=== PATIENT | female | born 1960 | race Caucasian/White ===

== ENCOUNTER 2016-09-15 12:32 | Emergency (ER) | payer MEDICARE, OTHER, MEDICAID ==
[2016-09-15] MEDS ORDERED: TETANUS/DIPHTHERIA/PERTUSSIS 0.5 ML SYRINGE IM ONE ×2 (14:27→14:33)
== END 2016-09-15 14:42 | disposition home or self-care (01) ==
DX: S61.032A Puncture wound without foreign body of left thumb without damage to nail, initial encounter (principal); W27.2XXA Contact with scissors, initial encounter; Z23 Encounter for immunization; I10 Essential (primary) hypertension; E11.9 Type 2 diabetes mellitus without complications; Z79.84 Long term (current) use of oral hypoglycemic drugs

== ENCOUNTER 2016-10-17 | Outpatient (CLI) | payer MEDICARE, OTHER, MEDICAID | END 2016-10-17 17:19 | disposition critical access hospital (66) | CPT/HCPCS: A0425; A0429 ==

== ENCOUNTER 2016-10-17 17:35 | Emergency (ER) | payer MEDICARE, OTHER, MEDICAID | END 2016-10-17 19:28 | disposition home or self-care (01) | DX: S90.01XA Contusion of right ankle, initial encounter (principal); W51.XXXA Accidental striking against or bumped into by another person, initial encounter; Y92.410 Unspecified street and highway as the place of occurrence of the external cause; I10 Essential (primary) hypertension; E11.9 Type 2 diabetes mellitus without complications; Z79.84 Long term (current) use of oral hypoglycemic drugs ==

== ENCOUNTER 2016-10-28 15:55 | Outpatient (CLI) | payer MEDICARE, OTHER, MEDICAID | END 2016-10-28 15:56 | disposition home or self-care (01) | DX: E11.9 Type 2 diabetes mellitus without complications (principal); I10 Essential (primary) hypertension; D50.8 Other iron deficiency anemias ==

== ENCOUNTER 2016-11-01 | Outpatient (CLI) | payer MEDICARE, OTHER, MEDICAID | END 2016-11-01 12:59 | disposition critical access hospital (66) | DX: R00.0 Tachycardia, unspecified (principal) | CPT/HCPCS: A0425; A0427 ==

== ENCOUNTER 2016-11-01 13:20 | Emergency (ER) | payer MEDICARE, OTHER, MEDICAID | END 2016-11-01 15:47 | disposition home or self-care (01) | DX: R00.2 Palpitations (principal); I45.10 Unspecified right bundle-branch block; R94.31 Abnormal electrocardiogram [ECG] [EKG]; I10 Essential (primary) hypertension; E11.9 Type 2 diabetes mellitus without complications; Z79.84 Long term (current) use of oral hypoglycemic drugs ==

== ENCOUNTER 2016-11-14 13:04 | Emergency (ER) | payer MEDICARE, OTHER, MEDICAID | END 2016-11-14 15:54 | disposition home or self-care (01) | DX: S93.601A Unspecified sprain of right foot, initial encounter (principal); W01.0XXA Fall on same level from slipping, tripping and stumbling without subsequent striking against object, initial encounter; I10 Essential (primary) hypertension; E11.9 Type 2 diabetes mellitus without complications; Z79.84 Long term (current) use of oral hypoglycemic drugs ==

== ENCOUNTER 2016-11-15 14:40 | Outpatient (CLI) | payer MEDICARE, OTHER, MEDICAID | END 2016-11-15 14:41 | disposition EMS.NT | DX: M79.671 Pain in right foot (principal) ==

== ENCOUNTER 2016-11-25 11:08 | Outpatient (CLI) | payer MEDICARE, OTHER, MEDICAID | END 2016-11-25 11:09 | disposition home or self-care (01) | DX: I42.9 Cardiomyopathy, unspecified (principal); I49.3 Ventricular premature depolarization ==

== ENCOUNTER 2016-11-27 10:05 | Outpatient (CLI) | payer MEDICARE, OTHER, MEDICAID | END 2016-11-27 10:06 | disposition critical access hospital (66) | DX: R52 Pain, unspecified (principal) | CPT/HCPCS: A0425; A0429 ==

== ENCOUNTER 2016-11-27 10:26 | Emergency (ER) | payer MEDICARE, OTHER, MEDICAID | END 2016-11-27 12:34 | disposition home or self-care (01) | DX: K42.9 Umbilical hernia without obstruction or gangrene (principal); I10 Essential (primary) hypertension; E11.9 Type 2 diabetes mellitus without complications; Z79.84 Long term (current) use of oral hypoglycemic drugs; Z88.0 Allergy status to penicillin; Z88.2 Allergy status to sulfonamides ==

== ENCOUNTER 2016-11-29 14:08 | Outpatient (CLI) | payer MEDICARE, OTHER, MEDICAID | END 2016-11-29 14:09 | disposition critical access hospital (66) | DX: R10.30 Lower abdominal pain, unspecified (principal) | CPT/HCPCS: A0425; A0429 ==

== ENCOUNTER 2016-11-29 14:27 | Emergency (ER) | payer MEDICARE, OTHER, MEDICAID | END 2016-11-29 15:59 | disposition home or self-care (01) | DX: K42.9 Umbilical hernia without obstruction or gangrene (principal); I10 Essential (primary) hypertension; E11.9 Type 2 diabetes mellitus without complications; Z79.84 Long term (current) use of oral hypoglycemic drugs ==

== ENCOUNTER 2016-12-06 14:08 | Outpatient (CLI) | payer MEDICARE, OTHER, MEDICAID | END 2016-12-06 14:09 | disposition EMS.NT | DX: S61.211A Laceration without foreign body of left index finger without damage to nail, initial encounter (principal) ==

== ENCOUNTER 2016-12-16 09:06 | Day surgery (SDC) | payer MEDICARE, OTHER, MEDICAID ==
[~2016-12-16 09:06] MED LIST: ceFAZolin 3 GM in SODIUM CHLORIDE 0.9% 100ML 100 ML IV SCH
[2016-12-16] MEDS ORDERED: LACTATED RINGERS 1,000 ML IV ONE (09:52)
[2016-12-16] MEDS ORDERED: BUPIVACAINE 0.5% PF 30 ML VIAL INFIL ONE (10:15)
[2016-12-16] MEDS ORDERED: PROPOFOL 200 MG/20 ML VIAL IVP ONE (11:00)
[2016-12-16] MEDS ORDERED: MIDAZOLAM 2 MG/2 ML VIAL IVP ONE (11:00)
[2016-12-16] MEDS ORDERED: DEXAMETHASONE 4 MG/ML VIAL IVP ONE (11:00)
[2016-12-16] MEDS ORDERED: SUCCINYLCHOLINE 200 MG/10 ML VIAL IVP ONE (11:00)
[2016-12-16] MEDS ORDERED: fentaNYL 100 MCG/2 ML VIAL IVP ONE (11:00)
[2016-12-16] MEDS ORDERED: LIDOCAINE-MPF 2% 5 ML VIAL IM ONE (11:00)
[2016-12-16] MEDS ORDERED: PHENYLEPHRINE 50 MG/5 ML VIAL IV ONE (11:00)
[2016-12-16] MEDS ORDERED: KETOROLAC 30 MG/ML VIAL IVP ONE (11:00)
[2016-12-16] MEDS ORDERED: ROCURONIUM 50 MG/5 ML VIAL IVP ONE (11:00)
== END 2016-12-16 09:07 | disposition home or self-care (01) ==
PROC: 0WUF0JZ Supplement Abdominal Wall with Synthetic Substitute, Open Approach (ICD-10-PCS; principal; 2016-12-16 10:00)
DX: K42.9 Umbilical hernia without obstruction or gangrene (principal); E66.01 Morbid (severe) obesity due to excess calories; I10 Essential (primary) hypertension; I49.9 Cardiac arrhythmia, unspecified; E11.9 Type 2 diabetes mellitus without complications; Z68.41 Body mass index [BMI] 40.0-44.9, adult
CPT/HCPCS: 49587; C1781; J7120

== ENCOUNTER 2016-12-27 17:31 | Outpatient (CLI) | payer MEDICARE, OTHER, MEDICAID | END 2016-12-27 17:32 | disposition critical access hospital (66) | DX: R58 Hemorrhage, not elsewhere classified (principal) | CPT/HCPCS: A0425; A0429 ==

== ENCOUNTER 2016-12-27 17:50 | Emergency (ER) | payer MEDICARE, OTHER, MEDICAID | END 2016-12-27 18:43 | disposition home or self-care (01) | DX: L76.34 Postprocedural seroma of skin and subcutaneous tissue following other procedure (principal); L76.22 Postprocedural hemorrhage of skin and subcutaneous tissue following other procedure; Y83.8 Other surgical procedures as the cause of abnormal reaction of the patient, or of later complication, without mention of misadventure at the time of the procedure; R03.0 Elevated blood-pressure reading, without diagnosis of hypertension; E11.9 Type 2 diabetes mellitus without complications; Z79.84 Long term (current) use of oral hypoglycemic drugs ==

== ENCOUNTER 2017-01-01 13:42 | Outpatient (CLI) | payer MEDICARE, OTHER, MEDICAID | END 2017-01-01 13:43 | disposition EMS.NT | DX: Z03.89 Encounter for observation for other suspected diseases and conditions ruled out (principal) ==

== ENCOUNTER 2017-02-03 10:58 | Outpatient (CLI) | payer MEDICARE, OTHER, MEDICAID ==
[2017-02-03 13:03] LABS: CALCIUM 9.3 mg/dL (8.5-10.3); CREATININE 1.3 mg/dL (0.4-1.0); POTASSIUM 4.7 mmol/L (3.5-5.0)
[2017-02-03 13:33] LABS: HEMOGLOBIN A1C 0.65 g/dL
== END 2017-02-03 10:59 | disposition home or self-care (01) ==
LOC: LAB.N 10:58
PROVIDERS: ATTEND Family Medicine
DX: E11.9 Type 2 diabetes mellitus without complications (principal)
CPT/HCPCS: 36415; 80048; 83036

== ENCOUNTER 2017-03-23 11:28 | Emergency (ER) | payer MEDICARE, OTHER, MEDICAID ==
--- NOTE | 2017-03-23 12:26 | ED Physician Documentation ---
PD HPI SKIN - Stated complaint Stated Complaint: RT FT/ANKLE RASH - Chief complaint Chief Complaint: Ext Problem - History obtained from History obtained from: Patient - History of Present Illness Timing - onset: How many weeks ago (few) Timing - duration: Weeks Timing - details: Gradual onset, Still present, Waxing and waning Location: Other (patches of rash on feet after wearing shoes. Tried some antibiotic cream per direction of PMD without improvement. The areas are itchy.) Quality / character: Itchy, Discolored (red). 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 : None HEENT: Chronic vision loss Psych: Other Musculoskeletal: None Derm: None - Past Surgical History Past Surgical History: Yes /PHYSICIAN SUPPORT COORDINATOR: Dilation and currettage, Other HEENT: Myringotomy (tubes) - Present Medications Home Medications: Ambulatory Orders Medication Instructions Recorded Confirmed Cholecalciferol (Vitamin D3) 2,000 unit PO DAILY 01/01/13 12/12/16 [Vitamin D] Ferrous Gluconate [Iron] 324 mg PO DAILY 01/01/13 12/12/16 Lisinopril 20 mg PO DAILY 01/01/13 12/12/16 Metformin HCl 850 mg PO BID 01/01/13 12/12/16 Multivitamin [Multivitamins] 1 each PO DAILY 01/01/13 12/12/16 Sodium Fluoride [Prevident 5000] 1 ml PO DAILY 03/04/14 12/12/16 Lansoprazole [Prevacid] 30 mg PO DAILY 02/18/15 12/12/16 Sucralfate [Carafate] 1 gm PO ACHS #30 udc 02/24/15 12/12/16 Magnesium Chloride [Mag Delay] 64 mg PO DAILY 12/12/16 12/12/16 Clotrimazole/Betamethasone Dip 1 applic TP BID #15 cream..g. 03/23/17 [Clotrimazole-Betamethasone Crm] - Allergies Allergies/Adverse Reactions: Allergies Allergy/AdvReac Type Severity Reaction Status Date / Time Penicillins Allergy Unknown Rash Verified 11/27/16 10:35 sulfamethoxazole Allergy Unknown Rash Verified 11/27/16 10:35 [From ] trimethoprim [From ] Allergy Unknown Rash Verified 11/27/16 10:35 amoxicillin [Amoxicillin] Allergy hives/itchi Verified 11/27/16 10:35 ng - Social History Does the pt smoke?: No Smoking Status: Never smoker Does the pt drink ETOH?: No Does the pt have substance abuse?: No - Immunizations Immunizations are current?: Yes - POLST Patient has POLST: No PD ED PE NORMAL - Vitals Vital signs reviewed: Yes - General General: Alert and oriented X 3, No acute distress, Well developed/nourished - Derm Derm: Warm and dry, Other (both feet with small patches of finely bumpy red demarcated rash spots on dorsum and near heels. Not between toes. No skin breakdown. ) Results - Vitals Vitals: Vital Signs - 24 hr 03/23/17 03/23/17 11:31 13:06 Temperature 36.6 C Heart Rate 78 71 Respiratory 18 18 Rate Blood Pressure 134/76 H 136/62 H O2 Saturation 98 98 Oxygen O2 Source Room air PD MEDICAL DECISION MAKING - ED course Complexity details: considered differential (consider yeast/ tinea patches and will try antifungal. ), d/w patient Departure - Departure Disposition: 01 Home, Self Care Clinical Impression: Skin rash Fungal infection of foot Qualifiers: Laterality: bilateral Qualified Code(s): B35.3 - Tinea pedis Condition: Stable Record reviewed to determine appropriate education?: Yes Follow-Up: Melvin Soto MD [Primary Care Provider] - Prescriptions: Clotrimazole/Betamethasone Dip [Clotrimazole-Betamethasone Crm] 1 applic TP BID #15 cream..g. Comments: Continue the mupirocin ointment twice daily. Add the betamethasone/ Clotrimazole cream as well. Recheck if not better over the next week. Discharge Date/Time: 03/23/17 13:06
[2017-03-23 13:07] VITALS: BP 136/62
== END 2017-03-23 13:06 | disposition home or self-care (01) ==
LOC: ED 11:28
DX: R21 Rash and other nonspecific skin eruption (principal); B35.3 Tinea pedis; E11.9 Type 2 diabetes mellitus without complications; Z79.84 Long term (current) use of oral hypoglycemic drugs
CPT/HCPCS: 99283

== ENCOUNTER 2017-03-29 15:34 | Outpatient (CLI) | payer MEDICARE, OTHER, MEDICAID | END 2017-03-29 15:35 | disposition critical access hospital (66) | LOC: EMS 15:34 | PROVIDERS: ATTEND Surgery | DX: M25.572 Pain in left ankle and joints of left foot (principal); W01.0XXA Fall on same level from slipping, tripping and stumbling without subsequent striking against object, initial encounter; Y92.039 Unspecified place in apartment as the place of occurrence of the external cause | CPT/HCPCS: A0425; A0429 ==

== ENCOUNTER 2017-03-29 15:54 | Emergency (ER) | payer MEDICARE, OTHER, MEDICAID ==
--- NOTE | 2017-03-29 15:59 | ED Physician Documentation ---
PD HPI LOWER EXT INJURY - Stated complaint Stated Complaint: ANKLE PX - History obtained from History obtained from: Patient, EMS - History of Present Illness PD HPI LOW EXT INJURY LOCATION: Other (56-year-old woman with developmental delay who has very frequent ankle injuries, she fell in her house and injured her left ankle. By report she had back pain but she denies this to me. She is able to walk and bear weight. No other injuries. She declines pain medication. 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 : None HEENT: Chronic vision loss Psych: Other Musculoskeletal: None Derm: None - Past Surgical History Past Surgical History: Yes /COMMERCIAL GLAZIER: Dilation and currettage, Other HEENT: Myringotomy (tubes) - Present Medications Home Medications: Ambulatory Orders Medication Instructions Recorded Confirmed Cholecalciferol (Vitamin D3) 2,000 unit PO DAILY 01/01/13 12/12/16 [Vitamin D] Ferrous Gluconate [Iron] 324 mg PO DAILY 01/01/13 12/12/16 Lisinopril 20 mg PO DAILY 01/01/13 12/12/16 Metformin HCl 850 mg PO BID 01/01/13 12/12/16 Multivitamin [Multivitamins] 1 each PO DAILY 01/01/13 12/12/16 Sodium Fluoride [Prevident 5000] 1 ml PO DAILY 03/04/14 12/12/16 Lansoprazole [Prevacid] 30 mg PO DAILY 02/18/15 12/12/16 Sucralfate [Carafate] 1 gm PO ACHS #30 udc 02/24/15 12/12/16 Magnesium Chloride [Mag Delay] 64 mg PO DAILY 12/12/16 12/12/16 Clotrimazole/Betamethasone Dip 1 applic TP BID #15 cream..g. 03/23/17 [Clotrimazole-Betamethasone Crm] - Allergies Allergies/Adverse Reactions: Allergies Allergy/AdvReac Type Severity Reaction Status Date / Time Penicillins Allergy Unknown Rash Verified 11/27/16 10:35 sulfamethoxazole Allergy Unknown Rash Verified 11/27/16 10:35 [From Septra] trimethoprim [From Septra] Allergy Unknown Rash Verified 11/27/16 10:35 amoxicillin [Amoxicillin] Allergy hives/itchi Verified 11/27/16 10:35 ng - Social History Does the pt smoke?: No Smoking Status: Never smoker Does the pt drink ETOH?: No Does the pt have substance abuse?: No - Immunizations Immunizations are current?: Yes - POLST Patient has POLST: No PD ED PE NORMAL - Vitals Vital signs reviewed: Yes - General General: Alert and oriented X 3, No acute distress - Neck Neck: Supple, no meningeal sign, No bony TTP - Back Back: No spinal TTP - Extremities Extremities: Other (Tender to the lateral malleolus of the left ankle without obvious deformity or swelling, no foot or proximal fibular tenderness.) - Neuro Neuro: Alert and oriented X 3, Normal speech Results - Vitals Vitals: Vital Signs - 24 hr 03/29/17 15:59 Temperature 36.9 C Heart Rate 124 H Respiratory 18 Rate Blood Pressure 134/69 H O2 Saturation 98 Oxygen O2 Source Room air - Rads (name of study) L ankle 3vb Radiology: EMP read contemporaneously (stable chronic changes, no frx) Departure - Departure Disposition: 01 Home, Self Care Clinical Impression: Ankle sprain Qualifiers: Encounter type: initial encounter Involved ligament of ankle: unspecified ligament Laterality: left Qualified Code(s): S93.402A - Sprain of unspecified ligament of left ankle, initial encounter Condition: Good Instructions: ED Sprain Ankle W X Ray Comments: Tylenol as needed for pain. Return if worse. Follow-up with your doctor in 1 week if not better. Your blood pressure was elevated today on check into the emergency department. This does not mean that you have hypertension, it is a common phenomenon to come to the emergency department and have elevated blood pressure. I recommend that she see her primary care physician within the week to have it rechecked when you are feeling better.
[2017-03-29 16:01] VITALS: BP 134/69
--- NOTE | 2017-03-29 16:35 | XRAY Preliminary Report ---
Exam: XR Ankle 3 View LT IMPRESSION: 1. No acute bony abnormality. 2. 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 [facility] SITE ID: [id number]
--- NOTE | 2017-03-29 16:38 | XRAY Report ---
EXAM: LEFT ANKLE RADIOGRAPHY EXAM DATE: 03/29/2017 04:13 PM. CLINICAL HISTORY: Fall Ankle injury. Pain. COMPARISON: 11/05/2015. TECHNIQUE: 3 views. FINDINGS: Bones: No acute traumatic or destructive bone abnormality. Stable lateral talar dome deformity concer lopez for osteochondritis dissecans. Stable calcaneal enthesophytes. Joints: Normal. No effusion. No subluxations. The ankle mortise is normally aligned. Soft Tissues: Normal. No soft tissue swelling. IMPRESSION: 1. No acute bony abnormality. 2. 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 [facility] Referring Provider Line: [phone] SITE ID: [id number]
== END 2017-03-29 18:53 | disposition home or self-care (01) ==
LOC: EDUNIT# → ED 15:54
DX: S93.402A Sprain of unspecified ligament of left ankle, initial encounter (principal); E11.8 Type 2 diabetes mellitus with unspecified complications; Z79.84 Long term (current) use of oral hypoglycemic drugs; W19.XXXA Unspecified fall, initial encounter; Y92.009 Unspecified place in unspecified non-institutional (private) residence as the place of occurrence of the external cause
CPT/HCPCS: 99283

== ENCOUNTER 2017-04-24 11:05 | Emergency (ER) | payer MEDICARE, OTHER, MEDICAID ==
[2017-04-24 11:25] VITALS: BP 107/64
--- NOTE | 2017-04-24 12:22 | ED Physician Documentation ---
PD HPI LOWER EXT INJURY - Stated complaint Stated Complaint: LT KNEE PX - Chief complaint Chief Complaint: Ext Problem - History obtained from History obtained from: Patient - History of Present Illness PD HPI LOW EXT INJURY LOCATION: Left, Knee Type of injury: Fall Where injury occurred: Home Timing - onset: Today Associated symptoms: No: Swelling - Additional information Additional information: The patient is a 56-year-old female who is well-known to us in the emergency department because of frequent emergency department visits, often with minor complaints. Today she complains of left knee pain caused by falling on the sidewalk when she stumbled this morning. She has been ambulatory since the incident occurred. She denies any other injuries. 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 : None HEENT: Chronic vision loss Psych: Other Musculoskeletal: None Derm: None - Past Surgical History Past Surgical History: Yes /LOADER OPERATOR SUPERVISOR: Dilation and currettage, Other HEENT: Myringotomy (tubes) - Present Medications Home Medications: Ambulatory Orders Medication Instructions Recorded Confirmed Cholecalciferol (Vitamin D3) 2,000 unit PO DAILY 01/01/13 04/24/17 [Vitamin D] Ferrous Gluconate [Iron] 324 mg PO DAILY 01/01/13 04/24/17 Lisinopril 20 mg PO DAILY 01/01/13 04/24/17 Metformin HCl 850 mg PO BID 01/01/13 04/24/17 Multivitamin [Multivitamins] 1 each PO DAILY 01/01/13 04/24/17 Sodium Fluoride [Prevident 5000] 1 ml PO DAILY 03/04/14 04/24/17 Lansoprazole [Prevacid] 30 mg PO DAILY 02/18/15 04/24/17 Sucralfate [Carafate] 1 gm PO ACHS #30 udc 02/24/15 04/24/17 Magnesium Chloride [Mag Delay] 64 mg PO DAILY 12/12/16 04/24/17 Clotrimazole/Betamethasone Dip 1 applic TP BID #15 cream..g. 03/23/17 04/24/17 [Clotrimazole-Betamethasone Crm] - Allergies Allergies/Adverse Reactions: Allergies Allergy/AdvReac Type Severity Reaction Status Date / Time Penicillins Allergy Unknown Rash Verified 04/24/17 11:27 sulfamethoxazole Allergy Unknown Rash Verified 04/24/17 11:27 [From ] trimethoprim [From ] Allergy Unknown Rash Verified 04/24/17 11:27 amoxicillin [Amoxicillin] Allergy hives/itchi Verified 04/24/17 11:27 ng - Social History Does the pt smoke?: No Smoking Status: Never smoker Does the pt drink ETOH?: No Does the pt have substance abuse?: No - Immunizations Immunizations are current?: Yes - POLST Patient has POLST: No PD ED PE NORMAL - Vitals Vital signs reviewed: Yes (normal) - General General: Alert and oriented X 3, Well developed/nourished - HEENT HEENT: Atraumatic - Neck Neck: No bony TTP - Cardiac Cardiac: RRR - Respiratory Respiratory: No respiratory distress - Back Back: No CVA TTP - Derm Derm: No rash - Extremities Extremities: No edema, No calf tenderness / cord, Other (There is minimal tenderness to palpation at the infrapatellar region of the left knee. There is no swelling, abrasion, ecchymosis, or erythema. There is no tenderness to palpation along the joint lines, and no ligamentous instability detected. She has full flexion and extension of the knee. Distal neurovascular is intact.) - Neuro Neuro: Alert and oriented X 3, No motor deficit, No sensory deficit Results - Vitals Vitals: Oxygen O2 Source Room air PD MEDICAL DECISION MAKING - ED course Complexity details: reviewed old records, considered differential, d/w patient ED course: The patient's presentation is significant for mild contusion to the left knee secondary to falling. Based on her physical examination, I doubt that imaging studies would be of clinical benefit. I discussed this with her and she expressed agreement. I discussed with her the expected course of injury, symptomatic treatment, as well as potentially worrisome signs or symptoms that should prompt reevaluation. Departure - Departure Disposition: 01 Home, Self Care Clinical Impression: Contusion of left knee Qualifiers: Encounter type: initial encounter Qualified Code(s): S80.02XA - Contusion of left knee, initial encounter Condition: Stable Instructions: ED Contusion Lower Ext Follow-Up: Melvin Soto MD [Primary Care Provider] - Comments: Apply ice pack to your left knee intermittently for the next 3 days. You can use ibuprofen if needed for discomfort. Follow-up with your primary physician if not improving within 1-2 weeks. Return to the emergency department if you develop increasing pain or swelling of your knee, or otherwise worsening symptoms. Discharge Date/Time: 04/24/17 12:32
== END 2017-04-24 12:32 | disposition home or self-care (01) ==
LOC: ED 11:05
DX: S80.02XA Contusion of left knee, initial encounter (principal); W01.0XXA Fall on same level from slipping, tripping and stumbling without subsequent striking against object, initial encounter; Y93.01 Activity, walking, marching and hiking; Y92.480 Sidewalk as the place of occurrence of the external cause; E11.9 Type 2 diabetes mellitus without complications; Z79.84 Long term (current) use of oral hypoglycemic drugs
CPT/HCPCS: 99282; 99283

== ENCOUNTER 2017-04-28 13:00 | Emergency (ER) | payer MEDICARE, OTHER, MEDICAID ==
[2017-04-28 13:08] VITALS: BP 114/64
--- NOTE | 2017-04-28 13:59 | ED Physician Documentation ---
PD HPI UPPER EXT INJURY - Stated complaint Stated Complaint: L WRIST INJ - Chief complaint Chief Complaint: Ext Problem - History obtained from History obtained from: Patient - History of Present Illness Location: Other (56-year-old woman had a fall on outstretched left wrist earlier today and has anterior wrist pain, no other injuries.) Review of Systems Constitutional: reports: Reviewed and negative Cardiac: reports: Reviewed and negative Respiratory: reports: Reviewed and negative PD PAST MEDICAL HISTORY - Past Medical History Cardiovascular: Other Respiratory: None Endocrine/Autoimmune: Type 2 diabetes GI: Chronic diarrhea 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 : None HEENT: Chronic vision loss Psych: Other Musculoskeletal: None Derm: None - Past Surgical History Past Surgical History: Yes /DESIGNER AND PATTERNMAKER: Dilation and currettage, Other HEENT: Myringotomy (tubes) - Present Medications Home Medications: Ambulatory Orders Medication Instructions Recorded Confirmed Cholecalciferol (Vitamin D3) 2,000 unit PO DAILY 01/01/13 04/28/17 [Vitamin D] Ferrous Gluconate [Iron] 324 mg PO DAILY 01/01/13 04/28/17 Lisinopril 20 mg PO DAILY 01/01/13 04/28/17 Metformin HCl 850 mg PO BID 01/01/13 04/28/17 Multivitamin [Multivitamins] 1 each PO DAILY 01/01/13 04/28/17 Sodium Fluoride [Prevident 5000] 1 ml PO DAILY 03/04/14 04/28/17 Lansoprazole [Prevacid] 30 mg PO DAILY 02/18/15 04/28/17 Sucralfate [Carafate] 1 gm PO ACHS #30 udc 02/24/15 04/28/17 Magnesium Chloride [Mag Delay] 64 mg PO DAILY 12/12/16 04/28/17 Clotrimazole/Betamethasone Dip 1 applic TP BID #15 cream..g. 03/23/17 04/28/17 [Clotrimazole-Betamethasone Crm] - Allergies Allergies/Adverse Reactions: Allergies Allergy/AdvReac Type Severity Reaction Status Date / Time Penicillins Allergy Unknown Rash Verified 04/24/17 11:27 sulfamethoxazole Allergy Unknown Rash Verified 04/24/17 11:27 [From Mayra] trimethoprim [From ] Allergy Unknown Rash Verified 04/24/17 11:27 amoxicillin [Amoxicillin] Allergy hives/itchi Verified 04/24/17 11:27 ng - Social History Does the pt smoke?: No Smoking Status: Never smoker Does the pt drink ETOH?: No Does the pt have substance abuse?: No - Immunizations Immunizations are current?: Yes - POLST Patient has POLST: No PD ED PE NORMAL - Vitals Vital signs reviewed: Yes - General General: No acute distress, Well developed/nourished - Neck Neck: No bony TTP - Extremities Extremities: Other (Left wrist is mildly tender anteriorly with no limited range of motion and normal neurovascular status in the hand.) Results - Vitals Vitals: Vital Signs - 24 hr 04/28/17 13:05 Temperature 36.6 C Heart Rate 79 Respiratory 17 Rate Blood Pressure 114/64 O2 Saturation 99 Oxygen O2 Source Room air - Rads (name of study) L wrist Radiology: EMP read contemporaneously (MARS, no frx) Departure - Departure Disposition: 01 Home, Self Care Clinical Impression: Left wrist sprain Qualifiers: Encounter type: initial encounter Qualified Code(s): S63.502A - Unspecified sprain of left wrist, initial encounter Condition: Good Record reviewed to determine appropriate education?: Yes Instructions: ED Sprain Wrist, ED Splint Care Poli Comments: Follow-up with your physician in 1 week if persistently painful. Discharge Date/Time: 04/28/17 14:03
--- NOTE | 2017-04-28 14:04 | XRAY Preliminary Report ---
Exam: XR Wrist 4 View LT IMPRESSION: No acute disease. [facility] SITE ID: [id number]
--- NOTE | 2017-04-28 14:07 | XRAY Report ---
EXAM: LEFT WRIST RADIOGRAPHY EXAM DATE: 04/28/2017 01:54 PM. CLINICAL HISTORY: Trauma, pain. COMPARISON: 02/17/2014. TECHNIQUE: 4 views. FINDINGS: Bones: No definite fracture or other bone lesion. Joints: Minimal degenerative changes in the first CMC and navicular multangular joints with small sub chondral cyst in the greater multangular bone. Joint spaces generally well preserved. Soft Tissues: Unremarkable. IMPRESSION: No acute disease. [facility] Referring Provider Line: [phone] SITE ID: [id number]
== END 2017-04-28 14:03 | disposition home or self-care (01) ==
LOC: ED 13:00
DX: S63.502A Unspecified sprain of left wrist, initial encounter (principal); W19.XXXA Unspecified fall, initial encounter; E11.8 Type 2 diabetes mellitus with unspecified complications; Z79.84 Long term (current) use of oral hypoglycemic drugs
CPT/HCPCS: 99282; 99283

== ENCOUNTER 2017-05-02 11:17 | Outpatient (CLI) | payer MEDICARE, OTHER, MEDICAID | END 2017-05-02 11:18 | disposition critical access hospital (66) | LOC: EMS 11:17 | PROVIDERS: ATTEND Surgery | DX: R10.2 Pelvic and perineal pain (principal) | CPT/HCPCS: A0425; A0429 ==

== ENCOUNTER 2017-05-02 11:36 | Emergency (ER) | payer MEDICARE, OTHER, MEDICAID ==
[2017-05-02 12:02] VITALS: BP 116/70
[2017-05-02] MEDS ORDERED: CLINDAMYCIN 150 MG CAPSULE PO STA (13:07)
--- NOTE | 2017-05-02 13:10 | ED Physician Documentation ---
PD HPI FEMALE - Stated complaint Stated Complaint: FEM - Chief complaint Chief Complaint: General - History obtained from History obtained from: Patient - History of Present Illness Timing - onset: How many days ago (several) Timing - duration: Days (several) Timing - details: Gradual onset Pain level max: 4 Pain level max: 4 Associated symptoms: Other (states vaginal pain, unable to describe) Contributing factors: No: Similar symptoms before: Has not had sx before Recently seen: Not recently seen - Additional information Additional information: states tried to call her PCP and sent here for eval. 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 ANALYST: Dilation and currettage, Other HEENT: Myringotomy (tubes) - Present Medications Home Medications: Ambulatory Orders Medication Instructions Recorded Confirmed Cholecalciferol (Vitamin D3) 2,000 unit PO DAILY 01/01/13 04/28/17 [Vitamin D] Ferrous Gluconate [Iron] 324 mg PO DAILY 01/01/13 04/28/17 Lisinopril 20 mg PO DAILY 01/01/13 04/28/17 Metformin HCl 850 mg PO BID 01/01/13 04/28/17 Multivitamin [Multivitamins] 1 each PO DAILY 01/01/13 04/28/17 Sodium Fluoride [Prevident 5000] 1 ml PO DAILY 03/04/14 04/28/17 Lansoprazole [Prevacid] 30 mg PO DAILY 02/18/15 04/28/17 Sucralfate [Carafate] 1 gm PO ACHS #30 udc 02/24/15 04/28/17 Magnesium Chloride [Mag Delay] 64 mg PO DAILY 12/12/16 04/28/17 Clotrimazole/Betamethasone Dip 1 applic TP BID #15 cream..g. 03/23/17 04/28/17 [Clotrimazole-Betamethasone Crm] Clindamycin HCl 300 mg PO Q6H #40 capsule 05/02/17 - Allergies Allergies/Adverse Reactions: Allergies Allergy/AdvReac Type Severity Reaction Status Date / Time Penicillins Allergy Unknown Rash Verified 04/24/17 11:27 sulfamethoxazole Allergy Unknown Rash Verified 04/24/17 11:27 [From ] trimethoprim [From ] Allergy Unknown Rash Verified 04/24/17 11:27 amoxicillin [Amoxicillin] Allergy hives/itchi Verified 04/24/17 11:27 ng - Social History Does the pt smoke?: No Smoking Status: Never smoker Does the pt drink ETOH?: No Does the pt have substance abuse?: No - Immunizations Immunizations are current?: Yes - POLST Patient has POLST: No PD ED PE NORMAL - Vitals Vital signs reviewed: Yes - General General: Alert and oriented X 3, No acute distress - Abdomen Abdomen: Soft, Non tender, Non distended - Female Female : Other (R labial abscess, draining spontaneously.) - Derm Derm: Warm and dry - Neuro Neuro: Alert and oriented X 3 - Psych Psych: Normal mood, Normal affect Results - Vitals Vitals: Vital Signs - 24 hr 05/02/17 12:00 Temperature 37.1 C Heart Rate 91 Respiratory 16 Rate Blood Pressure 116/70 O2 Saturation 98 Oxygen O2 Source Room air - Labs Labs: Microbiology 05/02/17 13:05 Wound Culture - Preliminary Abscess PD MEDICAL DECISION MAKING - ED course Complexity details: considered differential, d/w patient ED course: Patient is a 56-year-old female who presents to the emergency department with a right-sided labial abscess that is spontaneously draining. Remainder of the purulent discharge was removed. Wound culture obtained. Will place on antibiotics. Will follow up with her doctor for further evaluation and care. Patient counseled regarding signs and symptoms for which I believe and urgent re -evaluation would be necessary. Patient with good understanding of and agreement to plan and is comfortable going home at this time This document was made in part using voice recognition software. While efforts are made to proofread this document, sound alike and grammatical errors may occur. Departure - Departure Disposition: 01 Home, Self Care Clinical Impression: Labial abscess Condition: Good Instructions: ED Bartholins Cyst IandD Follow-Up: your,doctor in 3 days for wound check [Other] Prescriptions: Clindamycin HCl 300 mg PO Q6H #40 capsule Comments: Take all antibiotics until gone. Return if you worsen. Sit in a warm bath for 15-20 minutes at a time 2-3 times daily to help the wound drain. Discharge Date/Time: 05/02/17 14:00
== END 2017-05-02 14:00 | disposition home or self-care (01) ==
LOC: EDUNIT# → ED 11:36
DX: N76.4 Abscess of vulva (principal); E11.9 Type 2 diabetes mellitus without complications; Z79.84 Long term (current) use of oral hypoglycemic drugs
CPT/HCPCS: 87070; 87205; 99283

== ENCOUNTER 2017-05-15 08:48 | Outpatient (CLI) | payer MEDICARE, OTHER, MEDICAID ==
--- NOTE | 2017-05-19 12:28 | Mammography Report ---
DIGITAL SCREENING MAMMOGRAPHY: 05/15/2017 COMPARISON: 09/11/2015, 09/12/2014, 08/16/2013, 05/25/2012, 12/02/2010, 10/08/2009, 09/05/2008, and 07/15/2007. TECHNIQUE: Bilateral digital CC and MLO projections are performed. FINDINGS: There is extensive fatty replacement of the breast tissue. There is no dominant mass, arc hitectural distortion, skin thickening, suspicious microcalcifications, or significant interval gonzalez e. IMPRESSION: NEGATIVE. BIRADS CATEGORY 1. SUGGEST ROUTINE FOLLOWUP IN 12 MONTHS UNLESS THERE IS A C LINICAL CHANGE. STANDARD QUALIFYING STATEMENTS 1. This examination was reviewed with the aid of Computer-Aided Detection (CAD). 2. A negative or benign imaging report should not delay biopsy if clinically suspicious findings are present. Consider surgical consultation if warranted. More than 5% of cancers are not identified by i maging. 3. Dense breasts may obscure an underlying neoplasm. JOB #: [id number] EXT JOB #:[id number]
== END 2017-05-15 08:49 | disposition home or self-care (01) ==
LOC: DI.N 08:48
PROVIDERS: ATTEND Obstetrics & Gynecology
DX: Z12.31 Encounter for screening mammogram for malignant neoplasm of breast (principal)
CPT/HCPCS: 77067

== ENCOUNTER 2017-05-21 16:03 | Emergency (ER) | payer MEDICARE, OTHER, MEDICAID ==
--- NOTE | 2017-05-21 17:00 | XRAY Preliminary Report ---
Exam: XR Wrist 4 View LT IMPRESSION: Normal wrist radiography. [facility] SITE ID: [id number]
--- NOTE | 2017-05-21 17:03 | XRAY Report ---
EXAM: RIGHT WRIST RADIOGRAPHY EXAM DATE: 05/21/2017 04:34 PM. CLINICAL HISTORY: Trauma, pain. COMPARISON: 02/17/2014. TECHNIQUE: 4 views. FINDINGS: Bones: Normal. No fractures or bone lesions. Joints: Normal. No subluxations. Soft Tissues: Unremarkable. IMPRESSION: Normal wrist radiography. [facility] Referring Provider Line: [phone] SITE ID: [id number]
--- NOTE | 2017-05-21 17:27 | ED Physician Documentation ---
PD HPI UPPER EXT INJURY - Stated complaint Stated Complaint: LT HAND PX - Chief complaint Chief Complaint: Ext Problem - History obtained from History obtained from: Patient - History of Present Illness Location: Left, Wrist Type of injury: Fall Where injury occurred: Home Timing - onset: Today - Additonal information Additional information: The patient is a 56-year-old female who is well known to us in the emergency department because of her frequent visits with minor injuries or complaints. Today she complains of injury to her left wrist that occurred when she fell on her porch step earlier today. She is right hand dominant. She denies any other injuries. Review of Systems Constitutional: denies: Fever Respiratory: denies: Dyspnea GI: denies: Nausea, Vomiting Musculoskeletal: reports: Extremity pain (Left wrist.). 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 : None HEENT: Chronic vision loss Psych: Other Musculoskeletal: None Derm: None - Past Surgical History Past Surgical History: Yes /P D DRIVER: Dilation and currettage, Other HEENT: Myringotomy (tubes) - Present Medications Home Medications: Ambulatory Orders Medication Instructions Recorded Confirmed Cholecalciferol (Vitamin D3) 2,000 unit PO DAILY 01/01/13 05/21/17 [Vitamin D] Ferrous Gluconate [Iron] 324 mg PO DAILY 01/01/13 05/21/17 Lisinopril 20 mg PO DAILY 01/01/13 05/21/17 Metformin HCl 850 mg PO BID 01/01/13 05/21/17 Multivitamin [Multivitamins] 1 each PO DAILY 01/01/13 05/21/17 Sodium Fluoride [Prevident 5000] 1 ml PO DAILY 03/04/14 05/21/17 Lansoprazole [Prevacid] 30 mg PO DAILY 02/18/15 05/21/17 Sucralfate [Carafate] 1 gm PO ACHS #30 udc 02/24/15 05/21/17 Magnesium Chloride [Mag Delay] 64 mg PO DAILY 12/12/16 05/21/17 Clotrimazole/Betamethasone Dip 1 applic TP BID #15 cream..g. 03/23/17 05/21/17 [Clotrimazole-Betamethasone Crm] Clindamycin HCl 300 mg PO Q6H #40 capsule 05/02/17 05/21/17 - Allergies Allergies/Adverse Reactions: Allergies Allergy/AdvReac Type Severity Reaction Status Date / Time Penicillins Allergy Unknown Rash Verified 05/21/17 16:14 sulfamethoxazole Allergy Unknown Rash Verified 05/21/17 16:14 [From ] trimethoprim [From ] Allergy Unknown Rash Verified 05/21/17 16:14 amoxicillin [Amoxicillin] Allergy hives/itchi Verified 05/21/17 16:14 ng - Social History Does the pt smoke?: No Smoking Status: Never smoker Does the pt drink ETOH?: No Does the pt have substance abuse?: No - Immunizations Immunizations are current?: Yes - POLST Patient has POLST: No PD ED PE NORMAL - Vitals Vital signs reviewed: Yes (Normal) - General General: Alert and oriented X 3, Well developed/nourished - HEENT HEENT: Atraumatic - Neck Neck: No bony TTP - Respiratory Respiratory: No respiratory distress - Derm Derm: No rash - Extremities Extremities: No deformity, Other (There is a superficial abrasion on the volar aspect of the left wrist, with associated mild tenderness to palpation. She has full flexion and extension of the wrist, as well as supination and pronation of the forearm. Distal neurovascular is intact.) - Neuro Neuro: Alert and oriented X 3, No motor deficit, Normal speech Results - Vitals Vitals: Oxygen O2 Source Room air - Rads (name of study) left wrist xrays Radiology: Prelim report reviewed, EMP read contemporaneously, See rad report ( Normal wrist radiography.) PD MEDICAL DECISION MAKING - ED course Complexity details: reviewed results, considered differential, d/w patient ED course: The patient's presentation is significant for contusion to the left wrist with a superficial abrasion. There is no evidence of fracture or dislocation on x- ray examination. I discussed the results of the imaging study with her. She was insistent that should apply a splint because of her injury. I advised her that splint application is not clinically indicated. Departure - Departure Disposition: 01 Home, Self Care Clinical Impression: Contusion of left wrist Qualifiers: Encounter type: initial encounter Qualified Code(s): S60.212A - Contusion of left wrist, initial encounter Condition: Stable Instructions: ED Contusion Upper Ext Follow-Up: Melvin Soto MD [Credentialed Staff Provider] - Comments: You can use Tylenol or ibuprofen if needed for discomfort. Let pain be your guide to activity level. Follow up with your primary physician if you develop increasing pain, any sign of infection, or otherwise worsening symptoms. Discharge Date/Time: 05/21/17 17:47
[2017-05-21 17:48] VITALS: BP 127/80
== END 2017-05-21 17:47 | disposition home or self-care (01) ==
LOC: ED 16:03
DX: S60.212A Contusion of left wrist, initial encounter (principal); S60.812A Abrasion of left wrist, initial encounter; W18.39XA Other fall on same level, initial encounter; E11.9 Type 2 diabetes mellitus without complications; Z79.84 Long term (current) use of oral hypoglycemic drugs
CPT/HCPCS: 99282; 99283

== ENCOUNTER 2017-05-26 10:52 | Outpatient (CLI) | payer MEDICARE, OTHER, MEDICAID ==
[2017-05-26 13:09] LABS: CALCIUM 9.1 mg/dL (8.5-10.3); CREATININE 1.4 mg/dL (0.4-1.0); POTASSIUM 4.3 mmol/L (3.5-5.0)
[2017-05-26 13:14] LABS: HEMOGLOBIN A1C 0.6 g/dL
== END 2017-05-26 10:53 | disposition home or self-care (01) ==
LOC: LAB.N 10:52
PROVIDERS: ATTEND Family Medicine
DX: E11.9 Type 2 diabetes mellitus without complications (principal); I10 Essential (primary) hypertension
CPT/HCPCS: 36415; 80048; 83036

== ENCOUNTER 2017-05-29 13:36 | Outpatient (CLI) | payer MEDICARE, OTHER, MEDICAID | END 2017-05-29 13:37 | disposition critical access hospital (66) | LOC: EMS 13:36 | PROVIDERS: ATTEND Surgery | DX: M25.571 Pain in right ankle and joints of right foot (principal) | CPT/HCPCS: A0425; A0429 ==

== ENCOUNTER 2017-05-29 13:54 | Emergency (ER) | payer MEDICARE, OTHER, MEDICAID ==
[2017-05-29 14:02] VITALS: BP 149/80
[2017-05-29] MEDS ORDERED: BACITRACIN OINT TOP STA (15:13)
[2017-05-29] MEDS ORDERED: CETIRIZINE 10 MG TABLET PO STA (15:13)
--- NOTE | 2017-05-29 15:14 | ED Physician Documentation ---
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 HEENT: Chronic vision loss Psych: Other Musculoskeletal: None Derm: None - Past Surgical History Past Surgical History: Yes /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: Dilation and currettage, Other HEENT: Myringotomy (tubes) - Present Medications Home Medications: Ambulatory Orders Medication Instructions Recorded Confirmed Cholecalciferol (Vitamin D3) 2,000 unit PO DAILY 01/01/13 05/21/17 [Vitamin D] Ferrous Gluconate [Iron] 324 mg PO DAILY 01/01/13 05/21/17 Lisinopril 20 mg PO DAILY 01/01/13 05/21/17 Metformin HCl 850 mg PO BID 01/01/13 05/21/17 Multivitamin [Multivitamins] 1 each PO DAILY 01/01/13 05/21/17 Sodium Fluoride [Prevident 5000] 1 ml PO DAILY 03/04/14 05/21/17 Lansoprazole [Prevacid] 30 mg PO DAILY 02/18/15 05/21/17 Sucralfate [Carafate] 1 gm PO ACHS #30 udc 02/24/15 05/21/17 Magnesium Chloride [Mag Delay] 64 mg PO DAILY 12/12/16 05/21/17 Clotrimazole/Betamethasone Dip 1 applic TP BID #15 cream..g. 03/23/17 05/21/17 [Clotrimazole-Betamethasone Crm] Clindamycin HCl 300 mg PO Q6H #40 capsule 05/02/17 05/21/17 - Allergies Allergies/Adverse Reactions: Allergies Allergy/AdvReac Type Severity Reaction Status Date / Time Penicillins Allergy Unknown Rash Verified 05/21/17 16:14 sulfamethoxazole Allergy Unknown Rash Verified 05/21/17 16:14 [From ] trimethoprim [From ] Allergy Unknown Rash Verified 05/21/17 16:14 amoxicillin [Amoxicillin] Allergy hives/itchi Verified 05/21/17 16:14 ng - Social History Does the pt smoke?: No Smoking Status: Never smoker Does the pt drink ETOH?: No Does the pt have substance abuse?: No - Immunizations Immunizations are current?: Yes - POLST Patient has POLST: No PD ED PE NORMAL - Vitals Vital signs reviewed: Yes - Cardiac Cardiac: RRR - Respiratory Respiratory: No respiratory distress, Clear bilaterally - Extremities Extremities: Other (2 inch diameter slightly warm red patch s abscess necrosis, vesicle streaking crepitus etc, MSV intact) Results - Vitals Vitals: Vital Signs - 24 hr 05/29/17 14:00 Temperature 36.3 C L Heart Rate 74 Respiratory 17 Rate Blood Pressure 149/80 H O2 Saturation 98 Oxygen O2 Source Nasal cannula Departure - Departure Disposition: 01 Home, Self Care Clinical Impression: Insect bite Qualifiers: Encounter type: initial encounter Qualified Code(s): W57.XXXA - Bitten or stung by nonvenomous insect and other nonvenomous arthropods, initial encounter Condition: Good Instructions: ED Bite Sting Insect Local Allergic React Comments: Take the allergy medication zyrtec 10 mg once a day for 3 days or until better Wash the spot and apply antibiotic ointment twice a day Follow up with your PMD if not better - and to get your blood pressure rechecked because it was high today. Return if worse
[2017-05-29] MEDS ORDERED: CETIRIZINE 10 MG TABLET ONE (15:22)
[2017-05-29] MEDS ORDERED: BACITRACIN OINT TOP ONE (15:22)
== END 2017-05-29 15:26 | disposition home or self-care (01) ==
LOC: EDUNIT# → ED 13:54
DX: S80.861A Insect bite (nonvenomous), right lower leg, initial encounter (principal); W57.XXXA Bitten or stung by nonvenomous insect and other nonvenomous arthropods, initial encounter; E11.9 Type 2 diabetes mellitus without complications; R03.0 Elevated blood-pressure reading, without diagnosis of hypertension
CPT/HCPCS: 99282; 99283; A9270

== ENCOUNTER 2017-05-30 17:44 | Outpatient (CLI) | payer MEDICARE, OTHER, MEDICAID | END 2017-05-30 17:45 | disposition critical access hospital (66) | LOC: EMS 17:44 | PROVIDERS: ATTEND Surgery | DX: M25.572 Pain in left ankle and joints of left foot (principal) | CPT/HCPCS: A0425; A0429 ==

== ENCOUNTER 2017-05-30 18:04 | Emergency (ER) | payer MEDICARE, OTHER, MEDICAID ==
[2017-05-30 18:08] VITALS: BP 124/75
--- NOTE | 2017-05-30 18:17 | ED Physician Documentation ---
PD HPI LOWER EXT INJURY - Stated complaint Stated Complaint: L ANKLE PX - Chief complaint Chief Complaint: Ext Problem - History obtained from History obtained from: Patient, EMS - History of Present Illness PD HPI LOW EXT INJURY LOCATION: Left, Foot (This is a 56-year-old woman with developmental delay who has frequent musculoskeletal complaints, especially the ankles. Today she had a trip without fall and injured her left ankle, she points at the posterior calcaneus/insertion of the Achilles as the point of the pain. 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 SINGLE NEEDLE: Dilation and currettage, Other HEENT: Myringotomy (tubes) - Present Medications Home Medications: Ambulatory Orders Medication Instructions Recorded Confirmed Cholecalciferol (Vitamin D3) 2,000 unit PO DAILY 01/01/13 05/21/17 [Vitamin D] Ferrous Gluconate [Iron] 324 mg PO DAILY 01/01/13 05/21/17 Lisinopril 20 mg PO DAILY 01/01/13 05/21/17 Metformin HCl 850 mg PO BID 01/01/13 05/21/17 Multivitamin [Multivitamins] 1 each PO DAILY 01/01/13 05/21/17 Sodium Fluoride [Prevident 5000] 1 ml PO DAILY 03/04/14 05/21/17 Lansoprazole [Prevacid] 30 mg PO DAILY 02/18/15 05/21/17 Sucralfate [Carafate] 1 gm PO ACHS #30 udc 02/24/15 05/21/17 Magnesium Chloride [Mag Delay] 64 mg PO DAILY 12/12/16 05/21/17 Clotrimazole/Betamethasone Dip 1 applic TP BID #15 cream..g. 03/23/17 05/21/17 [Clotrimazole-Betamethasone Crm] Clindamycin HCl 300 mg PO Q6H #40 capsule 05/02/17 05/21/17 - Allergies Allergies/Adverse Reactions: Allergies Allergy/AdvReac Type Severity Reaction Status Date / Time Penicillins Allergy Unknown Rash Verified 05/21/17 16:14 sulfamethoxazole Allergy Unknown Rash Verified 05/21/17 16:14 [From ] trimethoprim [From ] Allergy Unknown Rash Verified 05/21/17 16:14 amoxicillin [Amoxicillin] Allergy hives/itchi Verified 05/21/17 16:14 ng - Social History Does the pt smoke?: No Smoking Status: Never smoker Does the pt drink ETOH?: No Does the pt have substance abuse?: No - Immunizations Immunizations are current?: Yes - POLST Patient has POLST: No PD ED PE NORMAL - Vitals Vital signs reviewed: Yes - General General: Alert and oriented X 3, No acute distress - Extremities Extremities: Other (Mild tenderness of the insertion of the Achilles on the calcaneus, however Achilles function and Warner's test are normal. No malleolar tenderness or or other foot tenderness.) - Neuro Neuro: Alert and oriented X 3, Normal speech Results - Vitals Vitals: Vital Signs - 24 hr 05/30/17 18:07 Temperature 36.5 C Heart Rate 74 Respiratory 18 Rate Blood Pressure 124/75 O2 Saturation 98 Oxygen O2 Source Room air - Rads (name of study) Left calcaneus Radiology: EMP read contemporaneously (Small plantar and posterior calcaneal spurs without acute findings.) Departure - Departure Disposition: 01 Home, Self Care Clinical Impression: Strain of left Achilles tendon Qualifiers: Encounter type: initial encounter Qualified Code(s): S86.012A - Strain of left Achilles tendon, initial encounter Condition: Good Record reviewed to determine appropriate education?: Yes Instructions: ED Sprain Ankle Comments: Follow-up with your doctor in 1 week if not better Discharge Date/Time: 05/30/17 18:55
--- NOTE | 2017-05-30 19:05 | XRAY Preliminary Report ---
Exam: XR Calcaneus LT IMPRESSION: Small plantar and posterior calcaneal spurs. No evidence of acute fracture. [facility] SITE ID: [id number]
--- NOTE | 2017-05-30 19:08 | XRAY Report ---
EXAM: LEFT CALCANEUS RADIOGRAPHY EXAM DATE: 05/30/2017 06:48 PM. CLINICAL HISTORY: Foot inj. COMPARISON: Left foot films 08/01/15. TECHNIQUE: 2 views. FINDINGS: Bones: Small plantar and posterior calcaneal spurs are present. There is no evidence of fracture. Joints: Normal. No subluxations. Soft Tissues: Normal. No soft tissue swelling. IMPRESSION: Small plantar and posterior calcaneal spurs. No evidence of acute fracture. [facility] Referring Provider Line: [phone] SITE ID: [id number]
== END 2017-05-30 18:55 | disposition home or self-care (01) ==
LOC: EDUNIT# → ED 18:04
DX: S86.012A Strain of left Achilles tendon, initial encounter (principal); W18.40XA Slipping, tripping and stumbling without falling, unspecified, initial encounter; E11.9 Type 2 diabetes mellitus without complications; Z79.84 Long term (current) use of oral hypoglycemic drugs
CPT/HCPCS: 99283

== ENCOUNTER 2017-06-02 19:41 | Outpatient (CLI) | payer MEDICARE, OTHER, MEDICAID | END 2017-06-02 19:42 | disposition critical access hospital (66) | LOC: EMS 19:41 | PROVIDERS: ATTEND Surgery | DX: M25.572 Pain in left ankle and joints of left foot (principal); W19.XXXA Unspecified fall, initial encounter | CPT/HCPCS: A0425; A0429 ==

== ENCOUNTER 2017-06-02 20:00 | Emergency (ER) | payer MEDICARE, OTHER, MEDICAID ==
[2017-06-02 20:19] VITALS: BP 119/68
--- NOTE | 2017-06-02 21:31 | ED Physician Documentation ---
PD HPI LOWER EXT INJURY - Stated complaint Stated Complaint: GLF - Chief complaint Chief Complaint: Ext Problem - History obtained from History obtained from: Patient - History of Present Illness PD HPI LOW EXT INJURY LOCATION: Left, Ankle Type of injury: Twist (she says inversion of left ankle with pain today. Seen often in ED for extremity injuries. Has some cognitive delay and gets concerned about fractures, with fixation on needing xrays for consolation.) Where injury occurred: Street Timing - onset: Today Improved by: Rest Worsened by: Moving, Palpating Associated symptoms: No: Weakness, Numbness, Swelling Recently seen: Emergency Dept Review of Systems Skin: denies: Abrasion (s), Laceration (s) Musculoskeletal: reports: Joint pain. 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 : None HEENT: Chronic vision loss Psych: Other Musculoskeletal: None Derm: None - Past Surgical History Past Surgical History: Yes /OFFICE SUPPORT SPECIALIST: Dilation and currettage, Other HEENT: Myringotomy (tubes) - Present Medications Home Medications: Ambulatory Orders Medication Instructions Recorded Confirmed Cholecalciferol (Vitamin D3) 2,000 unit PO DAILY 01/01/13 05/21/17 [Vitamin D] Ferrous Gluconate [Iron] 324 mg PO DAILY 01/01/13 05/21/17 Lisinopril 20 mg PO DAILY 01/01/13 05/21/17 Metformin HCl 850 mg PO BID 01/01/13 05/21/17 Multivitamin [Multivitamins] 1 each PO DAILY 01/01/13 05/21/17 Sodium Fluoride [Prevident 5000] 1 ml PO DAILY 03/04/14 05/21/17 Lansoprazole [Prevacid] 30 mg PO DAILY 02/18/15 05/21/17 Sucralfate [Carafate] 1 gm PO ACHS #30 udc 02/24/15 05/21/17 Magnesium Chloride [Mag Delay] 64 mg PO DAILY 12/12/16 05/21/17 Clotrimazole/Betamethasone Dip 1 applic TP BID #15 cream..g. 03/23/17 05/21/17 [Clotrimazole-Betamethasone Crm] Clindamycin HCl 300 mg PO Q6H #40 capsule 05/02/17 05/21/17 - Allergies Allergies/Adverse Reactions: Allergies Allergy/AdvReac Type Severity Reaction Status Date / Time Penicillins Allergy Unknown Rash Verified 06/02/17 20:09 sulfamethoxazole Allergy Unknown Rash Verified 06/02/17 20:09 [From ] trimethoprim [From Septra] Allergy Unknown Rash Verified 06/02/17 20:09 amoxicillin [Amoxicillin] Allergy hives/itchi Verified 06/02/17 20:09 ng - Social History Does the pt smoke?: No Smoking Status: Never smoker Does the pt drink ETOH?: No Does the pt have substance abuse?: No - Immunizations Immunizations are current?: Yes - POLST Patient has POLST: No PD ED PE NORMAL - Vitals Vital signs reviewed: Yes - General General: Alert and oriented X 3, No acute distress, Well developed/nourished - Derm Derm: Normal color, Warm and dry - Extremities Extremities: Other (left ankle with tenderness lateral malleolus without effusion nor laxity. Pain with inversion stress. foot not tender. ) Results - Vitals Vitals: Oxygen O2 Source Room air - Rads (name of study) left ankle Radiology: Prelim report reviewed, EMP read contemporaneously (no fractures; chronic changes noted talar dome.) PD MEDICAL DECISION MAKING - ED course Complexity details: reviewed results, considered differential, d/w patient Departure - Departure Disposition: 01 Home, Self Care Clinical Impression: Sprain of left ankle Qualifiers: Encounter type: initial encounter Involved ligament of ankle: other ligament Qualified Code(s): S93.492A - Sprain of other ligament of left ankle, initial encounter Condition: Stable Record reviewed to determine appropriate education?: Yes Instructions: ED Sprain Ankle W X Ray Comments: There is not anything broken on x-ray. Pain. Use the ankle brace when up and around for the next several days to week until better. Tylenol or ibuprofen if needed for pains. Recheck if not better in a week Discharge Date/Time: 06/02/17 22:19
[2017-06-02] MEDS ORDERED: ACETAMINOPHEN 325 MG TABLET PO ONE (21:50)
[2017-06-02] MEDS: ACETAMINOPHEN 325 MG TABLET PO STA (21:59)
--- NOTE | 2017-06-02 22:08 | XRAY Preliminary Report ---
Exam: XR Ankle 3 View LT IMPRESSION: 1. No left ankle fracture or malalignment seen. 2. Chronic lateral talar dome osteochondral defect. [facility] SITE ID: [id number]
--- NOTE | 2017-06-02 22:10 | XRAY Report ---
EXAM: LEFT ANKLE RADIOGRAPHY EXAM DATE: 06/02/2017 09:59 PM. CLINICAL HISTORY: Inversion ankle injury. COMPARISON: 03/29/2017, 05/30/2017. TECHNIQUE: 3 views. 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 Old lateral talar dome osteocho ndral defect. No acute fractures or bone lesions. Joints: Normal. No effusion. No subluxations. The ankle mortise is normally aligned. Soft Tissues: Lateral soft tissue swelling. IMPRESSION: 1. No left ankle fracture or malalignment seen. 2. Chronic lateral talar dome osteochondral defect. [facility] Referring Provider Line: [phone] SITE ID: [id number]
== END 2017-06-02 22:19 | disposition home or self-care (01) ==
LOC: EDUNIT# → EDBD → ED 20:00
DX: S93.492A Sprain of other ligament of left ankle, initial encounter (principal); X50.9XXA Other and unspecified overexertion or strenuous movements or postures, initial encounter; W19.XXXA Unspecified fall, initial encounter; E11.9 Type 2 diabetes mellitus without complications
CPT/HCPCS: 99283

== ENCOUNTER 2017-06-09 14:38 | Emergency (ER) | payer MEDICARE, OTHER, MEDICAID ==
[2017-06-09 14:50] VITALS: BP 132/83
--- NOTE | 2017-06-09 16:08 | ED Physician Documentation ---
PD HPI UPPER EXT INJURY - Stated complaint Stated Complaint: RT HAND PX - Chief complaint Chief Complaint: Ext Problem - History obtained from History obtained from: Patient - History of Present Illness Location: Right, Finger (thumb) Type of injury: Blunt / blow Where injury occurred: Home Timing - onset: Today Timing - duration: Hours Timing - details: Abrupt onset, Still present Improved by: Rest, Immobilization Worsened by: Moving, Palpating Associated symptoms: No: Weakness, Numbness, Tingling, Swelling Contributing factors: No: Anticoagulated Similar symptoms before: Has not had sx before Recently seen: Not recently seen - Additonal information Additional information: 56-year-old female with developmental delay has dropped a guitar on her right hand. She has pain over the metacarpal phalangeal joint of the right thumb and has pain moving the thumb. Review of Systems Constitutional: denies: Fever Respiratory: denies: Cough GI: denies: Vomiting : denies: Dysuria Musculoskeletal: reports: Extremity pain, Joint pain. 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, Other HEENT: Myringotomy (tubes) - Present Medications Home Medications: Ambulatory Orders Medication Instructions Recorded Confirmed Cholecalciferol (Vitamin D3) 2,000 unit PO DAILY 01/01/13 06/09/17 [Vitamin D] Ferrous Gluconate [Iron] 324 mg PO DAILY 01/01/13 06/09/17 Lisinopril 20 mg PO DAILY 01/01/13 06/09/17 Metformin HCl 850 mg PO BID 01/01/13 06/09/17 Multivitamin [Multivitamins] 1 each PO DAILY 01/01/13 06/09/17 Sodium Fluoride [Prevident 5000] 1 ml PO DAILY 03/04/14 06/09/17 Lansoprazole [Prevacid] 30 mg PO DAILY 02/18/15 06/09/17 Sucralfate [Carafate] 1 gm PO ACHS #30 udc 02/24/15 06/09/17 Magnesium Chloride [Mag Delay] 64 mg PO DAILY 12/12/16 06/09/17 Clotrimazole/Betamethasone Dip 1 applic TP BID #15 cream..g. 03/23/17 06/09/17 [Clotrimazole-Betamethasone Crm] Clindamycin HCl 300 mg PO Q6H #40 capsule 05/02/17 06/09/17 - Allergies Allergies/Adverse Reactions: Allergies Allergy/AdvReac Type Severity Reaction Status Date / Time Penicillins Allergy Unknown Rash Verified 06/09/17 14:46 sulfamethoxazole Allergy Unknown Rash Verified 06/09/17 14:46 [From ] trimethoprim [From ] Allergy Unknown Rash Verified 06/09/17 14:46 amoxicillin [Amoxicillin] Allergy hives/itchi Verified 06/09/17 14:46 ng - Social History Does the pt smoke?: No Smoking Status: Never smoker Does the pt drink ETOH?: No Does the pt have substance abuse?: No - Immunizations Immunizations are current?: Yes - POLST Patient has POLST: No PD ED PE NORMAL - Vitals Vital signs reviewed: Yes (hympertension mild) - General General: No acute distress, Well developed/nourished - HEENT HEENT: Atraumatic, PERRL - Respiratory Respiratory: No respiratory distress - Derm Derm: Normal color, Warm and dry, No rash - Extremities Extremities: No deformity, No edema, Other (There is pain to palpation of the left MCP joint of the left thumb. There is no pain to the DIP joint and the distal n/v is intact. ) - Neuro Neuro: No motor deficit, No sensory deficit - Psych Psych: Normal mood, Normal affect Results - Vitals Vitals: Vital Signs - 24 hr 06/09/17 14:44 Temperature 36.6 C Heart Rate 74 Respiratory 18 Rate Blood Pressure 132/83 H O2 Saturation 99 Oxygen O2 Source Room air - Rads (name of study) Right fingers Radiology: Prelim report reviewed (Impression: No acute findings.), EMP read indepedently, See rad report Procedures - Splint (location) rigth thumb Splint applied by: Tech Type of splint: Fiberglass, Thumb spica Other: Patient tolerated well, No complications, Neurovascular intact, Good alignment PD MEDICAL DECISION MAKING - ED course Complexity details: reviewed results, re-evaluated patient, considered differential, d/w patient ED course: 56-year-old female with a right thumb contusion does not evidence of fracture. She is placed into a thumb spica splint. Departure - Departure Disposition: 01 Home, Self Care Clinical Impression: Thumb contusion Qualifiers: Encounter type: initial encounter Damage to nail status: without damage Laterality: right Qualified Code(s): S60.011A - Contusion of right thumb without damage to nail, initial encounter Condition: Stable Instructions: ED Contusion Finger, ED Sprain Hand Follow-Up: Melvin Soto MD [Primary Care Provider] - Discharge Date/Time: 06/09/17 16:21
--- NOTE | 2017-06-09 16:18 | XRAY Preliminary Report ---
Exam: XR FINGER(S) RT IMPRESSION: No acute findings. [facility] SITE ID: [id number]
--- NOTE | 2017-06-09 16:21 | XRAY Report ---
EXAM: RIGHT FIRST DIGIT RADIOGRAPHY EXAM DATE: 06/09/2017 03:47 PM. CLINICAL HISTORY: Thumb contusion. COMPARISON: 06/08/2015 right thumb. TECHNIQUE: 3 views. FINDINGS: Bones: No evidence for acute fracture. Joints: Normal. No subluxations. Soft Tissues: Normal. No soft tissue swelling. IMPRESSION: No acute findings. [facility] Referring Provider Line: [phone] SITE ID: [id number]
== END 2017-06-09 16:21 | disposition home or self-care (01) ==
LOC: ED 14:38
DX: S60.011A Contusion of right thumb without damage to nail, initial encounter (principal); W22.8XXA Striking against or struck by other objects, initial encounter; Y92.009 Unspecified place in unspecified non-institutional (private) residence as the place of occurrence of the external cause; E11.9 Type 2 diabetes mellitus without complications; Z79.84 Long term (current) use of oral hypoglycemic drugs
CPT/HCPCS: 29125; 73140; 99283

== ENCOUNTER 2017-06-14 20:48 | Outpatient (CLI) | payer MEDICARE, OTHER, MEDICAID | END 2017-06-14 20:49 | disposition critical access hospital (66) | LOC: EMS 20:48 | PROVIDERS: ATTEND Surgery | DX: R09.89 Other specified symptoms and signs involving the circulatory and respiratory systems (principal) | CPT/HCPCS: A0425; A0429 ==

== ENCOUNTER 2017-06-14 21:05 | Emergency (ER) | payer MEDICARE, OTHER, MEDICAID ==
--- NOTE | 2017-06-14 21:32 | ED Physician Documentation ---
History of Present Illness - Stated complaint Stated Complaint: CHEST PAIN - Chief complaint Chief Complaint: Cardiac - History obtained from History obtained from: Patient, EMS - Additonal information Additional information: The patient is a 56-year-old female who arrives via ambulance complaining of " my heart going fast." Her symptoms have been ongoing for most of the day. To me she denies chest pain, shortness of breath, nausea or vomiting. She had indicated to the medics as well as to the triage nurse that she had substernal chest discomfort. She is well known to us in the emergency department because of frequent visits for minor musculoskeletal complaints. She rarely complains of chest pain or heart racing, although she presented with paired PVCs in October 2016. Review of Systems Constitutional: denies: Fever Nose: denies: Congestion Throat: denies: Sore throat Cardiac: reports: Palpitations. 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 - Past Surgical History Past Surgical History: Yes /GLASS TOUGHENING OPERATOR: Dilation and currettage, Other HEENT: Myringotomy (tubes) - Present Medications Home Medications: Ambulatory Orders Medication Instructions Recorded Confirmed Cholecalciferol (Vitamin D3) 2,000 unit PO DAILY 01/01/13 06/09/17 [Vitamin D] Ferrous Gluconate [Iron] 324 mg PO DAILY 01/01/13 06/09/17 Lisinopril 20 mg PO DAILY 01/01/13 06/09/17 Metformin HCl 850 mg PO BID 01/01/13 06/09/17 Multivitamin [Multivitamins] 1 each PO DAILY 01/01/13 06/09/17 Sodium Fluoride [Prevident 5000] 1 ml PO DAILY 03/04/14 06/09/17 Lansoprazole [Prevacid] 30 mg PO DAILY 02/18/15 06/09/17 Sucralfate [Carafate] 1 gm PO ACHS #30 [facility] [place] 02/24/15 06/09/17 Magnesium Chloride [Mag Delay] 64 mg PO DAILY 12/12/16 06/09/17 Clotrimazole/Betamethasone Dip 1 applic TP BID #15 cream..g. 03/23/17 06/09/17 [Clotrimazole-Betamethasone Crm] Clindamycin HCl 300 mg PO Q6H #40 capsule 05/02/17 06/09/17 - Allergies Allergies/Adverse Reactions: Allergies Allergy/AdvReac Type Severity Reaction Status Date / Time Penicillins Allergy Unknown Rash Verified 06/14/17 21:13 sulfamethoxazole Allergy Unknown Rash Verified 06/14/17 21:13 [From ] trimethoprim [From ] Allergy Unknown Rash Verified 06/14/17 21:13 amoxicillin [Amoxicillin] Allergy hives/itchi Verified 06/14/17 21:13 ng - Social History Does the pt smoke?: No Smoking Status: Never smoker Does the pt drink ETOH?: No Does the pt have substance abuse?: No - Immunizations Immunizations are current?: Yes - POLST Patient has POLST: No PD ED PE NORMAL - Vitals Vital signs reviewed: Yes (Mild hypertension.) - General General: Alert and oriented X 3, Well developed/nourished - HEENT HEENT: Atraumatic, EOMI, Moist mucous membranes, Pharynx benign - Neck Neck: No adenopathy, No JVD - Cardiac Cardiac: RRR, No murmur - Respiratory Respiratory: No respiratory distress, Clear bilaterally - Abdomen Abdomen: Soft, Non tender, Other (Rotund abdomen.) - Back Back: No CVA TTP - Derm Derm: No rash - Extremities Extremities: No edema, No calf tenderness / cord - Neuro Neuro: Alert and oriented X 3, No motor deficit, No sensory deficit Results - Vitals Vitals: Oxygen O2 Source Room air - EKG (time done) 21:14 Rate: Rate (enter#) (68) Rhythm: NSR [place]: Normal Intervals: Normal MI Ischemia: Q waves (in V2, consistent with old anterior SC.) Other comments: Other comments (When compared to prior EKG of 11/01/2016, paired PVC's are no longer present. ) Computer interpretation: Agree with computer - Labs Labs: Laboratory Tests 06/14/17 06/14/17 06/14/17 21:35 21:35 21:35 WBC 8.9 RBC 4.37 Hgb 11.9 L Hct 36.5 L MCV 83.6 MCH 27.3 MCHC 32.6 RDW 14.3 Plt Count 208 MPV 7.7 L Neut # 4.6 Lymph # 3.1 [place] # 0.5 Eos # 0.5 Baso # 0.1 Absolute Nucleated RBC 0.00 Nucleated RBC % 0.0 Sodium 136 Potassium 4.5 Chloride 101 Carbon Dioxide 27 Anion Gap 8.0 BUN 25 H Creatinine 1.3 H Estimated GFR (MDRD) 42 L Glucose 114 H Calcium 9.1 Total Bilirubin 0.5 AST 17 ALT 17 Alkaline Phosphatase 72 Troponin I < 0.04 Total Protein 6.9 Albumin 3.7 Globulin 3.2 Albumin/Globulin Ratio 1.2 Lipase 62 H PD MEDICAL DECISION MAKING - ED course Complexity details: reviewed old records, reviewed results, re-evaluated patient , considered differential, d/w patient ED course: The patient's presentation is most consistent with gastroesophageal reflux. Cardiac ischemia was considered, but is less likely. Electrocardiogram reveals no ischemic abnormalities, and her troponin is normal. Her exam is most consistent with GE reflux, and she had complete resolution of her symptoms with GI cocktail. I discussed with her the diagnosis, symptomatic treatment and outpatient follow-up, as well as potentially worrisome signs or symptoms that should prompt reevaluation in the emergency department. Departure - Departure Disposition: 01 Home, Self Care Clinical Impression: Gastroesophageal reflux disease Qualifiers: Esophagitis presence: esophagitis presence not specified Qualified Code(s): K21.9 - Gastro-esophageal reflux disease without esophagitis Condition: Stable Instructions: ED GERD Follow-Up: Melvin Soto MD [Credentialed Staff Provider] - Comments: If you develop recurrent symptoms, tried drinking liquid antacid, such as Maalox or Mylanta. Follow up with your primary physician within 2 weeks. Call to schedule an appointment. Return to the emergency department if you develop increasing chest pain, shortness of breath, or otherwise worsening symptoms. Discharge Date/Time: 06/14/17 22:10
[2017-06-14] MEDS ORDERED: MAG HYDROX/AL HYDROX/SIMETH 30 ML UDC PO STA (21:35)
[2017-06-14] MEDS ORDERED: LIDOCAINE VISCOUS 2% 15 ML UDC MM STA (21:35)
[2017-06-14] MEDS ORDERED: PHENobarb/HYOSCY/ATROPINE/SCOP 5 ML SYRINGE PO STA (21:35)
[2017-06-14 21:40] LABS: BASOPHILS # (AUTO) 0.1 10^3/uL (0.0-0.1); EOSINOPHILS # (AUTO) 0.5 10^3/uL (0.0-0.7); EOSINOPHILS % (AUTO) 6.1 %; HCT - HEMATOCRIT 36.5 % (37.0-47.0); HGB - HEMOGLOBIN 11.9 g/dL (12.0-16.0); LYMPHOCYTES # (AUTO) 3.1 10^3/uL (1.5-3.5); MEAN CORPUSCULAR HEMOGLOBIN 27.3 pg (27.0-31.0); MEAN CORPUSCULAR HGB CONC 32.6 g/dL (32.0-36.0); MEAN CORPUSCULAR VOLUME 83.6 fL (81.0-99.0); MEAN PLATELET VOLUME 7.7 fL (7.9-10.8); MONOCYTES # (AUTO) 0.5 10^3/uL (0.0-1.0); MONOCYTES % (AUTO) 6.2 %; NEUTROPHILS # (AUTO) 4.6 10^3/uL (1.5-6.6); NEUTROPHILS % (AUTO) 51.7 %; RED BLOOD COUNT 4.37 10^6/uL (4.20-5.40); RED CELL DISTRIBUTION WIDTH 14.3 % (12.0-15.0); UNCORRECTED WHITE BLOOD COUNT 8.9 x10^3/uL; WHITE BLOOD COUNT 8.9 x10^3/uL (4.8-10.8)
[2017-06-14 21:44] VITALS: BP 134/66
[2017-06-14] MEDS ORDERED: PHENobarb/HYOSCY/ATROPINE/SCOP 5 ML SYRINGE PO ONE (21:44)
[2017-06-14] MEDS ORDERED: MAG HYDROX/AL HYDROX/SIMETH 30 ML UDC ONE (21:45)
[2017-06-14] MEDS ORDERED: LIDOCAINE VISCOUS 2% 15 ML UDC MM ONE (21:45)
[2017-06-14 21:52] LABS: ALBUMIN/GLOBULIN RATIO 1.2 (1.0-2.2); BILIRUBIN,TOTAL 0.5 mg/dL (0.2-1.0); CALCIUM 9.1 mg/dL (8.5-10.3); CREATININE 1.3 mg/dL (0.4-1.0); POTASSIUM 4.5 mmol/L (3.5-5.0); TOTAL PROTEIN 6.9 g/dL (6.7-8.2)
== END 2017-06-14 22:10 | disposition home or self-care (01) ==
LOC: EDUNIT# → ED 21:05
DX: K21.9 Gastro-esophageal reflux disease without esophagitis (principal); R94.31 Abnormal electrocardiogram [ECG] [EKG]; E11.9 Type 2 diabetes mellitus without complications; Z79.84 Long term (current) use of oral hypoglycemic drugs
CPT/HCPCS: 36415; 80053; 83690; 84484; 85025; 93005; 99283; A9270

== ENCOUNTER 2017-06-23 19:43 | Emergency (ER) | payer MEDICARE, OTHER, MEDICAID ==
[2017-06-23] MEDS ORDERED: ACETAMINOPHEN 500 MG TABLET PO STA (20:40)
[2017-06-23] MEDS ORDERED: ACETAMINOPHEN 500 MG TABLET PO ONE (20:53)
--- NOTE | 2017-06-23 20:53 | ED Physician Documentation ---
PD HPI ABD PAIN - Stated complaint Stated Complaint: LUQ PAIN - History obtained from History obtained from: Patient - History of Present Illness Timing - onset: Chronic Timing - details: Gradual onset, Still present Quality: Aching Location: LUQ Associated symptoms: No: Fever, Nausea, Vomiting, Hematemesis, Diarrhea, Constipation Similar symptoms before: Work up / diagnostics, Treatment Recently seen: Emergency Dept - Additional information Additional information: Patient is a 56 year old female with a history of muliple ED visits for abdominal pain who is presenting to the emergency department for abdominal pain. patient states that it is similar to the pain she has had in the past. It is only in the left upper quadrant and she has not taken anything for it. Patient denies nausea, vomiting, fevers, chills, constipation or diarrhea. Review of Systems Constitutional: denies: Fever, Chills Eyes: denies: Decreased vision, Photophobia Ears: denies: Ear pain, Drainage/discharge Nose: denies: Rhinorrhea / runny nose, Congestion Throat: reports: Reviewed and negative Cardiac: denies: Chest pain / pressure, Palpitations Respiratory: denies: Dyspnea, Cough, Wheezing GI: reports: Abdominal Pain. 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 : None HEENT: Chronic vision loss Psych: Other Musculoskeletal: None Derm: None - Past Surgical History Past Surgical History: Yes /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: Dilation and currettage, Other HEENT: Myringotomy (tubes) - Present Medications Home Medications: Ambulatory Orders Medication Instructions Recorded Confirmed Cholecalciferol (Vitamin D3) 2,000 unit PO DAILY 01/01/13 06/09/17 [Vitamin D] Ferrous Gluconate [Iron] 324 mg PO DAILY 01/01/13 06/09/17 Lisinopril 20 mg PO DAILY 01/01/13 06/09/17 Metformin HCl 850 mg PO BID 01/01/13 06/09/17 Multivitamin [Multivitamins] 1 each PO DAILY 01/01/13 06/09/17 Sodium Fluoride [Prevident 5000] 1 ml PO DAILY 03/04/14 06/09/17 Lansoprazole [Prevacid] 30 mg PO DAILY 02/18/15 06/09/17 Sucralfate [Carafate] 1 gm PO ACHS #30 [facility] 02/24/15 06/09/17 Magnesium Chloride [Mag Delay] 64 mg PO DAILY 12/12/16 06/09/17 Clotrimazole/Betamethasone Dip 1 applic TP BID #15 cream..g. 03/23/17 06/09/17 [Clotrimazole-Betamethasone Crm] Clindamycin HCl 300 mg PO Q6H #40 capsule 05/02/17 06/09/17 - Allergies Allergies/Adverse Reactions: Allergies Allergy/AdvReac Type Severity Reaction Status Date / Time Penicillins Allergy Unknown Rash Verified 06/14/17 21:13 sulfamethoxazole Allergy Unknown Rash Verified 06/14/17 21:13 [From ] trimethoprim [From ] Allergy Unknown Rash Verified 06/14/17 21:13 amoxicillin [Amoxicillin] Allergy hives/itchi Verified 06/14/17 21:13 ng - Social History Does the pt smoke?: No Smoking Status: Never smoker Does the pt drink ETOH?: No Does the pt have substance abuse?: No - Immunizations Immunizations are current?: Yes - POLST Patient has POLST: No PD ED PE NORMAL - Vitals Vital signs reviewed: Yes - General General: Alert and oriented X 3, No acute distress, Well developed/nourished - HEENT HEENT: Atraumatic, PERRL - Neck Neck: Supple, no meningeal sign - Cardiac Cardiac: RRR, No murmur - Respiratory Respiratory: No respiratory distress, Clear bilaterally - Derm Derm: Normal color, Warm and dry, No rash - Extremities Extremities: No deformity, Normal ROM s pain, No edema - Neuro Neuro: Alert and oriented X 3, No motor deficit, No sensory deficit, Normal speech - Psych Psych: Normal mood, Normal affect PD ED PE EXPANDED - Abdomen Abdomen: Tender to palpation, LUQ. No: Rebound, Guarding Results - Vitals Vitals: Oxygen O2 Source Room air PD MEDICAL DECISION MAKING - ED course Complexity details: reviewed old records, reviewed results, re-evaluated patient , considered differential, d/w patient ED course: Patient was seen and examined at bedside. patient was well appearing and in no acute distress. patient was treated with tylenol. Upon re-evaluation patient stated she was feeling much better and wanted to go home. patient was discharged in stable condition. Departure - Departure Disposition: 01 , Self Care Clinical Impression: Abdominal pain Condition: Good Instructions: ED Abdominal Pain Unkn Cause Follow-Up: Melvin Soto MD [Primary Care Provider] - As Needed Comments: It is good that your abdominal pain is better. It is difficult to say what exactly caused your pain. You should try motrin or tylenol as needed for pain. Make sure you drink plenty of water and get plenty of rest. You should follow up with your doctor if your symptoms persist. You may return to the emergency department at any time for new, worsening or uncontrollable symptoms.
[2017-06-23 21:10] VITALS: BP 132/64
== END 2017-06-23 21:15 | disposition home or self-care (01) ==
LOC: EDUNIT# → ED 19:43
DX: R10.12 Left upper quadrant pain (principal); E10.9 Type 1 diabetes mellitus without complications; Z79.84 Long term (current) use of oral hypoglycemic drugs
CPT/HCPCS: 99283; A9270

== ENCOUNTER 2017-06-28 11:33 | Emergency (ER) | payer MEDICARE, OTHER, MEDICAID ==
[2017-06-28] MEDS ORDERED: ACETAMINOPHEN 325 MG TABLET PO STA (11:40)
[2017-06-28 11:42] VITALS: BP 168/86
--- NOTE | 2017-06-28 11:43 | ED Physician Documentation ---
History of Present Illness - Stated complaint Stated Complaint: GLF - Additonal information Additional information: hx from pt 56 female BARBARA [facility] and fell and hit her forehead on cement no LOC has a frontal [place] no neck pain no numbness or wekaness no CP AP SOA [place] no ext injury no blood thinners Review of Systems Ears: denies: Drainage/discharge Nose: denies: Epistaxis Cardiac: denies: Chest pain / pressure Respiratory: denies: Dyspnea GI: denies: Abdominal Pain, Nausea, Vomiting Musculoskeletal: denies: Neck pain, Back pain Neurologic: reports: Headache, Head injury. 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 and currettage, Other HEENT: Myringotomy (tubes) - Present Medications Home Medications: Ambulatory Orders Medication Instructions Recorded Confirmed Cholecalciferol (Vitamin D3) 2,000 unit PO DAILY 01/01/13 06/28/17 [Vitamin D] Ferrous Gluconate [Iron] 324 mg PO DAILY 01/01/13 06/28/17 Lisinopril 20 mg PO DAILY 01/01/13 06/28/17 Metformin HCl 850 mg PO BID 01/01/13 06/28/17 Multivitamin [Multivitamins] 1 each PO DAILY 01/01/13 06/28/17 Sodium Fluoride [Prevident 5000] 1 ml PO DAILY 03/04/14 06/28/17 Lansoprazole [Prevacid] 30 mg PO DAILY 02/18/15 06/28/17 Sucralfate [Carafate] 1 gm PO ACHS #30 [facility] 02/24/15 06/28/17 Magnesium Chloride [Mag Delay] 64 mg PO DAILY 12/12/16 06/28/17 Clotrimazole/Betamethasone Dip 1 applic TP BID #15 cream..g. 03/23/17 06/28/17 [Clotrimazole-Betamethasone Crm] Clindamycin HCl 300 mg PO Q6H #40 capsule 05/02/17 06/28/17 - Allergies Allergies/Adverse Reactions: Allergies Allergy/AdvReac Type Severity Reaction Status Date / Time Penicillins Allergy Unknown Rash Verified 06/14/17 21:13 sulfamethoxazole Allergy Unknown Rash Verified 06/14/17 21:13 [From ] trimethoprim [From ] Allergy Unknown Rash Verified 06/14/17 21:13 amoxicillin [Amoxicillin] Allergy hives/itchi Verified 06/14/17 21:13 ng - Social History Does the pt smoke?: No Smoking Status: Never smoker Does the pt drink ETOH?: No Does the pt have substance abuse?: No - Immunizations Immunizations are current?: Yes - POLST Patient has POLST: No PD ED PE NORMAL - Vitals Vital signs reviewed: Yes - General General: Alert and oriented X 3 - HEENT HEENT: PERRL, Other (TTP mid frehead but no visible swelling or bruising and no step off or crepitus, orbits NT PERRL, EOMI) - Neck Neck: No bony TTP - Cardiac Cardiac: RRR - Respiratory Respiratory: No respiratory distress, Clear bilaterally - Abdomen Abdomen: Non tender - Extremities Extremities: No tenderness to palpate, Other (nl gait) - Neuro Neuro: Alert and oriented X 3, 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, No motor deficit, No sensory deficit, Normal speech Results - Vitals Vitals: Vital Signs - 24 hr 06/28/17 11:40 Temperature 36.8 C Heart Rate 64 Respiratory 18 Rate Blood Pressure 168/86 H O2 Saturation 100 Oxygen O2 Source Room air - Labs Labs: Laboratory Tests 06/28/17 11:45 Urine Color YELLOW Urine Clarity CLEAR Urine pH 5.5 Ur Specific [place] 1.025 Urine Protein TRACE Urine Glucose (UA) NEGATIVE Urine Ketones NEGATIVE Urine Occult Blood MODERATE H Urine Nitrite NEGATIVE Urine Bilirubin NEGATIVE Urine Urobilinogen 0.2 (NORMAL) Ur Leukocyte Esterase SMALL H Urine RBC 11-25 H Urine WBC 11-25 H Urine WBC Clumps PRESENT Ur Squamous Epith Cells MOD Squamous H Urine Bacteria Few Ur Microscopic Review INDICATED Urine Culture Comments NOT INDICATED PD MEDICAL DECISION MAKING - ED course ED course: GCS 15 pt feels fine no LOC nl neuro exam do not see any need for imaging UA not a clean catch Departure - Departure Disposition: 01 Home, Self Care Clinical Impression: Head injury Qualifiers: Encounter type: initial encounter Qualified Code(s): S09.90XA - Unspecified injury of head, initial encounter Condition: Good Instructions: ED Head Injury Closed Sleep Mon Follow-Up: Melvin Soto MD [Primary Care Provider] - Comments: Read over the head injury precautions Stay with a responsible adult who can monitor you for 24 hr Return if worse And please get your blood pressure rechecked - it was high today
[2017-06-28] MEDS ORDERED: ACETAMINOPHEN 325 MG TABLET PO ONE (11:56)
[2017-06-28 11:59] LABS: BILIRUBIN,URINE NEGATIVE (NEGATIVE); PH,URINE 5.5 PH (5.0-7.5)
[2017-06-28 12:00] LABS: UA w/ MICROSCOPIC CHARGE YES
[2017-06-28 12:06] LABS: UR CULTURE IF IND NOT INDICATED
== END 2017-06-28 12:22 | disposition home or self-care (01) ==
LOC: EDUNIT# → ED 11:33
DX: S09.90XA Unspecified injury of head, initial encounter (principal); W01.0XXA Fall on same level from slipping, tripping and stumbling without subsequent striking against object, initial encounter; Y92.22 Religious institution as the place of occurrence of the external cause; E11.9 Type 2 diabetes mellitus without complications; Z79.84 Long term (current) use of oral hypoglycemic drugs
CPT/HCPCS: 81001; 81003; 87086; 99283

== ENCOUNTER 2017-06-28 18:50 | Emergency (ER) | payer MEDICARE, OTHER, MEDICAID ==
--- NOTE | 2017-06-28 18:58 | ED Physician Documentation ---
PD HPI BACK PAIN - Stated complaint Stated Complaint: BACK PAIN - History obtained from History obtained from: Patient, EMS - History of Present Illness Timing - onset: Other (She fell earlier today, forward ground-level fall. She was seen earlier for head injury, the head no longer bothers her but she is having low back pain after the fall. 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: Dilation and currettage, Other HEENT: Myringotomy (tubes) - Present Medications Home Medications: Ambulatory Orders Medication Instructions Recorded Confirmed Cholecalciferol (Vitamin D3) 2,000 unit PO DAILY 01/01/13 06/28/17 [Vitamin D] Ferrous Gluconate [Iron] 324 mg PO DAILY 01/01/13 06/28/17 Lisinopril 20 mg PO DAILY 01/01/13 06/28/17 Metformin HCl 850 mg PO BID 01/01/13 06/28/17 Multivitamin [Multivitamins] 1 each PO DAILY 01/01/13 06/28/17 Sodium Fluoride [Prevident 5000] 1 ml PO DAILY 03/04/14 06/28/17 Lansoprazole [Prevacid] 30 mg PO DAILY 02/18/15 06/28/17 Sucralfate [Carafate] 1 gm PO ACHS #30 [facility] 02/24/15 06/28/17 Magnesium Chloride [Mag Delay] 64 mg PO DAILY 12/12/16 06/28/17 Clotrimazole/Betamethasone Dip 1 applic TP BID #15 cream..g. 03/23/17 06/28/17 [Clotrimazole-Betamethasone Crm] Clindamycin HCl 300 mg PO Q6H #40 capsule 05/02/17 06/28/17 - Allergies Allergies/Adverse Reactions: Allergies Allergy/AdvReac Type Severity Reaction Status Date / Time Penicillins Allergy Unknown Rash Verified 06/14/17 21:13 sulfamethoxazole Allergy Unknown Rash Verified 06/14/17 21:13 [From Septra] trimethoprim [From Septra] Allergy Unknown Rash Verified 06/14/17 21:13 amoxicillin [Amoxicillin] Allergy hives/itchi Verified 06/14/17 21:13 ng - Social History Does the pt smoke?: No Smoking Status: Never smoker Does the pt drink ETOH?: No Does the pt have substance abuse?: No - Immunizations Immunizations are current?: Yes - POLST Patient has POLST: No PD ED PE NORMAL - Vitals Vital signs reviewed: Yes - General General: Alert and oriented X 3, No acute distress - Back Back: Other (Mild tenderness to palpation of the lumbar spine) - Extremities Extremities: Other (The patient has equal and normal Achilles and patellar reflexes bilaterally. Normal sensation in all areas of the legs. Patient denies saddle anesthesia. Normal strength in flexion-extension at the ankles, knees, and flexion of the hips.) - Neuro Neuro: Alert and oriented X 3, Normal speech Results - Vitals Vitals: Vital Signs - 24 hr 06/28/17 18:57 Temperature 36.6 C Heart Rate 71 Respiratory 16 Rate Blood Pressure 143/51 H O2 Saturation 99 Oxygen O2 Source Room air - Rads (name of study) LS XR Radiology: EMP read contemporaneously (Degenerative disease, no acute fracture) PD MEDICAL DECISION MAKING - ED course Complexity details: reviewed old records (Frequent emergency department visits, almost all for musculoskeletal complaints, this is her 20th visit so far this calendar year.) Departure - Departure Disposition: 01 Home, Self Care Clinical Impression: Back pain Qualifiers: Back pain location: low back pain Chronicity: acute Back pain laterality: midline Sciatica presence: without sciatica Qualified Code(s): M54.5 - Low back pain Fall from slip, trip, or stumble Qualifiers: Encounter type: initial encounter Qualified Code(s): W01.0XXA - Fall on same level from slipping, tripping and stumbling without subsequent striking against object, initial encounter Condition: Good Record reviewed to determine appropriate education?: Yes Instructions: ED Low Back Pain Injury Comments: You can apply heat as needed and take Tylenol as needed. There is no need to keep her up tonight to watch her, as it is been long enough since the head injury.
[2017-06-28 19:00] VITALS: BP 143/51
--- NOTE | 2017-06-28 19:34 | XRAY Preliminary Report ---
Exam: XR LUMBAR SPINE 2 VIEW IMPRESSION: 1. 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 No acute fracture or subluxation . [facility] SITE ID: [id number]
--- NOTE | 2017-06-28 19:37 | XRAY Report ---
EXAM: LUMBOSACRAL SPINE RADIOGRAPHY EXAM DATE: 06/28/2017 07:26 PM. CLINICAL HISTORY: Back inj. ground-level fall. COMPARISONS: 07/15/2014. TECHNIQUE: 3 views. FINDINGS: Alignment: Normal. No spondylolisthesis or scoliosis. Bones: Five [id number] lumbar vertebral bodies are present. No subluxation or scoliosis. Disks: Disk height is maintained. There are large anterior disk osteophyte spurs at L3-L4 and L4-L5. There are bridging osteophytes anteriorly from T12-L3. Facets: Satisfactory alignment. Sacroiliac Joints: Unremarkable. Soft Tissues: No dilated bowel loops. IMPRESSION: 1. 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 No acute fracture or subluxation . [facility] Referring Provider Line: [phone] SITE ID: [id number]
== END 2017-06-28 20:01 | disposition home or self-care (01) ==
LOC: EDUNIT# → ED 18:50
DX: M54.5 Low back pain (principal); S09.90XA Unspecified injury of head, initial encounter; W01.0XXA Fall on same level from slipping, tripping and stumbling without subsequent striking against object, initial encounter; Y92.22 Religious institution as the place of occurrence of the external cause; E11.9 Type 2 diabetes mellitus without complications; Z79.4 Long term (current) use of insulin
CPT/HCPCS: 72100; 81001; 99282; 99283; A9270; 81003; 87086

== ENCOUNTER 2017-07-24 12:50 | Outpatient (CLI) | payer MEDICARE, OTHER, MEDICAID | END 2017-07-24 12:51 | disposition critical access hospital (66) | LOC: EMS 12:50 | PROVIDERS: ATTEND Surgery | DX: M25.511 Pain in right shoulder (principal); W19.XXXA Unspecified fall, initial encounter | CPT/HCPCS: A0425; A0429 ==

== ENCOUNTER 2017-07-24 13:49 | Emergency (ER) | payer MEDICARE, OTHER, MEDICAID ==
--- NOTE | 2017-07-24 14:01 | ED Physician Documentation ---
History of Present Illness - Stated complaint Stated Complaint: SHOULDER PN/FALL - Additonal information Additional information: hx from pt fell today does not know why she fell but denies recent illness CP palpitations and syncope ho [place] [employer] numbness weakness BIBA from [facility] Review of Systems Constitutional: denies: Fever, Chills Cardiac: denies: Chest pain / pressure GI: denies: Abdominal Pain, Nausea, Vomiting : denies: Dysuria Skin: denies: Laceration (s) Musculoskeletal: reports: Joint pain. 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 : None HEENT: Chronic vision loss Psych: Other Musculoskeletal: None Derm: None - Past Surgical History Past Surgical History: Yes /ADMISSIONS SPECIALIST: Dilation and currettage, Other HEENT: Myringotomy (tubes) - Present Medications Home Medications: Ambulatory Orders Medication Instructions Recorded Confirmed Cholecalciferol (Vitamin D3) 2,000 unit PO DAILY 01/01/13 06/28/17 [Vitamin D] Ferrous Gluconate [Iron] 324 mg PO DAILY 01/01/13 06/28/17 Lisinopril 20 mg PO DAILY 01/01/13 06/28/17 Metformin HCl 850 mg PO BID 01/01/13 06/28/17 Multivitamin [Multivitamins] 1 each PO DAILY 01/01/13 06/28/17 Sodium Fluoride [Prevident 5000] 1 ml PO DAILY 03/04/14 06/28/17 Lansoprazole [Prevacid] 30 mg PO DAILY 02/18/15 06/28/17 Sucralfate [Carafate] 1 gm PO ACHS #30 udc 02/24/15 06/28/17 Magnesium Chloride [Mag Delay] 64 mg PO DAILY 12/12/16 06/28/17 Clotrimazole/Betamethasone Dip 1 applic TP BID #15 cream..g. 03/23/17 06/28/17 [Clotrimazole-Betamethasone Crm] Clindamycin HCl [Clindamycin 300MG 300 mg PO Q6H #40 capsule 05/02/17 06/28/17 CAP] - Allergies Allergies/Adverse Reactions: Allergies Allergy/AdvReac Type Severity Reaction Status Date / Time Penicillins Allergy Unknown Rash Verified 06/14/17 21:13 sulfamethoxazole Allergy Unknown Rash Verified 06/14/17 21:13 [From ] trimethoprim [From ] Allergy Unknown Rash Verified 06/14/17 21:13 amoxicillin [Amoxicillin] Allergy hives/itchi Verified 06/14/17 21:13 ng - Social History Does the pt smoke?: No Smoking Status: Never smoker Does the pt drink ETOH?: No Does the pt have substance abuse?: No - Immunizations Immunizations are current?: Yes - POLST Patient has POLST: No PD ED PE NORMAL - Vitals Vital signs reviewed: Yes - HEENT HEENT: Atraumatic - Neck Neck: No bony TTP - Cardiac Cardiac: RRR - Respiratory Respiratory: No respiratory distress, Clear bilaterally - Abdomen Abdomen: Soft, Non tender - Extremities Extremities: Other (TTP R clavicle s deformity, rest of shoulder NT full rom s pain - took off her coat used arm to push herself up to sitting and to use grab bar - MSV intact) - Neuro Neuro: No motor deficit, No sensory deficit Results - Vitals Vitals: Vital Signs - 24 hr 07/24/17 14:17 Temperature 36.9 C Heart Rate 89 Respiratory 30 H Rate Blood Pressure 129/69 O2 Saturation 97 Oxygen O2 Source Room air - Rads (name of study) clavicle Radiology: See rad report (neg) Departure - Departure Disposition: 01 Home, Self Care Clinical Impression: ACL sprain Qualifiers: Encounter type: initial encounter Laterality: right Qualified Code(s): S83.511A - Sprain of anterior cruciate ligament of right knee, initial encounter Condition: Good Instructions: ED Sprain AC Joint Comments: The xray does not show any fracture. Recommend ice and tylenol
[2017-07-24 14:19] VITALS: BP 129/69
--- NOTE | 2017-07-24 14:34 | XRAY Preliminary Report ---
Exam: XR CLAVICLE RT IMPRESSION: 1. Moderate chronic spurring of the acromioclavicular joint. No acute fracture. [facility] SITE ID: [id number]
--- NOTE | 2017-07-24 14:36 | XRAY Report ---
EXAM: RIGHT CLAVICLE RADIOGRAPHY EXAM DATE: 07/24/2017 02:19 PM. CLINICAL HISTORY: Pain after a fall. COMPARISON: Shoulder 03/04/2014. TECHNIQUE: 2 views. FINDINGS: Bones: There is chronic spurring and sclerosis of the acromioclavicular joint. No cortical step-off. Joints: No dislocation. Soft Tissues: There is spurring and ossification around the acromioclavicular joint. There are small bilateral cervical ribs. IMPRESSION: 1. Moderate chronic spurring of the acromioclavicular joint. No acute fracture. [facility] Referring Provider Line: [phone] SITE ID: [id number]
== END 2017-07-24 15:30 | disposition home or self-care (01) ==
LOC: ED 13:49
DX: S83.511A Sprain of anterior cruciate ligament of right knee, initial encounter (principal); W18.30XA Fall on same level, unspecified, initial encounter; E11.8 Type 2 diabetes mellitus with unspecified complications; Z79.84 Long term (current) use of oral hypoglycemic drugs
CPT/HCPCS: 99283

== ENCOUNTER 2017-07-31 18:47 | Outpatient (CLI) | payer MEDICARE, OTHER | END 2017-07-31 18:48 | disposition critical access hospital (66) | LOC: EMS 18:47 | PROVIDERS: ATTEND Surgery | DX: M25.522 Pain in left elbow (principal); W19.XXXA Unspecified fall, initial encounter | CPT/HCPCS: A0425; A0429 ==

== ENCOUNTER 2017-07-31 19:05 | Emergency (ER) | payer MEDICARE, OTHER ==
[2017-07-31 19:16] VITALS: BP 120/50
[2017-07-31] MEDS ORDERED: ACETAMINOPHEN 325 MG TABLET PO STA (19:26)
--- NOTE | 2017-07-31 19:27 | ED Physician Documentation ---
PD HPI UPPER EXT INJURY - Stated complaint Stated Complaint: FALL/L ELBOW INJURY - Chief complaint Chief Complaint: Ext Problem - History obtained from History obtained from: Patient - History of Present Illness Location: Left, Elbow Type of injury: Fall (she says she fell and struck elbow. 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 : None HEENT: Chronic vision loss Psych: Other Musculoskeletal: None Derm: None - Past Surgical History Past Surgical History: Yes /STEREOTYPE CASTER: Dilation and currettage, Other HEENT: Myringotomy (tubes) - Present Medications Home Medications: Ambulatory Orders Medication Instructions Recorded Confirmed Cholecalciferol (Vitamin D3) 2,000 unit PO DAILY 01/01/13 08/04/17 [Vitamin D] Ferrous Gluconate [Iron] 324 mg PO DAILY 01/01/13 08/04/17 Lisinopril 20 mg PO DAILY 01/01/13 08/04/17 Metformin HCl 850 mg PO BID 01/01/13 08/04/17 Multivitamin [Multivitamins] 1 each PO DAILY 01/01/13 08/04/17 Sodium Fluoride [Prevident 5000] 1 ml PO DAILY 03/04/14 08/04/17 Lansoprazole [Prevacid] 30 mg PO DAILY 02/18/15 08/04/17 Sucralfate [Carafate] 1 gm PO ACHS #30 udc 02/24/15 08/04/17 Magnesium Chloride [Mag Delay] 64 mg PO DAILY 12/12/16 08/04/17 Clotrimazole/Betamethasone Dip 1 applic TP BID #15 cream..g. 03/23/17 08/04/17 [Clotrimazole-Betamethasone Crm] Clindamycin HCl [Clindamycin 300MG 300 mg PO Q6H #40 capsule 05/02/17 08/04/17 CAP] - Allergies Allergies/Adverse Reactions: Allergies Allergy/AdvReac Type Severity Reaction Status Date / Time Penicillins Allergy Unknown Rash Verified 08/04/17 21:42 sulfamethoxazole Allergy Unknown Rash Verified 08/04/17 21:42 [From ] trimethoprim [From ] Allergy Unknown Rash Verified 08/04/17 21:42 amoxicillin [Amoxicillin] Allergy hives/itchi Verified 08/04/17 21:42 ng - Social History Does the pt smoke?: No Smoking Status: Never smoker Does the pt drink ETOH?: No Does the pt have substance abuse?: No - Immunizations Immunizations are current?: Yes - POLST Patient has POLST: No PD ED PE NORMAL - Vitals Vital signs reviewed: Yes - General General: Alert and oriented X 3, No acute distress, Well developed/nourished - HEENT HEENT: Atraumatic - Neck Neck: Supple, no meningeal sign, No bony TTP - Derm Derm: Normal color, Warm and dry - Extremities Extremities: Other (left elbow with some tenderness but no deformity nor effusion. ) - Neuro Neuro: Alert and oriented X 3, No motor deficit, No sensory deficit Results - Vitals Vitals: Oxygen O2 Source Room air - Rads (name of study) elbow Radiology: Prelim report reviewed, EMP read contemporaneously (no acute fracture ) PD MEDICAL DECISION MAKING - ED course Complexity details: reviewed results (no acute fractures), considered differential, d/w patient Departure - Departure Disposition: 01 Home, Self Care Clinical Impression: Elbow contusion Qualifiers: Encounter type: initial encounter Laterality: left Qualified Code(s): S50.02XA - Contusion of left elbow, initial encounter Accidental fall Qualifiers: Encounter type: initial encounter Qualified Code(s): W19.XXXA - Unspecified fall, initial encounter Condition: Stable Record reviewed to determine appropriate education?: Yes Instructions: ED Contusion Elbow Follow-Up: Melvin Soto MD [Primary Care Provider] - Comments: Jonh wrap as needed for comfort and swelling. Tylenol or ibuprofen if needed for pains. The x-ray did not show any fractures. Presume will be sore for a few days and get better. Discharge Date/Time: 07/31/17 20:58
[2017-07-31] MEDS ORDERED: ACETAMINOPHEN 325 MG TABLET PO ONE (19:36)
--- NOTE | 2017-07-31 20:08 | XRAY Preliminary Report ---
Exam: XR ELBOW 3 VIEW LT IMPRESSION: Mild degenerative changes, calcific lateral epicondylitis. No acute disease. [facility] SITE ID: [id number]
--- NOTE | 2017-07-31 20:10 | XRAY Report ---
EXAM: LEFT ELBOW RADIOGRAPHY EXAM DATE: 07/31/2017 07:59 PM. CLINICAL HISTORY: Fall, pain. COMPARISON: 03/14/2016. TECHNIQUE: 3 views. FINDINGS: Bones: Normal. No fractures or bone lesions. Joints: Mild joint space narrowing with marginal lipping. Fat-pads not distended. Soft Tissues: Soft tissue calcification adjacent to lateral epicondyle. IMPRESSION: Mild degenerative changes, calcific lateral epicondylitis. No acute disease. [facility] Referring Provider Line: [phone] SITE ID: [id number]
== END 2017-07-31 20:58 | disposition home or self-care (01) ==
LOC: EDUNIT# → ED 19:05
DX: S50.02XA Contusion of left elbow, initial encounter (principal); W18.30XA Fall on same level, unspecified, initial encounter; W22.09XA Striking against other stationary object, initial encounter; E11.9 Type 2 diabetes mellitus without complications; Z79.84 Long term (current) use of oral hypoglycemic drugs
CPT/HCPCS: 73080; 99283; A9270

== ENCOUNTER 2017-08-04 20:58 | Outpatient (CLI) | payer MEDICARE, OTHER | END 2017-08-04 20:59 | disposition critical access hospital (66) | LOC: EMS 20:58 | PROVIDERS: ATTEND Surgery | DX: M79.642 Pain in left hand (principal); Y09 Assault by unspecified means | CPT/HCPCS: A0425; A0429 ==

== ENCOUNTER 2017-08-04 21:15 | Emergency (ER) | payer MEDICARE, OTHER ==
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
[2017-08-04 21:42] VITALS: BP 152/55
== END 2017-08-04 21:44 | disposition home or self-care (01) ==
LOC: EDUNIT# → ED 21:15
DX: M79.602 Pain in left arm (principal); E11.9 Type 2 diabetes mellitus without complications; Z79.84 Long term (current) use of oral hypoglycemic drugs
CPT/HCPCS: 99282; 99283

== ENCOUNTER 2017-08-14 16:47 | Outpatient (CLI) | payer MEDICARE, OTHER | END 2017-08-14 16:48 | disposition EMS.NT | LOC: EMS 16:47 | PROVIDERS: ATTEND Surgery | DX: M25.531 Pain in right wrist (principal) ==

== ENCOUNTER 2017-08-20 11:57 | Emergency (ER) | payer MEDICARE, OTHER ==
[2017-08-20 13:20] VITALS: BP 118/74
--- NOTE | 2017-08-20 13:29 | XRAY Preliminary Report ---
Exam: XR WRIST 4 VIEW RT IMPRESSION: No acute bony abnormality. [facility] SITE ID: [id number]
--- NOTE | 2017-08-20 13:35 | XRAY Report ---
EXAM: RIGHT WRIST RADIOGRAPHY EXAM DATE: 08/20/2017 01:04 PM. CLINICAL HISTORY: Wrist pain after fall. COMPARISON: 12/02/2006. Right thumb 06/09/2017. TECHNIQUE: 4 views. FINDINGS: Bones: Normal. No fractures or bone lesions. Joints: Normal. No subluxations. Soft Tissues: Moderate diffuse edema. IMPRESSION: No acute bony abnormality. [facility] Referring Provider Line: [phone] SITE ID: [id number]
[2017-08-20 13:37] LABS: CALCIUM 9.2 mg/dL (8.5-10.3); CREATININE 1.4 mg/dL (0.4-1.0); MAGNESIUM 1.9 mg/dL (1.7-2.8); POTASSIUM 5.3 mmol/L (3.5-5.0)
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
[2017-08-20] MEDS: SODIUM POLYSTYRENE SULFONATE 15 GM/60 ML BOTTLE PO STA ×2 (14:24→14:27)
== END 2017-08-20 14:30 | disposition home or self-care (01) ==
LOC: ED 11:57
DX: S63.501A Unspecified sprain of right wrist, initial encounter (principal); W01.0XXA Fall on same level from slipping, tripping and stumbling without subsequent striking against object, initial encounter; E87.5 Hyperkalemia; R00.8 Other abnormalities of heart beat; E11.9 Type 2 diabetes mellitus without complications; Z79.84 Long term (current) use of oral hypoglycemic drugs
CPT/HCPCS: 36415; 73110; 80048; 83735; 84484; 93005; 99283; A9270

== ENCOUNTER 2017-08-31 15:30 | Outpatient (CLI) | payer MEDICARE, OTHER | END 2017-08-31 15:31 | disposition critical access hospital (66) | LOC: EMS 15:30 | PROVIDERS: ATTEND Surgery | DX: M25.539 Pain in unspecified wrist (principal) | CPT/HCPCS: A0425; A0429 ==

== ENCOUNTER 2017-08-31 15:49 | Emergency (ER) | payer MEDICARE, OTHER ==
[2017-08-31 15:57] VITALS: BP 147/63
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
--- NOTE | 2017-08-31 17:12 | XRAY Report ---
EXAM: RIGHT WRIST RADIOGRAPHY EXAM DATE: 08/31/2017 04:21 PM. CLINICAL HISTORY: Wrist injury. COMPARISON: None. TECHNIQUE: 4 views. FINDINGS: Bones: Normal. No fractures or bone lesions. Joints: Normal. No subluxations. Soft Tissues: Normal. No soft tissue swelling. IMPRESSION: Normal wrist radiography. [facility] Referring Provider Line: [phone] SITE ID: [id number]
== END 2017-08-31 17:38 | disposition home or self-care (01) ==
LOC: EDUNIT# → SUPCPDRO 15:49 → ED 15:49
DX: S63.501A Unspecified sprain of right wrist, initial encounter (principal); W18.30XA Fall on same level, unspecified, initial encounter; Y92.009 Unspecified place in unspecified non-institutional (private) residence as the place of occurrence of the external cause; E11.9 Type 2 diabetes mellitus without complications; Z79.84 Long term (current) use of oral hypoglycemic drugs
CPT/HCPCS: 99282; 99283

== ENCOUNTER 2017-09-17 19:59 | Outpatient (CLI) | payer MEDICARE, OTHER, MEDICAID | END 2017-09-17 20:00 | disposition EMS.NT | LOC: EMS 19:59 | PROVIDERS: ATTEND Surgery | DX: M25.569 Pain in unspecified knee (principal) ==

== ENCOUNTER 2017-10-10 18:09 | Outpatient (CLI) | payer MEDICARE, OTHER, MEDICAID | END 2017-10-10 18:10 | disposition critical access hospital (66) | LOC: EMS 18:09 | PROVIDERS: ATTEND Surgery | DX: R51 Headache (principal); R42 Dizziness and giddiness | CPT/HCPCS: A0425; A0429 ==

== ENCOUNTER 2017-10-10 18:26 | Emergency (ER) | payer MEDICARE, OTHER ==
[2017-10-10] MEDS ORDERED: ACETAMINOPHEN 325 MG TABLET PO STA (18:36)
--- NOTE | 2017-10-10 18:37 | ED Physician Documentation ---
History of Present Illness - Stated complaint Stated Complaint: HEADACHE - History obtained from History obtained from: Patient, EMS - History of Present Illness Timing: How many days ago (2) Pain level max: 6 Pain level now: 5 Improved by: nothing Worsened by: nothing - Additonal information Additional information: Patient is a 56-year-old female who tripped and fell 2 days ago. Initially had no headache, developed a small headache approximately 2 hours ago. Called 911. Has not taken anything for the headache. Has had no vomiting. Had no loss of consciousness when she fell. Has social workers to come and visit her daily at home. Review of Systems Ten Systems: 10 systems reviewed and negative Constitutional: denies: Fever, Chills Ears: denies: Ear pain Nose: denies: Rhinorrhea / runny nose, Congestion Throat: denies: Sore throat Cardiac: denies: Chest pain / pressure Respiratory: denies: Cough GI: denies: Abdominal Pain, Nausea, Vomiting, Diarrhea Skin: denies: Rash Musculoskeletal: denies: Neck pain, Back pain Neurologic: denies: Focal weakness, Numbness, Syncope, Seizure, Confused, Altered mental status, LOC PD PAST MEDICAL HISTORY - Past Medical History Cardiovascular: Other Respiratory: None Neuro: None Endocrine/Autoimmune: Type 2 diabetes GI: Chronic diarrhea 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 : None HEENT: Chronic vision loss Psych: Other Musculoskeletal: None Derm: None - Past Surgical History Past Surgical History: Yes /CRIMINAL LEGAL ASSISTANT: Dilation and currettage, Other HEENT: Myringotomy (tubes) - Present Medications Home Medications: Ambulatory Orders Medication Instructions Recorded Confirmed Cholecalciferol (Vitamin D3) 2,000 unit PO DAILY 01/01/13 08/20/17 [Vitamin D] Ferrous Gluconate [Iron] 324 mg PO DAILY 01/01/13 08/20/17 Lisinopril 20 mg PO DAILY 01/01/13 08/20/17 Metformin HCl 850 mg PO BID 01/01/13 08/20/17 Multivitamin [Multivitamins] 1 each PO DAILY 01/01/13 08/20/17 Sodium Fluoride [Prevident 5000] 1 ml PO DAILY 03/04/14 08/20/17 Lansoprazole [Prevacid] 30 mg PO DAILY 02/18/15 08/20/17 Sucralfate [Carafate] 1 gm PO [facility] [place]30 [facility] [place]15 08/20/17 Magnesium Chloride [Mag Delay] 64 mg PO DAILY 12/12/16 08/20/17 - Allergies Allergies/Adverse Reactions: Allergies Allergy/AdvReac Type Severity Reaction Status Date / Time Penicillins Allergy Unknown Rash Verified 10/10/17 18:36 sulfamethoxazole Allergy Unknown Rash Verified 10/10/17 18:36 [From ] trimethoprim [From ] Allergy Unknown Rash Verified 10/10/17 18:36 amoxicillin [Amoxicillin] Allergy hives/itchi Verified 10/10/17 18:36 ng - Social History Does the pt smoke?: No Smoking Status: Never smoker Does the pt drink ETOH?: No Does the pt have substance abuse?: No - Immunizations Immunizations are current?: Yes - POLST Patient has POLST: No PD ED PE NORMAL - Vitals Vital signs reviewed: Yes - General General: Alert and oriented X 3, No acute distress, Well developed/nourished - HEENT HEENT: Atraumatic, PERRL, EOMI, Ears normal, Moist mucous membranes, Pharynx benign, Other (No scalp hematomas or palpable skull fractures) - Neck Neck: Supple, no meningeal sign, No bony TTP, Other (Full range of motion without pain) - Cardiac Cardiac: RRR, Strong equal pulses - Respiratory Respiratory: No respiratory distress, Clear bilaterally - Abdomen Abdomen: Soft, Non tender, Non distended - Back Back: No spinal TTP - Derm Derm: Warm and dry - Extremities Extremities: No deformity - Neuro Neuro: Alert and oriented X 3, clay 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 No acute neurological deficits here. GCS 15. Feels better after Tylenol. Normal gait. No evidence of intracranial hemorrhage or skull fracture. No indication for acute head CT. Not on blood thinners. Head injury instructions given at bedside Patient counseled regarding signs and symptoms for which I believe and urgent re-evaluation would be necessary. Patient with good understanding of and agreement to plan and is comfortable going home at this time This document was made in part using voice recognition software. While efforts are made to proofread this document, sound alike and grammatical errors may occur. Departure - Departure Disposition: Home, Self Care Clinical Impression: Headache Qualifiers: Headache type: unspecified Headache chronicity pattern: acute headache Intractability: not intractable Qualified Code(s): R51 - Headache Head injury Qualifiers: Encounter type: initial encounter Qualified Code(s): S09.90XA - Unspecified injury of head, initial encounter Condition: Good Instructions: ED Head Injury Closed Follow-Up: your,doctor in 1 week [Other] Comments: You can use tylenol as needed for pain at home. Return if you worsen. Discharge Date/Time: 10/10/17 18:49
[2017-10-10 18:51] VITALS: BP 144/77
== END 2017-10-10 18:49 | disposition home or self-care (01) ==
LOC: EDUNIT# → ED 18:26
DX: S09.90XA Unspecified injury of head, initial encounter (principal); W01.0XXA Fall on same level from slipping, tripping and stumbling without subsequent striking against object, initial encounter; E11.9 Type 2 diabetes mellitus without complications; Z79.84 Long term (current) use of oral hypoglycemic drugs
CPT/HCPCS: 99283; A9270

== ENCOUNTER 2017-10-11 17:35 | Outpatient (CLI) | payer MEDICARE, OTHER, MEDICAID | END 2017-10-11 17:36 | disposition critical access hospital (66) | LOC: EMS 17:35 | PROVIDERS: ATTEND Surgery | DX: R07.81 Pleurodynia (principal) | CPT/HCPCS: A0425; A0429 ==

== ENCOUNTER 2017-10-11 17:54 | Emergency (ER) | payer MEDICARE, OTHER, MEDICAID ==
[2017-10-11 18:06] VITALS: BP 135/67
--- NOTE | 2017-10-11 18:30 | ED Physician Documentation ---
PD HPI CHEST PAIN - Stated complaint Stated Complaint: L SIDE PX - Chief complaint Chief Complaint: General - History obtained from History obtained from: Patient, EMS - History of Present Illness Timing - onset: How many days ago (she says she fell couple of days ago and has had some pains intermittently since. Yesterday had some mild head pain and seen in ED. Today she noted some left chest pain and called EMS. It has cleared by time of arrival (had taken some Tylenol [employer]). She says she is feeling okay at time of my initialy exam.) Timing - onset during: Light activity Timing - duration: Hours (1) Timing - details: Abrupt onset, Now resolved Quality: Aching, Sharp, Pain Location: Left chest Radiation: No: Jaw, Neck, Back Improved by: Rest, Other medication (tylenol seemed to get it away) Worsened by: Movement, Palpation. No: Inspiration Associated symptoms: No: Shortness of air, Diaphoresis, Nausea, Feeling faint / dizzy, General Weakness Similar symptoms before: Has not had sx before Recently seen: Emergency Dept (seen often for musculoskeletal complaints.) Review of Systems Constitutional: denies: Fever Nose: denies: Rhinorrhea / runny nose, Congestion Throat: denies: Sore throat Cardiac: denies: Palpitations Respiratory: denies: Dyspnea, Cough GI: denies: Abdominal Pain, Nausea, Vomiting PD PAST MEDICAL HISTORY - Past Medical History Past Medical History: Yes Cardiovascular: Other Respiratory: None Neuro: None Endocrine/Autoimmune: Type 2 diabetes GI: Chronic diarrhea 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 : None HEENT: Chronic vision loss Psych: Other Musculoskeletal: None Derm: None - Past Surgical History Past Surgical History: Yes /BEHAVIORAL HEALTH TECH: Dilation and currettage, Other HEENT: Myringotomy (tubes) - Present Medications Home Medications: Ambulatory Orders Medication Instructions Recorded Confirmed Cholecalciferol (Vitamin D3) 2,000 unit PO DAILY 01/01/13 08/20/17 [Vitamin D] Ferrous Gluconate [Iron] 324 mg PO DAILY 01/01/13 08/20/17 Lisinopril 20 mg PO DAILY 01/01/13 08/20/17 Metformin HCl 850 mg PO BID 01/01/13 08/20/17 Multivitamin [Multivitamins] 1 each PO DAILY 01/01/13 08/20/17 Sodium Fluoride [Prevident 5000] 1 ml PO DAILY 03/04/14 08/20/17 Lansoprazole [Prevacid] 30 mg PO DAILY 02/18/15 08/20/17 Sucralfate [Carafate] 1 gm PO [facility] #30 [facility] 02/24/15 08/20/17 Magnesium Chloride [Mag Delay] 64 mg PO DAILY 12/12/16 08/20/17 - Allergies Allergies/Adverse Reactions: Allergies Allergy/AdvReac Type Severity Reaction Status Date / Time Penicillins Allergy Unknown Rash Verified 10/10/17 18:36 sulfamethoxazole Allergy Unknown Rash Verified 10/10/17 18:36 [From ] trimethoprim [From ] Allergy Unknown Rash Verified 10/10/17 18:36 amoxicillin [Amoxicillin] Allergy hives/itchi Verified 10/10/17 18:36 ng - Social History Does the pt smoke?: No Smoking Status: Never smoker Does the pt drink ETOH?: No Does the pt have substance abuse?: No - Immunizations Immunizations are current?: Yes - POLST Patient has POLST: No PD ED PE NORMAL - Vitals Vital signs reviewed: Yes - General General: Alert and oriented X 3, No acute distress, Well developed/nourished - HEENT HEENT: Atraumatic - Neck Neck: Supple, no meningeal sign, No adenopathy - Cardiac Cardiac: RRR, No murmur - Respiratory Respiratory: No respiratory distress, Clear bilaterally, Other (no chestwall tenderness nor defromity.) - Abdomen Abdomen: Soft, Non tender Results - Vitals Vitals: Oxygen O2 Source Room air PD MEDICAL DECISION MAKING - ED course Complexity details: considered differential (she says pain is improved by time of ED arrival and declines any meds. Does not want xray or such. Feels able to be discharged. ), d/w patient Departure - Departure Disposition: 01 Home, Self Care Clinical Impression: Chest wall pain Condition: Stable Record reviewed to determine appropriate education?: Yes Instructions: ED Strain Chest Wall Follow-Up: Melvin Soto MD [Primary Care Provider] - Comments: I am glad your pain is gone now. It seems like the Tylenol you took earlier helped. You can take repeated Tylenol if needed for recurrent pains and see if that helps before coming to the ER. Drink lots of fluids. Continue usual medications. Discharge Date/Time: 10/11/17 18:54
== END 2017-10-11 18:54 | disposition home or self-care (01) ==
LOC: EDUNIT# → ED 17:54
DX: R07.89 Other chest pain (principal); E11.9 Type 2 diabetes mellitus without complications; Z79.84 Long term (current) use of oral hypoglycemic drugs
CPT/HCPCS: 99283

== ENCOUNTER 2017-10-18 17:10 | Outpatient (CLI) | payer MEDICARE, OTHER, MEDICAID | END 2017-10-18 17:11 | disposition EMS.NT | LOC: EMS 17:10 | PROVIDERS: ATTEND Surgery | DX: S61.012A Laceration without foreign body of left thumb without damage to nail, initial encounter (principal); X58.XXXA Exposure to other specified factors, initial encounter ==

== ENCOUNTER 2017-10-19 11:02 | Emergency (ER) | payer MEDICARE, OTHER, MEDICAID ==
[2017-10-19 11:19] VITALS: BP 125/52
--- NOTE | 2017-10-19 12:25 | ED Physician Documentation ---
History of Present Illness - Stated complaint Stated Complaint: THUMB PX - Chief complaint Chief Complaint: Laceration - Additonal information Additional information: hx from pt 57 female small abrasion to tip of L thumb since yesterday ? 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 : None HEENT: Chronic vision loss Psych: Other Musculoskeletal: None Derm: None - Past Surgical History Past Surgical History: Yes /HOME APPLIANCE TECHNICIAN: Dilation and currettage, Other HEENT: Myringotomy (tubes) - Present Medications Home Medications: Ambulatory Orders Medication Instructions Recorded Confirmed Cholecalciferol (Vitamin D3) 2,000 unit PO DAILY 01/01/13 08/20/17 [Vitamin D] Ferrous Gluconate [Iron] 324 mg PO DAILY 01/01/13 08/20/17 Lisinopril 20 mg PO DAILY 01/01/13 08/20/17 Metformin HCl 850 mg PO BID 01/01/13 08/20/17 Multivitamin [Multivitamins] 1 each PO DAILY 01/01/13 08/20/17 Sodium Fluoride [Prevident 5000] 1 ml PO DAILY 03/04/14 08/20/17 Lansoprazole [Prevacid] 30 mg PO DAILY 02/18/15 08/20/17 Sucralfate [Carafate] 1 gm PO [facility] #30 [facility] 02/24/15 08/20/17 Magnesium Chloride [Mag Delay] 64 mg PO DAILY 12/12/16 08/20/17 - Allergies Allergies/Adverse Reactions: Allergies Allergy/AdvReac Type Severity Reaction Status Date / Time Penicillins Allergy Unknown Rash Verified 10/19/17 11:18 sulfamethoxazole Allergy Unknown Rash Verified 10/19/17 11:18 [From ] trimethoprim [From ] Allergy Unknown Rash Verified 10/19/17 11:18 amoxicillin [Amoxicillin] Allergy hives/itchi Verified 10/19/17 11:18 ng - Social History Does the pt smoke?: No Smoking Status: Never smoker Does the pt drink ETOH?: No Does the pt have substance abuse?: No - Immunizations Immunizations are current?: Yes - POLST Patient has POLST: No PD ED PE NORMAL - Vitals Vital signs reviewed: Yes - Derm Derm: Other (small 3 mm or so sup abrasion tip L thumb s infection, MSV intact) Results - Vitals Vitals: Vital Signs - 24 hr 10/19/17 11:16 Temperature 36 C L Heart Rate 71 Respiratory 16 Rate Blood Pressure 125/52 L O2 Saturation 95 Oxygen O2 Source Room air Departure - Departure Disposition: Home, Self Care Clinical Impression: Abrasion Condition: Good Instructions: ED Abrasion Comments: Leave the ER dressing on for two days After that may remove the dressing and then you need to wash the wound an d apply antibiotic ointment every day until the wound has healed
== END 2017-10-19 12:35 | disposition home or self-care (01) ==
LOC: ED 11:02
DX: S60.312A Abrasion of left thumb, initial encounter (principal); X58.XXXA Exposure to other specified factors, initial encounter; E11.9 Type 2 diabetes mellitus without complications; Z79.84 Long term (current) use of oral hypoglycemic drugs
CPT/HCPCS: 99281; 99283

== ENCOUNTER 2017-10-23 16:55 | Outpatient (CLI) | payer MEDICARE, OTHER, MEDICAID | END 2017-10-23 16:56 | disposition critical access hospital (66) | LOC: EMS 16:55 | PROVIDERS: ATTEND Surgery | DX: M54.5 Low back pain (principal); W01.0XXA Fall on same level from slipping, tripping and stumbling without subsequent striking against object, initial encounter; Y92.039 Unspecified place in apartment as the place of occurrence of the external cause | CPT/HCPCS: A0425; A0429 ==

== ENCOUNTER 2017-10-23 17:15 | Emergency (ER) | payer MEDICARE, OTHER, MEDICAID ==
[2017-10-23 17:21] VITALS: BP 130/42
--- NOTE | 2017-10-23 17:32 | ED Physician Documentation ---
PD HPI BACK PAIN - Stated complaint Stated Complaint: BACK PAIN - Chief complaint Chief Complaint: Ext Problem - History obtained from History obtained from: Patient - Additional information Additional information: The patient is a 57-year-old developmentally delayed female who is well known to us in the emergency department, who presents complaining of pain in her lower back after she fell into a recliner chair earlier today. She has been ambulatory since the incident occurred. She denies fever, dysuria or urinary incontinence, or numbness or weakness in her lower extremities. She denies any other injuries. Review of Systems Constitutional: denies: Fever Respiratory: denies: Dyspnea GI: denies: Abdominal Pain : denies: Dysuria, Incontinent Skin: denies: Rash Musculoskeletal: reports: Back pain. 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 HEENT: Chronic vision loss Psych: Other Musculoskeletal: None Derm: None - Past Surgical History Past Surgical History: Yes /VEHICLE UPHOLSTERER: Dilation and currettage, Other HEENT: Myringotomy (tubes) - Present Medications Home Medications: Ambulatory Orders Medication Instructions Recorded Confirmed Cholecalciferol (Vitamin D3) 2,000 unit PO DAILY 01/01/13 08/20/17 [Vitamin D] Ferrous Gluconate [Iron] 324 mg PO DAILY 01/01/13 08/20/17 Lisinopril 20 mg PO DAILY 01/01/13 08/20/17 Metformin HCl 850 mg PO BID 01/01/13 08/20/17 Multivitamin [Multivitamins] 1 each PO DAILY 01/01/13 08/20/17 Sodium Fluoride [Prevident 5000] 1 ml PO DAILY 03/04/14 08/20/17 Lansoprazole [Prevacid] 30 mg PO DAILY 02/18/15 08/20/17 Sucralfate [Carafate] 1 gm PO [facility] [place]30 [facility] [place] 08/20/17 Magnesium Chloride [Mag Delay] 64 mg PO DAILY 12/12/16 08/20/17 - Allergies Allergies/Adverse Reactions: Allergies Allergy/AdvReac Type Severity Reaction Status Date / Time Penicillins Allergy Unknown Rash Verified 10/19/17 11:18 sulfamethoxazole Allergy Unknown Rash Verified 10/19/17 11:18 [From Mayra] trimethoprim [From Mayra] Allergy Unknown Rash Verified 10/19/17 11:18 amoxicillin [Amoxicillin] Allergy hives/itchi Verified 10/19/17 11:18 ng - Social History Does the pt smoke?: No Smoking Status: Never smoker Does the pt drink ETOH?: No Does the pt have substance abuse?: No - Immunizations Immunizations are current?: Yes - POLST Patient has POLST: No PD ED PE NORMAL - Vitals Vital signs reviewed: Yes (normal) - General General: Alert and oriented X 3, Well developed/nourished - HEENT HEENT: Atraumatic - Neck Neck: No bony TTP - Cardiac Cardiac: RRR - Respiratory Respiratory: No respiratory distress - Abdomen Abdomen: Soft, Non tender - Back Back: No spinal TTP, Other (Mild tenderness to palpation in the paralumbar musculature bilaterally. No tenderness to palpation along the spinous processes.) - Derm Derm: No rash - Extremities Extremities: No tenderness to palpate, Other (Straight leg raise test is negative bilaterally.) - Neuro Neuro: Alert and oriented X 3, No motor deficit, Normal speech Results - Vitals Vitals: Oxygen O2 Source Room air PD MEDICAL DECISION MAKING - ED course Complexity details: considered differential, d/w patient ED course: The patient's presentation is emblematic of her many previous emergency Department visits, in which she seeks reassurance that there is no significant injury. Her physical examination is benign, and I reassured her that x-rays are not clinically indicated. I discussed with her outpatient follow-up with her primary physician. Departure - Departure Disposition: 01 Home, Self Care Clinical Impression: Back pain Qualifiers: Back pain location: low back pain Chronicity: unspecified Back pain laterality : bilateral Sciatica presence: without sciatica Qualified Code(s): M54.5 - Low back pain Condition: Stable Instructions: ED Low Back Pain Injury Follow-Up: Melvin Soto MD [Credentialed Staff Provider] - Comments: Apply ice pack to your lower back intermittently for the next 3 days. You can use Tylenol if needed for discomfort. Follow up with your primary physician within 2 weeks. Call to schedule appointment. Return to the emergency department if you develop increasing pain, numbness or weakness, or otherwise worsening symptoms. Discharge Date/Time: 10/23/17 18:16
== END 2017-10-23 18:16 | disposition home or self-care (01) ==
LOC: EDUNIT# → EDBD → ED 17:15
DX: M54.5 Low back pain (principal); Z91.81 History of falling; E11.9 Type 2 diabetes mellitus without complications; Z79.84 Long term (current) use of oral hypoglycemic drugs
CPT/HCPCS: 99282; 99283

== ENCOUNTER 2017-10-24 17:34 | Outpatient (CLI) | payer MEDICARE, OTHER, MEDICAID | END 2017-10-24 23:59 | disposition EMS.NT | LOC: EMS 17:34 | PROVIDERS: ATTEND Surgery | DX: Z03.89 Encounter for observation for other suspected diseases and conditions ruled out (principal) ==

== ENCOUNTER 2017-10-24 18:00 | Outpatient (CLI) | payer MEDICARE, OTHER, MEDICAID | END 2017-10-24 23:59 | disposition EMS.NT | LOC: EMS 18:00 | PROVIDERS: ATTEND Surgery | DX: M25.572 Pain in left ankle and joints of left foot (principal) ==

== ENCOUNTER 2017-10-25 17:19 | Outpatient (CLI) | payer MEDICARE, OTHER, MEDICAID | END 2017-10-25 17:20 | disposition critical access hospital (66) | LOC: EMS 17:19 | PROVIDERS: ATTEND Surgery | DX: M25.572 Pain in left ankle and joints of left foot (principal) | CPT/HCPCS: A0425; A0429 ==

== ENCOUNTER 2017-10-25 17:37 | Emergency (ER) | payer MEDICARE, OTHER, MEDICAID ==
--- NOTE | 2017-10-25 17:39 | ED Physician Documentation ---
PD HPI LOWER EXT INJURY - Stated complaint Stated Complaint: ANKLE PX - History obtained from History obtained from: Patient, EMS - History of Present Illness PD HPI LOW EXT INJURY LOCATION: Other (Ankle sprain yesterday, can walk and bear weight, no other injuries. Declines pain medication. She has frequent episodes of similar injuries requiring emergency department evaluation with ambulance transport.) Review of Systems Constitutional: denies: Fever, Chills GI: denies: Abdominal Pain, Nausea, Vomiting : reports: Reviewed and negative PD PAST MEDICAL HISTORY - Past Medical History Cardiovascular: Other Respiratory: None Neuro: None Endocrine/Autoimmune: Type 2 diabetes GI: Chronic diarrhea MSWS: None : None HEENT: Chronic vision loss Psych: Other Musculoskeletal: None Derm: None - Past Surgical History Past Surgical History: Yes /MSWS: Dilation and currettage, Other HEENT: Myringotomy (tubes) - Present Medications Home Medications: Ambulatory Orders Medication Instructions Recorded Confirmed Cholecalciferol (Vitamin D3) 2,000 unit PO DAILY 01/01/13 08/20/17 [Vitamin D] Ferrous Gluconate [Iron] 324 mg PO DAILY 01/01/13 08/20/17 Lisinopril 20 mg PO DAILY 01/01/13 08/20/17 Metformin HCl 850 mg PO BID 01/01/13 08/20/17 Multivitamin [Multivitamins] 1 each PO DAILY 01/01/13 08/20/17 Sodium Fluoride [Prevident 5000] 1 ml PO DAILY 03/04/14 08/20/17 Lansoprazole [Prevacid] 30 mg PO DAILY 02/18/15 08/20/17 Sucralfate [Carafate] 1 gm PO [facility] #30 [facility] [place] 02/24/15 08/20/17 Magnesium Chloride [Mag Delay] 64 mg PO DAILY 12/12/16 08/20/17 - Allergies Allergies/Adverse Reactions: Allergies Allergy/AdvReac Type Severity Reaction Status Date / Time Penicillins Allergy Unknown Rash Verified 10/25/17 18:04 sulfamethoxazole Allergy Unknown Rash Verified 10/25/17 18:04 [From ] trimethoprim [From ] Allergy Unknown Rash Verified 10/25/17 18:04 amoxicillin [Amoxicillin] Allergy hives/itchi Verified 10/25/17 18:04 ng - Social History Does the pt smoke?: No Smoking Status: Never smoker Does the pt drink ETOH?: No Does the pt have substance abuse?: No - Immunizations Immunizations are current?: Yes - POLST Patient has POLST: No PD ED PE NORMAL - Vitals Vital signs reviewed: Yes - General General: Alert and oriented X 3, No acute distress - Extremities Extremities: Other (Mild tenderness over the lateral malleolus of the left ankle without proximal fibular or foot tenderness. No swelling or deformity.) - Neuro Neuro: Alert and oriented X 3, Normal speech Results - Vitals Vitals: Vital Signs - 24 hr 10/25/17 17:39 Temperature 36.5 C Heart Rate 45 L Respiratory 18 Rate Blood Pressure 111/44 L O2 Saturation 100 Oxygen O2 Source Room air - Rads (name of study) 3v L ankle Radiology: EMP read contemporaneously (Normal), See rad report Departure - Departure Disposition: 01 Home, Self Care Clinical Impression: Sprain of left ankle Qualifiers: Encounter type: initial encounter Involved ligament of ankle: anterior talofibular ligament Qualified Code(s): S93.492A - Sprain of other ligament of left ankle, initial encounter Condition: Good Record reviewed to determine appropriate education?: Yes Instructions: ED Sprain Ankle Comments: Recheck with your doctor in 1 week if not better, return if worse. Discharge Date/Time: 10/25/17 18:11
--- NOTE | 2017-10-25 18:03 | XRAY Report ---
EXAM: LEFT ANKLE RADIOGRAPHY EXAM DATE: 10/25/2017 05:50 PM. CLINICAL HISTORY: Ankle pain. Fall on left ankle. COMPARISON: 06/02/2017. 03/29/2017. TECHNIQUE: 3 views. FINDINGS: Bones: No acute fracture or bony lesion. Plantar and posterior calcaneal spurs. Protuberant ossificat ion is again seen arising from the lateral talar process. Lucency in subchondral in location and scle rosis in the lateral left talar dome again seen possibly an osteochondral lesion. Joints: Ankle mortise is well-maintained. No dislocation . No ankle effusion. Soft Tissues: Soft tissue swelling. IMPRESSION: 1. No acute osseous abnormalities. [facility] Referring Provider Line: [phone] SITE ID: [id number]
[2017-10-25 18:04] VITALS: BP 111/44
== END 2017-10-25 18:11 | disposition home or self-care (01) ==
LOC: EDUNIT# → ED 17:37
DX: S93.492A Sprain of other ligament of left ankle, initial encounter (principal); W19.XXXA Unspecified fall, initial encounter; E11.9 Type 2 diabetes mellitus without complications; Z79.84 Long term (current) use of oral hypoglycemic drugs
CPT/HCPCS: 99283

== ENCOUNTER 2017-10-28 17:35 | Outpatient (CLI) | payer MEDICARE, OTHER, MEDICAID | END 2017-10-28 17:36 | disposition critical access hospital (66) | LOC: EMS 17:35 | PROVIDERS: ATTEND Surgery | DX: M25.572 Pain in left ankle and joints of left foot (principal); M25.562 Pain in left knee; W19.XXXA Unspecified fall, initial encounter; Y93.E9 Activity, other interior property and clothing maintenance; Y92.032 Bedroom in apartment as the place of occurrence of the external cause | CPT/HCPCS: A0425; A0429 ==

== ENCOUNTER 2017-10-28 17:56 | Emergency (ER) | payer MEDICARE, OTHER, MEDICAID ==
--- NOTE | 2017-10-28 17:59 | ED Physician Documentation ---
PD HPI LOWER EXT INJURY - Stated complaint Stated Complaint: L ANKLE PX KNEE - History obtained from History obtained from: Patient, EMS - History of Present Illness PD HPI LOW EXT INJURY LOCATION: Other (Continue pain and swelling from the left ankle, this is a frequent complaint for her. No new injury.) Review of Systems Constitutional: denies: Fever, Chills GI: reports: Reviewed and negative : reports: Reviewed and negative PD PAST MEDICAL HISTORY - Past Medical History Cardiovascular: Other Respiratory: None Neuro: None Endocrine/Autoimmune: Type 2 diabetes GI: Chronic diarrhea [employer]: None : None HEENT: Chronic vision loss Psych: Other Musculoskeletal: None Derm: None - Past Surgical History Past Surgical History: Yes /[employer]: Dilation and currettage, Other HEENT: Myringotomy (tubes) - Present Medications Home Medications: Ambulatory Orders Medication Instructions Recorded Confirmed Cholecalciferol (Vitamin D3) 2,000 unit PO DAILY 01/01/13 08/20/17 [Vitamin D] Ferrous Gluconate [Iron] 324 mg PO DAILY 01/01/13 08/20/17 Lisinopril 20 mg PO DAILY 01/01/13 08/20/17 Metformin HCl 850 mg PO BID 01/01/13 08/20/17 Multivitamin [Multivitamins] 1 each PO DAILY 01/01/13 08/20/17 Sodium Fluoride [Prevident 5000] 1 ml PO DAILY 03/04/14 08/20/17 Lansoprazole [Prevacid] 30 mg PO DAILY 02/18/15 08/20/17 Sucralfate [Carafate] 1 gm PO [facility] #30 c 02/24/15 08/20/17 Magnesium Chloride [Mag Delay] 64 mg PO DAILY 12/12/16 08/20/17 - Allergies Allergies/Adverse Reactions: Allergies Allergy/AdvReac Type Severity Reaction Status Date / Time Penicillins Allergy Unknown Rash Verified 10/25/17 18:04 sulfamethoxazole Allergy Unknown Rash Verified 10/25/17 18:04 [From ] trimethoprim [From ] Allergy Unknown Rash Verified 10/25/17 18:04 amoxicillin [Amoxicillin] Allergy hives/itchi Verified 10/25/17 18:04 ng - Social History Does the pt smoke?: No Smoking Status: Never smoker Does the pt drink ETOH?: No Does the pt have substance abuse?: No - Immunizations Immunizations are current?: Yes - POLST Patient has POLST: No PD ED PE NORMAL - Vitals Vital signs reviewed: Yes - General General: Alert and oriented X 3, No acute distress - Extremities Extremities: Other (Ankle is mildly swollen laterally but without tenderness or limited range of motion) - Neuro Neuro: Alert and oriented X 3, Normal speech Results - Vitals Vitals: Oxygen O2 Source Room air Departure - Departure Disposition: 01 Home, Self Care Clinical Impression: Injury of ankle Condition: Good Record reviewed to determine appropriate education?: Yes Comments: Wear your splint as previously instructed. Follow-up with your doctor in 1 week if not better.
[2017-10-28 18:02] VITALS: BP 127/64
== END 2017-10-28 18:03 | disposition home or self-care (01) ==
LOC: EDUNIT# → ED 17:56
DX: S99.912A Unspecified injury of left ankle, initial encounter (principal); X58.XXXA Exposure to other specified factors, initial encounter; E11.9 Type 2 diabetes mellitus without complications; Z79.84 Long term (current) use of oral hypoglycemic drugs
CPT/HCPCS: 99282; 99283

== ENCOUNTER 2017-10-30 11:05 | Outpatient (CLI) | payer MEDICARE, OTHER, MEDICAID ==
[2017-10-30 12:43] LABS: BASOPHILS # (AUTO) 0.1 10^3/uL (0.0-0.1); BASOPHILS % (AUTO) 0.9 %; EOSINOPHILS # (AUTO) 0.3 10^3/uL (0.0-0.7); EOSINOPHILS % (AUTO) 3.3 %; HGB - HEMOGLOBIN 11.6 g/dL (12.0-16.0); LYMPHOCYTES # (AUTO) 2.2 10^3/uL (1.5-3.5); MEAN CORPUSCULAR HEMOGLOBIN 27.1 pg (27.0-31.0); MEAN CORPUSCULAR HGB CONC 32.7 g/dL (32.0-36.0); MEAN CORPUSCULAR VOLUME 82.9 fL (81.0-99.0); MEAN PLATELET VOLUME 8.4 fL (7.9-10.8); MONOCYTES # (AUTO) 0.4 10^3/uL (0.0-1.0); MONOCYTES % (AUTO) 5.1 %; NEUTROPHILS # (AUTO) 4.8 10^3/uL (1.5-6.6); NEUTROPHILS % (AUTO) 61.7 %; PLT - PLATELET COUNT 212 10^3/uL (130-450); RED BLOOD COUNT 4.29 10^6/uL (4.20-5.40); RED CELL DISTRIBUTION WIDTH 14.5 % (12.0-15.0); WHITE BLOOD COUNT 7.7 x10^3/uL (4.8-10.8)
[2017-10-30 12:54] LABS: CALCIUM 9.1 mg/dL (8.5-10.3); CREATININE 1.2 mg/dL (0.4-1.0)
[2017-10-30 13:09] LABS: HB2 TOTAL 12.2 g/dL; HEMOGLOBIN A1C 0.55 g/dL; HEMOGLOBIN A1C % 6.3 % (4.6-6.2)
== END 2017-10-30 11:06 | disposition home or self-care (01) ==
LOC: LAB.N 11:05
PROVIDERS: ATTEND Physician Assistant Medical
DX: E11.9 Type 2 diabetes mellitus without complications (principal)
CPT/HCPCS: 36415; 80048; 83036; 85025

== ENCOUNTER 2017-10-30 20:07 | Outpatient (CLI) | payer MEDICARE, OTHER, MEDICAID | END 2017-10-30 20:08 | disposition critical access hospital (66) | LOC: EMS 20:07 | PROVIDERS: ATTEND Surgery | DX: M25.531 Pain in right wrist (principal); W19.XXXA Unspecified fall, initial encounter | CPT/HCPCS: A0425; A0429 ==

== ENCOUNTER 2017-10-30 20:27 | Emergency (ER) | payer MEDICARE, OTHER, MEDICAID ==
[2017-10-30 20:36] VITALS: BP 143/56
--- NOTE | 2017-10-30 20:36 | ED Physician Documentation ---
PD HPI UPPER EXT INJURY - Stated complaint Stated Complaint: WRIST PAIN - Chief complaint Chief Complaint: Ext Problem - History obtained from History obtained from: Patient - History of Present Illness Location: Right, Wrist Type of injury: Fall (she says she slipped and fell onto right wrist with pain at it. Notes a small bump.) Where injury occurred: Home Timing - onset: Today Timing - details: Abrupt onset Recently seen: Emergency Dept (here in ED often for extremity (and chest) injuries, with usually no findings. Some delay cognitiviely and hard to have her understand xrays not usually needed. Much easier to get one.) Review of Systems Skin: denies: Abrasion (s), Laceration (s) Neurologic: denies: Focal weakness, Numbness PD PAST MEDICAL HISTORY - Past Medical History Cardiovascular: Other Respiratory: None Neuro: None Endocrine/Autoimmune: Type 2 diabetes GI: Chronic diarrhea TWISTER IN: None : None HEENT: Chronic vision loss Psych: Other Musculoskeletal: None Derm: None - Past Surgical History Past Surgical History: Yes /TWISTER IN: Dilation and currettage, Other HEENT: Myringotomy (tubes) - Present Medications Home Medications: Ambulatory Orders Medication Instructions Recorded Confirmed Cholecalciferol (Vitamin D3) 2,000 unit PO DAILY 01/01/13 08/20/17 [Vitamin D] Ferrous Gluconate [Iron] 324 mg PO DAILY 01/01/13 08/20/17 Lisinopril 20 mg PO DAILY 01/01/13 08/20/17 Metformin HCl 850 mg PO BID 01/01/13 08/20/17 Multivitamin [Multivitamins] 1 each PO DAILY 01/01/13 08/20/17 Sodium Fluoride [Prevident 5000] 1 ml PO DAILY 03/04/14 08/20/17 Lansoprazole [Prevacid] 30 mg PO DAILY 02/18/15 08/20/17 Sucralfate [Carafate] 1 gm PO ACHS #30 c 02/24/15 08/20/17 Magnesium Chloride [Mag Delay] 64 mg PO DAILY 12/12/16 08/20/17 - Allergies Allergies/Adverse Reactions: Allergies Allergy/AdvReac Type Severity Reaction Status Date / Time Penicillins Allergy Unknown Rash Verified 10/30/17 20:35 sulfamethoxazole Allergy Unknown Rash Verified 10/30/17 20:35 [From ] trimethoprim [From Septra] Allergy Unknown Rash Verified 10/30/17 20:35 amoxicillin [Amoxicillin] Allergy hives/itchi Verified 10/30/17 20:35 ng - Social History Does the pt smoke?: No Smoking Status: Never smoker Does the pt drink ETOH?: No Does the pt have substance abuse?: No - Immunizations Immunizations are current?: Yes - POLST Patient has POLST: No PD ED PE NORMAL - Vitals Vital signs reviewed: Yes - General General: Alert and oriented X 3, No acute distress, Well developed/nourished - Derm Derm: Normal color, Warm and dry - Extremities Extremities: Other (right wrist with some tenderness volar area, and a small fluid bump at flexion crease c/w ganglion cyst. No redness. Some tenderness. Otherwise good ROM of the wrist. ) - Neuro Neuro: No motor deficit, No sensory deficit Results - Vitals Vitals: Oxygen O2 Source Room air - Rads (name of study) right wrist Radiology: Prelim report reviewed (no fracture), EMP read contemporaneously PD MEDICAL DECISION MAKING - ED course Complexity details: considered differential (she has often complaints of extremity injuries. She actually has a palpable ganglion cyst on volar wrist at this time. She concented to try needle decompression and it was flattened after. See if that stays deflated. ), d/w patient Departure - Departure Disposition: 01 Home, Self Care Clinical Impression: Palmar wrist ganglion Right wrist sprain Qualifiers: Encounter type: initial encounter Qualified Code(s): S63.501A - Unspecified sprain of right wrist, initial encounter Condition: Stable Record reviewed to determine appropriate education?: Yes Instructions: ED Cyst Ganglion, ED Sprain Wrist Follow-Up: Melvin Soto MD [Primary Care Provider] - Comments: Your x-ray appears okay. The small bump on your wrist was a fluid pocket from the tendon sheath in the wrist. With a deflated as I did, if most the time does not come back. Keep the wrap on the wrist for a day or so. Tylenol or ibuprofen if needed for pains. Discharge Date/Time: 10/30/17 21:35
[2017-10-30] MEDS ORDERED: LIDOCAINE 1% 2 ML VIAL SUBQ STA (20:45)
--- NOTE | 2017-10-30 21:15 | XRAY Report ---
EXAM: RIGHT WRIST RADIOGRAPHY EXAM DATE: 10/30/2017 09:04 PM. CLINICAL HISTORY: Fell to right wrist; focal swelling. COMPARISON: None. TECHNIQUE: 2 views. FINDINGS: Bones: Normal. No fractures or bone lesions. Joints: Normal. No subluxations. Soft Tissues: Normal. No soft tissue swelling. IMPRESSION: Negative right wrist [facility] Referring Provider Line: [phone] SITE ID: [id number]
--- NOTE | 2017-10-30 21:15 | XRAY Preliminary Report ---
Exam: XR WRIST 2 VIEW RT IMPRESSION: Negative right wrist [facility] SITE ID: [id number]
[2017-10-30] MEDS ORDERED: ACETAMINOPHEN 325 MG TABLET PO STA (21:28)
== END 2017-10-30 21:35 | disposition home or self-care (01) ==
LOC: EDUNIT# → ED 20:27
DX: M67.431 Ganglion, right wrist (principal); S63.501A Unspecified sprain of right wrist, initial encounter; W01.0XXA Fall on same level from slipping, tripping and stumbling without subsequent striking against object, initial encounter; Y92.009 Unspecified place in unspecified non-institutional (private) residence as the place of occurrence of the external cause; E11.9 Type 2 diabetes mellitus without complications; Z79.84 Long term (current) use of oral hypoglycemic drugs
CPT/HCPCS: 20612; 36415; 73100; 80048; 83036; 85025; 99283; A9270

== ENCOUNTER 2017-11-02 15:00 | Emergency (ER) | payer MEDICARE, OTHER, MEDICAID ==
[2017-11-02 16:09] VITALS: BP 130/54
--- NOTE | 2017-11-02 16:28 | ED Physician Documentation ---
PD HPI UPPER EXT INJURY - Stated complaint Stated Complaint: LT HAND PX - Chief complaint Chief Complaint: General - History obtained from History obtained from: Patient - History of Present Illness Location: Left, Wrist (she had had recent ganglion cyst right wrist that was tender and it was deflated by aspiration in ED with good improvement. She notices a small one on left wrist now. 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 : None HEENT: Chronic vision loss Psych: Other Musculoskeletal: None Derm: None - Past Surgical History Past Surgical History: Yes /HOT BREAD BAKER: Dilation and currettage, Other HEENT: Myringotomy (tubes) - Present Medications Home Medications: Ambulatory Orders Medication Instructions Recorded Confirmed Cholecalciferol (Vitamin D3) 2,000 unit PO DAILY 01/01/13 08/20/17 [Vitamin D] Ferrous Gluconate [Iron] 324 mg PO DAILY 01/01/13 08/20/17 Lisinopril 20 mg PO DAILY 01/01/13 08/20/17 Metformin HCl 850 mg PO BID 01/01/13 08/20/17 Multivitamin [Multivitamins] 1 each PO DAILY 01/01/13 08/20/17 Sodium Fluoride [Prevident 5000] 1 ml PO DAILY 03/04/14 08/20/17 Lansoprazole [Prevacid] 30 mg PO DAILY 02/18/15 08/20/17 Sucralfate [Carafate] 1 gm PO ACHS #30 [facility] [place] 02/24/15 08/20/17 Magnesium Chloride [Mag Delay] 64 mg PO DAILY 12/12/16 08/20/17 - Allergies Allergies/Adverse Reactions: Allergies Allergy/AdvReac Type Severity Reaction Status Date / Time Penicillins Allergy Unknown Rash Verified 10/30/17 20:35 sulfamethoxazole Allergy Unknown Rash Verified 10/30/17 20:35 [From ] trimethoprim [From ] Allergy Unknown Rash Verified 10/30/17 20:35 amoxicillin [Amoxicillin] Allergy hives/itchi Verified 10/30/17 20:35 ng - Social History Does the pt smoke?: No Smoking Status: Never smoker Does the pt drink ETOH?: No Does the pt have substance abuse?: No - Immunizations Immunizations are current?: Yes - POLST Patient has POLST: No PD ED PE NORMAL - Vitals Vital signs reviewed: Yes - General General: Alert and oriented X 3, No acute distress (but a little anxious), Well developed/nourished - Derm Derm: Normal color, Warm and dry - Extremities Extremities: Other (left mid/radial wrist with focal 1/2 cm firm rounded lump under skin c/w ganglion cyst. No redness nor signs of infection. ) - Neuro Neuro: No motor deficit, No sensory deficit Results - Vitals Vitals: Vital Signs - 24 hr 11/02/17 16:07 Temperature 37.8 C H Heart Rate 86 Respiratory 20 Rate Blood Pressure 130/54 L O2 Saturation 99 Oxygen O2 Source Room air PD MEDICAL DECISION MAKING - ED course Complexity details: considered differential (interesting to have symmetric ganglion cysts at wrists. She did not complain of this one at recent visit, and it is not hurting her now per se, but she noticed it and is now obsessed, since were able to get rid of the other one recently. I did numb skin with lido and then decompressed the 1/2 cm cyst with tip of 20G needle. Did aspirate a little fluid. It is now flat. ), d/w patient Departure - Departure Disposition: 01 Home, Self Care Clinical Impression: Ganglion cyst of volar aspect of left wrist Condition: Stable Record reviewed to determine appropriate education?: Yes Instructions: ED Cyst Ganglion Follow-Up: Melvin Soto MD [Primary Care Provider] - Comments: Leave the rapid on today and into tomorrow. Hopefully the decompression of the cyst will allow it to stay gone. Sometimes they do return. Recheck if needed. Recheck if signs of infection. Discharge Date/Time: 11/02/17 16:58
[2017-11-02] MEDS ORDERED: LIDOCAINE MPF 1%-EPI 1:200000 30 ML VIAL SUBQ STA (16:30)
== END 2017-11-02 16:58 | disposition home or self-care (01) ==
LOC: ED 15:00
DX: M67.432 Ganglion, left wrist (principal); E11.9 Type 2 diabetes mellitus without complications; Z79.84 Long term (current) use of oral hypoglycemic drugs
CPT/HCPCS: 20612; 99282

== ENCOUNTER 2017-11-03 19:30 | Outpatient (CLI) | payer MEDICARE, OTHER, MEDICAID | END 2017-11-03 19:31 | disposition critical access hospital (66) | LOC: EMS 19:30 | PROVIDERS: ATTEND Surgery | DX: M79.642 Pain in left hand (principal); M79.641 Pain in right hand; W18.39XA Other fall on same level, initial encounter; Y92.89 Other specified places as the place of occurrence of the external cause | CPT/HCPCS: A0425; A0429 ==

== ENCOUNTER 2017-11-03 19:49 | Emergency (ER) | payer MEDICARE, OTHER, MEDICAID ==
[2017-11-03 20:25] LABS: BASOPHILS % (AUTO) 0.5 %; EOSINOPHILS % (AUTO) 0.3 %; LYMPHOCYTES # (AUTO) 1.2 10^3/uL (1.5-3.5); LYMPHOCYTES % (AUTO) 29.8 %; MEAN CORPUSCULAR HEMOGLOBIN 26.4 pg (27.0-31.0); MEAN CORPUSCULAR HGB CONC 31.9 g/dL (32.0-36.0); MEAN CORPUSCULAR VOLUME 82.8 fL (81.0-99.0); MEAN PLATELET VOLUME 7.6 fL (7.9-10.8); MONOCYTES # (AUTO) 0.4 10^3/uL (0.0-1.0); MONOCYTES % (AUTO) 10.7 %; NEUTROPHILS # (AUTO) 2.3 10^3/uL (1.5-6.6); NEUTROPHILS % (AUTO) 58.7 %; PLT - PLATELET COUNT 180 10^3/uL (130-450); RED BLOOD COUNT 4.14 10^6/uL (4.20-5.40); RED CELL DISTRIBUTION WIDTH 15.2 % (12.0-15.0); WHITE BLOOD COUNT 3.9 x10^3/uL (4.8-10.8)
[2017-11-03 20:39] LABS: ALBUMIN 3.6 g/dL (3.2-5.5); ALBUMIN/GLOBULIN RATIO 1.2 (1.0-2.2); BILIRUBIN,TOTAL 0.4 mg/dL (0.2-1.0); CALCIUM 8.7 mg/dL (8.5-10.3); CREATININE 1.4 mg/dL (0.4-1.0); MAGNESIUM 1.6 mg/dL (1.7-2.8); PHOSPHORUS 3.7 mg/dL (2.5-4.6); TOTAL PROTEIN 6.6 g/dL (6.7-8.2)
[2017-11-03] MEDS ORDERED: SODIUM CHLORIDE 0.9% 1,000 ML IV ONE (21:11)
--- NOTE | 2017-11-03 22:39 | ED Physician Documentation ---
PD HPI SYNCOPE - Stated complaint Stated Complaint: FELL - NOT FEELING WELL - Chief complaint Chief Complaint: Neuro - History obtained from History obtained from: Patient, EMS - History of Present Illness Witnessed: Witnessed Timing - onset: How many hours ago (8), Today Preceding symptoms: Unknown Injury occurred: Fell Similar symptoms before: No diagnosis Recently seen: Emergency Dept - Additional information Additional information: Patient is a 57 year old female with multiple ED visits who is presenting to the emergency department after possibly passing out and falling about 8 hours ago when she was out to ear. Patient does not know how long she was out for and is a poor historian. Upon initial evaluation in the emergency department patient states that she has a mild headache but does not want any medication for it. Review of Systems Constitutional: denies: Fever, Chills Eyes: denies: Decreased vision, Photophobia Ears: denies: Ear pain, Drainage/discharge Nose: denies: Rhinorrhea / runny nose, Congestion Throat: denies: Dental pain / toothache Cardiac: denies: Chest pain / pressure, Palpitations Respiratory: denies: Dyspnea, Cough, Wheezing GI: denies: Nausea, Vomiting, Diarrhea : reports: Reviewed and negative Skin: denies: Rash, Lesions Musculoskeletal: reports: Extremity pain. denies: Neck pain Neurologic: reports: Syncope, Headache. 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 : None HEENT: Chronic vision loss Psych: Other Musculoskeletal: None Derm: None - Past Surgical History Past Surgical History: Yes /LAN ADMINISTRATOR: Dilation and currettage, Other HEENT: Myringotomy (tubes) - Present Medications Home Medications: Ambulatory Orders Medication Instructions Recorded Confirmed Cholecalciferol (Vitamin D3) 2,000 unit PO DAILY 01/01/13 08/20/17 [Vitamin D] Ferrous Gluconate [Iron] 324 mg PO DAILY 01/01/13 08/20/17 Lisinopril 20 mg PO DAILY 01/01/13 08/20/17 Metformin HCl 850 mg PO BID 01/01/13 08/20/17 Multivitamin [Multivitamins] 1 each PO DAILY 01/01/13 08/20/17 Sodium Fluoride [Prevident 5000] 1 ml PO DAILY 03/04/14 08/20/17 Lansoprazole [Prevacid] 30 mg PO DAILY 02/18/15 08/20/17 Sucralfate [Carafate] 1 gm PO ACHS #30 c 02/24/15 08/20/17 Magnesium Chloride [Mag Delay] 64 mg PO DAILY 12/12/16 08/20/17 - Allergies Allergies/Adverse Reactions: Allergies Allergy/AdvReac Type Severity Reaction Status Date / Time Penicillins Allergy Unknown Rash Verified 10/30/17 20:35 sulfamethoxazole Allergy Unknown Rash Verified 10/30/17 20:35 [From ] trimethoprim [From ] Allergy Unknown Rash Verified 10/30/17 20:35 amoxicillin [Amoxicillin] Allergy hives/itchi Verified 10/30/17 20:35 ng - Social History Does the pt smoke?: No Smoking Status: Never smoker Does the pt drink ETOH?: No Does the pt have substance abuse?: No - Immunizations Immunizations are current?: Yes - POLST Patient has POLST: No PD ED PE NORMAL - Vitals Vital signs reviewed: Yes - General General: Alert and oriented X 3, No acute distress - HEENT HEENT: Atraumatic, PERRL, Moist mucous membranes, Pharynx benign - Neck Neck: Supple, no meningeal sign - Cardiac Cardiac: RRR, No murmur - Respiratory Respiratory: No respiratory distress - Abdomen Abdomen: Soft, Non tender, Non distended - Derm Derm: Normal color, Warm and dry, No rash - Extremities Extremities: No deformity, No tenderness to palpate, Normal ROM s pain - Neuro Neuro: Alert and oriented X 3, No motor deficit, No sensory deficit, Normal speech Results - Vitals Vitals: Vital Signs - 24 hr 11/03/17 11/03/17 11/03/17 19:52 20:10 21:00 Temperature 36.8 C Heart Rate 72 80 76 Respiratory 16 25 H 17 Rate Blood Pressure 127/75 112/55 L 120/70 O2 Saturation 98 98 100 11/03/17 11/03/17 22:16 22:50 Temperature Heart Rate 79 78 Respiratory 16 16 Rate Blood Pressure 103/78 123/56 L O2 Saturation 100 97 Oxygen O2 Source Room air - EKG (time done) 2002 Rate: Rate (enter#) (73) Rhythm: NSR [place]: Normal Intervals: Normal [place] Other comments: Other comments (multiple pvcs) Compare to prior EKG: Unchanged from prior EKG 2004 Rate: Rate (enter#) (72) Rhythm: NSR [place]: Normal Intervals: Normal [place] Other comments: Other comments (trigeminy) Compare to prior EKG: Unchanged from prior EKG - Labs Labs: Laboratory Tests 11/03/17 11/03/17 11/03/17 20:21 20:21 20:21 WBC 3.9 L RBC 4.14 L Hgb 11.0 L Hct 34.3 L MCV 82.8 MCH 26.4 L MCHC 31.9 L RDW 15.2 H Plt Count 180 MPV 7.6 L Neut # 2.3 Lymph # 1.2 L [place] # 0.4 Eos # 0.0 Baso # 0.0 Absolute Nucleated RBC 0.00 Nucleated RBC % 0.1 Sodium 136 Potassium 4.1 Chloride 104 Carbon Dioxide 24 Anion Gap 8.0 BUN 24 H Creatinine 1.4 H Estimated GFR (MDRD) 38 L Glucose 114 H Calcium 8.7 Phosphorus 3.7 Magnesium 1.6 L Total Bilirubin 0.4 AST 22 ALT 22 Alkaline Phosphatase 78 Troponin I < 0.04 Total Protein 6.6 L Albumin 3.6 Globulin 3.0 Albumin/Globulin Ratio 1.2 Lipase 58 H PD MEDICAL DECISION MAKING - ED course Complexity details: reviewed old records, reviewed results, re-evaluated patient , considered differential, d/w patient ED course: Patient was seen and examined at bedside. patient stated that she did not want any medications at this time. ekg was performed and showed multiple pvcs. labs were drawn. Patient was given oral hydration while an attempt was made at an IV. After drinking fluids patient stated that she was feeling better and asked to go home. Patient had no acute neurological disfunction and was stable for discharge with outpatient follow up. Departure - Departure Disposition: 01 Home, Self Care Clinical Impression: Syncope Condition: Good Instructions: ED Syncope Vasovagal Follow-Up: Melvin Soto MD [Primary Care Provider] - Tomorrow Comments: It is important that you follow up with your doctor tomorrow for further evaluation and care. You may return to the emergency department if needed for new, worsening or uncontrollable symptoms. Discharge Date/Time: 11/03/17 22:55
[2017-11-03 23:01] VITALS: BP 123/56
== END 2017-11-03 22:55 | disposition home or self-care (01) ==
LOC: EDUNIT# → ED 19:49
DX: R55 Syncope and collapse (principal); R51 Headache; I49.3 Ventricular premature depolarization; E11.9 Type 2 diabetes mellitus without complications; Z79.84 Long term (current) use of oral hypoglycemic drugs
CPT/HCPCS: 36415; 80053; 83690; 83735; 84100; 84484; 85025; 93005; 99284; 99285

== ENCOUNTER 2017-11-08 22:08 | Outpatient (CLI) | payer MEDICARE, OTHER, MEDICAID | END 2017-11-08 22:09 | disposition critical access hospital (66) | LOC: EMS 22:08 | PROVIDERS: ATTEND Surgery | DX: R51 Headache (principal) | CPT/HCPCS: A0425; A0429 ==

== ENCOUNTER 2017-11-08 22:25 | Emergency (ER) | payer MEDICARE, OTHER, MEDICAID ==
[2017-11-08] MEDS ORDERED: ACETAMINOPHEN 325 MG TABLET PO STA (23:36)
--- NOTE | 2017-11-08 23:39 | ED Physician Documentation ---
PD HPI HEADACHE - Stated complaint Stated Complaint: FAUST - Chief complaint Chief Complaint: Neuro - History obtained from History obtained from: Patient, EMS - History of Present Illness Timing - onset: Today Timing - onset during: Rest Timing - duration: Hours Timing - details: Gradual onset, Still present Worst headache ever?: No: Worst headache ever? Location: Front Quality: No: [place]clap, Throbbing, Aching, Stabbing Associated symptoms: No: Fever, Stiff neck, Nausea, Vomiting, Weakness, Numbness , Syncope, Seizure, Eye pain, Vision changes Improved by: Rest, Meds Worsened by: Other (nothing) Contributing factors: No: Recent illness Similar symptoms before: Diagnosis (headache) Recently seen: Emergency Dept - Additional information Additional information: 57-year-old female with developmental delay is a frequent visitor to the emergency department for a variety of complaints. She tonight has a headache which she points to the center of her head, and states that it is just a headache. She is not nauseous she has not vomited she is not having diarrhea and she is not otherwise ill. She denies any cough or congestion denies any fever. She is somewhat of a poor historian but she indicates that she asked for some Tylenol and was not able to get the Tylenol where she lives so she called the ambulance. Review of Systems Constitutional: denies: Fever, Chills, Myalgias, Fatigue, Sweats Eyes: denies: Decreased vision Ears: denies: Ear pain Nose: denies: Rhinorrhea / runny nose, Congestion Throat: denies: Dental pain / toothache, Sore throat Cardiac: denies: Chest pain / pressure, Palpitations Respiratory: denies: Dyspnea, Cough GI: denies: Abdominal Pain, Nausea, Vomiting, Constipation, Diarrhea : denies: Dysuria, Frequency Skin: denies: Rash Musculoskeletal: denies: Neck pain, Back pain, Extremity pain Neurologic: reports: Headache. 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 : None HEENT: Chronic vision loss Psych: Other Musculoskeletal: None Derm: None - Past Surgical History Past Surgical History: Yes /RADIO TIME BUYER: Dilation and currettage, Other HEENT: Myringotomy (tubes) - Present Medications Home Medications: Ambulatory Orders Medication Instructions Recorded Confirmed Cholecalciferol (Vitamin D3) 2,000 unit PO DAILY 01/01/13 08/20/17 [Vitamin D] Ferrous Gluconate [Iron] 324 mg PO DAILY 01/01/13 08/20/17 Lisinopril 20 mg PO DAILY 01/01/13 08/20/17 Metformin HCl 850 mg PO BID 01/01/13 08/20/17 Multivitamin [Multivitamins] 1 each PO DAILY 01/01/13 08/20/17 Sodium Fluoride [Prevident 5000] 1 ml PO DAILY 03/04/14 08/20/17 Lansoprazole [Prevacid] 30 mg PO DAILY 02/18/15 08/20/17 Sucralfate [Carafate] 1 gm PO ACHS #30 [facility] 02/24/15 08/20/17 Magnesium Chloride [Mag Delay] 64 mg PO DAILY 12/12/16 08/20/17 - Allergies Allergies/Adverse Reactions: Allergies Allergy/AdvReac Type Severity Reaction Status Date / Time Penicillins Allergy Unknown Rash Verified 11/08/17 22:33 sulfamethoxazole Allergy Unknown Rash Verified 11/08/17 22:33 [From Mayra] trimethoprim [From ] Allergy Unknown Rash Verified 11/08/17 22:33 amoxicillin [Amoxicillin] Allergy hives/itchi Verified 11/08/17 22:33 ng - Social History Does the pt smoke?: No Smoking Status: Never smoker Does the pt drink ETOH?: No Does the pt have substance abuse?: No - Immunizations Immunizations are current?: Yes - POLST Patient has POLST: No PD ED PE NORMAL - Vitals Vital signs reviewed: Yes (normal ) - General General: No acute distress, Well developed/nourished - HEENT HEENT: Atraumatic, PERRL, EOMI, Ears normal, Moist mucous membranes, Pharynx benign, Dentition benign - Neck Neck: Supple, no meningeal sign, No bony TTP - Cardiac Cardiac: RRR, No murmur - Respiratory Respiratory: No respiratory distress, Clear bilaterally - Abdomen Abdomen: Soft, Non tender - Back Back: No CVA TTP, No spinal TTP - Derm Derm: Normal color, Warm and dry, No rash - Extremities Extremities: No deformity, No edema - 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, No motor deficit, No sensory deficit, Normal speech Eye Opening: Spontaneous Motor: Obeys Commands Verbal: Oriented GCS Score: 15 - Psych Psych: Normal mood, Normal affect Results - Vitals Vitals: Vital Signs - 24 hr 11/08/17 22:31 Temperature 36.5 C Heart Rate 64 Respiratory 20 Rate Blood Pressure 134/61 H O2 Saturation 100 Oxygen O2 Source Room air Procedures - IVC sono (time) 2340 Bedside IVC sono: IVC measures (cm) (1.35), Euvolemia PD MEDICAL DECISION MAKING - ED course Complexity details: reviewed old records, considered differential, d/w patient ED course: 57-year-old female with a headache has no findings on examination and by history has very benign history. She would normally take some Tylenol for this and was not able to get the Tylenol. We have provided Tylenol here in the emergency department. I looked over her record and saw that she had a recent visit for dehydration I checked her inferior vena cava and I did not find her to be depleted. I have encouraged her to drink extra fluids but I do not believe that her headache is related to dehydration. Departure - Departure Disposition: Home, Self Care Clinical Impression: Head ache Qualifiers: Headache type: unspecified Headache chronicity pattern: acute headache Intractability: not intractable Qualified Code(s): R51 - Headache Condition: Stable Instructions: ED Cephalgia Unspecified Follow-Up: Melvin Soto MD [Primary Care Provider] -
[2017-11-08 23:49] VITALS: BP 115/68
== END 2017-11-08 23:50 | disposition home or self-care (01) ==
LOC: EDUNIT# → ED 22:25
DX: R51 Headache (principal); E11.9 Type 2 diabetes mellitus without complications; Z79.84 Long term (current) use of oral hypoglycemic drugs
CPT/HCPCS: 99283; A9270

== ENCOUNTER 2017-11-16 19:59 | Outpatient (CLI) | payer MEDICARE, OTHER, MEDICAID | END 2017-11-16 20:00 | disposition EMS.NT | LOC: EMS 19:59 | PROVIDERS: ATTEND Surgery | DX: Z03.89 Encounter for observation for other suspected diseases and conditions ruled out (principal) ==

== ENCOUNTER 2017-11-19 09:14 | Outpatient (CLI) | payer MEDICARE, OTHER, MEDICAID ==
[2017-11-19 13:05] LABS: BASOPHILS # (AUTO) 0.1 10^3/uL (0.0-0.1); BASOPHILS % (AUTO) 0.9 %; EOSINOPHILS # (AUTO) 0.1 10^3/uL (0.0-0.7); EOSINOPHILS % (AUTO) 1.5 %; HGB - HEMOGLOBIN 11.4 g/dL (12.0-16.0); LYMPHOCYTES # (AUTO) 1.2 10^3/uL (1.5-3.5); LYMPHOCYTES % (AUTO) 18.1 %; MEAN CORPUSCULAR HEMOGLOBIN 27.1 pg (27.0-31.0); MEAN CORPUSCULAR HGB CONC 32.9 g/dL (32.0-36.0); MEAN CORPUSCULAR VOLUME 82.3 fL (81.0-99.0); MEAN PLATELET VOLUME 7.8 fL (7.9-10.8); MONOCYTES # (AUTO) 0.4 10^3/uL (0.0-1.0); MONOCYTES % (AUTO) 5.7 %; NEUTROPHILS # (AUTO) 4.9 10^3/uL (1.5-6.6); NEUTROPHILS % (AUTO) 73.8 %; PLT - PLATELET COUNT 212 10^3/uL (130-450); RED BLOOD COUNT 4.22 10^6/uL (4.20-5.40); RED CELL DISTRIBUTION WIDTH 15.1 % (12.0-15.0); WHITE BLOOD COUNT 6.7 x10^3/uL (4.8-10.8)
[2017-11-19 13:10] LABS: ALBUMIN 3.7 g/dL (3.2-5.5); ALBUMIN/GLOBULIN RATIO 1.2 (1.0-2.2); CALCIUM 8.9 mg/dL (8.5-10.3); CREATININE 1.2 mg/dL (0.4-1.0); TOTAL PROTEIN 6.7 g/dL (6.7-8.2)
== END 2017-11-19 09:15 | disposition home or self-care (01) ==
LOC: LAB.N 09:14
PROVIDERS: ATTEND Physician Assistant Medical
DX: N18.3 Chronic kidney disease, stage 3 (moderate) (principal); E11.9 Type 2 diabetes mellitus without complications; I12.9 Hypertensive chronic kidney disease with stage 1 through stage 4 chronic kidney disease, or unspecified chronic kidney disease
CPT/HCPCS: 36415; 80053; 85025

== ENCOUNTER 2017-11-22 13:38 | Outpatient (CLI) | payer MEDICARE, OTHER, MEDICAID | END 2017-11-22 13:39 | disposition critical access hospital (66) | LOC: EMS 13:38 | PROVIDERS: ATTEND Surgery | DX: R51 Headache (principal) | CPT/HCPCS: A0425; A0429 ==

== ENCOUNTER 2017-11-22 13:58 | Emergency (ER) | payer MEDICARE, OTHER, MEDICAID ==
[2017-11-22 14:02] VITALS: BP 122/59
[2017-11-22] MEDS ORDERED: ACETAMINOPHEN 325 MG TABLET PO STA (14:27)
--- NOTE | 2017-11-22 14:36 | ED Physician Documentation ---
PD HPI HEADACHE - Stated complaint Stated Complaint: FAUST - Chief complaint Chief Complaint: Neuro - History obtained from History obtained from: Patient, EMS - History of Present Illness Timing - onset: How many hours ago (1.5) Timing - onset during: Rest Timing - duration: Hours (1.5) Timing - details: Gradual onset Pain level max: 4 Pain level now: 4 Location: Global Quality: Throbbing, Aching Associated symptoms: No: Fever, Stiff neck, Nausea, Vomiting, Weakness, Numbness , Syncope, Seizure, Eye pain, Vision changes Improved by: Rest Worsened by: Light, Noise Similar symptoms before: Diagnosis (headaches) - Additional information Additional information: states didn't have tylenol and called 911 for her headache. Review of Systems Constitutional: denies: Fever Ears: denies: Ear pain Nose: denies: Rhinorrhea / runny nose, Congestion Respiratory: denies: Cough GI: denies: Nausea, Vomiting, Diarrhea Skin: denies: Rash Musculoskeletal: denies: Neck pain, Back pain Neurologic: denies: Focal weakness, Numbness, Confused, Altered mental status PD PAST MEDICAL HISTORY - Past Medical History Cardiovascular: Other Respiratory: None Neuro: None Endocrine/Autoimmune: Type 2 diabetes GI: Chronic diarrhea RN TRAVEL: None : None HEENT: Chronic vision loss Psych: Other Musculoskeletal: None Derm: None - Past Surgical History Past Surgical History: Yes /RN TRAVEL: Dilation and currettage, Other HEENT: Myringotomy (tubes) - Present Medications Home Medications: Ambulatory Orders Medication Instructions Recorded Confirmed Cholecalciferol (Vitamin D3) 2,000 unit PO DAILY 01/01/13 08/20/17 [Vitamin D] Ferrous Gluconate [Iron] 324 mg PO DAILY 01/01/13 08/20/17 Lisinopril 20 mg PO DAILY 01/01/13 08/20/17 Metformin HCl 850 mg PO BID 01/01/13 08/20/17 Multivitamin [Multivitamins] 1 each PO DAILY 01/01/13 08/20/17 Sodium Fluoride [Prevident 5000] 1 ml PO DAILY 03/04/14 08/20/17 Lansoprazole [Prevacid] 30 mg PO DAILY 02/18/15 08/20/17 Sucralfate [Carafate] 1 gm PO ACHS #30 udc 02/24/15 08/20/17 Magnesium Chloride [Mag Delay] 64 mg PO DAILY 12/12/16 08/20/17 - Allergies Allergies/Adverse Reactions: Allergies Allergy/AdvReac Type Severity Reaction Status Date / Time Penicillins Allergy Unknown Rash Verified 11/08/17 22:33 sulfamethoxazole Allergy Unknown Rash Verified 11/08/17 22:33 [From ] trimethoprim [From ] Allergy Unknown Rash Verified 11/08/17 22:33 amoxicillin [Amoxicillin] Allergy hives/itchi Verified 11/08/17 22:33 ng - Social History Does the pt smoke?: No Smoking Status: Never smoker Does the pt drink ETOH?: No Does the pt have substance abuse?: No - Immunizations Immunizations are current?: Yes - POLST Patient has POLST: No PD ED PE NORMAL - Vitals Vital signs reviewed: Yes - General General: Alert and oriented X 3, No acute distress, Well developed/nourished - HEENT HEENT: Atraumatic, PERRL, EOMI, Ears normal, Moist mucous membranes, Pharynx benign, Dentition benign - Neck Neck: Supple, no meningeal sign, No bony TTP - Cardiac Cardiac: RRR, Strong equal pulses - Respiratory Respiratory: No respiratory distress, Clear bilaterally - Abdomen Abdomen: Soft, Non tender, Non distended - Back Back: No spinal TTP - Derm Derm: Warm and dry - Neuro Neuro: Alert and oriented X 3, 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 Resolved with Tylenol. Will have her follow-up with her doctor. No subarachnoid hemorrhage, tumor, mass. Normal neurological exam. Patient counseled regarding signs and symptoms for which I believe and urgent re-evaluation would be necessary. Patient with good understanding of and agreement to plan and is comfortable going home at this time This document was made in part using voice recognition software. While efforts are made to proofread this document, sound alike and grammatical errors may occur. Departure - Departure Disposition: 01 Home, Self Care Clinical Impression: Head ache Qualifiers: Headache type: unspecified Headache chronicity pattern: acute headache Intractability: not intractable Qualified Code(s): R51 - Headache Condition: Good Instructions: ED Cephalgia Unspecified Follow-Up: Melvin Soto MD [Primary Care Provider] - As Needed Comments: Return if you worsen. You should keep tylenol at home for your headaches. Discharge Date/Time: 11/22/17 14:38
== END 2017-11-22 14:38 | disposition home or self-care (01) ==
LOC: EDUNIT# → ED 13:58
DX: R51 Headache (principal); E11.9 Type 2 diabetes mellitus without complications; Z79.84 Long term (current) use of oral hypoglycemic drugs
CPT/HCPCS: 99282; 99283; A9270

== ENCOUNTER 2017-11-24 13:37 | Outpatient (CLI) | payer MEDICARE, OTHER, MEDICAID | END 2017-11-24 13:38 | disposition critical access hospital (66) | LOC: EMS 13:37 | PROVIDERS: ATTEND Surgery | DX: R51 Headache (principal) | CPT/HCPCS: A0425; A0429 ==

== ENCOUNTER 2017-11-24 13:55 | Emergency (ER) | payer MEDICARE, OTHER, MEDICAID ==
[2017-11-24 14:03] VITALS: BP 122/67
--- NOTE | 2017-11-24 14:06 | ED Physician Documentation ---
History of Present Illness - Stated complaint Stated Complaint: FAUST - Additonal information Additional information: 57 female well known to ED today was on the bus and developed a mild l sided frontal FAUST similar to headaches she has had in the past no fever no neck pain no numbness or weakness no truam no Co exposure FAUST better now pt has no complaints now Review of Systems Constitutional: denies: Fever Eyes: denies: Decreased vision, Photophobia Cardiac: denies: Chest pain / pressure Respiratory: denies: Cough GI: denies: Abdominal Pain, Vomiting Neurologic: reports: Headache. 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: Dilation and currettage, Other HEENT: Myringotomy (tubes) - Present Medications Home Medications: Ambulatory Orders Medication Instructions Recorded Confirmed Cholecalciferol (Vitamin D3) 2,000 unit PO DAILY 01/01/13 08/20/17 [Vitamin D] Ferrous Gluconate [Iron] 324 mg PO DAILY 01/01/13 08/20/17 Lisinopril 20 mg PO DAILY 01/01/13 08/20/17 Metformin HCl 850 mg PO BID 01/01/13 08/20/17 Multivitamin [Multivitamins] 1 each PO DAILY 01/01/13 08/20/17 Sodium Fluoride [Prevident 5000] 1 ml PO DAILY 03/04/14 08/20/17 Lansoprazole [Prevacid] 30 mg PO DAILY 02/18/15 08/20/17 Sucralfate [Carafate] 1 gm PO ACHS #30 udc 02/24/15 08/20/17 Magnesium Chloride [Mag Delay] 64 mg PO DAILY 12/12/16 08/20/17 - Allergies Allergies/Adverse Reactions: Allergies Allergy/AdvReac Type Severity Reaction Status Date / Time Penicillins Allergy Unknown Rash Verified 11/24/17 14:01 sulfamethoxazole Allergy Unknown Rash Verified 11/24/17 14:01 [From ] trimethoprim [From ] Allergy Unknown Rash Verified 11/24/17 14:01 amoxicillin [Amoxicillin] Allergy hives/itchi Verified 11/24/17 14:01 ng - Social History Does the pt smoke?: No Smoking Status: Never smoker Does the pt drink ETOH?: No Does the pt have substance abuse?: No - Immunizations Immunizations are current?: Yes - POLST Patient has POLST: No PD ED PE NORMAL - Vitals Vital signs reviewed: Yes - General General: Alert and oriented X 3 - HEENT HEENT: PERRL, EOMI, Other (globes soft, no TA TTP) - Neck Neck: Supple, no meningeal sign - Cardiac Cardiac: RRR - Respiratory Respiratory: No respiratory distress - Neuro Neuro: Alert and oriented X 3, 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, No motor deficit, No sensory deficit, Normal speech Eye Opening: Spontaneous Motor: Obeys Commands Verbal: Oriented GCS Score: 15 Results - Vitals Vitals: Vital Signs - 24 hr 11/24/17 14:00 Temperature 36.3 C L Heart Rate 83 Respiratory 18 Rate Blood Pressure 122/67 O2 Saturation 100 Oxygen O2 Source Room air PD MEDICAL DECISION MAKING - ED course ED course: non specific recurrent mild FAUST that lasted 10 min and is now gone do not feel concern for meningitis SAH CO etc will dc Departure - Departure Disposition: 01 Home, Self Care Clinical Impression: Headache Qualifiers: Headache type: unspecified Headache chronicity pattern: unspecified pattern Intractability: not intractable Qualified Code(s): R51 - Headache Condition: Good Instructions: ED Cephalgia Unspecified Comments: I'm glad your headache feels better. Please follow up with your PMD
== END 2017-11-24 14:04 | disposition home or self-care (01) ==
LOC: EDUNIT# → ED 13:55
DX: R51 Headache (principal); E11.9 Type 2 diabetes mellitus without complications; Z79.84 Long term (current) use of oral hypoglycemic drugs
CPT/HCPCS: 99283

== ENCOUNTER 2017-11-24 21:41 | Outpatient (CLI) | payer MEDICARE, OTHER, MEDICAID | END 2017-11-24 21:42 | disposition EMS.NT | LOC: EMS 21:41 | PROVIDERS: ATTEND Surgery | DX: R51 Headache (principal) ==

== ENCOUNTER 2017-11-26 12:56 | Outpatient (CLI) | payer MEDICARE, OTHER, MEDICAID | END 2017-11-26 12:57 | disposition short-term general hospital (02) | LOC: EMS 12:56 | PROVIDERS: ATTEND Surgery | DX: R07.9 Chest pain, unspecified (principal) | CPT/HCPCS: A0425; A0427 ==

== ENCOUNTER 2017-12-01 21:10 | Outpatient (CLI) | payer MEDICARE, OTHER, MEDICAID | END 2017-12-01 21:11 | disposition critical access hospital (66) | LOC: EMS 21:10 | PROVIDERS: ATTEND Surgery | DX: R10.9 Unspecified abdominal pain (principal) | CPT/HCPCS: A0425; A0429 ==

== ENCOUNTER 2017-12-01 21:48 | Emergency (ER) | payer MEDICARE, OTHER, MEDICAID ==
[2017-12-01] MEDS ORDERED: LIDOCAINE VISCOUS 2% 15 ML UDC MM STA (22:26)
[2017-12-01] MEDS ORDERED: FAMOTIDINE 20 MG TABLET PO STA (22:26)
[2017-12-01] MEDS ORDERED: MAG HYDROX/AL HYDROX/SIMETH 30 ML UDC PO STA (22:26)
--- NOTE | 2017-12-01 23:15 | ED Physician Documentation ---
PD HPI ABD PAIN - Stated complaint Stated Complaint: ABD PAIN - Chief complaint Chief Complaint: Abd Pain - History obtained from History obtained from: Patient, EMS - History of Present Illness Timing - onset: Today Timing - details: Gradual onset, Still present Quality: Sharp Location: Epigastric Worsened by: Eating Associated symptoms: No: Fever, Nausea, Vomiting Similar symptoms before: Work up / diagnostics, Treatment Recently seen: Emergency Dept - Additional information Additional information: Patient is a 57 year old mentally delayed female with a history GERD who is presenting to the emergency department for epigastric pain. Patient was seen at another hospital yesterday and treated with pepcid with good relief. Review of Systems Constitutional: denies: Fever, Chills Eyes: reports: Reviewed and negative Ears: reports: Reviewed and negative Nose: reports: Reviewed and negative Throat: reports: Reviewed and negative Cardiac: denies: Chest pain / pressure, Palpitations Respiratory: denies: Dyspnea, Cough GI: reports: Abdominal Pain. 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: Dilation and currettage, Other HEENT: Myringotomy (tubes) - Present Medications Home Medications: Ambulatory Orders Medication Instructions Recorded Confirmed Cholecalciferol (Vitamin D3) 2,000 unit PO DAILY 01/01/13 08/20/17 [Vitamin D] Ferrous Gluconate [Iron] 324 mg PO DAILY 01/01/13 08/20/17 Lisinopril 20 mg PO DAILY 01/01/13 08/20/17 Metformin HCl 850 mg PO BID 01/01/13 08/20/17 Multivitamin [Multivitamins] 1 each PO DAILY 01/01/13 08/20/17 Sodium Fluoride [Prevident 5000] 1 ml PO DAILY 03/04/14 08/20/17 Lansoprazole [Prevacid] 30 mg PO DAILY 02/18/15 08/20/17 Sucralfate [Carafate] 1 gm PO [facility]30 [facility] [place] 02/24/15 08/20/17 Magnesium Chloride [Mag Delay] 64 mg PO DAILY 12/12/16 08/20/17 - Allergies Allergies/Adverse Reactions: Allergies Allergy/AdvReac Type Severity Reaction Status Date / Time Penicillins Allergy Unknown Rash Verified 12/01/17 21:56 sulfamethoxazole Allergy Unknown Rash Verified 12/01/17 21:56 [From ] trimethoprim [From ] Allergy Unknown Rash Verified 12/01/17 21:56 amoxicillin [Amoxicillin] Allergy hives/itchi Verified 12/01/17 21:56 ng - Social History Does the pt smoke?: No Smoking Status: Never smoker Does the pt drink ETOH?: No Does the pt have substance abuse?: No - Immunizations Immunizations are current?: Yes - POLST Patient has POLST: No PD ED PE NORMAL - Vitals Vital signs reviewed: Yes - General General: No acute distress, Well developed/nourished - HEENT HEENT: Atraumatic, PERRL - Neck Neck: Supple, no meningeal sign - Cardiac Cardiac: RRR, No murmur - Respiratory Respiratory: No respiratory distress - Derm Derm: Normal color, Warm and dry, No rash - Extremities Extremities: No deformity - Neuro Neuro: Alert and oriented X 3, No motor deficit Eye Opening: Spontaneous Motor: Obeys Commands Verbal: Oriented GCS Score: 15 PD ED PE EXPANDED - Abdomen Abdomen: Tender to palpation, Epigastric. No: Rebound, Guarding Results - Vitals Vitals: Vital Signs - 24 hr 12/01/17 21:50 Temperature 36.3 C L Heart Rate 69 Respiratory 16 Rate Blood Pressure 126/63 O2 Saturation 98 Oxygen O2 Source Room air PD MEDICAL DECISION MAKING - ED course Complexity details: reviewed old records, reviewed results, re-evaluated patient , d/w patient ED course: patient was seen and examined at bedside. Patient was treated with pepcid, maalox and viscous lidocaine. Upon re-evaluation patients pain had resolved. patient sated she wanted to go home. patient was stable for discharge with outpatient follow up. Departure - Departure Disposition: 01 , Self Care Clinical Impression: Gastroesophageal reflux disease Condition: Good Instructions: ED GERD Follow-Up: Melvin Soto MD [Primary Care Provider] - Tomorrow Comments: Your sympotms are likely secondary to GERD or gastro enteritis. You should follow up with your doctor this week for re-evaluation. You can take tums or maalox as needed for pain. You should eat smaller meals and avoid spicey, acidic or fatty foods. You may return to the emergency department at any time for new, worsening or uncontrollable symptoms.
[2017-12-01 23:34] VITALS: BP 130/75
== END 2017-12-01 23:35 | disposition home or self-care (01) ==
LOC: EDUNIT# → ED 21:48
DX: K21.9 Gastro-esophageal reflux disease without esophagitis (principal); E11.9 Type 2 diabetes mellitus without complications; Z79.84 Long term (current) use of oral hypoglycemic drugs
CPT/HCPCS: 99283; 99284; A9270

== ENCOUNTER 2017-12-04 20:16 | Outpatient (CLI) | payer MEDICARE, OTHER, MEDICAID | END 2017-12-04 20:17 | disposition critical access hospital (66) | LOC: EMS 20:16 | PROVIDERS: ATTEND Surgery | DX: R07.9 Chest pain, unspecified (principal) | CPT/HCPCS: A0425; A0429 ==

== ENCOUNTER 2017-12-04 20:36 | Emergency (ER) | payer MEDICARE, OTHER, MEDICAID ==
--- NOTE | 2017-12-04 21:09 | ED Physician Documentation ---
PD HPI CHEST PAIN - Stated complaint Stated Complaint: CP - Chief complaint Chief Complaint: Cardiac - History obtained from History obtained from: Patient, EMS - History of Present Illness Timing - onset: Today (This is a 57-year-old woman with developmental delay who has a rapidly varying story and history of present illness. For the paramedics she was complaining of rapid heart rate and a stubbed toe. To me she says that when she got home from the [facility] at about 4:00 she tripped and fell and hit her central chest on concrete now has central chest pain. 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: Dilation and currettage, Other HEENT: Myringotomy (tubes) - Present Medications Home Medications: Ambulatory Orders Medication Instructions Recorded Confirmed Cholecalciferol (Vitamin D3) 2,000 unit PO DAILY 01/01/13 12/04/17 [Vitamin D] Ferrous Gluconate [Iron] 324 mg PO DAILY 01/01/13 12/04/17 Lisinopril 20 mg PO DAILY 01/01/13 12/04/17 Metformin HCl 850 mg PO BID 01/01/13 12/04/17 Multivitamin [Multivitamins] 1 each PO DAILY 01/01/13 12/04/17 Sodium Fluoride [Prevident 5000] 1 ml PO DAILY 03/04/14 12/04/17 Lansoprazole [Prevacid] 30 mg PO DAILY 02/18/15 12/04/17 Sucralfate [Carafate] 1 gm PO [facility] #30 [facility] [place] 02/24/15 12/04/17 Magnesium Chloride [Mag Delay] 64 mg PO DAILY 12/12/16 12/04/17 - Allergies Allergies/Adverse Reactions: Allergies Allergy/AdvReac Type Severity Reaction Status Date / Time Penicillins Allergy Unknown Rash Verified 12/04/17 20:46 sulfamethoxazole Allergy Unknown Rash Verified 12/04/17 20:46 [From ] trimethoprim [From Mayra] Allergy Unknown Rash Verified 12/04/17 20:46 amoxicillin [Amoxicillin] Allergy hives/itchi Verified 12/04/17 20:46 ng - Social History Does the pt smoke?: No Smoking Status: Never smoker Does the pt drink ETOH?: No Does the pt have substance abuse?: No - Immunizations Immunizations are current?: Yes - POLST Patient has POLST: No PD ED PE NORMAL - Vitals Vital signs reviewed: Yes - General General: Alert and oriented X 3, No acute distress - Neck Neck: Supple, no meningeal sign, No bony TTP - Cardiac Cardiac: RRR, No murmur - Respiratory Respiratory: No respiratory distress, Clear bilaterally - Abdomen Abdomen: Non tender - Extremities Extremities: No edema, No calf tenderness / cord - Neuro Neuro: Alert and oriented X 3 Results - Vitals Vitals: Vital Signs - 24 hr 12/04/17 12/04/17 20:43 22:09 Temperature 36.4 C L Heart Rate 116 H 73 Respiratory 18 22 Rate Blood Pressure 141/81 H 118/74 O2 Saturation 96 98 Oxygen O2 Source Room air - EKG (time done) 2045 Rate: Rate (enter#) (74) Rhythm: NSR (with PVCs) [place]: Normal Intervals: Normal NE Ischemia: Non specific changes (Tiny lateral ST depression which is unchanged from multiple prior EKGs in the chart. She also has frequent PVCs and other EKGs on the chart.) Computer interpretation: Agree with computer - Labs Labs: Laboratory Tests 12/04/17 22:00 Troponin I < 0.04 - Rads (name of study) 2v chest Radiology: EMP read contemporaneously (NAD) Departure - Departure Disposition: 01 Home, Self Care Clinical Impression: Chest wall injury Qualifiers: Encounter type: initial encounter Qualified Code(s): S29.9XXA - Unspecified injury of thorax, initial encounter Condition: Good Record reviewed to determine appropriate education?: Yes Instructions: ED Contusion Chest Wall Comments: Call your doctor to arrange a follow-up appointment, make the next available appointment. In the interim, return anytime if worse or if new symptoms develop.
--- NOTE | 2017-12-04 21:55 | XRAY Report ---
EXAM: CHEST RADIOGRAPHY EXAM DATE: 12/04/2017 09:36 PM. CLINICAL HISTORY: Fall, chest injury. Chest pain. COMPARISON: 11/01/2016. TECHNIQUE: 2 views. Grid cut off artifact is noted on the AP view. The study is mildly underpenetrate d. FINDINGS: Lungs/Pleura: No focal opacities evident. No pleural effusion. No pneumothorax. Normal volumes. Mediastinum: Mild cardiomegaly, as before. Other: Rib detail radiographs were not obtained, the bones are grossly unremarkable except for mild b ilateral acromioclavicular joint osteoarthritis. IMPRESSION: No evidence of chest injury. [facility] Referring Provider Line: [phone] SITE ID: [id number]
--- NOTE | 2017-12-04 21:55 | XRAY Preliminary Report ---
Exam: XR CHEST 2 VIEW X-RAY IMPRESSION: No evidence of chest injury. [facility] SITE ID: [id number]
[2017-12-04 22:34] VITALS: BP 114/71
== END 2017-12-04 22:49 | disposition home or self-care (01) ==
LOC: EDUNIT# → ED 20:36
DX: S29.9XXA Unspecified injury of thorax, initial encounter (principal); E11.9 Type 2 diabetes mellitus without complications; Z79.84 Long term (current) use of oral hypoglycemic drugs; W01.10XA Fall on same level from slipping, tripping and stumbling with subsequent striking against unspecified object, initial encounter; Y92.009 Unspecified place in unspecified non-institutional (private) residence as the place of occurrence of the external cause
CPT/HCPCS: 36415; 71046; 84484; 93005; 99283

== ENCOUNTER 2017-12-07 21:32 | Outpatient (CLI) | payer MEDICARE, OTHER, MEDICAID | END 2017-12-07 21:33 | disposition critical access hospital (66) | LOC: EMS 21:32 | PROVIDERS: ATTEND Surgery | DX: R22.9 Localized swelling, mass and lump, unspecified (principal) | CPT/HCPCS: A0425; A0429 ==

== ENCOUNTER 2017-12-07 21:49 | Emergency (ER) | payer MEDICARE, OTHER, MEDICAID ==
--- NOTE | 2017-12-08 01:40 | ED Physician Documentation ---
PD HPI SKIN - Stated complaint Stated Complaint: CYST - Chief complaint Chief Complaint: Wound - History obtained from History obtained from: Patient - History of Present Illness Timing - onset: Yesterday Quality / character: Swelling Recently seen: Emergency Dept - Additional information Additional information: Frequent [facility] ED visits (third this month and 16th this year). She presents due to focal swelling left wrist which she says she wants "removed". Per ED notes, it appears she had this site drained last month. Patient says it just became swollen again tonight. 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, Other HEENT: Myringotomy (tubes) - Present Medications Home Medications: Ambulatory Orders Medication Instructions Recorded Confirmed Cholecalciferol (Vitamin D3) 2,000 unit PO DAILY 01/01/13 12/04/17 [Vitamin D] Ferrous Gluconate [Iron] 324 mg PO DAILY 01/01/13 12/04/17 Lisinopril 20 mg PO DAILY 01/01/13 12/04/17 Metformin HCl 850 mg PO BID 01/01/13 12/04/17 Multivitamin [Multivitamins] 1 each PO DAILY 01/01/13 12/04/17 Sodium Fluoride [Prevident 5000] 1 ml PO DAILY 03/04/14 12/04/17 Lansoprazole [Prevacid] 30 mg PO DAILY 02/18/15 12/04/17 Sucralfate [Carafate] 1 gm PO [facility] #30 [facility] 02/24/15 12/04/17 Magnesium Chloride [Mag Delay] 64 mg PO DAILY 12/12/16 12/04/17 - Allergies Allergies/Adverse Reactions: Allergies Allergy/AdvReac Type Severity Reaction Status Date / Time Penicillins Allergy Unknown Rash Verified 12/07/17 21:53 sulfamethoxazole Allergy Unknown Rash Verified 12/07/17 21:53 [From Mayra] trimethoprim [From ] Allergy Unknown Rash Verified 12/07/17 21:53 amoxicillin [Amoxicillin] Allergy hives/itchi Verified 12/07/17 21:53 ng - Social History Does the pt smoke?: No Smoking Status: Never smoker Does the pt drink ETOH?: No Does the pt have substance abuse?: No - Immunizations Immunizations are current?: Yes - POLST Patient has POLST: No PD ED PE NORMAL - Vitals Vital signs reviewed: Yes - General General: Alert and oriented X 3, No acute distress, Well developed/nourished - Derm Derm: Normal color, Warm and dry, No rash - Extremities Extremities: No tenderness to palpate, No edema PD ED PE EXPANDED - Extremities [place] UE/Hands Visual: 1 - swelling (nontender, rubbery 0.5cm-1cm diameter mass suggestive of ganglion cyst. no erythema or fluctuance) Results - Vitals Vitals: Vital Signs - 24 hr 12/07/17 12/08/17 21:51 02:09 Temperature 35.9 C L Heart Rate 67 74 Respiratory 16 17 Rate Blood Pressure 120/75 105/45 L O2 Saturation 96 100 Oxygen O2 Source Room air PD MEDICAL DECISION MAKING - ED course Complexity details: reviewed old records, considered differential, d/w patient ED course: Documentation from last month indicates this ganglion cyst was drained in ED. However, rapid recurrence suggests it is likely to recur if drained again (per uptodate recommendations, which are to avoid drainage of ganglion cyst if recurrence is within short span such as a month). Additional reasons to not drain this in the ED are size of lesion (it is small), lack of tenderness, and location (volar, directly over radial artery). I explained this to patient and told her that if she wants to have the cyst removed, she needs to see her primary care physician to ask about referral to specialist (such as airport ramp supervisor). Departure - Departure Disposition: 01 Home, Self Care Clinical Impression: Ganglion cyst Condition: Good Instructions: ED Cyst Ganglion Follow-Up: Melvin Soto MD [Primary Care Provider] - Comments: You should contact your doctor and ask for a referral for removal of the cyst if it is bothering you. Discharge Date/Time: 12/08/17 02:43
[2017-12-08 02:10] VITALS: BP 105/45
== END 2017-12-08 02:43 | disposition home or self-care (01) ==
LOC: EDUNIT# → ED 21:49
DX: M67.432 Ganglion, left wrist (principal); E11.9 Type 2 diabetes mellitus without complications; Z79.84 Long term (current) use of oral hypoglycemic drugs
CPT/HCPCS: 99282; 99283

== ENCOUNTER 2017-12-17 21:09 | Outpatient (CLI) | payer MEDICARE, OTHER, MEDICAID | END 2017-12-17 21:10 | disposition critical access hospital (66) | LOC: EMS 21:09 | PROVIDERS: ATTEND Surgery | DX: R09.89 Other specified symptoms and signs involving the circulatory and respiratory systems (principal) | CPT/HCPCS: A0425; A0429 ==

== ENCOUNTER 2017-12-17 21:27 | Emergency (ER) | payer MEDICARE, OTHER, MEDICAID ==
--- NOTE | 2017-12-17 22:34 | ED Physician Documentation ---
History of Present Illness - Stated complaint Stated Complaint: HEART RACING - Chief complaint Chief Complaint: General - History obtained from History obtained from: Patient, EMS - History of Present Illness Timing: Today Pain level max: 0 Pain level now: 0 - Additonal information Additional information: 17th [facility] ED visit this year and fourth this month. she c/o episodic rapid palpitations since this morning. she denies chest pain on my HPI. she repeatedly asks to be discharged, says she feels fine now (per patient) and except for my first few questions, answers mostly with requests for discharge home Review of Systems Unable to obtain: Other (limited due to poor cooperation (see HPI)) Cardiac: reports: Palpitations. 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 HEENT: Chronic vision loss Psych: Other Musculoskeletal: None Derm: None - Past Surgical History Past Surgical History: Yes /FAGOT HEATER HELPER: Dilation and currettage, Other HEENT: Myringotomy (tubes) - Present Medications Home Medications: Ambulatory Orders Medication Instructions Recorded Confirmed Cholecalciferol (Vitamin D3) 2,000 unit PO DAILY 01/01/13 12/17/17 [Vitamin D] Ferrous Gluconate [Iron] 324 mg PO DAILY 01/01/13 12/17/17 Lisinopril 20 mg PO DAILY 01/01/13 12/17/17 Metformin HCl 850 mg PO BID 01/01/13 12/17/17 Multivitamin [Multivitamins] 1 each PO DAILY 01/01/13 12/17/17 Sodium Fluoride [Prevident 5000] 1 ml PO DAILY 03/04/14 12/17/17 Lansoprazole [Prevacid] 30 mg PO DAILY 02/18/15 12/17/17 Sucralfate [Carafate] 1 gm PO [place]CHS [place]30 [facility] [place] 12/17/17 Magnesium Chloride [Mag Delay] 64 mg PO DAILY 12/12/16 12/17/17 - Allergies Allergies/Adverse Reactions: Allergies Allergy/AdvReac Type Severity Reaction Status Date / Time Penicillins Allergy Unknown Rash Verified 12/17/17 21:45 sulfamethoxazole Allergy Unknown Rash Verified 12/17/17 21:45 [From ] trimethoprim [From ] Allergy Unknown Rash Verified 12/17/17 21:45 amoxicillin [Amoxicillin] Allergy hives/itchi Verified 12/17/17 21:45 ng - Social History Does the pt smoke?: No Smoking Status: Never smoker Does the pt drink ETOH?: No Does the pt have substance abuse?: No - Immunizations Immunizations are current?: Yes - POLST Patient has POLST: No PD ED PE NORMAL - Vitals Vital signs reviewed: Yes - General General: Alert and oriented X 3, No acute distress, Well developed/nourished - Cardiac Cardiac: RRR, No murmur, No gallop, No rub - Respiratory Respiratory: No respiratory distress, Clear bilaterally Results - Vitals Vitals: Oxygen O2 Source Room air - EKG (time done) No standard instances Rate: Rate (enter#) (83) Rhythm: NSR [place]: Normal Intervals: Normal CT QRS: Normal Ischemia: Normal ST segments PD MEDICAL DECISION MAKING - ED course Complexity details: reviewed old records, considered differential, d/w patient Departure - Departure Disposition: 01 Home, Self Care Clinical Impression: Heart palpitations Condition: Good Instructions: ED Palpitations Follow-Up: Wale Morales PA-C [Primary Care Provider] - Discharge Date/Time: 12/17/17 23:05
[2017-12-17 23:48] VITALS: BP 123/70
== END 2017-12-17 23:05 | disposition home or self-care (01) ==
LOC: EDUNIT# → ED 21:27
DX: R00.2 Palpitations (principal); E11.9 Type 2 diabetes mellitus without complications; Z79.84 Long term (current) use of oral hypoglycemic drugs
CPT/HCPCS: 93005; 99283

== ENCOUNTER 2017-12-19 19:52 | Outpatient (CLI) | payer MEDICARE, OTHER, MEDICAID | END 2017-12-19 19:53 | disposition critical access hospital (66) | LOC: EMS 19:52 | PROVIDERS: ATTEND Surgery | DX: R00.2 Palpitations (principal); R51 Headache | CPT/HCPCS: A0425; A0427 ==

== ENCOUNTER 2017-12-19 20:20 | Emergency (ER) | payer MEDICARE, OTHER, MEDICAID ==
--- NOTE | 2017-12-19 20:55 | ED Physician Documentation ---
History of Present Illness - Stated complaint Stated Complaint: FAUST, PALPITATIONS - Chief complaint Chief Complaint: General - History obtained from History obtained from: Patient, EMS - History of Present Illness Timing: Today Pain level max: 0 Pain level now: 0 Improved by: nothing Worsened by: eating pepperoni pizza - Additonal information Additional information: Patient is a 57-year-old female who states she was eating pepperoni pianaa tonight when she felt her heart beating faster than usual. She states that lasted a few minutes. Now resolved. Denies any chest pain to me. States feels normal now. Review of Systems Ten Systems: 10 systems reviewed and negative Constitutional: denies: Fever, Chills Ears: denies: Ear pain Nose: denies: Rhinorrhea / runny nose, Congestion Throat: denies: Sore throat Cardiac: reports: Chest pain / pressure (denies to me), Palpitations Respiratory: denies: Dyspnea, Cough, Wheezing GI: denies: Abdominal Pain, Nausea, Vomiting, Diarrhea Skin: denies: Rash Musculoskeletal: denies: Neck pain, Back pain Neurologic: denies: Headache PD PAST MEDICAL HISTORY - Past Medical History Cardiovascular: Other Respiratory: None Neuro: None Endocrine/Autoimmune: Type 2 diabetes GI: Chronic diarrhea 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 : None HEENT: Chronic vision loss Psych: Other Musculoskeletal: None Derm: None - Past Surgical History Past Surgical History: Yes /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: Dilation and currettage, Other HEENT: Myringotomy (tubes) - Present Medications Home Medications: Ambulatory Orders Medication Instructions Recorded Confirmed Cholecalciferol (Vitamin D3) 2,000 unit PO DAILY 01/01/13 12/17/17 [Vitamin D] Ferrous Gluconate [Iron] 324 mg PO DAILY 01/01/13 12/17/17 Lisinopril 20 mg PO DAILY 01/01/13 12/17/17 Metformin HCl 850 mg PO BID 01/01/13 12/17/17 Multivitamin [Multivitamins] 1 each PO DAILY 01/01/13 12/17/17 Sodium Fluoride [Prevident 5000] 1 ml PO DAILY 03/04/14 12/17/17 Lansoprazole [Prevacid] 30 mg PO DAILY 02/18/15 12/17/17 Sucralfate [Carafate] 1 gm PO ACHS #30 [facility] [place] 02/24/15 12/17/17 Magnesium Chloride [Mag Delay] 64 mg PO DAILY 12/12/16 12/17/17 - Allergies Allergies/Adverse Reactions: Allergies Allergy/AdvReac Type Severity Reaction Status Date / Time Penicillins Allergy Unknown Rash Verified 12/17/17 21:45 sulfamethoxazole Allergy Unknown Rash Verified 12/17/17 21:45 [From ] trimethoprim [From ] Allergy Unknown Rash Verified 12/17/17 21:45 amoxicillin [Amoxicillin] Allergy hives/itchi Verified 12/17/17 21:45 ng - Social History Does the pt smoke?: No Smoking Status: Never smoker Does the pt drink ETOH?: No Does the pt have substance abuse?: No - Immunizations Immunizations are current?: Yes - POLST Patient has POLST: No PD ED PE NORMAL - Vitals Vital signs reviewed: Yes - General General: Alert and oriented X 3, No acute distress, Well developed/nourished - HEENT HEENT: PERRL, Moist mucous membranes, Pharynx benign - Neck Neck: Supple, no meningeal sign, No JVD, No bruit - Cardiac Cardiac: RRR, No murmur, Strong equal pulses - Respiratory Respiratory: No respiratory distress, Clear bilaterally - Abdomen Abdomen: Soft, Non tender, Non distended - Derm Derm: Warm and dry - Extremities Extremities: No calf tenderness / cord - Neuro Neuro: Alert and oriented X 3 - Psych Psych: Normal mood, Normal affect Results - Vitals Vitals: Vital Signs - 24 hr 12/19/17 12/19/17 20:15 21:50 Temperature 36.8 C Heart Rate 94 91 Respiratory 18 18 Rate Blood Pressure 117/67 111/63 O2 Saturation 95 97 Oxygen O2 Source Room air - EKG (time done) 2014 Rate: Rate (enter#) (93) Rhythm: NSR [place]: Normal Intervals: Normal ID QRS: Normal Ischemia: Normal ST segments - Labs Labs: Laboratory Tests 12/19/17 12/19/17 12/19/17 21:25 21:25 21:25 WBC 7.2 RBC 4.25 Hgb 11.1 L Hct 35.4 L MCV 83.1 MCH 26.1 L MCHC 31.4 L RDW 15.3 H Plt Count 240 MPV 7.6 L Neut # 4.3 Lymph # 2.0 [place] # 0.5 Eos # 0.3 Baso # 0.1 Absolute Nucleated RBC 0.00 Nucleated RBC % 0.0 Sodium 138 Potassium 4.1 Chloride 105 Carbon Dioxide 25 Anion Gap 8.0 BUN 27 H Creatinine 1.2 H Estimated GFR (MDRD) 46 L Glucose 146 H Calcium 8.9 Total Bilirubin 0.4 AST 18 ALT 14 Alkaline Phosphatase 72 Troponin I < 0.04 Total Protein 6.8 Albumin 3.5 Globulin 3.3 Albumin/Globulin Ratio 1.1 Lipase 45 - Rads (name of study) cxr Radiology: Prelim report reviewed, EMP read contemporaneously, See rad report ( Cardiomegaly, otherwise no acute disease) PD MEDICAL DECISION MAKING - ED course Complexity details: reviewed results, re-evaluated patient, considered differential (No ST elevation ID, no aortic dissection, no PE, no tension pneumothorax, no aortic aneurysm), d/w patient ED course: Patient is a 57-year-old female with palpitations tonight while eating a pepperoni pizza. This is happened to her in the past. No symptoms here. Labs were initially sent as the chest pain protocol. She denies any chest pain adamantly to me. No acute laboratory findings, EKG or radiographic findings. Asymptomatic currently so will have her follow-up with her doctor. She has had the same palpitations in the past. No findings on telemetry. Patient counseled regarding signs and symptoms for which I believe and urgent re- evaluation would be necessary. Patient with good understanding of and agreement to plan and is comfortable going home at this time This document was made in part using voice recognition software. While efforts are made to proofread this document, sound alike and grammatical errors may occur. Departure - Departure Disposition: 01 Home, Self Care Clinical Impression: Palpitations Condition: Good Instructions: ED Palpitations Follow-Up: your,doctor in 1week [Other] Comments: Return if you worsen. Your tests are normal today. Discharge Date/Time: 12/19/17 21:58
--- NOTE | 2017-12-19 21:33 | XRAY Report ---
EXAM: CHEST RADIOGRAPHY EXAM DATE: 12/19/2017 09:06 PM. CLINICAL HISTORY: Chest pain. COMPARISON: 12/04/2017. TECHNIQUE: 1 view. FINDINGS: Lungs/Pleura: No focal opacities evident. No pleural effusion. No pneumothorax. Mediastinum: The heart remains enlarged. Other: Degenerative changes of the acromioclavicular joints, otherwise no bony abnormality identified . IMPRESSION: Cardiomegaly, otherwise unremarkable single view chest. [facility] Referring Provider Line: [phone] SITE ID: [id number]
[2017-12-19 21:36] LABS: BASOPHILS # (AUTO) 0.1 10^3/uL (0.0-0.1); BASOPHILS % (AUTO) 0.8 %; EOSINOPHILS # (AUTO) 0.3 10^3/uL (0.0-0.7); EOSINOPHILS % (AUTO) 4.1 %; HGB - HEMOGLOBIN 11.1 g/dL (12.0-16.0); LYMPHOCYTES % (AUTO) 28.2 %; MEAN CORPUSCULAR HEMOGLOBIN 26.1 pg (27.0-31.0); MEAN CORPUSCULAR HGB CONC 31.4 g/dL (32.0-36.0); MEAN CORPUSCULAR VOLUME 83.1 fL (81.0-99.0); MEAN PLATELET VOLUME 7.6 fL (7.9-10.8); MONOCYTES # (AUTO) 0.5 10^3/uL (0.0-1.0); MONOCYTES % (AUTO) 6.9 %; NEUTROPHILS # (AUTO) 4.3 10^3/uL (1.5-6.6); PLT - PLATELET COUNT 240 10^3/uL (130-450); RED BLOOD COUNT 4.25 10^6/uL (4.20-5.40); RED CELL DISTRIBUTION WIDTH 15.3 % (12.0-15.0); WHITE BLOOD COUNT 7.2 x10^3/uL (4.8-10.8)
[2017-12-19 21:43] LABS: ALBUMIN 3.5 g/dL (3.2-5.5); ALBUMIN/GLOBULIN RATIO 1.1 (1.0-2.2); BILIRUBIN,TOTAL 0.4 mg/dL (0.2-1.0); CALCIUM 8.9 mg/dL (8.5-10.3); CREATININE 1.2 mg/dL (0.4-1.0); TOTAL PROTEIN 6.8 g/dL (6.7-8.2)
[2017-12-19 21:51] VITALS: BP 111/63
== END 2017-12-19 21:58 | disposition home or self-care (01) ==
LOC: EDBD → ED 20:20
DX: R00.2 Palpitations (principal); E11.9 Type 2 diabetes mellitus without complications; Z79.84 Long term (current) use of oral hypoglycemic drugs; I51.7 Cardiomegaly
CPT/HCPCS: 36415; 71045; 80053; 83690; 84484; 85025; 93005; 99283; 99284

== ENCOUNTER 2017-12-22 09:32 | Outpatient (CLI) | payer MEDICARE, OTHER, MEDICAID | END 2017-12-22 09:33 | disposition home or self-care (01) | LOC: LAB.N 09:32 | PROVIDERS: ATTEND Physician Assistant Medical | DX: Z11.3 Encounter for screening for infections with a predominantly sexual mode of transmission (principal) | CPT/HCPCS: 36415; 81599; 86592; 87389 ==

== ENCOUNTER 2017-12-23 18:48 | Outpatient (CLI) | payer MEDICARE, OTHER, MEDICAID | END 2017-12-23 18:49 | disposition critical access hospital (66) | LOC: EMS 18:48 | PROVIDERS: ATTEND Surgery | DX: M53.3 Sacrococcygeal disorders, not elsewhere classified (principal); W19.XXXA Unspecified fall, initial encounter; Y93.9 Activity, unspecified; Y92.511 Restaurant or cafe as the place of occurrence of the external cause | CPT/HCPCS: A0425; A0429 ==

== ENCOUNTER 2017-12-23 19:20 | Emergency (ER) | payer MEDICARE, OTHER, MEDICAID ==
--- NOTE | 2017-12-23 19:24 | ED Physician Documentation ---
PD HPI BACK INJURY - Stated complaint Stated Complaint: GLF - History obtained from History obtained from: Patient, EMS - History of Present Illness Location: Other (She had a ground-level fall into a sitting position injuring her tailbone on the carpet. This is just prior to arrival. She declines pain medication. 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: Dilation and currettage, Other HEENT: Myringotomy (tubes) - Present Medications Home Medications: Ambulatory Orders Medication Instructions Recorded Confirmed Cholecalciferol (Vitamin D3) 2,000 unit PO DAILY 01/01/13 12/17/17 [Vitamin D] Ferrous Gluconate [Iron] 324 mg PO DAILY 01/01/13 12/17/17 Lisinopril 20 mg PO DAILY 01/01/13 12/17/17 Metformin HCl 850 mg PO BID 01/01/13 12/17/17 Multivitamin [Multivitamins] 1 each PO DAILY 01/01/13 12/17/17 Sodium Fluoride [Prevident 5000] 1 ml PO DAILY 03/04/14 12/17/17 Lansoprazole [Prevacid] 30 mg PO DAILY 02/18/15 12/17/17 Sucralfate [Carafate] 1 gm PO ACHS #30 [facility] 02/24/15 12/17/17 Magnesium Chloride [Mag Delay] 64 mg PO DAILY 12/12/16 12/17/17 Donut Pillow 1 ahfu TD ONCE #1 12/23/17 - Allergies Allergies/Adverse Reactions: Allergies Allergy/AdvReac Type Severity Reaction Status Date / Time Penicillins Allergy Unknown Rash Verified 12/23/17 19:25 sulfamethoxazole Allergy Unknown Rash Verified 12/23/17 19:25 [From ] trimethoprim [From ] Allergy Unknown Rash Verified 12/23/17 19:25 amoxicillin [Amoxicillin] Allergy hives/itchi Verified 12/23/17 19:25 ng - Social History Does the pt smoke?: No Smoking Status: Never smoker Does the pt drink ETOH?: No Does the pt have substance abuse?: No - Immunizations Immunizations are current?: Yes - POLST Patient has POLST: No PD ED PE NORMAL - Vitals Vital signs reviewed: Yes - General General: No acute distress, Well developed/nourished - Neck Neck: Supple, no meningeal sign, No bony TTP - Back Back: No spinal TTP, Other (Except she is tender focally over the upper sacrum.) - Extremities Extremities: No edema, No calf tenderness / cord - Psych Psych: Normal mood, Normal affect Results - Vitals Vitals: Vital Signs - 24 hr 12/23/17 19:22 Temperature 36.5 C Heart Rate 97 Respiratory 16 Rate Blood Pressure 113/58 L O2 Saturation 98 Oxygen O2 Source Room air - Rads (name of study) Sacral XR Radiology: EMP read contemporaneously (negative) Departure - Departure Disposition: 01 Home, Self Care Clinical Impression: Sacral contusion Qualifiers: Encounter type: initial encounter Qualified Code(s): S30.0XXA - Contusion of lower back and pelvis, initial encounter Condition: Good Record reviewed to determine appropriate education?: Yes Instructions: ED Low Back Pain Injury Prescriptions: Donut Pillow 1 ahfu TD ONCE #1
--- NOTE | 2017-12-23 20:26 | XRAY Report ---
EXAM: SACRUM AND COCCYX RADIOGRAPHY EXAM DATE: 12/23/2017 08:11 PM. HISTORY: Tailbone injury. Fall. COMPARISONS: Lumbar spine 06/28/2017. TECHNIQUE: 3 views. FINDINGS: No evidence for acute fracture. Mild right sacral iliac degenerative joint disease. IMPRESSION: No evidence for acute fracture. [facility] Referring Provider Line: [phone] SITE ID: [id number]
--- NOTE | 2017-12-23 20:26 | XRAY Preliminary Report ---
Exam: XR SACRUM/COCCYX IMPRESSION: No evidence for acute fracture. [facility] SITE ID: [id number]
[2017-12-23 20:37] VITALS: BP 125/59
== END 2017-12-23 21:14 | disposition home or self-care (01) ==
LOC: EDUNIT# → EDBD → ED 19:20
DX: S30.0XXA Contusion of lower back and pelvis, initial encounter (principal); W18.30XA Fall on same level, unspecified, initial encounter; Y92.511 Restaurant or cafe as the place of occurrence of the external cause; E11.9 Type 2 diabetes mellitus without complications; Z79.84 Long term (current) use of oral hypoglycemic drugs
CPT/HCPCS: 72220; 99283; 99284

== ENCOUNTER 2017-12-26 10:14 | Outpatient (CLI) | payer MEDICARE, OTHER, MEDICAID | END 2017-12-26 10:15 | disposition critical access hospital (66) | LOC: EMS 10:14 | PROVIDERS: ATTEND Surgery | DX: M25.531 Pain in right wrist (principal); Y04.8XXA Assault by other bodily force, initial encounter | CPT/HCPCS: A0425; A0429 ==

== ENCOUNTER 2017-12-26 10:37 | Emergency (ER) | payer MEDICARE, OTHER, MEDICAID ==
[2017-12-26 10:39] VITALS: BP 145/65
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
[2017-12-26] MEDS ORDERED: IBUPROFEN 600 MG TABLET PO STA (11:22)
--- NOTE | 2017-12-26 12:35 | XRAY Report ---
EXAM: RIGHT WRIST RADIOGRAPHY EXAM DATE: 12/26/2017 11:45 AM. CLINICAL HISTORY: Right wrist twisted this morning. COMPARISON: Right wrist series 10/30/2017. TECHNIQUE: 4 views. FINDINGS: Bones: Normal. No fractures or bone lesions. Joints: Normal. No subluxations. Soft Tissues: Normal. No soft tissue swelling. IMPRESSION: No fracture demonstrated. [facility] Referring Provider Line: [phone] SITE ID: [id number]
== END 2017-12-26 12:00 | disposition home or self-care (01) ==
LOC: EDUNIT# → EDBD → ED 10:37
DX: E11.9 Type 2 diabetes mellitus without complications (principal); Z79.84 Long term (current) use of oral hypoglycemic drugs; S63.501A Unspecified sprain of right wrist, initial encounter; W50.2XXA Accidental twist by another person, initial encounter; Y92.009 Unspecified place in unspecified non-institutional (private) residence as the place of occurrence of the external cause
CPT/HCPCS: 73110; 99283; A9270

== ENCOUNTER 2018-01-03 17:34 | Outpatient (CLI) | payer MEDICARE, OTHER, MEDICAID | END 2018-01-03 17:35 | disposition critical access hospital (66) | LOC: EMS 17:34 | PROVIDERS: ATTEND Surgery | DX: R22.32 Localized swelling, mass and lump, left upper limb (principal) | CPT/HCPCS: A0425; A0429 ==

== ENCOUNTER 2018-01-03 17:55 | Emergency (ER) | payer MEDICARE, OTHER, MEDICAID ==
--- NOTE | 2018-01-03 20:13 | ED Physician Documentation ---
History of Present Illness - Stated complaint Stated Complaint: CYST ON WRIST - Chief complaint Chief Complaint: Heent - History obtained from History obtained from: Patient - Additonal information Additional information: .The patient is a 57-year-old female who is well-known to us in the emergency department because of her frequent visits with minor complaints. Tonight she presents with swelling on her left wrist, stating that she has a cyst. She states she has had it for a long time, and there is been no recent change. She denies any recent traumatic injury. She is right-hand dominant. 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 and currettage, Other HEENT: Myringotomy (tubes) - Present Medications Home Medications: Ambulatory Orders Medication Instructions Recorded Confirmed Cholecalciferol (Vitamin D3) 2,000 unit PO DAILY 01/01/13 12/17/17 [Vitamin D] Ferrous Gluconate [Iron] 324 mg PO DAILY 01/01/13 12/17/17 Lisinopril 20 mg PO DAILY 01/01/13 12/17/17 Metformin HCl 850 mg PO BID 01/01/13 12/17/17 Multivitamin [Multivitamins] 1 each PO DAILY 01/01/13 12/17/17 Sodium Fluoride [Prevident 5000] 1 ml PO DAILY 03/04/14 12/17/17 Lansoprazole [Prevacid] 30 mg PO DAILY 02/18/15 12/17/17 Sucralfate [Carafate] 1 gm PO ACHS #30 [facility] 02/24/15 12/17/17 Magnesium Chloride [Mag Delay] 64 mg PO DAILY 12/12/16 12/17/17 Donut Pillow 1 ahfu TD ONCE #1 12/23/17 - Allergies Allergies/Adverse Reactions: Allergies Allergy/AdvReac Type Severity Reaction Status Date / Time Penicillins Allergy Unknown Rash Verified 01/03/18 18:04 sulfamethoxazole Allergy Unknown Rash Verified 01/03/18 18:04 [From ] trimethoprim [From ] Allergy Unknown Rash Verified 01/03/18 18:04 amoxicillin [Amoxicillin] Allergy hives/itchi Verified 01/03/18 18:04 ng - Social History Does the pt smoke?: No Smoking Status: Never smoker Does the pt drink ETOH?: No Does the pt have substance abuse?: No - Immunizations Immunizations are current?: Yes - POLST Patient has POLST: No PD ED PE NORMAL - Vitals Vital signs reviewed: Yes (normal) - General General: Alert and oriented X 3 - HEENT HEENT: Atraumatic - Respiratory Respiratory: No respiratory distress - Derm Derm: No rash - Extremities Extremities: Other (There is a small swollen area on the volar radial aspect of the left wrist,, consistent with a ganglion cyst. It is mildly tender to palpation. There is no overlying erythema. Distal neurovascular is intact.) - Neuro Neuro: Alert and oriented X 3, Normal speech Results - Vitals Vitals: Vital Signs - 24 hr 01/03/18 01/03/18 18:01 20:14 Temperature 36.2 C L Heart Rate 87 78 Respiratory 20 18 Rate Blood Pressure 130/63 128/71 O2 Saturation 99 99 Oxygen O2 Source Room air PD MEDICAL DECISION MAKING - ED course Complexity details: considered differential, d/w patient ED course: The patient's presentation is most consistent with a ganglion cyst of the left wrist. There is no clinical indication for imaging studies. The patient requested that a gauze dressing be applied over the cyst, and this was performed. She reported that the gauze dressing made it feel better. I discussed with her the diagnosis, outpatient follow-up, as well as potentially worrisome signs or symptoms that should prompt reevaluation in the emergency department. Departure - Departure Disposition: 01 Home, Self Care Clinical Impression: Ganglion cyst Condition: Stable Instructions: ED Cyst Ganglion Follow-Up: Wale Morales PA-C [Primary Care Provider] - Comments: Follow up with your primary physician. Return to the emergency department if you develop markedly increasing swelling or pain of your wrist, or otherwise worsening symptoms. Discharge Date/Time: 01/03/18 20:15
[2018-01-03 20:16] VITALS: BP 128/71
== END 2018-01-03 20:15 | disposition home or self-care (01) ==
LOC: ED 17:55
DX: M67.432 Ganglion, left wrist (principal); E11.9 Type 2 diabetes mellitus without complications; Z79.84 Long term (current) use of oral hypoglycemic drugs
CPT/HCPCS: 99282; 99283

== ENCOUNTER 2018-01-04 16:59 | Outpatient (CLI) | payer MEDICARE, OTHER, MEDICAID | END 2018-01-04 17:00 | disposition critical access hospital (66) | LOC: EMS 16:59 | PROVIDERS: ATTEND Surgery | DX: M25.572 Pain in left ankle and joints of left foot (principal); X50.1XXA Overexertion from prolonged static or awkward postures, initial encounter; Y93.01 Activity, walking, marching and hiking; Y92.832 Beach as the place of occurrence of the external cause | CPT/HCPCS: A0425; A0429 ==

== ENCOUNTER 2018-01-04 17:21 | Emergency (ER) | payer MEDICARE, OTHER, MEDICAID ==
[2018-01-04 18:22] VITALS: BP 122/66
== END 2018-01-04 19:09 | disposition left against medical advice (07) ==
LOC: EDUNIT# → ED 17:21
DX: Z53.21 Procedure and treatment not carried out due to patient leaving prior to being seen by health care provider (principal)

== ENCOUNTER 2018-01-05 17:16 | Outpatient (CLI) | payer MEDICARE, OTHER, MEDICAID | END 2018-01-05 17:17 | disposition critical access hospital (66) | LOC: EMS 17:16 | PROVIDERS: ATTEND Surgery | DX: S09.90XA Unspecified injury of head, initial encounter (principal); W03.XXXA Other fall on same level due to collision with another person, initial encounter; Y92.830 Public park as the place of occurrence of the external cause | CPT/HCPCS: A0425; A0429 ==

== ENCOUNTER 2018-01-05 17:35 | Emergency (ER) | payer MEDICARE, OTHER, MEDICAID ==
[2018-01-05 17:56] VITALS: BP 119/69
--- NOTE | 2018-01-05 18:51 | ED Physician Documentation ---
PD HPI HEAD INJURY - Stated complaint Stated Complaint: HEAD PX, GLF - Chief complaint Chief Complaint: General - History obtained from History obtained from: Patient - History of Present Illness Mechanism of head injury: Fell (she says tripped and fell. No LOC nor lightheaded prior. She has balance problems. struck head but not hurting there. 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 HEENT: Chronic vision loss Psych: Other Musculoskeletal: None Derm: None - Past Surgical History Past Surgical History: Yes /ANESTHESIA TECHNICIAN: Dilation and currettage, Other HEENT: Myringotomy (tubes) - Present Medications Home Medications: Ambulatory Orders Medication Instructions Recorded Confirmed Cholecalciferol (Vitamin D3) 2,000 unit PO DAILY 01/01/13 12/17/17 [Vitamin D] Ferrous Gluconate [Iron] 324 mg PO DAILY 01/01/13 12/17/17 Lisinopril 20 mg PO DAILY 01/01/13 12/17/17 Metformin HCl 850 mg PO BID 01/01/13 12/17/17 Multivitamin [Multivitamins] 1 each PO DAILY 01/01/13 12/17/17 Sodium Fluoride [Prevident 5000] 1 ml PO DAILY 03/04/14 12/17/17 Lansoprazole [Prevacid] 30 mg PO DAILY 02/18/15 12/17/17 Sucralfate [Carafate] 1 gm PO ACHS #30 udc 02/24/15 12/17/17 Magnesium Chloride [Mag Delay] 64 mg PO DAILY 12/12/16 12/17/17 Donut Pillow 1 ahfu TD ONCE #1 12/23/17 - Allergies Allergies/Adverse Reactions: Allergies Allergy/AdvReac Type Severity Reaction Status Date / Time Penicillins Allergy Unknown Rash Verified 01/03/18 18:04 sulfamethoxazole Allergy Unknown Rash Verified 01/03/18 18:04 [From ] trimethoprim [From Mayra] Allergy Unknown Rash Verified 01/03/18 18:04 amoxicillin [Amoxicillin] Allergy hives/itchi Verified 01/03/18 18:04 ng - Social History Does the pt smoke?: No Smoking Status: Never smoker Does the pt drink ETOH?: No Does the pt have substance abuse?: No - Immunizations Immunizations are current?: Yes - POLST Patient has POLST: No PD ED PE NORMAL - Vitals Vital signs reviewed: Yes - General General: Alert and oriented X 3 (baseline cognitive impairment familiar interaction. ), No acute distress, Well developed/nourished - HEENT HEENT: Atraumatic - Neck Neck: Supple, no meningeal sign, No bony TTP, No adenopathy - Derm Derm: Normal color, Warm and dry - Extremities Extremities: Other (right thumb abse with tenderness but no deformity. ROM okay but she says it hurts. ) - Neuro Neuro: Alert and oriented X 3, No motor deficit, No sensory deficit, Normal speech (for her) Results - Vitals Vitals: Vital Signs - 24 hr 01/05/18 17:46 Temperature 36.5 C Heart Rate 83 Respiratory 16 Rate Blood Pressure 119/69 O2 Saturation 100 Oxygen O2 Source Room air PD MEDICAL DECISION MAKING - ED course Complexity details: considered differential (we agreed on no xray and just splinting and see if improves. She wanted cast but we agreed eventually on velcro splint thumb spica), d/w patient Departure - Departure Disposition: 01 Home, Self Care Clinical Impression: Thumb injury Qualifiers: Encounter type: initial encounter Laterality: right Qualified Code(s): S69.91XA - Unspecified injury of right wrist, hand and finger(s), initial encounter Condition: Stable Record reviewed to determine appropriate education?: Yes Instructions: ED Sprain Finger Comments: Use the thumb splint for the next few days as needed until improved. Tylenol or ibuprofen if needed for pains. Recheck if not better in the next 4-5 days. Discharge Date/Time: 01/05/18 18:59
[2018-01-05] MEDS ORDERED: ACETAMINOPHEN 325 MG TABLET PO STA (18:53)
== END 2018-01-05 18:59 | disposition home or self-care (01) ==
LOC: EDUNIT# → ED 17:35
DX: S69.91XA Unspecified injury of right wrist, hand and finger(s), initial encounter (principal); W01.0XXA Fall on same level from slipping, tripping and stumbling without subsequent striking against object, initial encounter; E11.9 Type 2 diabetes mellitus without complications; Z79.84 Long term (current) use of oral hypoglycemic drugs
CPT/HCPCS: 99282; 99283; A9270

== ENCOUNTER 2018-01-05 21:42 | Outpatient (CLI) | payer MEDICARE, OTHER, MEDICAID | END 2018-01-05 21:43 | disposition EMS.NT | LOC: EMS 21:42 | PROVIDERS: ATTEND Surgery | DX: Z03.89 Encounter for observation for other suspected diseases and conditions ruled out (principal) ==

== ENCOUNTER 2018-01-09 18:56 | Outpatient (CLI) | payer MEDICARE, OTHER, MEDICAID | END 2018-01-09 18:57 | disposition critical access hospital (66) | LOC: EMS 18:56 | PROVIDERS: ATTEND Surgery | DX: R07.0 Pain in throat (principal) | CPT/HCPCS: A0425; A0429 ==

== ENCOUNTER 2018-01-09 19:16 | Emergency (ER) | payer MEDICARE, OTHER, MEDICAID ==
[2018-01-09 19:20] VITALS: BP 140/68
[2018-01-09] MEDS ORDERED: MAG HYDROX/AL HYDROX/SIMETH 30 ML UDC PO STA (19:20)
[2018-01-09] MEDS ORDERED: LIDOCAINE VISCOUS 2% 15 ML UDC MM STA (19:20)
--- NOTE | 2018-01-09 19:23 | ED Physician Documentation ---
History of Present Illness - Stated complaint Stated Complaint: SCRATCH THROAT WHILE EATING - Chief complaint Chief Complaint: General - History obtained from History obtained from: Patient, EMS - History of Present Illness Timing: Other (She was eating dinner, she does not remember what she was eating. She felt like something scratch her throat. She has not had anything to eat or drink since then, but she notes no difficulty breathing or swallowing at this juncture.) Review of Systems Throat: reports: Sore throat. 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, Other HEENT: Myringotomy (tubes) - Present Medications Home Medications: Ambulatory Orders Medication Instructions Recorded Confirmed Cholecalciferol (Vitamin D3) 2,000 unit PO DAILY 01/01/13 12/17/17 [Vitamin D] Ferrous Gluconate [Iron] 324 mg PO DAILY 01/01/13 12/17/17 Lisinopril 20 mg PO DAILY 01/01/13 12/17/17 Metformin HCl 850 mg PO BID 01/01/13 12/17/17 Multivitamin [Multivitamins] 1 each PO DAILY 01/01/13 12/17/17 Sodium Fluoride [Prevident 5000] 1 ml PO DAILY 03/04/14 12/17/17 Lansoprazole [Prevacid] 30 mg PO DAILY 02/18/15 12/17/17 Sucralfate [Carafate] 1 gm PO ACHS #30 udc 02/24/15 12/17/17 Magnesium Chloride [Mag Delay] 64 mg PO DAILY 12/12/16 12/17/17 Donut Pillow 1 ahfu TD ONCE #1 12/23/17 - Allergies Allergies/Adverse Reactions: Allergies Allergy/AdvReac Type Severity Reaction Status Date / Time Penicillins Allergy Unknown Rash Verified 01/03/18 18:04 sulfamethoxazole Allergy Unknown Rash Verified 01/03/18 18:04 [From ] trimethoprim [From ] Allergy Unknown Rash Verified 01/03/18 18:04 amoxicillin [Amoxicillin] Allergy hives/itchi Verified 01/03/18 18:04 ng - Social History Does the pt smoke?: No Smoking Status: Never smoker Does the pt drink ETOH?: No Does the pt have substance abuse?: No - Immunizations Immunizations are current?: Yes - POLST Patient has POLST: No PD ED PE NORMAL - Vitals Vital signs reviewed: Yes - General General: Alert and oriented X 3, No acute distress - HEENT HEENT: Pharynx benign, Other (Normal voice, normal visualize oropharynx.) - Psych Psych: Normal mood, Normal affect Results - Vitals Vitals: Vital Signs - 24 hr 01/09/18 19:18 Temperature 36.3 C L Heart Rate 83 Respiratory 18 Rate Blood Pressure 140/68 H O2 Saturation 100 Oxygen O2 Source Room air PD MEDICAL DECISION MAKING - ED course ED course: There is no evidence of esophageal impaction or foreign body that is retained. Watchful waiting and conservative care was advised to follow-up with an ENT in a few days if not better. Departure - Departure Disposition: 01 Home, Self Care Clinical Impression: Abrasion of throat Qualifiers: Encounter type: initial encounter Qualified Code(s): S10.11XA - Abrasion of throat, initial encounter Condition: Good Record reviewed to determine appropriate education?: Yes Comments: Eat a soft or liquid diet for the next couple of days, if not better by Thursday or Thursday he should follow-up with an ear nose and throat physician, the closest is in [place], the phone number is [phone]. Your blood pressure was elevated today on check into the emergency department. This does not mean that you have hypertension, it is a common phenomenon to come to the emergency department and have elevated blood pressure. I recommend that you see your primary care physician within the week to have it rechecked when you are feeling better.
== END 2018-01-09 19:30 | disposition home or self-care (01) ==
LOC: EDUNIT# → ED 19:16
DX: S10.11XA Abrasion of throat, initial encounter (principal); X58.XXXA Exposure to other specified factors, initial encounter; E11.9 Type 2 diabetes mellitus without complications; Z79.84 Long term (current) use of oral hypoglycemic drugs; R03.0 Elevated blood-pressure reading, without diagnosis of hypertension
CPT/HCPCS: 99282; 99283; A9270

== ENCOUNTER 2018-01-10 20:36 | Outpatient (CLI) | payer MEDICARE, OTHER, MEDICAID | END 2018-01-10 20:37 | disposition critical access hospital (66) | LOC: EMS 20:36 | PROVIDERS: ATTEND Surgery | DX: S00.83XA Contusion of other part of head, initial encounter (principal); Y04.2XXA Assault by strike against or bumped into by another person, initial encounter | CPT/HCPCS: A0425; A0429 ==

== ENCOUNTER 2018-01-10 20:55 | Emergency (ER) | payer MEDICARE, OTHER, MEDICAID ==
[2018-01-10 21:03] VITALS: BP 135/74
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
== END 2018-01-10 21:25 | disposition home or self-care (01) ==
LOC: EDUNIT# → ED 20:55
DX: S00.83XA Contusion of other part of head, initial encounter (principal); Y04.2XXA Assault by strike against or bumped into by another person, initial encounter; Y92.511 Restaurant or cafe as the place of occurrence of the external cause; E11.9 Type 2 diabetes mellitus without complications; Z79.84 Long term (current) use of oral hypoglycemic drugs; R03.0 Elevated blood-pressure reading, without diagnosis of hypertension
CPT/HCPCS: 99282; 99283

== ENCOUNTER 2018-01-15 01:00 | Outpatient (CLI) | payer MEDICARE, OTHER, MEDICAID | END 2018-01-15 01:01 | disposition critical access hospital (66) | LOC: EMS 01:00 | PROVIDERS: ATTEND Surgery | DX: R06.00 Dyspnea, unspecified (principal) | CPT/HCPCS: A0425; A0429 ==

== ENCOUNTER 2018-01-15 01:19 | Emergency (ER) | payer MEDICARE, OTHER, MEDICAID ==
[2018-01-15 01:34] VITALS: BP 131/86
--- NOTE | 2018-01-15 01:41 | ED Physician Documentation ---
History of Present Illness - Stated complaint Stated Complaint: PANIC ATTACK - Chief complaint Chief Complaint: MHE - History obtained from History obtained from: Patient, EMS - History of Present Illness Timing: Other (c/o varies at times, thus different time frames (and most of these are also vague time frame)) - Additonal information Additional information: per EMS report, patient called 911 due to patient feeling anxious. on my HPI, she has no such c/o; she tells me that she has left shoulder pain due to trip and fall at home earlier today. 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: Dilation and currettage, Other HEENT: Myringotomy (tubes) - Present Medications Home Medications: Ambulatory Orders Medication Instructions Recorded Confirmed Cholecalciferol (Vitamin D3) 2,000 unit PO DAILY 01/01/13 12/17/17 [Vitamin D] Ferrous Gluconate [Iron] 324 mg PO DAILY 01/01/13 12/17/17 Lisinopril 20 mg PO DAILY 01/01/13 12/17/17 Metformin HCl 850 mg PO BID 01/01/13 12/17/17 Multivitamin [Multivitamins] 1 each PO DAILY 01/01/13 12/17/17 Sodium Fluoride [Prevident 5000] 1 ml PO DAILY 03/04/14 12/17/17 Lansoprazole [Prevacid] 30 mg PO DAILY 02/18/15 12/17/17 Sucralfate [Carafate] 1 gm PO ACHS #30 udc 02/24/15 12/17/17 Magnesium Chloride [Mag Delay] 64 mg PO DAILY 12/12/16 12/17/17 Donut Pillow 1 ahfu TD ONCE #1 12/23/17 - Allergies Allergies/Adverse Reactions: Allergies Allergy/AdvReac Type Severity Reaction Status Date / Time Penicillins Allergy Unknown Rash Verified 01/15/18 01:34 sulfamethoxazole Allergy Unknown Rash Verified 01/15/18 01:34 [From ] trimethoprim [From Septra] Allergy Unknown Rash Verified 01/15/18 01:34 amoxicillin [Amoxicillin] Allergy hives/itchi Verified 01/15/18 01:34 ng - Social History Does the pt smoke?: No Smoking Status: Never smoker Does the pt drink ETOH?: No Does the pt have substance abuse?: No - Immunizations Immunizations are current?: Yes - POLST Patient has POLST: No PD ED PE NORMAL - Vitals Vital signs reviewed: Yes - General General: Alert and oriented X 3, No acute distress, Well developed/nourished - HEENT HEENT: Atraumatic - Respiratory Respiratory: No respiratory distress, Clear bilaterally - Extremities Extremities: No deformity, No tenderness to palpate, Normal ROM s pain, No edema Results - Vitals Vitals: Vital Signs - 24 hr 01/15/18 01:25 Temperature 36.6 C Heart Rate 89 Respiratory 18 Rate Blood Pressure 131/86 H O2 Saturation 99 Oxygen O2 Source Room air PD MEDICAL DECISION MAKING - ED course Complexity details: reviewed old records, considered differential, d/w patient ED course: shortly after ED arrival, plant guard called ED and informed RN she was on the way to ED. Patient was informed of this and requests discharge so she can be taken back home. She has developmental delay; she has frequent ED visits and this is not an unusual pattern for her ED visits (varying c/o, requesting d/c shortly after ED arrival) Departure - Departure Disposition: 01 Home, Self Care Clinical Impression: Anxiety Condition: Good Instructions: ED Stress React Follow-Up: [facility] [Provider Group] [facility] [Provider Group] Discharge Date/Time: 01/15/18 01:47
== END 2018-01-15 01:47 | disposition home or self-care (01) ==
LOC: EDUNIT# → ED 01:19
DX: F41.9 Anxiety disorder, unspecified (principal); M25.512 Pain in left shoulder; W01.0XXA Fall on same level from slipping, tripping and stumbling without subsequent striking against object, initial encounter; Y92.009 Unspecified place in unspecified non-institutional (private) residence as the place of occurrence of the external cause; E11.9 Type 2 diabetes mellitus without complications; Z79.84 Long term (current) use of oral hypoglycemic drugs
CPT/HCPCS: 99283

== ENCOUNTER 2018-01-16 12:48 | Outpatient (CLI) | payer MEDICARE, OTHER, MEDICAID | END 2018-01-16 23:59 | disposition critical access hospital (66) | LOC: EMS 12:48 | PROVIDERS: ATTEND Surgery | DX: M25.512 Pain in left shoulder (principal); W19.XXXA Unspecified fall, initial encounter | CPT/HCPCS: A0425; A0429 ==

== ENCOUNTER 2018-01-16 18:28 | Emergency (ER) | payer MEDICARE, OTHER, MEDICAID ==
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
--- NOTE | 2018-01-16 20:34 | XRAY Report ---
EXAM: LEFT HUMERUS RADIOGRAPHY EXAM DATE: 01/16/2018 08:10 PM. CLINICAL HISTORY: Arm and leg inj. COMPARISON: None. TECHNIQUE: 2 views. FINDINGS: Bones: No acute fracture. Joints: Normally aligned. Soft Tissues: Normal. No soft tissue swelling. IMPRESSION: No acute osseus abnormality. [facility] Referring Provider Line: [phone] SITE ID: [id number]
--- NOTE | 2018-01-16 20:39 | XRAY Report ---
EXAM: LEFT KNEE RADIOGRAPHY EXAM DATE: 01/16/2018 08:11 PM. CLINICAL HISTORY: Arm and leg inj. COMPARISON: None. TECHNIQUE: 4 views. FINDINGS: Bones: No acute fracture. Small 15 mm mineralized density projecting in the intercondylar notch on th e lateral view, not seen on the other views. Joints: Lateral compartment joint space narrowing and osteophyte formation. Mild patellofemoral spurr ing. Small effusion. No subluxations. Soft Tissues: No focal soft tissue swelling. IMPRESSION: 1. No acute osseus abnormality. Small joint effusion. 2. Mild osteoarthrosis. Small mineralized density projecting in the intercondylar notch on the latera l view, not seen on other views, could represent an intra-articular loose body. [facility] Referring Provider Line: [phone] SITE ID: [id number]
[2018-01-16 20:56] VITALS: BP 107/86
== END 2018-01-16 20:54 | disposition home or self-care (01) ==
LOC: ED 18:28
DX: S40.022A Contusion of left upper arm, initial encounter (principal); S80.02XA Contusion of left knee, initial encounter; E11.9 Type 2 diabetes mellitus without complications; Z79.84 Long term (current) use of oral hypoglycemic drugs; Y04.2XXA Assault by strike against or bumped into by another person, initial encounter; Y92.511 Restaurant or cafe as the place of occurrence of the external cause
CPT/HCPCS: 99283

== ENCOUNTER 2018-01-17 18:13 | Outpatient (CLI) | payer MEDICARE, OTHER, MEDICAID | END 2018-01-17 18:14 | disposition critical access hospital (66) | LOC: EMS 18:13 | PROVIDERS: ATTEND Surgery | DX: M25.572 Pain in left ankle and joints of left foot (principal); W18.30XA Fall on same level, unspecified, initial encounter; Y93.01 Activity, walking, marching and hiking; Y92.039 Unspecified place in apartment as the place of occurrence of the external cause | CPT/HCPCS: A0425; A0429 ==

== ENCOUNTER 2018-01-17 18:35 | Emergency (ER) | payer MEDICARE, OTHER, MEDICAID ==
--- NOTE | 2018-01-17 18:41 | ED Physician Documentation ---
PD HPI LOWER EXT INJURY - Stated complaint Stated Complaint: ANKLE SWELLING - History obtained from History obtained from: Patient, EMS - History of Present Illness PD HPI LOW EXT INJURY LOCATION: Left, Ankle Type of injury: Twist Where injury occurred: Home Timing - onset: Today Timing - details: Abrupt onset Associated symptoms: Swelling Similar symptoms before: Diagnosis (She is here frequently for minor orthopedic complaints. 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, Other HEENT: Myringotomy (tubes) - Present Medications Home Medications: Ambulatory Orders Medication Instructions Recorded Confirmed Cholecalciferol (Vitamin D3) 2,000 unit PO DAILY 01/01/13 12/17/17 [Vitamin D] Ferrous Gluconate [Iron] 324 mg PO DAILY 01/01/13 12/17/17 Lisinopril 20 mg PO DAILY 01/01/13 12/17/17 Metformin HCl 850 mg PO BID 01/01/13 12/17/17 Multivitamin [Multivitamins] 1 each PO DAILY 01/01/13 12/17/17 Sodium Fluoride [Prevident 5000] 1 ml PO DAILY 03/04/14 12/17/17 Lansoprazole [Prevacid] 30 mg PO DAILY 02/18/15 12/17/17 Sucralfate [Carafate] 1 gm PO ACHS #30 c 02/24/15 12/17/17 Magnesium Chloride [Mag Delay] 64 mg PO DAILY 12/12/16 12/17/17 Donut Pillow 1 ahfu TD ONCE #1 12/23/17 - Allergies Allergies/Adverse Reactions: Allergies Allergy/AdvReac Type Severity Reaction Status Date / Time Penicillins Allergy Unknown Rash Verified 01/15/18 01:34 sulfamethoxazole Allergy Unknown Rash Verified 01/15/18 01:34 [From ] trimethoprim [From ] Allergy Unknown Rash Verified 01/15/18 01:34 amoxicillin [Amoxicillin] Allergy hives/itchi Verified 01/15/18 01:34 ng - Social History Does the pt smoke?: No Smoking Status: Never smoker Does the pt drink ETOH?: No Does the pt have substance abuse?: No - Immunizations Immunizations are current?: Yes - POLST Patient has POLST: No PD ED PE NORMAL - Vitals Vital signs reviewed: Yes - General General: No acute distress, Well developed/nourished - Extremities Extremities: Other (There is mild swelling and tenderness to the left lateral malleolus without proximal fibular or medial joint line tenderness. There is no foot tenderness.) - Neuro Neuro: Alert and oriented X 3, Normal speech - Psych Psych: Normal mood, Normal affect Results - Vitals Vitals: Vital Signs - 24 hr 01/17/18 18:46 Temperature 36.1 C L Heart Rate 90 Respiratory 16 Rate Blood Pressure 123/60 O2 Saturation 99 Oxygen O2 Source Room air - Rads (name of study) L ankle 3v Radiology: EMP read contemporaneously (NAD) Departure - Departure Disposition: 01 Home, Self Care Clinical Impression: Sprain of left ankle Qualifiers: Encounter type: initial encounter Involved ligament of ankle: unspecified ligament Qualified Code(s): S93.402A - Sprain of unspecified ligament of left ankle, initial encounter Condition: Stable Record reviewed to determine appropriate education?: Yes Instructions: ED Sprain Ankle
[2018-01-17 18:49] VITALS: BP 123/60
--- NOTE | 2018-01-17 19:11 | XRAY Preliminary Report ---
Exam: XR ANKLE 3 VIEW LT IMPRESSION: 1. No acute fracture. 2. Extensive productive bony changes extending from the lateral talus to the lateral malleolus. 2. Normal alignment. Ankle mortise normally aligned. 3. Mild ankle swelling noted. [facility] SITE ID: [id number]
--- NOTE | 2018-01-17 19:35 | XRAY Report ---
EXAM: LEFT ANKLE RADIOGRAPHY EXAM DATE: 01/17/2018 06:57 PM. CLINICAL HISTORY: Injury. COMPARISON: 10/25/2017. TECHNIQUE: 3 views. FINDINGS: Bones: No displaced fracture. Extensive productive bony changes noted in lateral left talus extending towards the left lateral malleolus. Joints: Moderate tibiotalar joint arthritis. Normal alignment of the tibiotalar joint. No effusions. Soft Tissues: Mild lateral ankle swelling. IMPRESSION: 1. No acute fracture. 2. Extensive productive bony changes extending from the lateral talus to the lateral malleolus. 2. Normal alignment. Ankle mortise normally aligned. 3. Mild ankle swelling noted. [facility] Referring Provider Line: [phone] SITE ID: [id number]
== END 2018-01-17 19:48 | disposition home or self-care (01) ==
LOC: ED 18:35
DX: S93.402A Sprain of unspecified ligament of left ankle, initial encounter (principal); X50.1XXA Overexertion from prolonged static or awkward postures, initial encounter; Y92.009 Unspecified place in unspecified non-institutional (private) residence as the place of occurrence of the external cause; E11.9 Type 2 diabetes mellitus without complications; Z79.84 Long term (current) use of oral hypoglycemic drugs
CPT/HCPCS: 99282; 99283

== ENCOUNTER 2018-01-18 13:07 | Emergency (ER) | payer MEDICARE, OTHER, MEDICAID ==
--- NOTE | 2018-01-18 13:11 | ED Physician Documentation ---
PD HPI ANIMAL BITE - Stated complaint Stated Complaint: DOG BITE - History obtained from History obtained from: Patient - History of Present Illness Location of injury(ies): Left hand Details of the event: Dog Timing - onset: How many hours ago (2), Today Timing - details: Abrupt onset (She states she was walking on the street and a unknown bone or dog came and nipped her on the hand. There is a small abrasion. She thinks she is up-to-date on her tetanus booster. She came here for evaluation. She has normal sensation of movement of the hand and finger. She denies other injury. There is no bleeding.) Worsened by: Moving, Palpating Associated symptoms: No: Weakness, Numbness Contributing factors: No: Immunocompromised, Work related Similar symptoms before: Has not had sx before Recently seen: Emergency Dept (Frequent visits for minor injuries.) Review of Systems Constitutional: denies: Fever, Chills Skin: reports: Abrasion (s). 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 REPORTING: None : None HEENT: Chronic vision loss Psych: Other Musculoskeletal: None Derm: None - Past Surgical History Past Surgical History: Yes /MANAGER REPORTING: Dilation and currettage, Other HEENT: Myringotomy (tubes) - Present Medications Home Medications: Ambulatory Orders Medication Instructions Recorded Confirmed Cholecalciferol (Vitamin D3) 2,000 unit PO DAILY 01/01/13 12/17/17 [Vitamin D] Ferrous Gluconate [Iron] 324 mg PO DAILY 01/01/13 12/17/17 Lisinopril 20 mg PO DAILY 01/01/13 12/17/17 Metformin HCl 850 mg PO BID 01/01/13 12/17/17 Multivitamin [Multivitamins] 1 each PO DAILY 01/01/13 12/17/17 Sodium Fluoride [Prevident 5000] 1 ml PO DAILY 03/04/14 12/17/17 Lansoprazole [Prevacid] 30 mg PO DAILY 02/18/15 12/17/17 Sucralfate [Carafate] 1 gm PO [facility] #30 c 02/24/15 12/17/17 Magnesium Chloride [Mag Delay] 64 mg PO DAILY 12/12/16 12/17/17 Donut Pillow 1 ahfu TD ONCE #1 12/23/17 - Allergies Allergies/Adverse Reactions: Allergies Allergy/AdvReac Type Severity Reaction Status Date / Time Penicillins Allergy Unknown Rash Verified 01/15/18 01:34 sulfamethoxazole Allergy Unknown Rash Verified 01/15/18 01:34 [From ] trimethoprim [From ] Allergy Unknown Rash Verified 01/15/18 01:34 amoxicillin [Amoxicillin] Allergy hives/itchi Verified 01/15/18 01:34 ng - Social History Does the pt smoke?: No Smoking Status: Never smoker Does the pt drink ETOH?: No Does the pt have substance abuse?: No - Immunizations Immunizations are current?: Yes - POLST Patient has POLST: No PD ED PE NORMAL - Vitals Vital signs reviewed: Yes - General General: Alert and oriented X 3, Well developed/nourished - Derm Derm: Normal color, Warm and dry - Extremities Extremities: Other (left hand dorsal area over 5th MC with minimal abrasion. No full break in skin. ) - Neuro Neuro: No motor deficit, No sensory deficit Results - Vitals Vitals: Vital Signs - 24 hr 01/18/18 13:12 Temperature 36.2 C L Heart Rate 74 Respiratory 18 Rate Blood Pressure 110/41 L O2 Saturation 98 Oxygen O2 Source Room air PD MEDICAL DECISION MAKING - ED course Complexity details: considered differential (Minimal injury and no clinical suggestion for bony abnormality. There is no actual full break in the skin so I do not feel antibiotics are warranted. Our records indicate her last tetanus was August 2016 so she is up-to-date. She is given Tylenol and a Band-Aid.), d /w patient Departure - Departure Disposition: Home, Self Care Clinical Impression: Hand abrasion Qualifiers: Encounter type: initial encounter Laterality: left Qualified Code(s): S60.512A - Abrasion of left hand, initial encounter Dog bite, hand Qualifiers: Encounter type: initial encounter Laterality: left Qualified Code(s): S61.452A - Open bite of left hand, initial encounter Condition: Stable Record reviewed to determine appropriate education?: Yes Instructions: ED Bite Dog Comments: Since there is no full break in the skin, I would not anticipate any infection to the area. However recheck if signs of infection does develop. RN records indicate you had a tetanus booster last in August 2016 so you are up-to-date for a while still. Use Tylenol and a Band-Aid if needed. Discharge Date/Time: 01/18/18 13:33
[2018-01-18] MEDS ORDERED: ACETAMINOPHEN 325 MG TABLET PO STA (13:18)
[2018-01-18 13:21] VITALS: BP 110/41
== END 2018-01-18 13:33 | disposition home or self-care (01) ==
LOC: ED 13:07
DX: S60.512A Abrasion of left hand, initial encounter (principal); W54.0XXA Bitten by dog, initial encounter; Y93.01 Activity, walking, marching and hiking; Y92.410 Unspecified street and highway as the place of occurrence of the external cause; E11.9 Type 2 diabetes mellitus without complications; Z79.84 Long term (current) use of oral hypoglycemic drugs
CPT/HCPCS: 99282

== ENCOUNTER 2018-01-18 21:05 | Outpatient (CLI) | payer MEDICARE, OTHER, MEDICAID | END 2018-01-18 21:06 | disposition critical access hospital (66) | LOC: EMS 21:05 | PROVIDERS: ATTEND Surgery | DX: M25.512 Pain in left shoulder (principal); W07.XXXA Fall from chair, initial encounter; Y92.039 Unspecified place in apartment as the place of occurrence of the external cause | CPT/HCPCS: A0425; A0429 ==

== ENCOUNTER 2018-01-18 21:23 | Emergency (ER) | payer MEDICARE, OTHER, MEDICAID ==
--- NOTE | 2018-01-18 21:36 | ED Physician Documentation ---
PD HPI UPPER EXT INJURY - Stated complaint Stated Complaint: L SHOULDER PAIN - Chief complaint Chief Complaint: Trauma Ext - History obtained from History obtained from: Patient - History of Present Illness Location: Left, Shoulder Type of injury: Fall (she says she dropped her phone and bent to pick it up, lost balance and struck left shoulder on furniture. Pain anterolateral shoulder/ deltoid area. Hurts for lifting it. She is concerned about fracture.) Where injury occurred: Home Timing - onset: Today Timing - details: Abrupt onset, Still present Worsened by: Moving, Palpating Associated symptoms: No: Weakness, Numbness, Swelling Contributing factors: No: Anticoagulated Recently seen: Emergency Dept (she is low functioning with poor coping skills and has frequent visits to ED for mild injuries with fixation of concern for fractures.) Review of Systems Skin: denies: Abrasion (s), Laceration (s) Neurologic: denies: Focal weakness, Numbness PD PAST MEDICAL HISTORY - Past Medical History Past Medical History: Yes Cardiovascular: Other Respiratory: None Neuro: None Endocrine/Autoimmune: Type 2 diabetes GI: Chronic diarrhea 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 : None HEENT: Chronic vision loss Psych: Other Musculoskeletal: None Derm: None - Past Surgical History Past Surgical History: Yes /COTTON TIER: Dilation and currettage, Other HEENT: Myringotomy (tubes) - Present Medications Home Medications: Ambulatory Orders Medication Instructions Recorded Confirmed Cholecalciferol (Vitamin D3) 2,000 unit PO DAILY 01/01/13 12/17/17 [Vitamin D] Ferrous Gluconate [Iron] 324 mg PO DAILY 01/01/13 12/17/17 Lisinopril 20 mg PO DAILY 01/01/13 12/17/17 Metformin HCl 850 mg PO BID 01/01/13 12/17/17 Multivitamin [Multivitamins] 1 each PO DAILY 01/01/13 12/17/17 Sodium Fluoride [Prevident 5000] 1 ml PO DAILY 03/04/14 12/17/17 Lansoprazole [Prevacid] 30 mg PO DAILY 02/18/15 12/17/17 Sucralfate [Carafate] 1 gm PO [facility] #30 udc 02/24/15 12/17/17 Magnesium Chloride [Mag Delay] 64 mg PO DAILY 12/12/16 12/17/17 Donut Pillow 1 ahfu TD ONCE #1 12/23/17 - Allergies Allergies/Adverse Reactions: Allergies Allergy/AdvReac Type Severity Reaction Status Date / Time Penicillins Allergy Unknown Rash Verified 01/18/18 21:30 sulfamethoxazole Allergy Unknown Rash Verified 01/18/18 21:30 [From ] trimethoprim [From ] Allergy Unknown Rash Verified 01/18/18 21:30 amoxicillin [Amoxicillin] Allergy hives/itchi Verified 01/18/18 21:30 ng - Social History Does the pt smoke?: No Smoking Status: Never smoker Does the pt drink ETOH?: No Does the pt have substance abuse?: No - Immunizations Immunizations are current?: Yes - POLST Patient has POLST: No PD ED PE NORMAL - Vitals Vital signs reviewed: Yes - General General: Alert and oriented X 3, No acute distress, Well developed/nourished - Derm Derm: Normal color, Warm and dry, No rash - Extremities Extremities: Other (some tenderness anterolateral left shoulder in deltoid area. No obvious deformity. passive ROM not hurting, but limited to her not wanting me to do it. ) - Neuro Neuro: No motor deficit, No sensory deficit Results - Vitals Vitals: Oxygen O2 Source Room air - Rads (name of study) left shoulder Radiology: Prelim report reviewed, EMP read contemporaneously (no fractures) PD MEDICAL DECISION MAKING - ED course Complexity details: reviewed results, considered differential, d/w patient Departure - Departure Disposition: 01 Home, Self Care Clinical Impression: Contusion of left shoulder Qualifiers: Encounter type: initial encounter Qualified Code(s): S40.012A - Contusion of left shoulder, initial encounter Accidental fall Qualifiers: Encounter type: initial encounter Qualified Code(s): W19.XXXA - Unspecified fall, initial encounter Condition: Stable Record reviewed to determine appropriate education?: Yes Follow-Up: Wale Morales PA-C [Primary Care Provider] - Comments: Your x-ray appears normal. Presume it is a bruise or strain of the shoulder. Activity as able with it. Use Tylenol every 4-6 hours as needed for pains. Recheck if not improved over the next several days. Discharge Date/Time: 01/18/18 23:15
[2018-01-18 21:38] VITALS: BP 144/84
[2018-01-18] MEDS ORDERED: ACETAMINOPHEN 325 MG TABLET PO STA (22:26)
--- NOTE | 2018-01-18 22:31 | XRAY Report ---
EXAM: LEFT SHOULDER RADIOGRAPHY EXAM DATE: 01/18/2018 10:04 PM. CLINICAL HISTORY: Fall, shoulder pain. COMPARISON: Left humerus, 01/16/2018. TECHNIQUE: 3 views. FINDINGS: Bones: No acute fracture seen. Joints: No dislocation. Mild degenerative joint disease in the glenohumeral joint. Moderate degenerat meg joint disease in the acromioclavicular joint. Soft tissues: Grossly unremarkable. IMPRESSION: 1. Degenerative changes. No acute fracture or dislocation seen. [facility] Referring Provider Line: [phone] SITE ID: [id number]
--- NOTE | 2018-01-18 22:31 | XRAY Preliminary Report ---
Exam: XR SHOULDER 3 VIEW LT IMPRESSION: 1. Degenerative changes. No acute fracture or dislocation seen. [facility] SITE ID: [id number]
== END 2018-01-18 23:15 | disposition home or self-care (01) ==
LOC: EDUNIT# → ED 21:23
DX: S40.012A Contusion of left shoulder, initial encounter (principal); S60.512A Abrasion of left hand, initial encounter; W54.0XXA Bitten by dog, initial encounter; W18.30XA Fall on same level, unspecified, initial encounter; W22.09XA Striking against other stationary object, initial encounter; Y93.01 Activity, walking, marching and hiking; Y92.410 Unspecified street and highway as the place of occurrence of the external cause; E11.9 Type 2 diabetes mellitus without complications; Z79.84 Long term (current) use of oral hypoglycemic drugs
CPT/HCPCS: 73030; 99282; 99283; A9270

== ENCOUNTER 2018-02-02 08:00 | Outpatient (CLI) | payer MEDICARE, OTHER, MEDICAID ==
[2018-02-03 15:17] LABS: HIV AG/AB 4TH GEN NON-REACTIVE (NON-REACTIVE)
== END 2018-02-02 08:01 | disposition home or self-care (01) ==
LOC: LAB.N 08:00
PROVIDERS: ATTEND Physician Assistant Medical
DX: Z11.3 Encounter for screening for infections with a predominantly sexual mode of transmission (principal)
CPT/HCPCS: 36415; 81599; 86592; G0475; 87389

== ENCOUNTER 2018-03-26 14:31 | Emergency (ER) | payer MEDICARE, OTHER ==
--- NOTE | 2018-03-26 15:08 | ED Physician Documentation ---
PD HPI LOWER EXT INJURY - Stated complaint Stated Complaint: R LEG PX - Chief complaint Chief Complaint: Ext Problem - History obtained from History obtained from: Patient - History of Present Illness PD HPI LOW EXT INJURY LOCATION: Right (Trip and fall in her house today and injured the right ankle and foot. She is unable to walk or bear weight. Of note she is here frequently for similar complaints, declines pain medications.) Review of Systems Constitutional: denies: Fever, Chills GI: denies: Abdominal Pain Musculoskeletal: denies: Neck pain, Back pain Neurologic: denies: Head injury PD PAST MEDICAL HISTORY - Past Medical History Cardiovascular: Other Respiratory: None Neuro: None Endocrine/Autoimmune: Type 2 diabetes GI: Chronic diarrhea PICK UP: None : None HEENT: Chronic vision loss Psych: Other Musculoskeletal: None Derm: None - Past Surgical History Past Surgical History: Yes /PICK UP: Dilation and currettage, Other HEENT: Myringotomy (tubes) - Present Medications Home Medications: Ambulatory Orders Medication Instructions Recorded Confirmed Cholecalciferol (Vitamin D3) 2,000 unit PO DAILY 01/01/13 12/17/17 [Vitamin D] Ferrous Gluconate [Iron] 324 mg PO DAILY 01/01/13 12/17/17 Lisinopril 20 mg PO DAILY 01/01/13 12/17/17 Metformin HCl 850 mg PO BID 01/01/13 12/17/17 Multivitamin [Multivitamins] 1 each PO DAILY 01/01/13 12/17/17 Sodium Fluoride [Prevident 5000] 1 ml PO DAILY 03/04/14 12/17/17 Lansoprazole [Prevacid] 30 mg PO DAILY 02/18/15 12/17/17 Sucralfate [Carafate] 1 gm PO [facility] #30 udc 02/24/15 12/17/17 Magnesium Chloride [Mag Delay] 64 mg PO DAILY 12/12/16 12/17/17 Donut Pillow 1 ahfu TD ONCE #1 12/23/17 - Allergies Allergies/Adverse Reactions: Allergies Allergy/AdvReac Type Severity Reaction Status Date / Time Penicillins Allergy Unknown Rash Verified 03/26/18 14:44 sulfamethoxazole Allergy Unknown Rash Verified 03/26/18 14:44 [From ] trimethoprim [From ] Allergy Unknown Rash Verified 03/26/18 14:44 amoxicillin [Amoxicillin] Allergy hives/itchi Verified 03/26/18 14:44 ng - Social History Does the pt smoke?: No Smoking Status: Never smoker Does the pt drink ETOH?: No Does the pt have substance abuse?: No - Immunizations Immunizations are current?: Yes - POLST Patient has POLST: No PD ED PE NORMAL - Vitals Vital signs reviewed: Yes - General General: No acute distress, Well developed/nourished - Extremities Extremities: Other (No proximal fibular tenderness on the right, she is mildly tender over both malleoli and the medial and lateral sides of the proximal forefoot without deformity. Good range of motion. No swelling.) Results - Vitals Vitals: Vital Signs - 24 hr 03/26/18 14:40 Temperature 37.3 C Heart Rate 86 Respiratory 16 Rate Blood Pressure 113/50 L O2 Saturation 97 Oxygen O2 Source Room air - Rads (name of study) Right foot and ankle x-rays Radiology: EMP read contemporaneously (Chronic and degenerative changes without acute disease) PD MEDICAL DECISION MAKING - Sepsis Event Vital Signs: Vital Signs - 24 hr 03/26/18 14:40 Temperature 37.3 C Heart Rate 86 Respiratory 16 Rate Blood Pressure 113/50 L O2 Saturation 97 Oxygen O2 Source Room air Departure - Departure Disposition: 01 Home, Self Care Clinical Impression: Sprain of right ankle, Accidental fall Condition: Good Record reviewed to determine appropriate education?: Yes Instructions: ED Sprain Ankle W X Ray
--- NOTE | 2018-03-26 16:13 | XRAY Report ---
Procedure Date: 03/26/2018 Accession Number: [id number] / [id number] Procedure: XR - Ankle 3 View RT CPT Code: FULL RESULT: EXAMS: RIGHT FOOT AND ANKLE RADIOGRAPHY EXAM DATE: 03/26/2018 03:42 PM. CLINICAL HISTORY: Ankle and foot injury. COMPARISON: Right ankle radiographs 10/17/2016. Right foot radiographs 06/18/2016. TECHNIQUE: 3 views each foot and ankle. FINDINGS: Bones: No acute displaced fracture. No suspicious focal osseous lesion. Similar mild irregularity of the fibular tip and distal medial malleolus to remote prior exam possibly sequela of remote injuries. Small posterior and moderate plantar calcaneal traction enthesophytes. Os peroneum again noted. Prominent medial aspect of the navicular, normal variant. Joints: No effusions. No dislocation. Metatarsus primus varus with hallux valgus again noted. Minimal degenerative changes at the first MTP joint. Mild fibular subluxation and angulation at the second-fourth MTP joints, similar to prior exam. Mortise view is suboptimal. Soft Tissues: Soft tissue swelling present about the ankle with subcutaneous edema present throughout the visualized lower leg. IMPRESSION: 1. No acute osseous abnormality. 2. Metatarsus primus varus with hallux valgus and minimal degenerative change of the first metatarsophalangeal joint. 3. Prominent plantar calcaneal traction enthesophyte with small Achilles insertion enthesophyte, similar to prior. [facility]
[2018-03-26 16:42] VITALS: BP 127/68
== END 2018-03-26 16:29 | disposition home or self-care (01) ==
LOC: ED 14:31
DX: S93.401A Sprain of unspecified ligament of right ankle, initial encounter (principal); E11.9 Type 2 diabetes mellitus without complications; Z79.84 Long term (current) use of oral hypoglycemic drugs; W19.XXXA Unspecified fall, initial encounter; Y92.009 Unspecified place in unspecified non-institutional (private) residence as the place of occurrence of the external cause
CPT/HCPCS: 99283

== ENCOUNTER 2018-04-27 09:11 | Outpatient (CLI) | payer MEDICARE, OTHER, MEDICAID ==
[2018-04-28 14:07] LABS: HIV AG/AB 4TH GEN NON-REACTIVE (NON-REACTIVE)
== END 2018-04-27 09:12 | disposition home or self-care (01) ==
LOC: LAB.N 09:11
PROVIDERS: ATTEND Physician Assistant Medical
DX: Z20.9 Contact with and (suspected) exposure to unspecified communicable disease (principal); Z72.89 Other problems related to lifestyle
CPT/HCPCS: 36415; 81599; 86592; G0475; 87389

== ENCOUNTER 2018-05-07 14:30 | Emergency (ER) | payer MEDICARE, OTHER, MEDICAID ==
[2018-05-07 14:36] VITALS: BP 147/77
--- NOTE | 2018-05-07 14:48 | ED Physician Documentation ---
PD HPI UPPER EXT INJURY - Stated complaint Stated Complaint: LT ELBOW PX - Chief complaint Chief Complaint: Ext Problem - History obtained from History obtained from: Patient - History of Present Illness Location: Left, Elbow Type of injury: Fall Where injury occurred: Street Timing - onset: How many hours ago (2) Timing - duration: Hours (2) Timing - details: Abrupt onset Pain level max: 2 Pain level now: 2 Improved by: Rest Worsened by: Moving, Palpating Associated symptoms: No: Weakness, Numbness, Tingling, Swelling, Discolored Contributing factors: No: Anticoagulated - Additonal information Additional information: pt is right handed Review of Systems Neurologic: denies: Focal weakness, Numbness PD PAST MEDICAL HISTORY - Past Medical History Cardiovascular: Other Respiratory: None Neuro: None Endocrine/Autoimmune: Type 2 diabetes GI: Chronic diarrhea 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 : 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 HEENT: Chronic vision loss Psych: Other Musculoskeletal: None Derm: None - Past Surgical History Past Surgical History: Yes /OUTCOMES ANALYST: Dilation and currettage, Other HEENT: Myringotomy (tubes) - Present Medications Home Medications: Ambulatory Orders Medication Instructions Recorded Confirmed Cholecalciferol (Vitamin D3) 2,000 unit PO DAILY 01/01/13 12/17/17 [Vitamin D] Ferrous Gluconate [Iron] 324 mg PO DAILY 01/01/13 12/17/17 Lisinopril 20 mg PO DAILY 01/01/13 12/17/17 Metformin HCl 850 mg PO BID 01/01/13 12/17/17 Multivitamin [Multivitamins] 1 each PO DAILY 01/01/13 12/17/17 Sodium Fluoride [Prevident 5000] 1 ml PO DAILY 03/04/14 12/17/17 Lansoprazole [Prevacid] 30 mg PO DAILY 02/18/15 12/17/17 Sucralfate [Carafate] 1 gm PO [facility] #30 udc 02/24/15 12/17/17 Magnesium Chloride [Mag Delay] 64 mg PO DAILY 12/12/16 12/17/17 Donut Pillow 1 ahfu TD ONCE #1 12/23/17 - Allergies Allergies/Adverse Reactions: Allergies Allergy/AdvReac Type Severity Reaction Status Date / Time Penicillins Allergy Unknown Rash Verified 03/26/18 14:44 sulfamethoxazole Allergy Unknown Rash Verified 03/26/18 14:44 [From ] trimethoprim [From Septra] Allergy Unknown Rash Verified 03/26/18 14:44 amoxicillin [Amoxicillin] Allergy hives/itchi Verified 03/26/18 14:44 ng - Social History Does the pt smoke?: No Smoking Status: Never smoker Does the pt drink ETOH?: No Does the pt have substance abuse?: No - Immunizations Immunizations are current?: Yes - POLST Patient has POLST: No PD ED PE NORMAL - Vitals Vital signs reviewed: Yes - General General: Alert and oriented X 3, No acute distress - Derm Derm: Warm and dry - Extremities Extremities: Other (L elbow - no bony tenderness, FROM without pain including flexion, extension, supination and pronation. NVI. no swelling. no ecchymosis. no abrasions.) - Neuro Neuro: Alert and oriented X 3 - Psych Psych: Normal mood Results - Vitals Vitals: Vital Signs - 24 hr 05/07/18 14:33 Temperature 36.1 C L Heart Rate 88 Respiratory 18 Rate Blood Pressure 147/77 H O2 Saturation 99 Oxygen O2 Source Room air PD MEDICAL DECISION MAKING - ED course Complexity details: considered differential, d/w patient ED course: Patient with a left elbow contusion. Requests an Jonh bandage to be applied for comfort. This was done. No evidence of fracture clinically. Will hold x-rays at this time. She is using the arm freely. Patient counseled regarding signs and symptoms for which I believe and urgent re-evaluation would be necessary. Patient with good understanding of and agreement to plan and is comfortable going home at this time This document was made in part using voice recognition software. While efforts are made to proofread this document, sound alike and grammatical errors may occur. - Sepsis Event Vital Signs: Vital Signs - 24 hr 05/07/18 14:33 Temperature 36.1 C L Heart Rate 88 Respiratory 18 Rate Blood Pressure 147/77 H O2 Saturation 99 Oxygen O2 Source Room air Departure - Departure Disposition: 01 Home, Self Care Clinical Impression: Left elbow contusion Qualifiers: Encounter type: initial encounter Qualified Code(s): S50.02XA - Contusion of left elbow, initial encounter Condition: Good Instructions: ED Contusion Elbow Follow-Up: your,doctor in 1 week [Other] Comments: Take the JONH wrap off tonight. Return if you worsen. Discharge Date/Time: 05/07/18 14:52
== END 2018-05-07 14:52 | disposition home or self-care (01) ==
LOC: ED 14:30
DX: E11.9 Type 2 diabetes mellitus without complications (principal); Z79.84 Long term (current) use of oral hypoglycemic drugs; S50.02XA Contusion of left elbow, initial encounter; W19.XXXA Unspecified fall, initial encounter
CPT/HCPCS: 99282; 99283

== ENCOUNTER 2018-05-17 09:12 | Outpatient (CLI) | payer MEDICARE, OTHER, MEDICAID ==
[2018-05-17 13:36] LABS: HB2 TOTAL 12.4 g/dL; HEMOGLOBIN A1C 0.57 g/dL; HEMOGLOBIN A1C % 6.4 % (4.6-6.2)
== END 2018-05-17 09:13 | disposition home or self-care (01) ==
LOC: LAB.N 09:12
PROVIDERS: ATTEND Physician Assistant Medical
DX: E11.9 Type 2 diabetes mellitus without complications (principal)
CPT/HCPCS: 36415; 83036

== ENCOUNTER 2018-06-04 13:57 | Emergency (ER) | payer MEDICARE, OTHER, MEDICAID ==
[2018-06-04 14:06] VITALS: BP 153/74
--- NOTE | 2018-06-04 15:38 | ED Physician Documentation ---
PD HPI UPPER EXT INJURY - Stated complaint Stated Complaint: RT ELBOW PX - Chief complaint Chief Complaint: Trauma Ext - History obtained from History obtained from: Patient - History of Present Illness Location: Right, Elbow Type of injury: Fall Where injury occurred: Home Timing - onset: Today Timing - duration: Minutes Timing - details: Abrupt onset, Still present Improved by: Rest, Immobilization Worsened by: Moving, Palpating Associated symptoms: No: Weakness, Numbness, Tingling, Swelling Contributing factors: No: Anticoagulated Similar symptoms before: Diagnosis (contusion) Recently seen: Emergency Dept - Additonal information Additional information: This is the 31st visit this year for this 57-year-old female with a history of developmental delay. She has had visits for falls contusions and sprains. Today she claims that she was in her home and fell she has no specifics on how this incident actually happened but complains of pain to the olecranon on the right side. She is able to move her arm in a good range of motion. Review of Systems Constitutional: denies: Fever Eyes: denies: Decreased vision Ears: denies: Ear pain Nose: denies: Congestion Throat: denies: Sore throat Respiratory: denies: Cough GI: denies: Vomiting, Diarrhea : denies: Dysuria Skin: denies: Rash Musculoskeletal: reports: Extremity pain, Joint pain. 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 : None HEENT: Chronic vision loss Psych: Other Musculoskeletal: None Derm: None - Past Surgical History Past Surgical History: Yes /NIGHT SHIFT SUPERVISOR: Dilation and currettage, Other HEENT: Myringotomy (tubes) - Present Medications Home Medications: Ambulatory Orders Medication Instructions Recorded Confirmed Cholecalciferol (Vitamin D3) 2,000 unit PO DAILY 01/01/13 12/17/17 [Vitamin D] Ferrous Gluconate [Iron] 324 mg PO DAILY 01/01/13 12/17/17 Lisinopril 20 mg PO DAILY 01/01/13 12/17/17 Metformin HCl 850 mg PO BID 01/01/13 12/17/17 Multivitamin [Multivitamins] 1 each PO DAILY 01/01/13 12/17/17 Sodium Fluoride [Prevident 5000] 1 ml PO DAILY 03/04/14 12/17/17 Lansoprazole [Prevacid] 30 mg PO DAILY 02/18/15 12/17/17 Sucralfate [Carafate] 1 gm PO ACHS #30 udc 02/24/15 12/17/17 Magnesium Chloride [Mag Delay] 64 mg PO DAILY 12/12/16 12/17/17 Donut Pillow 1 ahfu TD ONCE #1 12/23/17 - Allergies Allergies/Adverse Reactions: Allergies Allergy/AdvReac Type Severity Reaction Status Date / Time Penicillins Allergy Unknown Rash Verified 06/04/18 14:06 sulfamethoxazole Allergy Unknown Rash Verified 06/04/18 14:06 [From ] trimethoprim [From ] Allergy Unknown Rash Verified 06/04/18 14:06 amoxicillin [Amoxicillin] Allergy hives/itchi Verified 06/04/18 14:06 ng - Social History Does the pt smoke?: No Smoking Status: Never smoker Does the pt drink ETOH?: No Does the pt have substance abuse?: No - Immunizations Immunizations are current?: Yes - POLST Patient has POLST: No PD ED PE NORMAL - Vitals Vital signs reviewed: Yes (hypertensive) - General General: No acute distress, Well developed/nourished - HEENT HEENT: Atraumatic, PERRL, EOMI - Neck Neck: Supple, no meningeal sign - Respiratory Respiratory: No respiratory distress - Derm Derm: Normal color, Warm and dry, No rash - Extremities Extremities: No deformity, No edema, Other (There is point tenderness to the olecrenon process and over the radial head to palpation. 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, No motor deficit, No sensory deficit, Normal speech Eye Opening: Spontaneous Motor: Obeys Commands Verbal: Oriented GCS Score: 15 - Psych Psych: Normal mood, Normal affect Results - Vitals Vitals: Vital Signs - 24 hr 06/04/18 14:02 Temperature 36.7 C Heart Rate 98 Respiratory 18 Rate Blood Pressure 153/74 H O2 Saturation 98 Oxygen O2 Source Room air - Rads (name of study) right elbow Radiology: Prelim report reviewed (Impression: No acute bony abnormality or joint effusion.), EMP read indepedently, See rad report PD MEDICAL DECISION MAKING - ED course Complexity details: reviewed results, re-evaluated patient, considered differential, d/w patient ED course: another fall with minimal injury and no evidence of fracture. She is placed into a sling for comfort. - Sepsis Event Vital Signs: Vital Signs - 24 hr 06/04/18 14:02 Temperature 36.7 C Heart Rate 98 Respiratory 18 Rate Blood Pressure 153/74 H O2 Saturation 98 Oxygen O2 Source Room air Departure - Departure Disposition: 01 Home, Self Care Clinical Impression: Contusion of elbow, right Qualifiers: Encounter type: initial encounter Qualified Code(s): S50.01XA - Contusion of right elbow, initial encounter Condition: Stable Instructions: ED Sprain Elbow Follow-Up: [facility] [Provider Group]
--- NOTE | 2018-06-04 15:39 | XRAY Report ---
Reason: fall pain over olecrenon Procedure Date: 06/04/2018 Accession Number: [id number] / [id number] Procedure: XR - Elbow 3 View RT CPT Code: FULL RESULT: EXAM: RIGHT ELBOW RADIOGRAPHY EXAM DATE: 06/04/2018 03:11 PM. CLINICAL HISTORY: Fall. Pain over olecranon. COMPARISON: None. TECHNIQUE: 3 views. FINDINGS: Bones: No traumatic or destructive bony abnormalities. Lateral epicondylar and olecranon enthesophytes noted. Joints: Normal. No effusion. No subluxation. Soft Tissues: Unremarkable. IMPRESSION: No acute bony abnormality or joint effusion. RADIA
== END 2018-06-04 15:52 | disposition home or self-care (01) ==
LOC: ED 13:57
DX: S50.01XA Contusion of right elbow, initial encounter (principal); E11.9 Type 2 diabetes mellitus without complications; Z79.84 Long term (current) use of oral hypoglycemic drugs; W19.XXXA Unspecified fall, initial encounter; Y92.009 Unspecified place in unspecified non-institutional (private) residence as the place of occurrence of the external cause
CPT/HCPCS: 99282; 99283

== ENCOUNTER 2018-06-16 15:28 | Outpatient (CLI) | payer MEDICARE, OTHER, MEDICAID | END 2018-06-16 15:29 | disposition critical access hospital (66) | LOC: EMS 15:28 | PROVIDERS: ATTEND Surgery | DX: R51 Headache (principal) | CPT/HCPCS: A0425; A0429 ==

== ENCOUNTER 2018-06-16 16:03 | Emergency (ER) | payer MEDICARE, OTHER, MEDICAID ==
[2018-06-16 16:14] VITALS: BP 151/80
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
== END 2018-06-16 16:33 | disposition home or self-care (01) ==
LOC: EDUNIT# → ED 16:03
DX: S00.03XA Contusion of scalp, initial encounter (principal); W22.8XXA Striking against or struck by other objects, initial encounter; Y92.512 Supermarket, store or market as the place of occurrence of the external cause; E11.9 Type 2 diabetes mellitus without complications; Z79.84 Long term (current) use of oral hypoglycemic drugs
CPT/HCPCS: 99281; 99282

== ENCOUNTER 2018-06-22 14:01 | Emergency (ER) | payer MEDICARE, OTHER, MEDICAID ==
--- NOTE | 2018-06-22 14:08 | ED Physician Documentation ---
PD HPI UPPER EXT INJURY - Stated complaint Stated Complaint: RT ELBOW PX - History obtained from History obtained from: Patient - History of Present Illness Location: Right, Elbow Type of injury: Other (just pain developed gradually with arm use.). No: Fall, Twist, Blunt / blow Timing - onset: How many days ago (2-3) Timing - duration: Days Timing - details: Gradual onset, Still present Worsened by: Moving (lifting and grabbing with hand hurts at elbow.), Palpating Associated symptoms: No: Weakness, Numbness, Swelling Similar symptoms before: Diagnosis (tendonitis of elbow. 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 : None HEENT: Chronic vision loss Psych: Other Musculoskeletal: None Derm: None - Past Surgical History Past Surgical History: Yes /PATTERNMAKER PLASTER: Dilation and currettage, Other HEENT: Myringotomy (tubes) - Present Medications Home Medications: Ambulatory Orders Medication Instructions Recorded Confirmed Cholecalciferol (Vitamin D3) 2,000 unit PO DAILY 01/01/13 12/17/17 [Vitamin D] Ferrous Gluconate [Iron] 324 mg PO DAILY 01/01/13 12/17/17 Lisinopril 20 mg PO DAILY 01/01/13 12/17/17 Metformin HCl 850 mg PO BID 01/01/13 12/17/17 Multivitamin [Multivitamins] 1 each PO DAILY 01/01/13 12/17/17 Sodium Fluoride [Prevident 5000] 1 ml PO DAILY 03/04/14 12/17/17 Lansoprazole [Prevacid] 30 mg PO DAILY 02/18/15 12/17/17 Sucralfate [Carafate] 1 gm PO ACHS #30 udc 02/24/15 12/17/17 Magnesium Chloride [Mag Delay] 64 mg PO DAILY 12/12/16 12/17/17 Donut Pillow 1 ahfu TD ONCE #1 12/23/17 Naproxen 375 mg PO BID #20 tablet 06/22/18 - Allergies Allergies/Adverse Reactions: Allergies Allergy/AdvReac Type Severity Reaction Status Date / Time Penicillins Allergy Unknown Rash Verified 06/22/18 14:24 sulfamethoxazole Allergy Unknown Rash Verified 06/22/18 14:24 [From ] trimethoprim [From Septra] Allergy Unknown Rash Verified 06/22/18 14:24 amoxicillin [Amoxicillin] Allergy hives/itchi Verified 06/22/18 14:24 ng - Social History Does the pt smoke?: No Smoking Status: Never smoker Does the pt drink ETOH?: No Does the pt have substance abuse?: No - Immunizations Immunizations are current?: Yes - POLST Patient has POLST: No PD ED PE NORMAL - Vitals Vital signs reviewed: Yes - General General: Alert and oriented X 3, No acute distress, Well developed/nourished - Derm Derm: Normal color, Warm and dry - Extremities Extremities: Other (right elbow with focal tenderness at lateral epicondyle. No effusion nor redness. No joint effusion. ) - Neuro Neuro: Alert and oriented X 3, No motor deficit, No sensory deficit Results - Vitals Vitals: Vital Signs - 24 hr 06/22/18 14:10 Temperature 36 C L Heart Rate 88 Respiratory 18 Rate Blood Pressure 131/76 H O2 Saturation 96 Oxygen O2 Source Room air PD MEDICAL DECISION MAKING - ED course Complexity details: considered differential (seems like tennis elbow. No impact injury, so did not see need for imaging and patient agrees. ), d/w patient Departure - Departure Disposition: 01 Home, Self Care Clinical Impression: Right elbow tendonitis Condition: Stable Record reviewed to determine appropriate education?: Yes Instructions: ED Epicondylitis Lateral Elbow Follow-Up: Wale Morales PA-C [Primary Care Provider] - Prescriptions: Naproxen 375 mg PO BID #20 tablet Comments: Use Jonh wrap or a tendinitis strap just below the elbow daily and remove it when you are rested and at night. This tries to reduce the amount of movement of the tendon at the elbow itself and help the tendinitis improved. Naproxen twice daily for pain and inflammation. Add Tylenol if needed for pains. Discharge Date/Time: 06/22/18 14:43
[2018-06-22] MEDS ORDERED: ACETAMINOPHEN 325 MG TABLET PO STA (14:14)
[2018-06-22 14:24] VITALS: BP 131/76
== END 2018-06-22 14:43 | disposition home or self-care (01) ==
LOC: ED 14:01
DX: M77.11 Lateral epicondylitis, right elbow (principal); E11.9 Type 2 diabetes mellitus without complications; Z79.84 Long term (current) use of oral hypoglycemic drugs
CPT/HCPCS: 99282; 99283; A9270

== ENCOUNTER 2018-07-03 02:10 | Outpatient (CLI) | payer MEDICARE, OTHER, MEDICAID | END 2018-07-03 02:11 | disposition critical access hospital (66) | LOC: EMS 02:10 | PROVIDERS: ATTEND Surgery | DX: R51 Headache (principal); R07.9 Chest pain, unspecified | CPT/HCPCS: A0425; A0429 ==

== ENCOUNTER 2018-07-03 02:27 | Emergency (ER) | payer MEDICARE, OTHER, MEDICAID ==
--- NOTE | 2018-07-03 02:40 | ED Physician Documentation ---
PD HPI CHEST PAIN - Stated complaint Stated Complaint: CP, HEADACHE - History obtained from History obtained from: Patient, Friend - History of Present Illness Timing - onset: Today Timing - details: Gradual onset - Additional information Additional information: patient well known to this ED. similar to many previous ED visits, there are variations in the chief complaint she describes when asked by different staff. Patient's friend contributes to the HPI, says patient was c/o headache and chest discomfort earlier this evening. He says she often c/o chest pain when she feels anxious. BIBA, given 324mg ASA en route Review of Systems Unable to obtain: Other (limited due to cooperation; patient answers few of my questions, makes poor eye contact. 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: None : None HEENT: Chronic vision loss Psych: Other Musculoskeletal: None Derm: None - Past Surgical History Past Surgical History: Yes /CLIENT TECHNICAL SUPPORT ASSOCIATE: Dilation and currettage, Other HEENT: Myringotomy (tubes) - Present Medications Home Medications: Ambulatory Orders Medication Instructions Recorded Confirmed Cholecalciferol (Vitamin D3) 2,000 unit PO DAILY 01/01/13 12/17/17 [Vitamin D] Ferrous Gluconate [Iron] 324 mg PO DAILY 01/01/13 12/17/17 Lisinopril 20 mg PO DAILY 01/01/13 12/17/17 Metformin HCl 850 mg PO BID 01/01/13 12/17/17 Multivitamin [Multivitamins] 1 each PO DAILY 01/01/13 12/17/17 Sodium Fluoride [Prevident 5000] 1 ml PO DAILY 03/04/14 12/17/17 Lansoprazole [Prevacid] 30 mg PO DAILY 02/18/15 12/17/17 Sucralfate [Carafate] 1 gm PO ACHS #30 udc 02/24/15 12/17/17 Magnesium Chloride [Mag Delay] 64 mg PO DAILY 12/12/16 12/17/17 Donut Pillow 1 ahfu TD ONCE #1 12/23/17 Naproxen 375 mg PO BID #20 tablet 06/22/18 - Allergies Allergies/Adverse Reactions: Allergies Allergy/AdvReac Type Severity Reaction Status Date / Time Penicillins Allergy Unknown Rash Verified 07/04/18 15:33 sulfamethoxazole Allergy Unknown Rash Verified 07/04/18 15:33 [From Septra] trimethoprim [From Septra] Allergy Unknown Rash Verified 07/04/18 15:33 amoxicillin [Amoxicillin] Allergy hives/itchi Verified 07/04/18 15:33 ng - Social History Does the pt smoke?: No Smoking Status: Never smoker Does the pt drink ETOH?: No Does the pt have substance abuse?: No - Immunizations Immunizations are current?: Yes - POLST Patient has POLST: No PD ED PE NORMAL - Vitals Vital signs reviewed: Yes - General General: No acute distress, Well developed/nourished, Other (awake, alert. does not answer orientation questions except for name. Poor eye contact; at times she looks at me through her fingers, at other times she pulls the blanket over her head. throughout H+P, she is in NAD, frequently laughing at jokes her friend is making at bedside) - HEENT HEENT: PERRL, EOMI, Moist mucous membranes - Cardiac Cardiac: RRR, No murmur - Respiratory Respiratory: No respiratory distress, Clear bilaterally - Abdomen Abdomen: Soft, Non tender - Extremities Extremities: No edema - Neuro Neuro: Other (moves all extremities equally) Results - Vitals Vitals: Oxygen O2 Source Room air - EKG (time done) No standard instances Rate: Rate (enter#) (95) Rhythm: NSR [place]: Normal Intervals: Normal LA QRS: Normal Ischemia: Normal ST segments Compare to prior EKG: Unchanged from prior EKG (12/19/17) - Labs Labs: Laboratory Tests 07/03/18 03:20 Troponin I < 0.04 PD MEDICAL DECISION MAKING - ED course Complexity details: reviewed old records, reviewed results, re-evaluated patient, considered differential, d/w patient Departure - Departure Disposition: 01 Home, Self Care Clinical Impression: Chest pain Condition: Good Instructions: ED Chest Pain Atypical Unkn Cause Follow-Up: Wale Morales PA-C [Primary Care Provider] - Discharge Date/Time: 07/03/18 04:18
[2018-07-03 03:49] VITALS: BP 125/67
[2018-07-03] MEDS ORDERED: LORazepam 0.5 MG TABLET PO STA (04:02)
[2018-07-03] MEDS ORDERED: IBUPROFEN 600 MG TABLET PO STA (04:02)
== END 2018-07-03 04:18 | disposition home or self-care (01) ==
LOC: EDUNIT# → ED 02:27
DX: R07.9 Chest pain, unspecified (principal); E11.9 Type 2 diabetes mellitus without complications; Z79.84 Long term (current) use of oral hypoglycemic drugs
CPT/HCPCS: 36415; 84484; 93005; 99283; A9270

== ENCOUNTER 2018-07-04 15:09 | Outpatient (CLI) | payer MEDICARE, OTHER, MEDICAID | END 2018-07-04 15:10 | disposition critical access hospital (66) | LOC: EMS 15:09 | PROVIDERS: ATTEND Surgery | DX: M25.531 Pain in right wrist (principal); M25.572 Pain in left ankle and joints of left foot; W19.XXXA Unspecified fall, initial encounter; Y92.59 Other trade areas as the place of occurrence of the external cause | CPT/HCPCS: A0425; A0429 ==

== ENCOUNTER 2018-07-04 15:28 | Emergency (ER) | payer MEDICARE, OTHER, MEDICAID ==
[2018-07-04 15:33] VITALS: BP 135/60
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
--- NOTE | 2018-07-04 16:54 | XRAY Report ---
Reason: ankle/elbow/knee inj Procedure Date: 07/04/2018 Accession Number: [id number] / [id number] Procedure: XR - Ankle 3 View LT CPT Code: FULL RESULT: EXAM: LEFT ANKLE RADIOGRAPHY EXAM DATE: 07/04/2018 04:29 PM. CLINICAL HISTORY: Ankle/elbow/knee pain since fall last night. COMPARISON: ANKLE 3 VIEW LT 01/17/2018 6:43 PM. TECHNIQUE: 3 views. FINDINGS: Bones: No acute traumatic or destructive bony abnormalities. Lucency in the lateral talar dome with surrounding sclerosis. Joints: Chronic degenerative changes of the lateral joint. No effusion. No subluxations. The ankle mortise is normally aligned. Soft Tissues: Unremarkable. IMPRESSION: 1. No acute bony abnormality. 2. Osteochondritis dissecans, lateral talar dome. 3. Degenerative changes of the lateral ankle joint. RADIA
--- NOTE | 2018-07-04 16:55 | XRAY Report ---
Reason: ankle/elbow/knee inj Procedure Date: 07/04/2018 Accession Number: [id number] Procedure: XR - Wrist 2 View RT CPT Code: FULL RESULT: EXAM: RIGHT WRIST RADIOGRAPHY EXAM DATE: 07/04/2018 04:29 PM. CLINICAL HISTORY: Ankle/elbow/knee pain since fall last night. COMPARISON: WRIST 4 VIEW RT 12/26/2017 11:38 AM. TECHNIQUE: 2 views. FINDINGS: Bones: Normal. No fractures or bone lesions. Joints: Normal. No subluxations. Soft Tissues: Unremarkable. IMPRESSION: Normal wrist radiography. RADIA
--- NOTE | 2018-07-04 16:56 | XRAY Report ---
Reason: ankle/elbow/knee inj Procedure Date: 07/04/2018 Accession Number: [id number] Procedure: XR - Elbow 3 View RT CPT Code: FULL RESULT: EXAM: RIGHT ELBOW RADIOGRAPHY EXAM DATE: 07/04/2018 04:29 PM. CLINICAL HISTORY: Ankle/elbow/knee pain since fall last night. COMPARISON: ELBOW 3 VIEW RT 06/04/2018 2:56 PM. TECHNIQUE: 3 views. FINDINGS: Bones: No acute traumatic or destructive bone abnormality. Olecranon, lateral epicondyle, and coronoid process enthesophytes noted. Joints: Normal. No effusion. No subluxation. Soft Tissues: Unremarkable. IMPRESSION: No acute bony abnormality or joint effusion. RADIA
== END 2018-07-04 17:18 | disposition home or self-care (01) ==
LOC: EDUNIT# → ED 15:28
DX: S60.211A Contusion of right wrist, initial encounter (principal); S90.02XA Contusion of left ankle, initial encounter; S50.01XA Contusion of right elbow, initial encounter; W19.XXXA Unspecified fall, initial encounter; Y92.59 Other trade areas as the place of occurrence of the external cause; E11.9 Type 2 diabetes mellitus without complications; Z79.84 Long term (current) use of oral hypoglycemic drugs; R03.0 Elevated blood-pressure reading, without diagnosis of hypertension
CPT/HCPCS: 99282; 99283

== ENCOUNTER 2018-07-05 14:04 | Emergency (ER) | payer MEDICARE, OTHER, MEDICAID ==
[2018-07-05 14:21] VITALS: BP 139/61
--- NOTE | 2018-07-05 14:59 | XRAY Report ---
Reason: pain, fall Procedure Date: 07/05/2018 Accession Number: [id number] / [id number] Procedure: XR - Wrist 3 View RT CPT Code: FULL RESULT: EXAM: RIGHT WRIST RADIOGRAPHY EXAM DATE: 07/05/2018 02:41 PM. CLINICAL HISTORY: Pain, fall. COMPARISON: 07/04/2018. TECHNIQUE: 3 views. FINDINGS: Bones: Osteopenia. No definite fracture or other bone lesion. Joints: Unremarkable. Soft Tissues: Mild soft tissue swelling. Pronator fat pad not distended. IMPRESSION: Mild soft tissue swelling. RADIA
--- NOTE | 2018-07-05 15:08 | ED Physician Documentation ---
PD HPI UPPER EXT INJURY - Stated complaint Stated Complaint: R HAND INJ - Chief complaint Chief Complaint: Ext Problem - History of Present Illness Location: Right, Wrist Type of injury: Blunt / blow Where injury occurred: Home Timing - onset: Today Severity Comments: mild Improved by: Rest Worsened by: Moving Associated symptoms: No: Weakness, Numbness, Tingling Review of Systems Constitutional: denies: Fever Eyes: denies: Discharge Nose: denies: Congestion Cardiac: denies: Chest pain / pressure GI: denies: Abdominal Pain Musculoskeletal: reports: Extremity pain. 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 and currettage, Other HEENT: Myringotomy (tubes) - Present Medications Home Medications: Ambulatory Orders Medication Instructions Recorded Confirmed Cholecalciferol (Vitamin D3) 2,000 unit PO DAILY 01/01/13 12/17/17 [Vitamin D] Ferrous Gluconate [Iron] 324 mg PO DAILY 01/01/13 12/17/17 Lisinopril 20 mg PO DAILY 01/01/13 12/17/17 Metformin HCl 850 mg PO BID 01/01/13 12/17/17 Multivitamin [Multivitamins] 1 each PO DAILY 01/01/13 12/17/17 Sodium Fluoride [Prevident 5000] 1 ml PO DAILY 03/04/14 12/17/17 Lansoprazole [Prevacid] 30 mg PO DAILY 02/18/15 12/17/17 Sucralfate [Carafate] 1 gm PO ACHS #30 udc 02/24/15 12/17/17 Magnesium Chloride [Mag Delay] 64 mg PO DAILY 12/12/16 12/17/17 Donut Pillow 1 ahfu TD ONCE #1 12/23/17 Naproxen 375 mg PO BID #20 tablet 06/22/18 - Allergies Allergies/Adverse Reactions: Allergies Allergy/AdvReac Type Severity Reaction Status Date / Time Penicillins Allergy Unknown Rash Verified 07/04/18 15:33 sulfamethoxazole Allergy Unknown Rash Verified 07/04/18 15:33 [From ] trimethoprim [From Septra] Allergy Unknown Rash Verified 07/04/18 15:33 amoxicillin [Amoxicillin] Allergy hives/itchi Verified 07/04/18 15:33 ng - Social History Does the pt smoke?: No Smoking Status: Never smoker Does the pt drink ETOH?: No Does the pt have substance abuse?: No - Immunizations Immunizations are current?: Yes - POLST Patient has POLST: No PD ED PE NORMAL - General General: Alert and oriented X 3, No acute distress - HEENT HEENT: Atraumatic, PERRL, EOMI, Ears normal - Derm Derm: Normal color - Extremities Extremities: No deformity, Normal ROM s pain. No: No tenderness to palpate (The patient is tender palpation in her right wrist, there is no crepitus or deformity. The patient has no tenderness in her shoulder elbow and normal range of motion. The patient has no tenderness in her fingers and normal engagement quality consultant strength. Normal radial pulse. Normal cap refill and normal sensation and motor function.), No edema - Neuro Neuro: Alert and oriented X 3 Results - Vitals Vitals: Vital Signs - 24 hr 07/05/18 14:19 Temperature 36.6 C Heart Rate 85 Respiratory 14 Rate Blood Pressure 139/61 H O2 Saturation 97 Oxygen O2 Source Room air - Rads (name of study) Wrist Radiology: Final report received, See rad report (IMPRESSION: Mild soft tissue swelling. ) PD MEDICAL DECISION MAKING - ED course ED course: No acute fracture seen on x-ray, I recommended that the patient be placed in a Velcro splint to help support her wrist. The patient became upset because she wanted a cast. I explained that she did not have a fracture I did not need a cast. The patient then stormed out of the emergency department. The patient did not wait for her discharge instructions. Departure - Departure Disposition: 01 Home, Self Care Clinical Impression: Wrist pain, acute Qualifiers: Laterality: right Qualified Code(s): M25.531 - Pain in right wrist Condition: Good Instructions: Wrist Sprain Follow-Up: Wale Morales PA-C [Primary Care Provider] - Within 1 week (If your symptoms are not improving you may require a referral to orthopedics.) Comments: Please return to the emergency department for worsening symptoms or any concerns.
== END 2018-07-05 15:30 | disposition home or self-care (01) ==
LOC: ED 14:04
DX: M25.531 Pain in right wrist (principal); E11.9 Type 2 diabetes mellitus without complications; Z79.84 Long term (current) use of oral hypoglycemic drugs; W19.XXXA Unspecified fall, initial encounter
CPT/HCPCS: 99282; 99283

== ENCOUNTER 2018-07-06 12:55 | Outpatient (CLI) | payer MEDICARE, OTHER, MEDICAID | END 2018-07-06 12:56 | disposition critical access hospital (66) | LOC: EMS 12:55 | PROVIDERS: ATTEND Surgery | DX: R07.9 Chest pain, unspecified (principal) ==

== ENCOUNTER 2018-07-06 13:15 | Emergency (ER) | payer MEDICARE, OTHER, MEDICAID ==
--- NOTE | 2018-07-06 13:57 | ED Physician Documentation ---
History of Present Illness - Stated complaint Stated Complaint: CP - Chief complaint Chief Complaint: Cardiac - History obtained from History obtained from: Patient, EMS - History of Present Illness Timing: Today Pain level max: 0 Pain level now: 0 - Additonal information Additional information: Patient is a 57-year-old female who states that she felt like her heart was beating faster than usual for approximately 5-10 minutes today. She states this is since resolved and she feels normal. Never had any pain or difficulty breathing. She states that she does not want any further workup at this time and just wants to go home. She received aspirin with EMS. Nothing made it better or worse. Review of Systems Ten Systems: 10 systems reviewed and negative Constitutional: denies: Fever, Chills, Myalgias Ears: denies: Ear pain Nose: denies: Rhinorrhea / runny nose, Congestion Throat: denies: Oral lesions / sores Cardiac: denies: Chest pain / pressure Respiratory: denies: Dyspnea, Cough, Wheezing GI: denies: Abdominal Pain, Nausea, Vomiting, Diarrhea : denies: Dysuria Skin: denies: Rash Musculoskeletal: denies: Neck pain, Back pain Neurologic: denies: Headache PD PAST MEDICAL HISTORY - Past Medical History Past Medical History: Yes Cardiovascular: Other Respiratory: None Neuro: Other Endocrine/Autoimmune: Type 2 diabetes GI: Chronic diarrhea 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 HEENT: Chronic vision loss Psych: None, Other Musculoskeletal: None Derm: None - Past Surgical History Past Surgical History: Yes /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: Dilation and currettage, Other HEENT: Myringotomy (tubes) - Present Medications Home Medications: Ambulatory Orders Medication Instructions Recorded Confirmed Cholecalciferol (Vitamin D3) 2,000 unit PO DAILY 01/01/13 12/17/17 [Vitamin D] Ferrous Gluconate [Iron] 324 mg PO DAILY 01/01/13 12/17/17 Lisinopril 20 mg PO DAILY 01/01/13 12/17/17 Metformin HCl 850 mg PO BID 01/01/13 12/17/17 Multivitamin [Multivitamins] 1 each PO DAILY 01/01/13 12/17/17 Sodium Fluoride [Prevident 5000] 1 ml PO DAILY 03/04/14 12/17/17 Lansoprazole [Prevacid] 30 mg PO DAILY 02/18/15 12/17/17 Sucralfate [Carafate] 1 gm PO ACHS #30 udc 02/24/12/17/17 Magnesium Chloride [Mag Delay] 64 mg PO DAILY 12/12/16 12/17/17 Donut Pillow 1 ahfu TD ONCE #1 12/23/17 Naproxen 375 mg PO BID #20 tablet 06/22/18 - Allergies Allergies/Adverse Reactions: Allergies Allergy/AdvReac Type Severity Reaction Status Date / Time Penicillins Allergy Unknown Rash Verified 07/06/18 13:27 sulfamethoxazole Allergy Unknown Rash Verified 07/06/18 13:27 [From ] trimethoprim [From ] Allergy Unknown Rash Verified 07/06/18 13:27 amoxicillin [Amoxicillin] Allergy hives/itchi Verified 07/06/18 13:27 ng - Social History Does the pt smoke?: No Smoking Status: Never smoker Does the pt drink ETOH?: No Does the pt have substance abuse?: No - Immunizations Immunizations are current?: Yes - POLST Patient has POLST: No PD ED PE NORMAL - Vitals Vital signs reviewed: Yes - General General: Alert and oriented X 3, No acute distress - HEENT HEENT: Moist mucous membranes - Neck Neck: Supple, no meningeal sign - Cardiac Cardiac: RRR, Strong equal pulses - Respiratory Respiratory: No respiratory distress, Clear bilaterally - Abdomen Abdomen: Soft, Non tender - Derm Derm: Warm and dry - Extremities Extremities: No edema, No calf tenderness / cord - Neuro Neuro: Alert and oriented X 3 - Psych Psych: Normal mood, Normal affect Results - Vitals Vitals: Vital Signs - 24 hr 07/06/18 13:00 Temperature 36.5 C Heart Rate 93 Respiratory 20 Rate Blood Pressure 131/67 H O2 Saturation 100 Oxygen O2 Source Room air - EKG (time done) 1324 Rate: Rate (enter#) (89) Rhythm: NSR, Other (PVC) [place]: Normal Intervals: Normal [place] QRS: Normal Ischemia: Normal ST segments PD MEDICAL DECISION MAKING - ED course Complexity details: reviewed old records, reviewed results, considered differential (No ST elevation [place], no aortic dissection, no PE, no tension pneumothorax, no aortic aneurysm), d/w patient ED course: Patient is a 57-year-old female who presents to the emergency department with palpitations earlier today. This has since resolved. Has had these several times in the past. Does not have any chest pain. She refuses any further workup at this point. Patient was counseled that we could miss a heart attack or other serious medical condition, she continues to refuse and will follow up with her doctor. This document was made in part using voice recognition software. While efforts are made to proofread this document, sound alike and grammatical errors may occur. Departure - Departure Disposition: 01 Home, Self Care Clinical Impression: Palpitations Condition: Good Instructions: ED Palpitations Follow-Up: Wale Morales PA-C [Primary Care Provider] - Within 3 Days Comments: Follow up with your doctor for further care. You have chosen not to have any further workup today. Return if you worsen.
[2018-07-06 14:16] VITALS: BP 126/66
== END 2018-07-06 14:14 | disposition home or self-care (01) ==
LOC: EDUNIT# → ED 13:15
DX: R00.2 Palpitations (principal); E11.9 Type 2 diabetes mellitus without complications; Z79.84 Long term (current) use of oral hypoglycemic drugs
CPT/HCPCS: 93005; 99283

== ENCOUNTER 2018-07-06 23:00 | Outpatient (CLI) | payer MEDICARE, OTHER, MEDICAID | END 2018-07-06 23:01 | disposition critical access hospital (66) | LOC: EMS 23:00 | PROVIDERS: ATTEND Surgery | DX: R07.81 Pleurodynia (principal); R07.9 Chest pain, unspecified | CPT/HCPCS: A0425; A0427; A0429 ==

== ENCOUNTER 2018-07-06 23:18 | Emergency (ER) | payer MEDICARE, OTHER, MEDICAID ==
[2018-07-06 23:51] LABS: BASOPHILS # (AUTO) 0.1 10^3/uL (0.0-0.1); EOSINOPHILS # (AUTO) 0.4 10^3/uL (0.0-0.7); EOSINOPHILS % (AUTO) 5.7 %; HGB - HEMOGLOBIN 11.2 g/dL (12.0-16.0); LYMPHOCYTES # (AUTO) 2.4 10^3/uL (1.5-3.5); LYMPHOCYTES % (AUTO) 34.9 %; MEAN CORPUSCULAR HEMOGLOBIN 26.8 pg (27.0-31.0); MEAN CORPUSCULAR VOLUME 81.4 fL (81.0-99.0); MEAN PLATELET VOLUME 7.3 fL (7.9-10.8); MONOCYTES # (AUTO) 0.5 10^3/uL (0.0-1.0); MONOCYTES % (AUTO) 6.6 %; NEUTROPHILS # (AUTO) 3.5 10^3/uL (1.5-6.6); NEUTROPHILS % (AUTO) 51.8 %; PLT - PLATELET COUNT 244 10^3/uL (130-450); RED BLOOD COUNT 4.17 10^6/uL (4.20-5.40); RED CELL DISTRIBUTION WIDTH 16.1 % (12.0-15.0); WHITE BLOOD COUNT 6.8 x10^3/uL (4.8-10.8)
[2018-07-07 00:04] LABS: ALBUMIN 3.5 g/dL (3.2-5.5); BILIRUBIN,TOTAL 0.5 mg/dL (0.2-1.0); CALCIUM 8.5 mg/dL (8.5-10.3); CREATININE 1.5 mg/dL (0.4-1.0)
[2018-07-07 00:14] LABS: BILIRUBIN,URINE NEGATIVE (NEGATIVE); GLUCOSE, URINE (UA) NEGATIVE (NEGATIVE); KETONES,URINE (UA) NEGATIVE (NEGATIVE); LEUKOCYTE ESTERASE, URINE NEGATIVE (NEGATIVE); NITRITE,URINE NEGATIVE (NEGATIVE); OCCULT BLOOD,URINE NEGATIVE (NEGATIVE); PH,URINE 5.5 PH (5.0-7.5); PROTEIN,URINE NEGATIVE (NEGATIVE); UROBILINOGEN,URINE 0.2 (NORMAL) E.U./dL (NORMAL)
[2018-07-07 00:16] LABS: CLARITY,URINE CLEAR (CLEAR)
--- NOTE | 2018-07-07 00:38 | CT Report ---
Reason: right sided pain Procedure Date: 07/07/2018 Accession Number: [id number] / [id number] Procedure: CT - Abdomen/Pelvis W/O CPT Code: FULL RESULT: EXAM: CT ABDOMEN AND PELVIS EXAM DATE: 07/07/2018 12:25 AM. CLINICAL HISTORY: Right sided pain. COMPARISONS: None. TECHNIQUE: Routine helical CT imaging was performed through the abdomen and pelvis. IV contrast: None. Enteric contrast: No. Reconstructions: Coronal and sagittal. In accordance with CT protocol optimization, one or more of the following dose reduction techniques were utilized for this exam: automated exposure control, adjustment of mA and/or KV based on patient size, or use of iterative reconstructive technique. FINDINGS: Lung Bases: Mild bibasilar atelectasis or infiltrate. Liver: Fatty infiltration. Gallbladder/Bile Ducts: Unremarkable. Spleen: Normal. Pancreas: Normal. Adrenal Glands: Normal. Kidneys: No stones are seen in the kidneys or ureters. No obvious masses or significant hydronephrosis. Peritoneal Cavity/Bowel: No bowel obstruction seen. No diverticulitis. No free air or free fluid. No lymphadenopathy. Appendix appears normal. Pelvic Organs: The visualized pelvic organs are unremarkable. Vasculature: No aneurysms or other significant abnormality. Bones: No acute abnormality seen. Other: None. IMPRESSION: 1. Fatty liver. 2. Appendix appears normal. 3. No urolithiasis seen. RADIA
--- NOTE | 2018-07-07 00:45 | ED Physician Documentation ---
History of Present Illness - Stated complaint Stated Complaint: RIB PAIN - Chief complaint Chief Complaint: Abd Pain - Additonal information Additional information: 57-year-old female with numerous visits to the emergency department presents with right sided abdominal pain which started this evening. The patient denies chest pain, dyspnea on exertion, shortness of breath or cough. The patient denies dysuria or fever. No relieving factors. No triggering factors. No other associated symptoms. No radiation of the pain Review of Systems Constitutional: denies: Fever, Chills Eyes: denies: Discharge Ears: denies: Ear pain Nose: denies: Congestion Throat: denies: Sore throat Cardiac: denies: Chest pain / pressure Respiratory: denies: Dyspnea, Cough, Wheezing GI: reports: Abdominal Pain. 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: Dilation and currettage, Other HEENT: Myringotomy (tubes) - Present Medications Home Medications: Ambulatory Orders Medication Instructions Recorded Confirmed Cholecalciferol (Vitamin D3) 2,000 unit PO DAILY 01/01/13 12/17/17 [Vitamin D] Ferrous Gluconate [Iron] 324 mg PO DAILY 01/01/13 12/17/17 Lisinopril 20 mg PO DAILY 01/01/13 12/17/17 Metformin HCl 850 mg PO BID 01/01/13 12/17/17 Multivitamin [Multivitamins] 1 each PO DAILY 01/01/13 12/17/17 Sodium Fluoride [Prevident 5000] 1 ml PO DAILY 03/04/14 12/17/17 Lansoprazole [Prevacid] 30 mg PO DAILY 02/18/15 12/17/17 Sucralfate [Carafate] 1 gm PO ACHS #30 udc 02/24/15 12/17/17 Magnesium Chloride [Mag Delay] 64 mg PO DAILY 12/12/16 12/17/17 Donut Pillow 1 ahfu TD ONCE #1 12/23/17 Naproxen 375 mg PO BID #20 tablet 06/22/18 - Allergies Allergies/Adverse Reactions: Allergies Allergy/AdvReac Type Severity Reaction Status Date / Time Penicillins Allergy Unknown Rash Verified 07/06/18 13:27 sulfamethoxazole Allergy Unknown Rash Verified 07/06/18 13:27 [From ] trimethoprim [From ] Allergy Unknown Rash Verified 07/06/18 13:27 amoxicillin [Amoxicillin] Allergy hives/itchi Verified 07/06/18 13:27 ng - Social History Does the pt smoke?: No Smoking Status: Never smoker Does the pt drink ETOH?: No Does the pt have substance abuse?: No - Immunizations Immunizations are current?: Yes - POLST Patient has POLST: No PD ED PE NORMAL - General General: Alert and oriented X 3, No acute distress - HEENT HEENT: Atraumatic, PERRL, EOMI, Ears normal - Neck Neck: Supple, no meningeal sign - Cardiac Cardiac: RRR, Strong equal pulses - Respiratory Respiratory: No respiratory distress - Abdomen Abdomen: Soft, Non distended. No: Non tender (The patient has tenderness to palpation in the right abdomen, there is no tenderness in the chest wall. No rebound or peritoneal signs) - Derm Derm: Normal color - Extremities Extremities: No deformity - Neuro Neuro: Alert and oriented X 3, Normal speech - Psych Psych: Normal affect PD ED PE EXPANDED - Abdomen Abdomen Visual: 1 - tenderness Results - Vitals Vitals: Vital Signs - 24 hr 07/06/18 23:20 Temperature 36.8 C Heart Rate 80 Respiratory 18 Rate Blood Pressure 129/61 O2 Saturation 99 Oxygen O2 Source Room air - Labs Labs: Laboratory Tests 07/06/18 07/06/18 07/07/18 23:45 23:45 00:07 WBC 6.8 RBC 4.17 L Hgb 11.2 L Hct 33.9 L MCV 81.4 MCH 26.8 L MCHC 33.0 RDW 16.1 H Plt Count 244 MPV 7.3 L Neut # (Auto) 3.5 Lymph # (Auto) 2.4 [place] # (Auto) 0.5 Eos # (Auto) 0.4 Baso # (Auto) 0.1 Absolute Nucleated RBC 0.00 Nucleated RBC % 0.0 Sodium 137 Potassium 4.3 Chloride 104 Carbon Dioxide 24 Anion Gap 9.0 BUN 29 H Creatinine 1.5 H Estimated GFR (MDRD) 36 L Glucose 132 H Calcium 8.5 Total Bilirubin 0.5 AST 17 ALT 16 Alkaline Phosphatase 82 Total Protein 7.0 Albumin 3.5 Globulin 3.5 Albumin/Globulin Ratio 1.0 Lipase 67 H Urine Color YELLOW Urine Clarity CLEAR Urine pH 5.5 Ur Specific [place] 1.025 Urine Protein NEGATIVE Urine Glucose (UA) NEGATIVE Urine Ketones NEGATIVE Urine Occult Blood NEGATIVE Urine Nitrite NEGATIVE Urine Bilirubin NEGATIVE Urine Urobilinogen 0.2 (NORMAL) Ur Leukocyte Esterase NEGATIVE Ur Microscopic Review NOT INDICATED Urine Culture Comments NOT INDICATED - Rads (name of study) CT abd/pelvis Radiology: Final report received, See rad report (IMPRESSION: 1. Fatty liver. 2. Appendix appears normal 3. No urolithiasis seen. ) PD MEDICAL DECISION MAKING - ED course ED course: On reevaluation the patient is resting comfortably and has no acute pain or symptoms presently. The patient is requesting discharge home. The patient's workup does not reveal any acute etiology that would necessitate admission to the hospital or acute surgical consultation. Presently the patient appears appropriate for ongoing outpatient management. I discussed warning signs and recommended returning to the emergency department immediately for any worsening or concerns. Departure - Departure Disposition: 01 Home, Self Care Clinical Impression: Right sided abdominal pain Condition: Good Instructions: Abdominal Pain Follow-Up: Wale Morales PA-C [Primary Care Provider] - Tomorrow Comments: Please return to the emergency department for worsening symptoms or any concerns
[2018-07-07 01:04] VITALS: BP 129/90
== END 2018-07-07 00:50 | disposition home or self-care (01) ==
LOC: EDUNIT# → ED 23:18
DX: R10.9 Unspecified abdominal pain (principal); R00.2 Palpitations; E11.9 Type 2 diabetes mellitus without complications; Z79.84 Long term (current) use of oral hypoglycemic drugs
CPT/HCPCS: 36415; 74176; 80053; 81001; 81003; 83690; 85025; 87086; 93005; 99283

== ENCOUNTER 2018-07-08 17:13 | Outpatient (CLI) | payer MEDICARE, OTHER, MEDICAID | END 2018-07-08 17:14 | disposition EMS.NT | LOC: EMS 17:13 | PROVIDERS: ATTEND Surgery | DX: R10.9 Unspecified abdominal pain (principal) ==

== ENCOUNTER 2018-07-09 10:34 | Outpatient (CLI) | payer MEDICARE, OTHER, MEDICAID | END 2018-07-09 10:35 | disposition critical access hospital (66) | LOC: EMS 10:34 | PROVIDERS: ATTEND Surgery | DX: M25.572 Pain in left ankle and joints of left foot (principal); W19.XXXA Unspecified fall, initial encounter; Y92.008 Other place in unspecified non-institutional (private) residence as the place of occurrence of the external cause | CPT/HCPCS: A0425; A0429 ==

== ENCOUNTER 2018-07-09 10:52 | Emergency (ER) | payer MEDICARE, OTHER, MEDICAID ==
[2018-07-09 11:08] VITALS: BP 146/68
--- NOTE | 2018-07-09 11:33 | ED Physician Documentation ---
History of Present Illness - Stated complaint Stated Complaint: L ANKLE PAIN - Chief complaint Chief Complaint: General - Additonal information Additional information: hx from pt 57 y.o f well known to our ER to ER today with L FA ankle foot pain after a fall no head neck injury no other complaints came in by EMS but walked in from ambulance bay to fast track Review of Systems Musculoskeletal: reports: Extremity pain PD PAST MEDICAL HISTORY - Past Medical History Past Medical History: Yes Cardiovascular: Other Respiratory: None Neuro: Other Endocrine/Autoimmune: Type 2 diabetes GI: Chronic diarrhea 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 HEENT: Chronic vision loss Psych: None, Other Musculoskeletal: None Derm: None - Past Surgical History Past Surgical History: 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 and currettage, Other HEENT: Myringotomy (tubes) - Present Medications Home Medications: Ambulatory Orders Medication Instructions Recorded Confirmed Cholecalciferol (Vitamin D3) 2,000 unit PO DAILY 01/01/13 12/17/17 [Vitamin D] Ferrous Gluconate [Iron] 324 mg PO DAILY 01/01/13 12/17/17 Lisinopril 20 mg PO DAILY 01/01/13 12/17/17 Metformin HCl 850 mg PO BID 01/01/13 12/17/17 Multivitamin [Multivitamins] 1 each PO DAILY 01/01/13 12/17/17 Sodium Fluoride [Prevident 5000] 1 ml PO DAILY 03/04/14 12/17/17 Lansoprazole [Prevacid] 30 mg PO DAILY 02/18/15 12/17/17 Sucralfate [Carafate] 1 gm PO ACHS #30 udc 02/24/15 12/17/17 Magnesium Chloride [Mag Delay] 64 mg PO DAILY 12/12/16 12/17/17 Donut Pillow 1 ahfu TD ONCE #1 12/23/17 Naproxen 375 mg PO BID #20 tablet 06/22/18 - Allergies Allergies/Adverse Reactions: Allergies Allergy/AdvReac Type Severity Reaction Status Date / Time Penicillins Allergy Unknown Rash Verified 07/09/18 11:01 sulfamethoxazole Allergy Unknown Rash Verified 07/09/18 11:01 [From ] trimethoprim [From ] Allergy Unknown Rash Verified 07/09/18 11:01 amoxicillin [Amoxicillin] Allergy hives/itchi Verified 07/09/18 11:01 ng - Social History Does the pt smoke?: No Smoking Status: Never smoker Does the pt drink ETOH?: No Does the pt have substance abuse?: No - Immunizations Immunizations are current?: Yes - POLST Patient has POLST: No PD ED PE NORMAL - Vitals Vital signs reviewed: Yes - HEENT HEENT: Atraumatic - Neck Neck: No bony TTP - Cardiac Cardiac: RRR - Respiratory Respiratory: No respiratory distress - Extremities Extremities: Other (L FA with small focal swelling prox to mid ulna MSV intact. L ankle TTP lat mall and base 5th STS no laxity, MSV intact) Results - Vitals Vitals: Vital Signs - 24 hr 07/09/18 07/09/18 10:56 11:04 Temperature 36.6 C Heart Rate 90 Respiratory 15 Rate Blood Pressure 146/68 H O2 Saturation 98 Oxygen O2 Source Room air Departure - Departure Disposition: 01 Home, Self Care Clinical Impression: Fall Qualifiers: Encounter type: initial encounter Qualified Code(s): W19.XXXA - Unspecified fall, initial encounter Ankle sprain Qualifiers: Encounter type: initial encounter Involved ligament of ankle: unspecified ligament Laterality: left Qualified Code(s): S93.402A - Sprain of unspecified ligament of left ankle, initial encounter Foot sprain Qualifiers: Encounter type: initial encounter Laterality: left Qualified Code(s): S93.602A - Unspecified sprain of left foot, initial encounter Contusion of arm, left Qualifiers: Encounter type: initial encounter Qualified Code(s): S40.022A - Contusion of left upper arm, initial encounter Condition: Good Instructions: ED Sprain Foot, ED Sprain Ankle W X Ray Comments: All the xrays are fine Recommend ice wrapped in a sock or towel for 20 minutes at a time and tylenol as needed for pain
--- NOTE | 2018-07-09 12:39 | XRAY Report ---
Reason: fall Procedure Date: 07/09/2018 Accession Number: [id number] / [id number] Procedure: XR - Forearm LT CPT Code: FULL RESULT: EXAM: LEFT FOREARM RADIOGRAPHY EXAM DATE: 07/09/2018 12:13 PM. CLINICAL HISTORY: Fall. COMPARISON: HUMERUS LT 01/16/2018 7:41 PM. TECHNIQUE: 2 views. FINDINGS: Bones: Normal. No fractures or bone lesions. Joints: There is stable degenerative marginal osteophytes of the elbow compared to prior humerus x-ray 01/16/2018. Soft Tissues: Normal. No soft tissue swelling. IMPRESSION: 1. No acute fracture. 2. 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 RAD[facility]
--- NOTE | 2018-07-09 12:40 | XRAY Report ---
Reason: fall Procedure Date: 07/09/2018 Accession Number: [id number] / [id number] Procedure: XR - Foot 3 View LT CPT Code: FULL RESULT: EXAM: LEFT FOOT RADIOGRAPHY EXAM DATE: 07/09/2018 12:13 PM. CLINICAL HISTORY: Fall. COMPARISON: FOOT 3 VIEW RT 03/26/2018 3:26 PM. TECHNIQUE: 3 views. FINDINGS: Bones: Normal. No fractures or bone lesions. Joints: Normal. No subluxations. Soft Tissues: Normal. No soft tissue swelling. IMPRESSION: No acute fracture. RADIA
--- NOTE | 2018-07-09 12:44 | XRAY Report ---
Reason: fall Procedure Date: 07/09/2018 Accession Number: [id number] / [id number] Procedure: XR - Ankle 3 View LT CPT Code: FULL RESULT: EXAM: LEFT ANKLE RADIOGRAPHY EXAM DATE: 07/09/2018 12:13 PM. CLINICAL HISTORY: Fall. COMPARISON: ANKLE 3 VIEW LT 07/04/2018 4:11 PM ANKLE 3 VIEW RT 03/26/2018 3:33 PM ANKLE 3 VIEW LT 10/25/2017 5:43 PM. TECHNIQUE: 3 views. FINDINGS: Bones: No acute fracture. There is a stable subchondral lucency surrounded by sclerotic rim in the lateral talar dome consistent with a chronic subchondral injury. Joints: Normal. No effusion. No subluxations. The ankle mortise is normally aligned. Soft Tissues: Normal. No soft tissue swelling. IMPRESSION: No acute fracture. Stable sequela of subchondral injury lateral talar dome. RADIA
== END 2018-07-09 12:55 | disposition home or self-care (01) ==
LOC: EDUNIT# → ED 10:52
DX: S93.402A Sprain of unspecified ligament of left ankle, initial encounter (principal); S93.602A Unspecified sprain of left foot, initial encounter; S50.12XA Contusion of left forearm, initial encounter; E11.9 Type 2 diabetes mellitus without complications; Z79.84 Long term (current) use of oral hypoglycemic drugs; W19.XXXA Unspecified fall, initial encounter; Y92.039 Unspecified place in apartment as the place of occurrence of the external cause
CPT/HCPCS: 99282; 99283

== ENCOUNTER 2018-07-10 19:09 | Emergency (ER) | payer MEDICARE, OTHER, MEDICAID ==
--- NOTE | 2018-07-10 19:46 | ED Physician Documentation ---
PD HPI UPPER EXT INJURY - Stated complaint Stated Complaint: HAND PX - Chief complaint Chief Complaint: Trauma Ext - History obtained from History obtained from: Patient - History of Present Illness Location: Right, Hand Type of injury: Fall Where injury occurred: Home Timing - onset: How many hours ago (3) Timing - duration: Hours (3) Timing - details: Abrupt onset Pain level max: 5 Pain level now: 1 Improved by: Rest Worsened by: Moving, Palpating Review of Systems Neurologic: denies: Focal weakness, Numbness PD PAST MEDICAL HISTORY - Past Medical History Cardiovascular: Other Respiratory: None Neuro: Other Endocrine/Autoimmune: Type 2 diabetes GI: Chronic diarrhea 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 : None HEENT: Chronic vision loss Psych: None, Other Musculoskeletal: None Derm: None - Past Surgical History Past Surgical History: Yes /HIDE MILL MAN: Dilation and currettage, Other HEENT: Myringotomy (tubes) - Present Medications Home Medications: Ambulatory Orders Medication Instructions Recorded Confirmed Cholecalciferol (Vitamin D3) 2,000 unit PO DAILY 01/01/13 12/17/17 [Vitamin D] Ferrous Gluconate [Iron] 324 mg PO DAILY 01/01/13 12/17/17 Lisinopril 20 mg PO DAILY 01/01/13 12/17/17 Metformin HCl 850 mg PO BID 01/01/13 12/17/17 Multivitamin [Multivitamins] 1 each PO DAILY 01/01/13 12/17/17 Sodium Fluoride [Prevident 5000] 1 ml PO DAILY 03/04/14 12/17/17 Lansoprazole [Prevacid] 30 mg PO DAILY 02/18/15 12/17/17 Sucralfate [Carafate] 1 gm PO ACHS #30 udc 02/24/15 12/17/17 Magnesium Chloride [Mag Delay] 64 mg PO DAILY 12/12/16 12/17/17 Donut Pillow 1 ahfu TD ONCE #1 12/23/17 Naproxen 375 mg PO BID #20 tablet 06/22/18 - Allergies Allergies/Adverse Reactions: Allergies Allergy/AdvReac Type Severity Reaction Status Date / Time Penicillins Allergy Unknown Rash Verified 07/10/18 19:18 sulfamethoxazole Allergy Unknown Rash Verified 07/10/18 19:18 [From ] trimethoprim [From ] Allergy Unknown Rash Verified 07/10/18 19:18 amoxicillin [Amoxicillin] Allergy hives/itchi Verified 07/10/18 19:18 ng - Social History Does the pt smoke?: No Smoking Status: Never smoker Does the pt drink ETOH?: No Does the pt have substance abuse?: No - Immunizations Immunizations are current?: Yes - POLST Patient has POLST: No PD ED PE NORMAL - Vitals Vital signs reviewed: Yes - General General: Alert and oriented X 3, No acute distress - Derm Derm: Warm and dry - Extremities Extremities: Other (Right hand - Healing bruising to the dorsal aspect of the right hand, there is no bony tenderness on exam. Full range of motion without pain. She is using the hand without difficulty in the emergency department. Also using the wrist without difficulty. No snuffbox tenderness.) - Neuro Neuro: Alert and oriented X 3 Results - Vitals Vitals: Vital Signs - 24 hr 07/10/18 07/10/18 19:10 19:48 Temperature 36.6 C Heart Rate 98 90 Respiratory 18 18 Rate Blood Pressure 134/65 H 130/66 O2 Saturation 96 96 Oxygen O2 Source Room air PD MEDICAL DECISION MAKING - ED course Complexity details: considered differential, d/w patient ED course: 57-year-old female with what appears to be a right hand contusion. Will continue supportive care and follow-up with her doctor. Patient counseled regarding signs and symptoms for which I believe and urgent re-evaluation would be necessary. Patient with good understanding of and agreement to plan and is comfortable going home at this time This document was made in part using voice recognition software. While efforts are made to proofread this document, sound alike and grammatical errors may occur. Departure - Departure Disposition: 01 Home, Self Care Clinical Impression: Contusion of hand, right Qualifiers: Encounter type: initial encounter Qualified Code(s): S60.221A - Contusion of right hand, initial encounter Condition: Good Instructions: ED Contusion Hand Follow-Up: Wale Morales PA-C [Primary Care Provider] - Within 1 week Comments: There is no evidence of fracture tonight. You can use tylenol and ice for pain. Discharge Date/Time: 07/10/18 19:48
[2018-07-10 19:49] VITALS: BP 130/66
== END 2018-07-10 19:48 | disposition home or self-care (01) ==
LOC: ED 19:09
DX: S60.221A Contusion of right hand, initial encounter (principal); W19.XXXA Unspecified fall, initial encounter; Y92.009 Unspecified place in unspecified non-institutional (private) residence as the place of occurrence of the external cause; E11.9 Type 2 diabetes mellitus without complications; Z79.84 Long term (current) use of oral hypoglycemic drugs
CPT/HCPCS: 99282; 99283

== ENCOUNTER 2018-07-16 07:05 | Outpatient (CLI) | payer MEDICARE, OTHER, MEDICAID | END 2018-07-16 07:06 | disposition critical access hospital (66) | LOC: EMS 07:05 | PROVIDERS: ATTEND Surgery | DX: M79.604 Pain in right leg (principal) | CPT/HCPCS: A0425; A0429 ==

== ENCOUNTER 2018-07-16 07:28 | Emergency (ER) | payer MEDICARE, OTHER, MEDICAID ==
[2018-07-16 07:31] VITALS: BP 132/61
--- NOTE | 2018-07-16 07:46 | ED Physician Documentation ---
History of Present Illness - Stated complaint Stated Complaint: LEG SHAKING - Chief complaint Chief Complaint: Ext Problem - History obtained from History obtained from: Patient, EMS - Additonal information Additional information: The patient is a 57-year-old female who is well-known to us in the department because of her frequent visits with minor complaints. This morning she arrived via ambulance complaining of shaking of her right leg. She was sitting watching a movie when her right leg began shaking. She reports pain in her right knee. She denies history of similar symptoms in the past. She was able to walk from the stretcher to the bed upon initial arrival, but during my exam refuses to bend her leg or bear weight. Review of Systems Constitutional: denies: Fever Respiratory: denies: Dyspnea Skin: denies: Rash Musculoskeletal: reports: Joint pain (right knee). 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: Dilation and currettage, Other HEENT: Myringotomy (tubes) - Present Medications Home Medications: Ambulatory Orders Medication Instructions Recorded Confirmed Cholecalciferol (Vitamin D3) 2,000 unit PO DAILY 01/01/13 12/17/17 [Vitamin D] Ferrous Gluconate [Iron] 324 mg PO DAILY 01/01/13 12/17/17 Lisinopril 20 mg PO DAILY 01/01/13 12/17/17 Metformin HCl 850 mg PO BID 01/01/13 12/17/17 Multivitamin [Multivitamins] 1 each PO DAILY 01/01/13 12/17/17 Sodium Fluoride [Prevident 5000] 1 ml PO DAILY 03/04/14 12/17/17 Lansoprazole [Prevacid] 30 mg PO DAILY 02/18/15 12/17/17 Sucralfate [Carafate] 1 gm PO ACHS #30 udc 02/24/15 12/17/17 Magnesium Chloride [Mag Delay] 64 mg PO DAILY 12/12/16 12/17/17 Donut Pillow 1 ahfu TD ONCE #1 12/23/17 Naproxen 375 mg PO BID #20 tablet 06/22/18 - Allergies Allergies/Adverse Reactions: Allergies Allergy/AdvReac Type Severity Reaction Status Date / Time Penicillins Allergy Unknown Rash Verified 07/16/18 07:31 sulfamethoxazole Allergy Unknown Rash Verified 07/16/18 07:31 [From ] trimethoprim [From ] Allergy Unknown Rash Verified 07/16/18 07:31 amoxicillin [Amoxicillin] Allergy hives/itchi Verified 07/16/18 07:31 ng - Social History Does the pt smoke?: No Smoking Status: Never smoker Does the pt drink ETOH?: No Does the pt have substance abuse?: No - Immunizations Immunizations are current?: Yes - POLST Patient has POLST: No PD ED PE NORMAL - Vitals Vital signs reviewed: Yes (normal) - General General: Alert and oriented X 3, Well developed/nourished - Cardiac Cardiac: RRR - Respiratory Respiratory: No respiratory distress - Back Back: No spinal TTP - Derm Derm: No rash - Extremities Extremities: No deformity, No edema, No calf tenderness / cord, Other (Examination of her right knee reveals no swelling, erythema, or break in the integument. There is no localized area of tenderness. She holds the knee in extension, and resists flexion. There is no ligamentous instability detected. Distal neurovascular is intact.) - Neuro Neuro: Alert and oriented X 3, No motor deficit, Normal speech, Other (Mentally immature.) Results - Vitals Vitals: Vital Signs - 24 hr 07/16/18 07:26 Temperature 36.4 C L Heart Rate 91 Respiratory 18 Rate Blood Pressure 132/61 H O2 Saturation 99 Oxygen O2 Source Room air PD MEDICAL DECISION MAKING - ED course Complexity details: reviewed old records, re-evaluated patient, considered differential, d/w patient ED course: The patient's presentation is significant for transient spasm of the right leg. There is no evidence of traumatic injury. There is no evidence of knee effusion or ligamentous instability. Prior to discharge she demonstrated ability to ambulate without difficulty. She was discharged with reassurance that imaging studies of her leg or knee are not clinically indicated based on current exam findings. Departure - Departure Disposition: 01 Home, Self Care Clinical Impression: Pain of lower extremity Qualifiers: Laterality: right Qualified Code(s): M79.604 - Pain in right leg Condition: Stable Instructions: ED Muscle Pain Leg Cramps Follow-Up: Wale Morales PA-C [Primary Care Provider] - Comments: You can use Tylenol if needed for discomfort. Follow-up with your primary physician if not completely resolved within 1 week. Return to the emergency room if you develop increasing pain or swelling of your knee, or otherwise worsening symptoms. Discharge Date/Time: 07/16/18 08:10
== END 2018-07-16 08:10 | disposition home or self-care (01) ==
LOC: ED 07:28
DX: M79.604 Pain in right leg (principal); R25.2 Cramp and spasm; E11.9 Type 2 diabetes mellitus without complications
CPT/HCPCS: 99282

== ENCOUNTER 2018-07-18 14:15 | Outpatient (CLI) | payer MEDICARE, OTHER, MEDICAID | END 2018-07-18 14:16 | disposition critical access hospital (66) | LOC: EMS 14:15 | PROVIDERS: ATTEND Surgery | DX: M79.671 Pain in right foot (principal) | CPT/HCPCS: A0425; A0429 ==

== ENCOUNTER 2018-07-18 14:37 | Emergency (ER) | payer MEDICARE, OTHER, MEDICAID ==
[2018-07-18 14:45] VITALS: BP 148/80
--- NOTE | 2018-07-18 14:52 | ED Physician Documentation ---
PD HPI LOWER EXT INJURY - Stated complaint Stated Complaint: R TOE PX - Chief complaint Chief Complaint: Ext Problem - History obtained from History obtained from: Patient, EMS - History of Present Illness PD HPI LOW EXT INJURY LOCATION: Right, Foot Type of injury: Crush (in moving part of a recliner) Where injury occurred: Home Timing - onset: Today Similar symptoms before: Other (frequent ED visits for minor ortho injuries) - Additional information Additional information: declines pain meds Review of Systems Constitutional: reports: Reviewed and negative Cardiac: reports: Reviewed and negative Respiratory: reports: Reviewed and negative PD PAST MEDICAL HISTORY - Past Medical History Past Medical History: Yes Cardiovascular: Other Respiratory: None Neuro: Other Endocrine/Autoimmune: Type 2 diabetes GI: Chronic diarrhea 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 HEENT: Chronic vision loss Psych: None, Other Musculoskeletal: None Derm: None - Past Surgical History Past Surgical History: Yes /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: Dilation and currettage, Other HEENT: Myringotomy (tubes) - Present Medications Home Medications: Ambulatory Orders Medication Instructions Recorded Confirmed Cholecalciferol (Vitamin D3) 2,000 unit PO DAILY 01/01/13 07/18/18 [Vitamin D] Ferrous Gluconate [Iron] 324 mg PO DAILY 01/01/13 07/18/18 Multivitamin [Multivitamins] 1 each PO DAILY 01/01/13 07/18/18 RX: Lisinopril 20 mg PO DAILY 01/01/13 07/18/18 RX: Metformin HCl 850 mg PO BID 01/01/13 07/18/18 Sodium Fluoride [Prevident 5000] 1 ml PO DAILY 03/04/14 07/18/18 RX: Lansoprazole [Prevacid] 30 mg PO DAILY 02/18/15 07/18/18 Sucralfate [Carafate] 1 gm PO ACHS #30 udc 02/24/15 07/18/18 Magnesium Chloride [Mag Delay] 64 mg PO DAILY 12/12/16 07/18/18 Donut Pillow 1 ahfu TD ONCE #1 12/23/17 07/18/18 RX: Naproxen 375 mg PO BID #20 tablet 06/22/18 07/18/18 - Allergies Allergies/Adverse Reactions: Allergies Allergy/AdvReac Type Severity Reaction Status Date / Time Penicillins Allergy Unknown Rash Verified 07/18/18 14:43 sulfamethoxazole Allergy Unknown Rash Verified 07/18/18 14:43 [From ] trimethoprim [From ] Allergy Unknown Rash Verified 07/18/18 14:43 amoxicillin [Amoxicillin] Allergy hives/itchi Verified 07/18/18 14:43 ng - Social History Does the pt smoke?: No Smoking Status: Never smoker Does the pt drink ETOH?: No Does the pt have substance abuse?: No - Immunizations Immunizations are current?: Yes - POLST Patient has POLST: No PD ED PE NORMAL - Vitals Vital signs reviewed: Yes - General General: Alert and oriented X 3, No acute distress - Extremities Extremities: Other (TTP Around the MTP of the first digit of the right foot without deformity or swelling. A lot of pain with motion of the great toe. No proximal foot or ankle tenderness.) Results - Vitals Vitals: Vital Signs - 24 hr 07/18/18 14:41 Temperature 36.5 C Heart Rate 95 Respiratory 18 Rate Blood Pressure 148/80 H O2 Saturation 100 Oxygen O2 Source Room air - Rads (name of study) 3v R foot Radiology: EMP read contemporaneously (Nad) Departure - Departure Disposition: 01 Home, Self Care Clinical Impression: Crush injury of right foot Condition: Stable Record reviewed to determine appropriate education?: Yes Instructions: ED Crush Injury Toe No Fx Comments: Your blood pressure was elevated today on check into the emergency department. This does not mean that you have hypertension, it is a common phenomenon to come to the emergency department and have elevated blood pressure. I recommend that you see your primary care physician within the week to have it rechecked when you are feeling better. Discharge Date/Time: 07/18/18 15:54
--- NOTE | 2018-07-18 15:45 | XRAY Report ---
Reason: foot inj Procedure Date: 07/18/2018 Accession Number: [id number] / [id number] Procedure: XR - Foot 3 View RT CPT Code: FULL RESULT: EXAM: RIGHT FOOT RADIOGRAPHY EXAM DATE: 07/18/2018 03:08 PM. CLINICAL HISTORY: Foot injury today. Pain. COMPARISON: FOOT 3 VIEW RT 03/26/2018 3:26 PM. TECHNIQUE: 3 views. FINDINGS: Bones: No acute fracture or focal osseous lesion. Joints: No dislocation. Soft Tissues: Mild diffuse soft tissue swelling. IMPRESSION: No acute osseous abnormality. No significant change from prior. RADIA
== END 2018-07-18 15:54 | disposition home or self-care (01) ==
LOC: EDUNIT# → ED 14:37
DX: S97.81XA Crushing injury of right foot, initial encounter (principal); W23.0XXA Caught, crushed, jammed, or pinched between moving objects, initial encounter; Y92.009 Unspecified place in unspecified non-institutional (private) residence as the place of occurrence of the external cause; R03.0 Elevated blood-pressure reading, without diagnosis of hypertension; E11.9 Type 2 diabetes mellitus without complications; Z79.84 Long term (current) use of oral hypoglycemic drugs
CPT/HCPCS: 99282

== ENCOUNTER 2018-08-18 21:06 | Outpatient (CLI) | payer MEDICARE, OTHER, MEDICAID | END 2018-08-18 21:07 | disposition EMS.NT | LOC: EMS 21:06 | PROVIDERS: ATTEND Surgery | DX: Z03.89 Encounter for observation for other suspected diseases and conditions ruled out (principal) ==

== ENCOUNTER 2018-09-03 08:34 | Outpatient (CLI) | payer MEDICARE, OTHER, MEDICAID ==
[2018-09-03 15:22] LABS: HB2 TOTAL 12.4 g/dL; HEMOGLOBIN A1C 0.53 g/dL; HEMOGLOBIN A1C % 6.1 % (4.6-6.2)
== END 2018-09-03 23:59 | disposition home or self-care (01) ==
LOC: LAB.N 08:34
PROVIDERS: ATTEND Physician Assistant Medical
DX: E11.9 Type 2 diabetes mellitus without complications (principal)
CPT/HCPCS: 36415; 83036

== ENCOUNTER 2018-09-13 20:25 | Outpatient (CLI) | payer MEDICARE, OTHER, MEDICAID | END 2018-09-13 20:26 | disposition critical access hospital (66) | LOC: EMS 20:25 | PROVIDERS: ATTEND Surgery | DX: M25.521 Pain in right elbow (principal); W17.89XA Other fall from one level to another, initial encounter; Y93.89 Activity, other specified; Y92.099 Unspecified place in other non-institutional residence as the place of occurrence of the external cause | CPT/HCPCS: A0425; A0429 ==

== ENCOUNTER 2018-09-13 20:45 | Emergency (ER) | payer MEDICARE, OTHER, MEDICAID ==
[2018-09-13 20:58] VITALS: BP 147/75
== END 2018-09-13 23:40 | disposition left against medical advice (07) ==
LOC: EDUNIT# → ED 20:45
DX: S59.901A Unspecified injury of right elbow, initial encounter (principal); W01.0XXA Fall on same level from slipping, tripping and stumbling without subsequent striking against object, initial encounter; Z53.21 Procedure and treatment not carried out due to patient leaving prior to being seen by health care provider
CPT/HCPCS: 99282

== ENCOUNTER 2018-09-17 12:59 | Emergency (ER) | payer MEDICARE, OTHER, MEDICAID ==
[2018-09-17 13:10] VITALS: BP 131/68
--- NOTE | 2018-09-17 13:35 | XRAY Report ---
Reason: Pain 2/2 fall Procedure Date: 09/17/2018 Accession Number: [id number] / [id number] Procedure: XR - Elbow 3 View RT CPT Code: FULL RESULT: EXAM: RIGHT ELBOW RADIOGRAPHY EXAM DATE: 09/17/2018 01:21 PM. CLINICAL HISTORY: Pain 2/2 fall. COMPARISON: ELBOW 3 VIEW RT 07/04/2018 4:11 PM. TECHNIQUE: 3 views. FINDINGS: Bones: No acute fractures are evident. Stable mild enthesopathy at the triceps tendon insertion. Joints: Joint alignment is normal. No joint effusion. There are stable degenerative osteophytes in the elbow joint. Soft Tissues: Normal. No soft tissue swelling. IMPRESSION: No acute abnormality in the right elbow. RADIA
--- NOTE | 2018-09-17 14:01 | ED Physician Documentation ---
PD HPI UPPER EXT INJURY - Stated complaint Stated Complaint: RT ELBOW PX - Chief complaint Chief Complaint: Ext Problem - History obtained from History obtained from: Patient - History of Present Illness Location: Right, Elbow Type of injury: Blunt / blow Where injury occurred: Home Timing - onset: Today Timing - details: Abrupt onset Severity Comments: moderate Improved by: Rest Worsened by: Moving Associated symptoms: No: Weakness, Numbness, Tingling Contributing factors: Anticoagulated Recently seen: Not recently seen Review of Systems Constitutional: denies: Fever Eyes: denies: Discharge Nose: denies: Congestion Throat: denies: Dental pain / toothache Cardiac: denies: Palpitations Musculoskeletal: reports: Extremity pain, Joint pain PD PAST MEDICAL HISTORY - Past Medical History Cardiovascular: Other Respiratory: None Neuro: Other Endocrine/Autoimmune: Type 2 diabetes GI: Chronic diarrhea 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 : None HEENT: Chronic vision loss Psych: None, Other Musculoskeletal: None Derm: None - Past Surgical History Past Surgical History: Yes /SOLE TRIMMER: Dilation and currettage, Other HEENT: Myringotomy (tubes) - Present Medications Home Medications: Ambulatory Orders Medication Instructions Recorded Confirmed Cholecalciferol (Vitamin D3) 2,000 unit PO DAILY 01/01/13 07/18/18 [Vitamin D] Ferrous Gluconate [Iron] 324 mg PO DAILY 01/01/13 07/18/18 Lisinopril 20 mg PO DAILY 01/01/13 07/18/18 Metformin HCl 850 mg PO BID 01/01/13 07/18/18 Multivitamin [Multivitamins] 1 each PO DAILY 01/01/13 07/18/18 Sodium Fluoride [Prevident 5000] 1 ml PO DAILY 03/04/14 07/18/18 Lansoprazole [Prevacid] 30 mg PO DAILY 02/18/15 07/18/18 Sucralfate [Carafate] 1 gm PO ACHS #30 udc 02/24/15 07/18/18 Magnesium Chloride [Mag Delay] 64 mg PO DAILY 12/12/16 07/18/18 Donut Pillow 1 ahfu TD ONCE #1 12/23/17 07/18/18 Naproxen 375 mg PO BID #20 tablet 06/22/18 07/18/18 - Allergies Allergies/Adverse Reactions: Allergies Allergy/AdvReac Type Severity Reaction Status Date / Time Penicillins Allergy Unknown Rash Verified 09/17/18 13:10 sulfamethoxazole Allergy Unknown Rash Verified 09/17/18 13:10 [From ] trimethoprim [From Septra] Allergy Unknown Rash Verified 09/17/18 13:10 amoxicillin [Amoxicillin] Allergy hives/itchi Verified 09/17/18 13:10 ng - Social History Does the pt smoke?: No Smoking Status: Never smoker Does the pt drink ETOH?: No Does the pt have substance abuse?: No - Immunizations Immunizations are current?: Yes - POLST Patient has POLST: No PD ED PE NORMAL - General General: Alert and oriented X 3, No acute distress - HEENT HEENT: Atraumatic, PERRL, EOMI, Ears normal - Neck Neck: Supple, no meningeal sign - Derm Derm: Normal color - Extremities Extremities: No deformity, Normal ROM s pain, No edema. No: No tenderness to palpate (The patient has tenderness of the right elbow, there is no crepitus or obvious deformity and the patient has normal range of motion. The patient has no tenderness in the shoulder forearm or wrist.) - Neuro Neuro: Alert and oriented X 3, Normal speech - Psych Psych: Normal affect Results - Vitals Vitals: Vital Signs - 24 hr 09/17/18 13:08 Temperature 37.3 C Heart Rate 96 Respiratory 16 Rate Blood Pressure 131/68 H O2 Saturation 99 Oxygen O2 Source Room air - Rads (name of study) Elbow Radiology: Final report received PD MEDICAL DECISION MAKING - ED course ED course: No fracture seen on x-ray. The patient will be discharged home and treated conservatively as an outpatient. The patient will follow up with primary care. The patient will return for any worsening or any concerns Departure - Departure Disposition: Home, Self Care Clinical Impression: Elbow pain, right Condition: Good Instructions: ED Contusion Upper Extr Ch Follow-Up: Wale Morales PA-C [Primary Care Provider] - Within 1 week Comments: Please return to the emergency department for worsening symptoms or any concerns
== END 2018-09-17 14:08 | disposition home or self-care (01) ==
LOC: ED 12:59
DX: M25.521 Pain in right elbow (principal); Z91.81 History of falling; E11.9 Type 2 diabetes mellitus without complications; Z79.84 Long term (current) use of oral hypoglycemic drugs
CPT/HCPCS: 99282

== ENCOUNTER 2018-09-24 13:00 | Emergency (ER) | payer MEDICARE, OTHER, MEDICAID ==
[2018-09-24 13:14] VITALS: BP 135/65
--- NOTE | 2018-09-24 13:27 | ED Physician Documentation ---
PD HPI UPPER EXT INJURY - Stated complaint Stated Complaint: RT HAND PX - Chief complaint Chief Complaint: Ext Problem - History obtained from History obtained from: Patient - History of Present Illness Location: Right, Hand Type of injury: Fall (she says she fell and struck right hand this morning. Hurts palm area. had been hurting already from prior fall.) Where injury occurred: Home Timing - onset: Today (this morning) Timing - duration: Hours Timing - details: Abrupt onset, Still present Worsened by: Moving, Palpating Associated symptoms: No: Weakness, Numbness, Swelling Similar symptoms before: No diagnosis (had multiple falls/injuries and frequently here for injuries.) Review of Systems Skin: denies: Abrasion (s), Laceration (s) Musculoskeletal: denies: Neck pain, Back pain Neurologic: denies: Focal weakness, Numbness PD PAST MEDICAL HISTORY - Past Medical History Past Medical History: Yes Cardiovascular: Other Respiratory: None Neuro: Other Endocrine/Autoimmune: Type 2 diabetes GI: Chronic diarrhea 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 HEENT: Chronic vision loss Psych: None, Other Musculoskeletal: None Derm: None - Past Surgical History Past Surgical History: 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, Other HEENT: Myringotomy (tubes) - Present Medications Home Medications: Ambulatory Orders Medication Instructions Recorded Confirmed Cholecalciferol (Vitamin D3) 2,000 unit PO DAILY 01/01/13 07/18/18 [Vitamin D] Ferrous Gluconate [Iron] 324 mg PO DAILY 01/01/13 07/18/18 Lisinopril 20 mg PO DAILY 01/01/13 07/18/18 Metformin HCl 850 mg PO BID 01/01/13 07/18/18 Multivitamin [Multivitamins] 1 each PO DAILY 01/01/13 07/18/18 Sodium Fluoride [Prevident 5000] 1 ml PO DAILY 03/04/14 07/18/18 Lansoprazole [Prevacid] 30 mg PO DAILY 02/18/15 07/18/18 Sucralfate [Carafate] 1 gm PO ACHS #30 udc 02/24/15 07/18/18 Magnesium Chloride [Mag Delay] 64 mg PO DAILY 12/12/16 07/18/18 Donut Pillow 1 ahfu TD ONCE #1 12/23/17 07/18/18 Naproxen 375 mg PO BID #20 tablet 06/22/18 07/18/18 - Allergies Allergies/Adverse Reactions: Allergies Allergy/AdvReac Type Severity Reaction Status Date / Time Penicillins Allergy Unknown Rash Verified 09/24/18 13:14 sulfamethoxazole Allergy Unknown Rash Verified 09/24/18 13:14 [From ] trimethoprim [From ] Allergy Unknown Rash Verified 09/24/18 13:14 amoxicillin [Amoxicillin] Allergy hives/itchi Verified 09/24/18 13:14 ng - Social History Does the pt smoke?: No Smoking Status: Never smoker Does the pt drink ETOH?: No Does the pt have substance abuse?: No - Immunizations Immunizations are current?: Yes - POLST Patient has POLST: No PD ED PE NORMAL - Vitals Vital signs reviewed: Yes - General General: Alert and oriented X 3, Well developed/nourished - Derm Derm: Normal color, Warm and dry - Extremities Extremities: Other (Right wrist is not tender. The right palm she has some tenderness in the mid hand. It is not tender on the dorsal aspect. She has pain with range of motion of the fingers. There is normal color sensation and capillary refill in the ends of the fingers.) - Neuro Neuro: No motor deficit, No sensory deficit Results - Vitals Vitals: Vital Signs - 24 hr 09/24/18 13:12 Temperature 37.3 C Heart Rate 103 H Respiratory 16 Rate Blood Pressure 135/65 H O2 Saturation 99 Oxygen O2 Source Room air - Rads (name of study) right hand Radiology: Prelim report reviewed (no fraactures), EMP read contemporaneously, See rad report PD MEDICAL DECISION MAKING - ED course Complexity details: reviewed results, considered differential (Likely contusion of the hand. We will get an x-ray C at her insistence. She is low functioning with poor cognition and so often gets frustrated without having an x-ray. Simple enough.), d/w patient Departure - Departure Disposition: Home, Self Care Clinical Impression: Hand contusion Qualifiers: Encounter type: initial encounter Laterality: right Qualified Code(s): S60.221A - Contusion of right hand, initial encounter Accidental fall Qualifiers: Encounter type: initial encounter Qualified Code(s): W19.XXXA - Unspecified fall, initial encounter Condition: Stable Record reviewed to determine appropriate education?: Yes Instructions: ED Contusion Hand Follow-Up: Wale Morales PA-C [Primary Care Provider] - Comments: Your x-ray appears normal. No fractures. Presume it is a bruise and treated with the Jonh wrap and some Tylenol or ibuprofen as needed for pains. Should improve over a few days.
[2018-09-24] MEDS ORDERED: ACETAMINOPHEN 325 MG TABLET PO STA (13:33)
--- NOTE | 2018-09-24 14:29 | XRAY Report ---
Reason: fell and struck right palm/hand today Procedure Date: 09/24/2018 Accession Number: [id number] / [id number] Procedure: XR - Hand 3 View RT CPT Code: FULL RESULT: EXAM: RIGHT HAND RADIOGRAPHY EXAM DATE: 09/24/2018 02:17 PM. CLINICAL HISTORY: Right hand pain. COMPARISON: ELBOW 3 VIEW RT 09/17/2018 1:15 PM. TECHNIQUE: 3 views. FINDINGS: Bones: Normal. No fractures or bone lesions. Joints: Normal. No subluxations. Soft Tissues: Mild soft tissue swelling is seen along the volar aspect of the hand. IMPRESSION: Generalized soft tissue swelling along the volar aspect of the hand suggested. No acute osseous abnormality demonstrated. RADIA
== END 2018-09-24 14:27 | disposition home or self-care (01) ==
LOC: ED 13:00
DX: S60.221A Contusion of right hand, initial encounter (principal); W18.30XA Fall on same level, unspecified, initial encounter; W22.09XA Striking against other stationary object, initial encounter; Y92.009 Unspecified place in unspecified non-institutional (private) residence as the place of occurrence of the external cause; E11.9 Type 2 diabetes mellitus without complications; Z79.84 Long term (current) use of oral hypoglycemic drugs
CPT/HCPCS: 73130; 99283; A9270

== ENCOUNTER 2018-09-26 19:49 | Emergency (ER) | payer MEDICARE, OTHER, MEDICAID ==
[2018-09-26 20:00] VITALS: BP 143/78
[2018-09-26] MEDS ORDERED: INDOMETHACIN 25 MG CAPSULE PO STA (20:19)
--- NOTE | 2018-09-26 20:22 | ED Physician Documentation ---
PD HPI LOWER EXT INJURY - Stated complaint Stated Complaint: RT TOE PX - Chief complaint Chief Complaint: Ext Problem - History obtained from History obtained from: Patient - History of Present Illness PD HPI LOW EXT INJURY LOCATION: Right (Without specific injury she has had pain at the right first MTP. She is never had this before. She frequents the emergency department for orthopedic injuries but there was no injury per se. She denies fevers or chills. 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 : None HEENT: Chronic vision loss Psych: None, Other Musculoskeletal: None Derm: None - Past Surgical History Past Surgical History: Yes /INSURANCE DEFENSE PARALEGAL: Dilation and currettage, Other HEENT: Myringotomy (tubes) - Present Medications Home Medications: Ambulatory Orders Medication Instructions Recorded Confirmed Cholecalciferol (Vitamin D3) 2,000 unit PO DAILY 01/01/13 09/26/18 [Vitamin D] Ferrous Gluconate [Iron] 324 mg PO DAILY 01/01/13 09/26/18 Lisinopril 20 mg PO DAILY 01/01/13 09/26/18 Metformin HCl 850 mg PO BID 01/01/13 09/26/18 Multivitamin [Multivitamins] 1 each PO DAILY 01/01/13 09/26/18 Lansoprazole [Prevacid] 30 mg PO DAILY 02/18/15 09/26/18 Magnesium Chloride [Mag Delay] 64 mg PO DAILY 12/12/16 09/26/18 Indomethacin [Indocin] 25 mg PO BIDWM #10 capsule 09/26/18 - Allergies Allergies/Adverse Reactions: Allergies Allergy/AdvReac Type Severity Reaction Status Date / Time Penicillins Allergy Unknown Rash Verified 09/26/18 19:58 sulfamethoxazole Allergy Unknown Rash Verified 09/26/18 19:58 [From ] trimethoprim [From ] Allergy Unknown Rash Verified 09/26/18 19:58 amoxicillin [Amoxicillin] Allergy hives/itchi Verified 09/26/18 19:58 ng - Social History Does the pt smoke?: No Smoking Status: Never smoker Does the pt drink ETOH?: No Does the pt have substance abuse?: No - Immunizations Immunizations are current?: Yes - POLST Patient has POLST: No PD ED PE NORMAL - Vitals Vital signs reviewed: Yes - General General: Alert and oriented X 3, No acute distress - Extremities Extremities: Other (Mild tenderness and redness of the right first MTP without limited range of motion.) - Neuro Neuro: Alert and oriented X 3, Normal speech Results - Vitals Vitals: Vital Signs - 24 hr 09/26/18 19:53 Temperature 36.8 C Heart Rate 56 L Respiratory 16 Rate Blood Pressure 143/78 H O2 Saturation 97 Oxygen O2 Source Room air PD MEDICAL DECISION MAKING - ED course ED course: Is a 57-year-old woman with developmental delay who presents with pain of the right first MTP consistent with a mild gout attack. She declines anything stronger for pain and there was no injury. There is no evidence of systemic illness. Departure - Departure Disposition: 01 Home, Self Care Clinical Impression: Gout Qualifiers: Gout site: foot Gout etiology: idiopathic Chronicity: acute Laterality: right Qualified Code(s): M10.071 - Idiopathic gout, right ankle and foot Condition: Good Record reviewed to determine appropriate education?: Yes Instructions: ED Arthritis Gout Prescriptions: Indomethacin [Indocin] 25 mg PO BIDWM #10 capsule Comments: Call your doctor to arrange a follow-up appointment, make the next available appointment. In the interim, return anytime if worse or if new symptoms develop.
== END 2018-09-26 20:27 | disposition home or self-care (01) ==
LOC: ED 19:49
DX: M10.071 Idiopathic gout, right ankle and foot (principal); E11.9 Type 2 diabetes mellitus without complications
CPT/HCPCS: 99283; A9270

== ENCOUNTER 2018-10-02 17:19 | Emergency (ER) | payer MEDICARE, OTHER, MEDICAID ==
--- NOTE | 2018-10-02 17:33 | ED Physician Documentation ---
PD HPI UPPER EXT INJURY - Stated complaint Stated Complaint: LT THUMB PX - Chief complaint Chief Complaint: Ext Problem - History obtained from History obtained from: Patient - History of Present Illness Location: Left Type of injury: Fall, Twist (bent thumb back when she fell.) Where injury occurred: Other (Confucianist) Timing - onset: Today Timing - details: Abrupt onset, Still present Associated symptoms: Swelling. 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: Dilation and currettage, Other HEENT: Myringotomy (tubes) - Present Medications Home Medications: Ambulatory Orders Medication Instructions Recorded Confirmed Cholecalciferol (Vitamin D3) 2,000 unit PO DAILY 01/01/13 09/26/18 [Vitamin D] Ferrous Gluconate [Iron] 324 mg PO DAILY 01/01/13 09/26/18 Multivitamin [Multivitamins] 1 each PO DAILY 01/01/13 09/26/18 RX: Lisinopril 20 mg PO DAILY 01/01/13 09/26/18 RX: Metformin HCl 850 mg PO BID 01/01/13 09/26/18 RX: Lansoprazole [Prevacid] 30 mg PO DAILY 02/18/15 09/26/18 Magnesium Chloride [Mag Delay] 64 mg PO DAILY 12/12/16 09/26/18 Indomethacin [Indocin] 25 mg PO BIDWM #10 capsule 09/26/18 - Allergies Allergies/Adverse Reactions: Allergies Allergy/AdvReac Type Severity Reaction Status Date / Time Penicillins Allergy Unknown Rash Verified 10/02/18 17:26 sulfamethoxazole Allergy Unknown Rash Verified 10/02/18 17:26 [From ] trimethoprim [From ] Allergy Unknown Rash Verified 10/02/18 17:26 amoxicillin [Amoxicillin] Allergy hives/itchi Verified 10/02/18 17:26 ng - Social History Does the pt smoke?: No Smoking Status: Never smoker Does the pt drink ETOH?: No Does the pt have substance abuse?: No - Immunizations Immunizations are current?: Yes - POLST Patient has POLST: No PD ED PE NORMAL - Vitals Vital signs reviewed: Yes - General General: Alert and oriented X 3, No acute distress, Well developed/nourished - Derm Derm: Normal color, Warm and dry - Extremities Extremities: Other (left thumb with some tenderness at MCP dorsally. No noted de formity. No laxity at [facility] with stress testing. ) Results - Vitals Vitals: Vital Signs - 24 hr 10/02/18 10/02/18 17:24 18:15 Temperature 36.7 C Heart Rate 97 90 Respiratory 20 18 Rate Blood Pressure 141/82 H 136/80 H O2 Saturation 100 100 Oxygen O2 Source Room air - Rads (name of study) left thumb Radiology: Prelim report reviewed, EMP read contemporaneously (no fractures) PD MEDICAL DECISION MAKING - ED course Complexity details: reviewed results, considered differential, d/w patient Departure - Departure Disposition: 01 Home, Self Care Clinical Impression: Left thumb sprain Qualifiers: Encounter type: initial encounter Sprain of finger site: metacarpophalangeal joint Qualified Code(s): S63.642A - Sprain of metacarpophalangeal joint of left thumb, initial encounter Condition: Stable Record reviewed to determine appropriate education?: Yes Instructions: ED Sprain Finger Follow-Up: Wale Morales PA-C [Primary Care Provider] - Comments: Your x-ray appears normal. Presume a sprain. Jonh wrap and protected and it should get better over the next few days. Discharge Date/Time: 10/02/18 18:15
[2018-10-02] MEDS ORDERED: ACETAMINOPHEN 325 MG TABLET PO STA (17:42)
[2018-10-02 18:16] VITALS: BP 136/80
--- NOTE | 2018-10-02 18:29 | XRAY Report ---
Reason: left thumb pain after swelling Procedure Date: 10/02/2018 Accession Number: [id number] / [id number] Procedure: XR - Finger(s) LT CPT Code: FULL RESULT: EXAM: LEFT FIRST DIGIT RADIOGRAPHY EXAM DATE: 10/02/2018 06:06 PM. CLINICAL HISTORY: Left thumb pain after fall today. COMPARISON: HAND 3 VIEW LT 10/24/2015 1:27 PM. TECHNIQUE: 2 views. FINDINGS: Bones: Normal. No fracture or bone lesion. Joints: Normal alignment. Soft Tissues: No evident focal soft tissue swelling. IMPRESSION: Normal digit radiography. RADIA
== END 2018-10-02 18:15 | disposition home or self-care (01) ==
LOC: ED 17:19
DX: S63.642A Sprain of metacarpophalangeal joint of left thumb, initial encounter (principal); W18.30XA Fall on same level, unspecified, initial encounter; X50.1XXA Overexertion from prolonged static or awkward postures, initial encounter; Y92.22 Religious institution as the place of occurrence of the external cause; E11.9 Type 2 diabetes mellitus without complications
CPT/HCPCS: 73140; 99283; A9270

== ENCOUNTER 2018-10-11 13:50 | Outpatient (CLI) | payer MEDICARE, OTHER, MEDICAID | END 2018-10-11 13:51 | disposition critical access hospital (66) | LOC: EMS 13:50 | PROVIDERS: ATTEND Surgery | DX: M25.521 Pain in right elbow (principal) | CPT/HCPCS: A0425; A0429 ==

== ENCOUNTER 2018-10-11 14:11 | Emergency (ER) | payer MEDICARE, OTHER, MEDICAID ==
[2018-10-11 14:24] VITALS: BP 135/92
--- NOTE | 2018-10-11 14:44 | ED Physician Documentation ---
PD HPI UPPER EXT INJURY - Stated complaint Stated Complaint: ELBOW PX - Chief complaint Chief Complaint: Ext Problem - History obtained from History obtained from: Patient - History of Present Illness Location: Right, Elbow Type of injury: Fall (Slipped and fell directly onto the right elbow today with moderate pain there but declines pain medication. 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 : None HEENT: Chronic vision loss Psych: None, Other Musculoskeletal: None Derm: None - Past Surgical History Past Surgical History: Yes /ANIMAL HUSBANDRY TECHNICIAN: Dilation and currettage, Other HEENT: Myringotomy (tubes) - Present Medications Home Medications: Ambulatory Orders Medication Instructions Recorded Confirmed Cholecalciferol (Vitamin D3) 2,000 unit PO DAILY 01/01/13 10/11/18 [Vitamin D] Ferrous Gluconate [Iron] 324 mg PO DAILY 01/01/13 10/11/18 Lisinopril 20 mg PO DAILY 01/01/13 10/11/18 Metformin HCl 850 mg PO BID 01/01/13 10/11/18 Multivitamin [Multivitamins] 1 each PO DAILY 01/01/13 10/11/18 Lansoprazole [Prevacid] 30 mg PO DAILY 02/18/15 10/11/18 Magnesium Chloride [Mag Delay] 64 mg PO DAILY 12/12/16 10/11/18 Indomethacin [Indocin] 25 mg PO BIDWM #10 capsule 09/26/18 10/11/18 - Allergies Allergies/Adverse Reactions: Allergies Allergy/AdvReac Type Severity Reaction Status Date / Time Penicillins Allergy Unknown Rash Verified 10/02/18 17:26 sulfamethoxazole Allergy Unknown Rash Verified 10/02/18 17:26 [From ] trimethoprim [From ] Allergy Unknown Rash Verified 10/02/18 17:26 amoxicillin [Amoxicillin] Allergy hives/itchi Verified 10/02/18 17:26 ng - Social History Does the pt smoke?: No Smoking Status: Never smoker Does the pt drink ETOH?: No Does the pt have substance abuse?: No - Immunizations Immunizations are current?: Yes - POLST Patient has POLST: No PD ED PE NORMAL - Vitals Vital signs reviewed: Yes - HEENT HEENT: PERRL - Neck Neck: Supple, no meningeal sign, No bony TTP - Extremities Extremities: Other (Right elbow, relatively full range of motion, she can extend it all the way but cannot bend it more than 90 degrees. She is tender over the radial head, not the olecranon or medial epicondyle.) - Neuro Neuro: Alert and oriented X 3, Normal speech Results - Vitals Vitals: Vital Signs - 24 hr 10/11/18 14:20 Temperature 36.3 C L Heart Rate 60 Respiratory 18 Rate Blood Pressure 135/92 H O2 Saturation 98 Oxygen O2 Source Room air - Rads (name of study) R elbow 3v Radiology: EMP read contemporaneously (tendon calc, NAD) Departure - Departure Disposition: 01 Home, Self Care Clinical Impression: Contusion of right elbow Qualifiers: Encounter type: initial encounter Qualified Code(s): S50.01XA - Contusion of right elbow, initial encounter Condition: Good Record reviewed to determine appropriate education?: Yes Instructions: ED Contusion Elbow Comments: Your blood pressure was elevated today on check into the emergency department. This does not mean that you have hypertension, it is a common phenomenon to come to the emergency department and have elevated blood pressure. I recommend that you see your primary care physician within the week to have it rechecked when you are feeling better.
--- NOTE | 2018-10-11 16:26 | XRAY Report ---
Reason: elbow inj Procedure Date: 10/11/2018 Accession Number: [id number] / [id number] Procedure: XR - Elbow 3 View RT CPT Code: FULL RESULT: EXAM: RIGHT ELBOW RADIOGRAPHY EXAM DATE: 10/11/2018 04:07 PM. CLINICAL HISTORY: Elbow inj. Pain COMPARISON: ELBOW 3 VIEW RT 09/17/2018 1:15 PM. TECHNIQUE: 3 views. FINDINGS: Bones: Olecranon spur. No fractures or bone lesions. Joints: Osteophyte along the coronoid. Soft Tissues: Calcification along the lateral humeral condyle No soft tissue swelling. IMPRESSION: Negative for fracture DJD RADIA
== END 2018-10-11 16:40 | disposition home or self-care (01) ==
LOC: EDUNIT# → ED 14:11
DX: S50.01XA Contusion of right elbow, initial encounter (principal); W01.0XXA Fall on same level from slipping, tripping and stumbling without subsequent striking against object, initial encounter; R03.0 Elevated blood-pressure reading, without diagnosis of hypertension; E11.9 Type 2 diabetes mellitus without complications
CPT/HCPCS: 99282

== ENCOUNTER 2018-10-25 11:39 | Emergency (ER) | payer MEDICARE, OTHER, MEDICAID ==
[2018-10-25 12:05] VITALS: BP 131/70
== END 2018-10-25 14:14 | disposition left against medical advice (07) ==
LOC: ED 11:39
DX: R00.0 Tachycardia, unspecified (principal); R07.9 Chest pain, unspecified; R06.00 Dyspnea, unspecified; R94.31 Abnormal electrocardiogram [ECG] [EKG]; Z53.21 Procedure and treatment not carried out due to patient leaving prior to being seen by health care provider
CPT/HCPCS: 93005

== ENCOUNTER 2018-10-26 15:05 | Emergency (ER) | payer MEDICARE, OTHER, MEDICAID ==
--- NOTE | 2018-10-26 15:33 | ED Physician Documentation ---
PD HPI TRUNK INJURY - Stated complaint Stated Complaint: Fall - Chief complaint Chief Complaint: General - History obtained from History obtained from: Patient - History of Present Illness Location: Anterior chest Type of injury: Fall (she says she fell couple days ago and has pain anterior chest with palpation and breathing. Seen here and did not have xray but had ECG, which she feels she needs an xray, so returned.) Timing - onset: How many days ago (2) Timing - duration: Days (2) Timing - details: Abrupt onset, Still present Quality: Aching Worsened by: Moving, Palpating Associated symtptoms: No: Weakness, Numbness Recently seen: Emergency Dept (frequently for mild injury from stated frequent falls.) Review of Systems Constitutional: denies: Fever Nose: denies: Rhinorrhea / runny nose, Congestion Throat: denies: Sore throat Respiratory: denies: Cough GI: denies: Nausea, Vomiting, Diarrhea Skin: denies: Abrasion (s), Laceration (s) PD PAST MEDICAL HISTORY - Past Medical History Cardiovascular: Other Respiratory: None Neuro: Other Endocrine/Autoimmune: Type 2 diabetes GI: Chronic diarrhea 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 : None HEENT: Chronic vision loss Psych: None, Other Musculoskeletal: None Derm: None - Past Surgical History Past Surgical History: Yes /THREAD WINDER: Dilation and currettage, Other HEENT: Myringotomy (tubes) - Present Medications Home Medications: Ambulatory Orders Medication Instructions Recorded Confirmed Cholecalciferol (Vitamin D3) 2,000 unit PO DAILY 01/01/13 10/11/18 [Vitamin D] Ferrous Gluconate [Iron] 324 mg PO DAILY 01/01/13 10/11/18 Lisinopril 20 mg PO DAILY 01/01/13 10/11/18 Metformin HCl 850 mg PO BID 01/01/13 10/11/18 Multivitamin [Multivitamins] 1 each PO DAILY 01/01/13 10/11/18 Lansoprazole [Prevacid] 30 mg PO DAILY 02/18/15 10/11/18 Magnesium Chloride [Mag Delay] 64 mg PO DAILY 12/12/16 10/11/18 Indomethacin [Indocin] 25 mg PO BIDWM #10 capsule 09/26/18 10/11/18 - Allergies Allergies/Adverse Reactions: Allergies Allergy/AdvReac Type Severity Reaction Status Date / Time Penicillins Allergy Unknown Rash Verified 10/26/18 15:12 sulfamethoxazole Allergy Unknown Rash Verified 10/26/18 15:12 [From Septra] trimethoprim [From Septra] Allergy Unknown Rash Verified 10/26/18 15:12 amoxicillin [Amoxicillin] Allergy hives/itchi Verified 10/26/18 15:12 ng - Social History Does the pt smoke?: No Smoking Status: Never smoker Does the pt drink ETOH?: No Does the pt have substance abuse?: No - Immunizations Immunizations are current?: Yes - POLST Patient has POLST: No PD ED PE NORMAL - Vitals Vital signs reviewed: Yes - General General: Alert and oriented X 3, No acute distress, Well developed/nourished - HEENT HEENT: Atraumatic - Neck Neck: Supple, no meningeal sign, No bony TTP, No adenopathy - Cardiac Cardiac: RRR, No murmur - Respiratory Respiratory: Clear bilaterally, Other (mild anterior chest wall tenderness parasternal cartilage. No crepitance nor deformity. ) - Abdomen Abdomen: Soft, Non tender - Derm Derm: Normal color, Warm and dry - Extremities Extremities: No tenderness to palpate, Normal ROM s pain - Neuro Neuro: Alert and oriented X 3, No motor deficit, Normal speech Results - Vitals Vitals: Oxygen O2 Source Room air - Rads (name of study) chest xray Radiology: Prelim report reviewed (no acute process seen), See rad report PD MEDICAL DECISION MAKING - ED course Complexity details: reviewed results (chest xray is okay), considered differential, d/w patient Departure - Departure Disposition: 01 Home, Self Care Clinical Impression: Accidental fall Qualifiers: Encounter type: initial encounter Qualified Code(s): W19.XXXA - Unspecified fall, initial encounter Chest wall contusion Qualifiers: Encounter type: initial encounter Laterality: unspecified laterality Qualified Code(s): S20.219A - Contusion of unspecified front wall of thorax, initial encounter Condition: Stable Record reviewed to determine appropriate education?: Yes Instructions: ED Contusion Chest Wall Follow-Up: Wale Morales PA-C [Primary Care Provider] - Comments: No signs of fracture of your ribs or sternum on the x-ray. Presume it is a bruising of the chest wall. Tylenol every 4-6 hours if needed for pains. Activity as able. Discharge Date/Time: 10/26/18 16:34
[2018-10-26] MEDS ORDERED: ACETAMINOPHEN 325 MG TABLET PO STA (15:36)
--- NOTE | 2018-10-26 16:15 | XRAY Report ---
Reason: fell onto front chest yesterday; pain sternal area Procedure Date: 10/26/2018 Accession Number: [id number] / [id number] Procedure: XR - Chest 2 View X-Ray CPT Code: 89559 FULL RESULT: EXAM: CHEST RADIOGRAPHY EXAM DATE: 10/26/2018 04:05 PM. CLINICAL HISTORY: Fell onto front chest yesterday; pain sternal area. COMPARISON: CHEST 1 VIEW 12/19/2017 8:58 PM. TECHNIQUE: 2 views. FINDINGS: Lungs/Pleura: There is mild retrocardiac opacity on the lateral view. No pneumothorax or pleural effusion is evident. Mediastinum: Cardiomegaly is present. Mediastinal silhouette within normal limits. Other: No obvious displaced sternal fracture. IMPRESSION: 1. Cardiomegaly. 2. Mild retrocardiac opacity, atelectasis versus infiltrate. RADIA
[2018-10-26 16:28] VITALS: BP 146/78
== END 2018-10-26 16:34 | disposition home or self-care (01) ==
LOC: ED 15:05
DX: S20.219A Contusion of unspecified front wall of thorax, initial encounter (principal); W01.190A Fall on same level from slipping, tripping and stumbling with subsequent striking against furniture, initial encounter; E11.9 Type 2 diabetes mellitus without complications; Z79.84 Long term (current) use of oral hypoglycemic drugs
CPT/HCPCS: 71046; 99283; A9270

== ENCOUNTER 2018-10-29 18:47 | Outpatient (CLI) | payer MEDICARE, OTHER, MEDICAID | END 2018-10-29 18:48 | disposition critical access hospital (66) | LOC: EMS 18:47 | PROVIDERS: ATTEND Surgery | DX: M79.671 Pain in right foot (principal) | CPT/HCPCS: A0425; A0429 ==

== ENCOUNTER 2018-10-29 19:05 | Emergency (ER) | payer MEDICARE, OTHER, MEDICAID ==
[2018-10-29 19:16] VITALS: BP 140/66
[2018-10-29] MEDS ORDERED: predniSONE 20 MG TABLET PO STA (19:26)
[2018-10-29] MEDS ORDERED: IBUPROFEN 800 MG TABLET PO STA (19:26)
--- NOTE | 2018-10-29 19:28 | ED Physician Documentation ---
History of Present Illness - Stated complaint Stated Complaint: FOOT PAIN - Chief complaint Chief Complaint: Ext Problem - History obtained from History obtained from: Patient, EMS - History of Present Illness Timing: Today Pain level max: 10 Pain level now: 10 - Additonal information Additional information: Right first MTP joint pain. Started today. Worse with walking and better with rest. Similar prior episodes of gout. No injury. 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: Dilation and currettage, Other HEENT: Myringotomy (tubes) - Present Medications Home Medications: Ambulatory Orders Medication Instructions Recorded Confirmed Cholecalciferol (Vitamin D3) 2,000 unit PO DAILY 01/01/13 10/11/18 [Vitamin D] Ferrous Gluconate [Iron] 324 mg PO DAILY 01/01/13 10/11/18 Lisinopril 20 mg PO DAILY 01/01/13 10/11/18 Metformin HCl 850 mg PO BID 01/01/13 10/11/18 Multivitamin [Multivitamins] 1 each PO DAILY 01/01/13 10/11/18 Lansoprazole [Prevacid] 30 mg PO DAILY 02/18/15 10/11/18 Magnesium Chloride [Mag Delay] 64 mg PO DAILY 12/12/16 10/11/18 Indomethacin [Indocin] 25 mg PO BIDWM #10 capsule 09/26/18 10/11/18 Ibuprofen [Motrin] 800 mg PO Q8H PRN #20 tablet 10/29/18 - Allergies Allergies/Adverse Reactions: Allergies Allergy/AdvReac Type Severity Reaction Status Date / Time Penicillins Allergy Unknown Rash Verified 10/29/18 19:13 sulfamethoxazole Allergy Unknown Rash Verified 10/29/18 19:13 [From ] trimethoprim [From ] Allergy Unknown Rash Verified 10/29/18 19:13 amoxicillin [Amoxicillin] Allergy hives/itchi Verified 10/29/18 19:13 ng - Social History Does the pt smoke?: No Smoking Status: Never smoker Does the pt drink ETOH?: No Does the pt have substance abuse?: No - Immunizations Immunizations are current?: Yes - POLST Patient has POLST: No PD ED PE NORMAL - Vitals Vital signs reviewed: Yes - General General: Alert and oriented X 3, No acute distress - Derm Derm: Warm and dry - Extremities Extremities: Other (Right foot - First MTP swelling, redness. NVI) - Neuro Neuro: Alert and oriented X 3 Results - Vitals Vitals: Vital Signs - 24 hr 10/29/18 19:05 Temperature 37.1 C Heart Rate 95 Respiratory 14 Rate Blood Pressure 140/66 H O2 Saturation 99 Oxygen O2 Source Room air PD MEDICAL DECISION MAKING - ED course Complexity details: considered differential, d/w patient ED course: 58-year-old female with what appears to be gout. This is consistent with her history. Given Motrin and prednisone here. Placed in a postop shoe and will follow up with her doctor. Patient counseled regarding signs and symptoms for which I believe and urgent re-evaluation would be necessary. Patient with good understanding of and agreement to plan and is comfortable going home at this time This document was made in part using voice recognition software. While efforts are made to proofread this document, sound alike and grammatical errors may occur. Departure - Departure Disposition: 01 Home, Self Care Clinical Impression: Gout Qualifiers: Gout site: foot Gout etiology: unspecified cause Chronicity: acute Laterality: right Qualified Code(s): M10.9 - Gout, unspecified Condition: Good Instructions: ED Arthritis Gout Follow-Up: Wale Morales PA-C [Primary Care Provider] - Within 1 week Prescriptions: Ibuprofen [Motrin] 800 mg PO Q8H PRN #20 tablet PRN Reason: PAIN &/OR FEVER Comments: Use the postoperative shoe as needed for pain. Return if you worsen. Follow-up with your doctor for further care.
== END 2018-10-29 19:38 | disposition home or self-care (01) ==
LOC: EDUNIT# → ED 19:05
DX: M10.9 Gout, unspecified (principal); E11.9 Type 2 diabetes mellitus without complications; Z79.84 Long term (current) use of oral hypoglycemic drugs
CPT/HCPCS: 99283; A9270; J7512

== ENCOUNTER 2018-11-04 11:25 | Outpatient (CLI) | payer MEDICARE, OTHER, MEDICAID ==
[2018-11-04 19:00] LABS: HGB - HEMOGLOBIN 11.9 g/dL (12.0-16.0); MEAN CORPUSCULAR HEMOGLOBIN 26.5 pg (27.0-31.0); MEAN CORPUSCULAR HGB CONC 32.1 g/dL (32.0-36.0); MEAN CORPUSCULAR VOLUME 82.6 fL (81.0-99.0); MEAN PLATELET VOLUME 8.3 fL (7.9-10.8); RED BLOOD COUNT 4.51 10^6/uL (4.20-5.40); WHITE BLOOD COUNT 7.5 x10^3/uL (4.8-10.8)
[2018-11-04 19:29] LABS: CALCIUM 9.1 mg/dL (8.5-10.3); CREATININE 1.1 mg/dL (0.4-1.0)
== END 2018-11-04 23:59 | disposition home or self-care (01) ==
LOC: LAB.N 11:25
PROVIDERS: ATTEND Family Medicine
DX: M10.9 Gout, unspecified (principal)
CPT/HCPCS: 36415; 80048; 84550; 85027; 85651

== ENCOUNTER 2018-11-08 16:04 | Emergency (ER) | payer MEDICARE, OTHER, MEDICAID ==
--- NOTE | 2018-11-08 17:51 | ED Physician Documentation ---
PD HPI UPPER EXT INJURY - Stated complaint Stated Complaint: RT ARM PAIN - Chief complaint Chief Complaint: Ext Problem - History obtained from History obtained from: Patient - History of Present Illness Location: Right, Elbow Type of injury: No: Fall (she had had fall couple weeks ago, and is having continue pain in medial elbow with use of arm and hand. No new injury.) Where injury occurred: Home Timing - onset: How many weeks ago (2) Timing - duration: Weeks (2) Timing - details: Abrupt onset, Still present, Waxing and waning Associated symptoms: Other (pain at elbow with supination/pronation movements.). No: Weakness, Numbness, Swelling Similar symptoms before: Has not had sx before Recently seen: Emergency Dept (seen for the fall and had xray of the elbow at the time, which was okay.) Review of Systems Constitutional: denies: Fever Skin: denies: Rash, Lesions Neurologic: denies: Focal weakness, Numbness PD PAST MEDICAL HISTORY - Past Medical History Cardiovascular: Other Respiratory: None Neuro: Other Endocrine/Autoimmune: Type 2 diabetes GI: Chronic diarrhea DIRECTOR STAGE: None : None HEENT: Chronic vision loss Psych: None, Other Musculoskeletal: None Derm: None - Past Surgical History Past Surgical History: Yes /DIRECTOR STAGE: Dilation and currettage, Other HEENT: Myringotomy (tubes) - Present Medications Home Medications: Ambulatory Orders Medication Instructions Recorded Confirmed Cholecalciferol (Vitamin D3) 2,000 unit PO DAILY 01/01/13 10/11/18 [Vitamin D] Ferrous Gluconate [Iron] 324 mg PO DAILY 01/01/13 10/11/18 Lisinopril 20 mg PO DAILY 01/01/13 10/11/18 Metformin HCl 850 mg PO BID 01/01/13 10/11/18 Multivitamin [Multivitamins] 1 each PO DAILY 01/01/13 10/11/18 Lansoprazole [Prevacid] 30 mg PO DAILY 02/18/15 10/11/18 Magnesium Chloride [Mag Delay] 64 mg PO DAILY 12/12/16 10/11/18 Indomethacin [Indocin] 25 mg PO BIDWM #10 capsule 09/26/18 10/11/18 Ibuprofen [Motrin] 800 mg PO Q8H PRN #20 tablet 10/29/18 - Allergies Allergies/Adverse Reactions: Allergies Allergy/AdvReac Type Severity Reaction Status Date / Time Penicillins Allergy Unknown Rash Verified 11/08/18 16:14 sulfamethoxazole Allergy Unknown Rash Verified 11/08/18 16:14 [From Septra] trimethoprim [From Septra] Allergy Unknown Rash Verified 11/08/18 16:14 amoxicillin [Amoxicillin] Allergy hives/itchi Verified 11/08/18 16:14 ng - Social History Does the pt smoke?: No Smoking Status: Never smoker Does the pt drink ETOH?: No Does the pt have substance abuse?: No - Immunizations Immunizations are current?: Yes - POLST Patient has POLST: No PD ED PE NORMAL - Vitals Vital signs reviewed: Yes - General General: Alert and oriented X 3, No acute distress, Well developed/nourished - Derm Derm: Normal color, Warm and dry - Extremities Extremities: Other (medial epicondyle with tenderness without redness nor swelling. Pain with supination/pronation. ) - Neuro Neuro: Alert and oriented X 3, No motor deficit, No sensory deficit Results - Vitals Vitals: Oxygen O2 Source Room air Procedures - General procedure General procedure: Local injection at medial epicondyle with marcaine and Kenalog without problems. She is not particularly physically active, so I do not feel a problem to inject it to help the process. Departure - Departure Disposition: 01 Home, Self Care Clinical Impression: Right elbow tendinitis Condition: Stable Record reviewed to determine appropriate education?: Yes Follow-Up: Wale Morales PA-C [Primary Care Provider] - Comments: Tylenol or ibuprofen if needed for pains. Use Jonh wrap for comfort to reduce swelling. See if this improves over the next few days with the injection we did. Discharge Date/Time: 11/08/18 19:15
[2018-11-08] MEDS ORDERED: TRIAMCINOLONE 40 MG/ML VIAL IM STA (17:59)
[2018-11-08 19:15] VITALS: BP 132/81
== END 2018-11-08 19:15 | disposition home or self-care (01) ==
LOC: ED 16:04
DX: M77.9 Enthesopathy, unspecified (principal); E11.8 Type 2 diabetes mellitus with unspecified complications; Z79.84 Long term (current) use of oral hypoglycemic drugs; Z91.81 History of falling
CPT/HCPCS: 20605; 99283

== ENCOUNTER 2018-11-22 13:02 | Emergency (ER) | payer MEDICARE, OTHER, MEDICAID ==
[2018-11-22 13:43] VITALS: BP 124/80
--- NOTE | 2018-11-22 15:12 | ED Physician Documentation ---
History of Present Illness - Stated complaint Stated Complaint: R THUMB PAIN - Chief complaint Chief Complaint: General - History obtained from History obtained from: Patient - History of Present Illness Timing: Chronic (She has a long-standing ganglion cyst of the left wrist that she would like me to remove. No acute complaints.) Review of Systems Constitutional: reports: Reviewed and negative Cardiac: reports: Reviewed and negative Respiratory: reports: Reviewed and negative PD PAST MEDICAL HISTORY - Past Medical History Cardiovascular: Other Respiratory: None Neuro: Other Endocrine/Autoimmune: Type 2 diabetes GI: Chronic diarrhea GENERAL INTERN: None : None HEENT: Chronic vision loss Psych: None, Other Musculoskeletal: None Derm: None - Past Surgical History Past Surgical History: Yes /GENERAL INTERN: Dilation and currettage, Other HEENT: Myringotomy (tubes) - Present Medications Home Medications: Ambulatory Orders Medication Instructions Recorded Confirmed Cholecalciferol (Vitamin D3) 2,000 unit PO DAILY 01/01/13 10/11/18 [Vitamin D] Ferrous Gluconate [Iron] 324 mg PO DAILY 01/01/13 10/11/18 Lisinopril 20 mg PO DAILY 01/01/13 10/11/18 Metformin HCl 850 mg PO BID 01/01/13 10/11/18 Multivitamin [Multivitamins] 1 each PO DAILY 01/01/13 10/11/18 Lansoprazole [Prevacid] 30 mg PO DAILY 02/18/15 10/11/18 Magnesium Chloride [Mag Delay] 64 mg PO DAILY 12/12/16 10/11/18 Indomethacin [Indocin] 25 mg PO BIDWM #10 capsule 09/26/18 10/11/18 Ibuprofen [Motrin] 800 mg PO Q8H PRN #20 tablet 10/29/18 - Allergies Allergies/Adverse Reactions: Allergies Allergy/AdvReac Type Severity Reaction Status Date / Time Penicillins Allergy Unknown Rash Verified 11/08/18 16:14 sulfamethoxazole Allergy Unknown Rash Verified 11/08/18 16:14 [From ] trimethoprim [From ] Allergy Unknown Rash Verified 11/08/18 16:14 amoxicillin [Amoxicillin] Allergy hives/itchi Verified 11/08/18 16:14 ng - Social History Does the pt smoke?: No Smoking Status: Never smoker Does the pt drink ETOH?: No Does the pt have substance abuse?: No - Immunizations Immunizations are current?: Yes - POLST Patient has POLST: No PD ED PE NORMAL - Vitals Vital signs reviewed: Yes - General General: Alert and oriented X 3, No acute distress - Extremities Extremities: Other (She has a nontender ganglion cyst on the anterior aspect of the left wrist at the level of the distal radius. Full range of motion.) Results - Vitals Vitals: Vital Signs - 24 hr 11/22/18 13:37 Heart Rate 92 Respiratory 16 Rate Blood Pressure 124/80 O2 Saturation 99 Oxygen O2 Source Room air PD MEDICAL DECISION MAKING - ED course ED course: This is a 58-year-old woman who presents to the emergency department requesting that a chronic noninflamed ganglion cyst be removed. I discussed with her that we do not perform that in the emergency department and offered a referral to a hand surgeon, she became upset and left the department without instructions. Departure - Departure Disposition: 01 Home, Self Care Clinical Impression: Ganglion, left wrist Condition: Good Comments: She refused discharge instructions or referral
== END 2018-11-22 15:16 | disposition home or self-care (01) ==
LOC: ED 13:02
DX: M67.432 Ganglion, left wrist (principal); E11.9 Type 2 diabetes mellitus without complications; Z79.84 Long term (current) use of oral hypoglycemic drugs
CPT/HCPCS: 99282

== ENCOUNTER 2018-11-30 11:00 | Emergency (ER) | payer MEDICARE, OTHER, MEDICAID ==
[2018-11-30 11:16] VITALS: BP 132/79
--- NOTE | 2018-11-30 11:50 | XRAY Report ---
Reason: fall/ pain right knee Procedure Date: 11/30/2018 Accession Number: [id number] / [id number] Procedure: XR - Knee 3 View RT CPT Code: FULL RESULT: EXAM: RIGHT KNEE RADIOGRAPHY EXAM DATE: 11/30/2018 11:35 AM. CLINICAL HISTORY: Fall/ pain right knee. COMPARISON: XR KNEE 4 OR MORE VIEWS 09/10/2009 3:24 PM. TECHNIQUE: 3 views. FINDINGS: Bones: No acute fracture appreciated. Joints: Minor degenerative spurring of the tibial spines and superior pole of the patella. Trace suprapatellar effusion. Soft Tissues: Normal. No soft tissue swelling. IMPRESSION: Mild degenerative changes. No acute fracture appreciated. RADIA
--- NOTE | 2018-11-30 12:29 | ED Physician Documentation ---
PD HPI LOWER EXT INJURY - Stated complaint Stated Complaint: KNEE PX - Chief complaint Chief Complaint: Trauma Ext - History obtained from History obtained from: Patient - History of Present Illness PD HPI LOW EXT INJURY LOCATION: Right, Knee Type of injury: Fall Where injury occurred: Home Timing - onset: Today Timing - duration: Hours Timing - details: Abrupt onset, Still present Improved by: Rest Worsened by: Moving, Palpating Associated symptoms: No: Weakness, Numbness, Tingling, Swelling, Discolored Contributing factors: No: Anticoagulated Similar symptoms before: Diagnosis (LE injury) Recently seen: Emergency Dept - Additional information Additional information: 58-year-old female with a history of schizoaffective disorder is very well-known to the emergency department for minor injuries and complaints. Today she reports that she fell at home onto her right knee and has pain in the knee. She states that she is having trouble bearing weight on this. Review of Systems Constitutional: denies: Fever Eyes: denies: Decreased vision Nose: denies: Congestion Respiratory: denies: Cough GI: denies: Vomiting : denies: Dysuria Musculoskeletal: reports: Extremity pain, Pain with weight bearing. 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 HEENT: Chronic vision loss Psych: None, Other Musculoskeletal: None Derm: None - Past Surgical History Past Surgical History: Yes /LABORATORY MACHINIST: Dilation and currettage, Other HEENT: Myringotomy (tubes) - Present Medications Home Medications: Ambulatory Orders Medication Instructions Recorded Confirmed Cholecalciferol (Vitamin D3) 2,000 unit PO DAILY 01/01/13 10/11/18 [Vitamin D] Ferrous Gluconate [Iron] 324 mg PO DAILY 01/01/13 10/11/18 Lisinopril 20 mg PO DAILY 01/01/13 10/11/18 Metformin HCl 850 mg PO BID 01/01/13 10/11/18 Multivitamin [Multivitamins] 1 each PO DAILY 01/01/13 10/11/18 Lansoprazole [Prevacid] 30 mg PO DAILY 02/18/15 10/11/18 Magnesium Chloride [Mag Delay] 64 mg PO DAILY 12/12/16 10/11/18 Indomethacin [Indocin] 25 mg PO BIDWM #10 capsule 09/26/18 10/11/18 Ibuprofen [Motrin] 800 mg PO Q8H PRN #20 tablet 10/29/18 - Allergies Allergies/Adverse Reactions: Allergies Allergy/AdvReac Type Severity Reaction Status Date / Time Penicillins Allergy Unknown Rash Verified 11/30/18 11:16 sulfamethoxazole Allergy Unknown Rash Verified 11/30/18 11:16 [From ] trimethoprim [From ] Allergy Unknown Rash Verified 11/30/18 11:16 amoxicillin [Amoxicillin] Allergy hives/itchi Verified 11/30/18 11:16 ng - Social History Does the pt smoke?: No Smoking Status: Never smoker Does the pt drink ETOH?: No Does the pt have substance abuse?: No - Immunizations Immunizations are current?: Yes - POLST Patient has POLST: No PD ED PE NORMAL - Vitals Vital signs reviewed: Yes (normal ) - General General: Alert and oriented X 3, No acute distress, Well developed/nourished - HEENT HEENT: Atraumatic, PERRL, EOMI - Respiratory Respiratory: No respiratory distress - Derm Derm: Normal color, Warm and dry, No rash - Extremities Extremities: No deformity, No edema, Other (The knee runs through the ROM without pain. There is pain without swelling or bruising to the patella and the ligments are stable to testing. I do not find evidence of a joint effusion. distal n/v is intact. ) - Neuro Neuro: Alert and oriented X 3, chemistry associate 2-12 intact, No motor deficit, No sensory deficit, Normal speech Eye Opening: Spontaneous Motor: Obeys Commands Verbal: Oriented GCS Score: 15 - Psych Psych: Normal mood, Normal affect Results - Vitals Vitals: Vital Signs - 24 hr 11/30/18 11:14 Temperature 35.6 C L Heart Rate 88 Respiratory 14 Rate Blood Pressure 132/79 H O2 Saturation 98 Oxygen O2 Source Room air - Rads (name of study) knee R Radiology: Prelim report reviewed (Impression: Mild degenerative changes. No acute fracture appreciated.), EMP read indepedently, See rad report PD MEDICAL DECISION MAKING - ED course Complexity details: reviewed results, considered differential, d/w patient ED course: 58-year-old female with a contusion to her right knee has no evidence of fracture on x-ray examination she is placed onto crutches. Departure - Departure Disposition: 01 Home, Self Care Clinical Impression: Contusion of knee, right Qualifiers: Encounter type: initial encounter Qualified Code(s): S80.01XA - Contusion of right knee, initial encounter Condition: Stable Instructions: ED Contusion Lower Ext Follow-Up: Wale Morales PA-C [Primary Care Provider] -
== END 2018-11-30 12:51 | disposition home or self-care (01) ==
LOC: ED 11:00
DX: S80.01XA Contusion of right knee, initial encounter (principal); W19.XXXA Unspecified fall, initial encounter; Y92.009 Unspecified place in unspecified non-institutional (private) residence as the place of occurrence of the external cause; E11.9 Type 2 diabetes mellitus without complications; Z79.84 Long term (current) use of oral hypoglycemic drugs
CPT/HCPCS: 99283

== ENCOUNTER 2018-12-06 14:32 | Emergency (ER) | payer MEDICARE, OTHER, MEDICAID ==
[2018-12-06 15:38] VITALS: BP 136/60
== END 2018-12-06 16:28 | disposition left against medical advice (07) ==
LOC: ED 14:32
DX: M25.521 Pain in right elbow (principal); Z91.81 History of falling; Z53.21 Procedure and treatment not carried out due to patient leaving prior to being seen by health care provider

== ENCOUNTER 2018-12-09 13:00 | Emergency (ER) | payer MEDICARE, OTHER, MEDICAID ==
[2018-12-09 13:06] VITALS: BP 132/71
--- NOTE | 2018-12-09 13:24 | ED Physician Documentation ---
History of Present Illness - Stated complaint Stated Complaint: WRIST PX - Chief complaint Chief Complaint: Ext Problem - History obtained from History obtained from: Patient - History of Present Illness Timing: Other (states "a long time") Pain level max: 10 Pain level now: 10 - Additonal information Additional information: Patient states that her right thumb and wrist have been hurting for "a long time". No injury. No recent trauma. Has not taken anything for this. 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 : None HEENT: Chronic vision loss Psych: None, Other Musculoskeletal: None Derm: None - Past Surgical History Past Surgical History: Yes /WORKERS' COMPENSATION CLAIMS EXAMINER: Dilation and currettage, Other HEENT: Myringotomy (tubes) - Present Medications Home Medications: Ambulatory Orders Medication Instructions Recorded Confirmed Cholecalciferol (Vitamin D3) 2,000 unit PO DAILY 01/01/13 10/11/18 [Vitamin D] Ferrous Gluconate [Iron] 324 mg PO DAILY 01/01/13 10/11/18 Lisinopril 20 mg PO DAILY 01/01/13 10/11/18 Metformin HCl 850 mg PO BID 01/01/13 10/11/18 Multivitamin [Multivitamins] 1 each PO DAILY 01/01/13 10/11/18 Lansoprazole [Prevacid] 30 mg PO DAILY 02/18/15 10/11/18 Magnesium Chloride [Mag Delay] 64 mg PO DAILY 12/12/16 10/11/18 Indomethacin [Indocin] 25 mg PO BIDWM #10 capsule 09/26/18 10/11/18 Ibuprofen [Motrin] 800 mg PO Q8H PRN #20 tablet 10/29/18 - Allergies Allergies/Adverse Reactions: Allergies Allergy/AdvReac Type Severity Reaction Status Date / Time Penicillins Allergy Unknown Rash Verified 12/09/18 13:06 sulfamethoxazole Allergy Unknown Rash Verified 12/09/18 13:06 [From ] trimethoprim [From ] Allergy Unknown Rash Verified 12/09/18 13:06 amoxicillin [Amoxicillin] Allergy hives/itchi Verified 12/09/18 13:06 ng - Social History Does the pt smoke?: No Smoking Status: Never smoker Does the pt drink ETOH?: No Does the pt have substance abuse?: No - Immunizations Immunizations are current?: Yes - POLST Patient has POLST: No PD ED PE NORMAL - Vitals Vital signs reviewed: Yes - General General: Alert and oriented X 3, No acute distress, Well developed/nourished - Derm Derm: Warm and dry - Extremities Extremities: Other (No bony tenderness over the hand or wrist. Does have a small ganglion cyst on the right wrist. This is tender to palpation, there is no overlying skin changes or evidence of infection. She also has pain over the first metacarpal.) - Neuro Neuro: Alert and oriented X 3 - Psych Psych: Normal mood, Normal affect Results - Vitals Vitals: Vital Signs - 24 hr 12/09/18 13:04 Temperature 36.4 C L Heart Rate 97 Respiratory 14 Rate Blood Pressure 132/71 H O2 Saturation 100 Oxygen O2 Source Room air PD MEDICAL DECISION MAKING - ED course Complexity details: considered differential, d/w patient ED course: Patient likely with pain from her ganglion cyst and possible some tendon pain in her right thumb. Will place in a thumb spica and follow-up with her doctor. Patient counseled regarding signs and symptoms for which I believe and urgent re-evaluation would be necessary. Patient with good understanding of and agreement to plan and is comfortable going home at this time This document was made in part using voice recognition software. While efforts are made to proofread this document, sound alike and grammatical errors may occur. Departure - Departure Disposition: 01 Home, Self Care Clinical Impression: Ganglion cyst, Chronic pain of right thumb Condition: Good Instructions: ED Cyst Ganglion Follow-Up: Wale Morales PA-C [Primary Care Provider] - Within 1 week Comments: Wear the splint for the next 3-5 days. You can use Motrin or Tylenol as needed for pain. Follow-up with your doctor for further care. Discharge Date/Time: 12/09/18 13:33
== END 2018-12-09 13:33 | disposition home or self-care (01) ==
LOC: ED 13:00
DX: M67.431 Ganglion, right wrist (principal); G89.29 Other chronic pain; M79.644 Pain in right finger(s); E11.9 Type 2 diabetes mellitus without complications
CPT/HCPCS: 29125; 99283

== ENCOUNTER 2018-12-10 08:00 | Outpatient (CLI) | payer MEDICARE, OTHER, MEDICAID ==
[2018-12-10 13:27] LABS: HB2 TOTAL 12.9 g/dL; HEMOGLOBIN A1C 0.57 g/dL; HEMOGLOBIN A1C % 6.2 % (4.6-6.2)
== END 2018-12-10 23:59 | disposition home or self-care (01) ==
LOC: LAB.N 08:00
PROVIDERS: ATTEND Physician Assistant Medical
DX: E11.9 Type 2 diabetes mellitus without complications (principal)
CPT/HCPCS: 36415; 83036

== ENCOUNTER 2018-12-16 14:29 | Emergency (ER) | payer MEDICARE, OTHER, MEDICAID ==
--- NOTE | 2018-12-16 16:21 | XRAY Report ---
Reason: Right elbow pain Procedure Date: 12/16/2018 Accession Number: [id number] / [id number] Procedure: XR - Elbow 3 View RT CPT Code: FULL RESULT: EXAM: RIGHT ELBOW RADIOGRAPHY EXAM DATE: 12/16/2018 03:59 PM. CLINICAL HISTORY: Right elbow pain. COMPARISON: ELBOW 3 VIEW RT 10/11/2018 3:40 PM. TECHNIQUE: 3 views. FINDINGS: Bones: No fracture or focal bony lesion. Joints: No evidence of dislocation. Soft Tissues: No unexpected soft tissue findings. IMPRESSION: No evidence of fracture or dislocation. RADIA
--- NOTE | 2018-12-16 17:07 | ED Physician Documentation ---
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 : None HEENT: Chronic vision loss Psych: None, Other Musculoskeletal: None Derm: None - Past Surgical History Past Surgical History: Yes /LOGGER: Dilation and currettage, Other HEENT: Myringotomy (tubes) - Present Medications Home Medications: Ambulatory Orders Medication Instructions Recorded Confirmed Cholecalciferol (Vitamin D3) 2,000 unit PO DAILY 01/01/13 10/11/18 [Vitamin D] Ferrous Gluconate [Iron] 324 mg PO DAILY 01/01/13 10/11/18 Lisinopril 20 mg PO DAILY 01/01/13 10/11/18 Metformin HCl 850 mg PO BID 01/01/13 10/11/18 Multivitamin [Multivitamins] 1 each PO DAILY 01/01/13 10/11/18 Lansoprazole [Prevacid] 30 mg PO DAILY 02/18/15 10/11/18 Magnesium Chloride [Mag Delay] 64 mg PO DAILY 12/12/16 10/11/18 Indomethacin [Indocin] 25 mg PO BIDWM #10 capsule 09/26/18 10/11/18 Ibuprofen [Motrin] 800 mg PO Q8H PRN #20 tablet 10/29/18 - Allergies Allergies/Adverse Reactions: Allergies Allergy/AdvReac Type Severity Reaction Status Date / Time Penicillins Allergy Unknown Rash Verified 12/09/18 13:06 sulfamethoxazole Allergy Unknown Rash Verified 12/09/18 13:06 [From ] trimethoprim [From ] Allergy Unknown Rash Verified 12/09/18 13:06 amoxicillin [Amoxicillin] Allergy hives/itchi Verified 12/09/18 13:06 ng - Social History Does the pt smoke?: No Smoking Status: Never smoker Does the pt drink ETOH?: No Does the pt have substance abuse?: No - Immunizations Immunizations are current?: Yes - POLST Patient has POLST: No Results - Vitals Vitals: Oxygen O2 Source Room air
--- NOTE | 2018-12-18 08:32 | ED Physician Documentation ---
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: Dilation and currettage, Other HEENT: Myringotomy (tubes) - Present Medications Home Medications: Ambulatory Orders Medication Instructions Recorded Confirmed Cholecalciferol (Vitamin D3) 2,000 unit PO DAILY 01/01/13 10/11/18 [Vitamin D] Ferrous Gluconate [Iron] 324 mg PO DAILY 01/01/13 10/11/18 Lisinopril 20 mg PO DAILY 01/01/13 10/11/18 Metformin HCl 850 mg PO BID 01/01/13 10/11/18 Multivitamin [Multivitamins] 1 each PO DAILY 01/01/13 10/11/18 Lansoprazole [Prevacid] 30 mg PO DAILY 02/18/15 10/11/18 Magnesium Chloride [Mag Delay] 64 mg PO DAILY 12/12/16 10/11/18 Indomethacin [Indocin] 25 mg PO BIDWM #10 capsule 09/26/18 10/11/18 Ibuprofen [Motrin] 800 mg PO Q8H PRN #20 tablet 10/29/18 - Allergies Allergies/Adverse Reactions: Allergies Allergy/AdvReac Type Severity Reaction Status Date / Time Penicillins Allergy Unknown Rash Verified 12/09/18 13:06 sulfamethoxazole Allergy Unknown Rash Verified 12/09/18 13:06 [From ] trimethoprim [From ] Allergy Unknown Rash Verified 12/09/18 13:06 amoxicillin [Amoxicillin] Allergy hives/itchi Verified 12/09/18 13:06 ng - Social History Does the pt smoke?: No Smoking Status: Never smoker Does the pt drink ETOH?: No Does the pt have substance abuse?: No - Immunizations Immunizations are current?: Yes - POLST Patient has POLST: No Results - Vitals Vitals: Oxygen O2 Source Room air - Rads (name of study) left elbow Radiology: Prelim report reviewed, EMP read contemporaneously (no fractures), See rad report PD MEDICAL DECISION MAKING - ED course ED course: Patient left after xray and before seen by provider. Xray reviewed and no fractures seen. Nursing report is patient did have ROM of the elbow and no apparent distress. Departure - Departure Disposition: ED Left Without Being Seen Discharge Date/Time: 12/16/18 17:20
== END 2018-12-16 17:20 | disposition left against medical advice (07) ==
LOC: ED 14:29
DX: M79.641 Pain in right hand (principal); M25.521 Pain in right elbow; E11.9 Type 2 diabetes mellitus without complications; Z53.21 Procedure and treatment not carried out due to patient leaving prior to being seen by health care provider

== ENCOUNTER 2018-12-20 20:34 | Emergency (ER) | payer MEDICARE, OTHER, MEDICAID ==
[2018-12-20 20:49] VITALS: BP 144/75
--- NOTE | 2018-12-20 21:49 | ED Physician Documentation ---
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 and currettage, Other HEENT: Myringotomy (tubes) - Present Medications Home Medications: Ambulatory Orders Medication Instructions Recorded Confirmed Cholecalciferol (Vitamin D3) 2,000 unit PO DAILY 01/01/13 10/11/18 [Vitamin D] Ferrous Gluconate [Iron] 324 mg PO DAILY 01/01/13 10/11/18 Lisinopril 20 mg PO DAILY 01/01/13 10/11/18 Metformin HCl 850 mg PO BID 01/01/13 10/11/18 Multivitamin [Multivitamins] 1 each PO DAILY 01/01/13 10/11/18 Lansoprazole [Prevacid] 30 mg PO DAILY 02/18/15 10/11/18 Magnesium Chloride [Mag Delay] 64 mg PO DAILY 12/12/16 10/11/18 Indomethacin [Indocin] 25 mg PO BIDWM #10 capsule 09/26/18 10/11/18 Ibuprofen [Motrin] 800 mg PO Q8H PRN #20 tablet 10/29/18 - Allergies Allergies/Adverse Reactions: Allergies Allergy/AdvReac Type Severity Reaction Status Date / Time Penicillins Allergy Unknown Rash Verified 12/20/18 20:48 sulfamethoxazole Allergy Unknown Rash Verified 12/20/18 20:48 [From ] trimethoprim [From ] Allergy Unknown Rash Verified 12/20/18 20:48 amoxicillin [Amoxicillin] Allergy hives/itchi Verified 12/20/18 20:48 ng - Social History Does the pt smoke?: No Smoking Status: Never smoker Does the pt drink ETOH?: No Does the pt have substance abuse?: No - Immunizations Immunizations are current?: Yes - POLST Patient has POLST: No Results - Vitals Vitals: Vital Signs - 24 hr 12/20/18 20:45 Temperature 36.4 C L Heart Rate 94 Respiratory 16 Rate Blood Pressure 144/75 H O2 Saturation 99 Oxygen O2 Source Room air
--- NOTE | 2018-12-20 22:01 | ED Physician Documentation ---
PD HPI LOWER EXT INJURY - Stated complaint Stated Complaint: HEAD PAIN - Chief complaint Chief Complaint: Trauma Ext - History obtained from History obtained from: Patient - History of Present Illness PD HPI LOW EXT INJURY LOCATION: Right, Lower leg Type of injury: Fall (she says she fell and struck maxwell, with swelling there. Some pain of foot.) Where injury occurred: Home Timing - onset: Today Timing - details: Abrupt onset Worsened by: Palpating. 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 : None HEENT: Chronic vision loss Psych: None, Other Musculoskeletal: None Derm: None - Past Surgical History Past Surgical History: Yes /FUNERAL DIRECTOR/EMBALMER: Dilation and currettage, Other HEENT: Myringotomy (tubes) - Present Medications Home Medications: Ambulatory Orders Medication Instructions Recorded Confirmed Cholecalciferol (Vitamin D3) 2,000 unit PO DAILY 01/01/13 10/11/18 [Vitamin D] Ferrous Gluconate [Iron] 324 mg PO DAILY 01/01/13 10/11/18 Lisinopril 20 mg PO DAILY 01/01/13 10/11/18 Metformin HCl 850 mg PO BID 01/01/13 10/11/18 Multivitamin [Multivitamins] 1 each PO DAILY 01/01/13 10/11/18 Lansoprazole [Prevacid] 30 mg PO DAILY 02/18/15 10/11/18 Magnesium Chloride [Mag Delay] 64 mg PO DAILY 12/12/16 10/11/18 Indomethacin [Indocin] 25 mg PO BIDWM #10 capsule 09/26/18 10/11/18 Ibuprofen [Motrin] 800 mg PO Q8H PRN #20 tablet 10/29/18 - Allergies Allergies/Adverse Reactions: Allergies Allergy/AdvReac Type Severity Reaction Status Date / Time Penicillins Allergy Unknown Rash Verified 12/20/18 20:48 sulfamethoxazole Allergy Unknown Rash Verified 12/20/18 20:48 [From ] trimethoprim [From ] Allergy Unknown Rash Verified 12/20/18 20:48 amoxicillin [Amoxicillin] Allergy hives/itchi Verified 12/20/18 20:48 ng - Social History Does the pt smoke?: No Smoking Status: Never smoker Does the pt drink ETOH?: No Does the pt have substance abuse?: No - Immunizations Immunizations are current?: Yes - POLST Patient has POLST: No PD ED PE NORMAL - Vitals Vital signs reviewed: Yes - General General: Alert and oriented X 3, No acute distress, Well developed/nourished - Derm Derm: Normal color, Warm and dry - Extremities Extremities: Other (right anterior lower leg midshaft area with focal tenderness and swelling. No bony tenderness. Able to bear weight okay.) Results - Vitals Vitals: Vital Signs - 24 hr 12/20/18 20:45 Temperature 36.4 C L Heart Rate 94 Respiratory 16 Rate Blood Pressure 144/75 H O2 Saturation 99 Oxygen O2 Source Room air PD MEDICAL DECISION MAKING - ED course Complexity details: considered differential (seems like contusion. ), d/w patient Departure - Departure Disposition: 01 Home, Self Care Clinical Impression: Contusion of right lower leg Qualifiers: Encounter type: initial encounter Qualified Code(s): S80.11XA - Contusion of right lower leg, initial encounter Condition: Stable Record reviewed to determine appropriate education?: Yes Instructions: ED Contusion Lower Ext Comments: Use the Jonh wrap for swelling. Tylenol every 6 hours if needed for pains. Recheck if not improved over the next few days. Discharge Date/Time: 12/20/18 22:18
[2018-12-20] MEDS ORDERED: ACETAMINOPHEN 325 MG TABLET PO STA (22:02)
== END 2018-12-20 22:18 | disposition home or self-care (01) ==
LOC: ED 20:34
DX: S80.11XA Contusion of right lower leg, initial encounter (principal); W18.30XA Fall on same level, unspecified, initial encounter; E11.9 Type 2 diabetes mellitus without complications; Z79.84 Long term (current) use of oral hypoglycemic drugs
CPT/HCPCS: 99282; 99283; A9270

== ENCOUNTER 2018-12-22 19:02 | Outpatient (CLI) | payer MEDICARE, OTHER, MEDICAID | END 2018-12-22 19:03 | disposition critical access hospital (66) | LOC: EMS 19:02 | PROVIDERS: ATTEND Surgery | DX: M79.604 Pain in right leg (principal) | CPT/HCPCS: A0425; A0429 ==

== ENCOUNTER 2018-12-22 19:16 | Emergency (ER) | payer MEDICARE, OTHER, MEDICAID ==
[2018-12-22 19:26] VITALS: BP 139/82
--- NOTE | 2018-12-22 20:28 | ED Physician Documentation ---
History of Present Illness - Stated complaint Stated Complaint: RIGHT [place] PAIN - Chief complaint Chief Complaint: Ext Problem - History obtained from History obtained from: Patient, EMS - History of Present Illness Timing: Yesterday Improved by: nothing Worsened by: palpation - Additonal information Additional information: c/o atraumatic RLE swelling, pain since yesterday Review of Systems Constitutional: denies: Fever, Chills, Sweats Cardiac: denies: Chest pain / pressure Respiratory: denies: Dyspnea Musculoskeletal: reports: Extremity pain, Extremity swelling PD PAST MEDICAL HISTORY - Past Medical History Cardiovascular: Other Respiratory: None Neuro: Other Endocrine/Autoimmune: Type 2 diabetes GI: Chronic diarrhea 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 OF 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 : None HEENT: Chronic vision loss Psych: None, Other Musculoskeletal: None Derm: None - Past Surgical History Past Surgical History: Yes /DIRECTOR OF GLOBAL TALENT: Dilation and currettage, Other HEENT: Myringotomy (tubes) - Present Medications Home Medications: Ambulatory Orders Medication Instructions Recorded Confirmed Cholecalciferol (Vitamin D3) 2,000 unit PO DAILY 01/01/13 10/11/18 [Vitamin D] Ferrous Gluconate [Iron] 324 mg PO DAILY 01/01/13 10/11/18 Lisinopril 20 mg PO DAILY 01/01/13 10/11/18 Metformin HCl 850 mg PO BID 01/01/13 10/11/18 Multivitamin [Multivitamins] 1 each PO DAILY 01/01/13 10/11/18 Lansoprazole [Prevacid] 30 mg PO DAILY 02/18/15 10/11/18 Magnesium Chloride [Mag Delay] 64 mg PO DAILY 12/12/16 10/11/18 Indomethacin [Indocin] 25 mg PO BIDWM #10 capsule 09/26/18 10/11/18 Ibuprofen [Motrin] 800 mg PO Q8H PRN #20 tablet 10/29/18 - Allergies Allergies/Adverse Reactions: Allergies Allergy/AdvReac Type Severity Reaction Status Date / Time Penicillins Allergy Unknown Rash Verified 12/20/18 20:48 sulfamethoxazole Allergy Unknown Rash Verified 12/20/18 20:48 [From ] trimethoprim [From ] Allergy Unknown Rash Verified 12/20/18 20:48 amoxicillin [Amoxicillin] Allergy hives/itchi Verified 12/20/18 20:48 ng - Social History Does the pt smoke?: No Smoking Status: Never smoker Does the pt drink ETOH?: No Does the pt have substance abuse?: No - Immunizations Immunizations are current?: Yes - POLST Patient has POLST: No PD ED PE NORMAL - Vitals Vital signs reviewed: Yes - General General: Alert and oriented X 3, No acute distress, Well developed/nourished - Derm Derm: Normal color, Warm and dry, No rash - Extremities Extremities: Normal ROM s pain PD ED PE EXPANDED - Extremities Extremities: Other (mild proximal-mid right lower leg edema with mild TTP) Results - Vitals Vitals: Vital Signs - 24 hr 12/22/18 12/22/18 19:18 20:38 Temperature 36.6 C Heart Rate 98 Respiratory 16 16 Rate Blood Pressure 139/82 H O2 Saturation 100 Oxygen O2 Source Room air - Rads (name of study) RLE US Radiology: Prelim report reviewed, See rad report PD MEDICAL DECISION MAKING - ED course Complexity details: reviewed results, re-evaluated patient, considered differential, d/w patient Departure - Departure Disposition: 01 Home, Self Care Clinical Impression: Peripheral edema Condition: Good Instructions: ED Leg Swelling Unilateral Follow-Up: Wale Morales PA-C [Primary Care Provider] - Discharge Date/Time: 12/22/18 22:08
--- NOTE | 2018-12-22 21:47 | Ultrasound Report ---
Reason: atraumatic swelling, pain Procedure Date: 12/22/2018 Accession Number: [id number] / [id number] Procedure: US - Duplex Ext Veins Right CPT Code: FULL RESULT: EXAM: RIGHT LOWER EXTREMITY VENOUS ULTRASOUND EXAM DATE: 12/22/2018 08:52 PM. CLINICAL HISTORY: Atraumatic swelling, pain. COMPARISON: None. TECHNIQUE: Real-time sonographic vascular imaging was performed by the clinical dental technician through the lower extremity utilizing both color-flow and Doppler spectral analysis. Multiple apprenticeship representative static images were saved for review. FINDINGS: Common Femoral Vein (CFV): No evidence of thrombus. CFV-GSV Junction: No evidence of thrombus. Profunda Femoral Vein (PFV): No evidence of thrombus. Femoral Vein (FV) Prox: No evidence of thrombus. Femoral Vein (FV) Mid: No evidence of thrombus. Femoral Vein (FV) Dist: No evidence of thrombus. Popliteal Vein: No evidence of thrombus. Calf veins: Suboptimally visualized due to body habitus. Other: None. IMPRESSION: No evidence for deep venous thrombosis. RADIA
== END 2018-12-22 22:08 | disposition home or self-care (01) ==
LOC: EDBD → EDUNIT# → ED 19:16
DX: R60.0 Localized edema (principal); M79.661 Pain in right lower leg; E11.9 Type 2 diabetes mellitus without complications; Z79.84 Long term (current) use of oral hypoglycemic drugs
CPT/HCPCS: 99282; 99283

== ENCOUNTER 2018-12-29 14:33 | Emergency (ER) | payer MEDICARE, OTHER, MEDICAID ==
[2018-12-29 14:40] VITALS: BP 133/71
--- NOTE | 2018-12-29 15:48 | ED Physician Documentation ---
PD HPI UPPER EXT INJURY - Stated complaint Stated Complaint: RIGHT ARM PX - Chief complaint Chief Complaint: Ext Problem - History obtained from History obtained from: Patient - History of Present Illness Location: Right, Forearm, Wrist Type of injury: Fall Where injury occurred: Home Timing - onset: Yesterday Timing - details: Abrupt onset Pain level max: 4 Pain level now: 1 Improved by: Rest Worsened by: Moving, Palpating Associated symptoms: No: Weakness, Numbness, Tingling - Additonal information Additional information: 58-year-old female states she fell yesterday. States she is having right arm pain today. 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 HEENT: Chronic vision loss Psych: None, Other Musculoskeletal: None Derm: None - Past Surgical History Past Surgical History: Yes /WOOD TILE INSTALLER: Dilation and currettage, Other HEENT: Myringotomy (tubes) - Present Medications Home Medications: Ambulatory Orders Medication Instructions Recorded Confirmed Cholecalciferol (Vitamin D3) 2,000 unit PO DAILY 01/01/13 10/11/18 [Vitamin D] Ferrous Gluconate [Iron] 324 mg PO DAILY 01/01/13 12/29/18 Lisinopril 20 mg PO DAILY 01/01/13 12/29/18 Metformin HCl 850 mg PO BID 01/01/13 12/29/18 Multivitamin [Multivitamins] 1 each PO DAILY 01/01/13 12/29/18 Lansoprazole [Prevacid] 30 mg PO DAILY 02/18/15 12/29/18 Magnesium Chloride [Mag Delay] 64 mg PO DAILY 12/12/16 12/29/18 Indomethacin [Indocin] 25 mg PO BIDWM #10 capsule 09/26/18 12/29/18 Ibuprofen [Motrin] 800 mg PO Q8H PRN #20 tablet 10/29/18 12/29/18 - Allergies Allergies/Adverse Reactions: Allergies Allergy/AdvReac Type Severity Reaction Status Date / Time Penicillins Allergy Unknown Rash Verified 12/29/18 14:38 sulfamethoxazole Allergy Unknown Rash Verified 12/29/18 14:38 [From ] trimethoprim [From ] Allergy Unknown Rash Verified 12/29/18 14:38 amoxicillin [Amoxicillin] Allergy hives/itchi Verified 12/29/18 14:38 ng - Social History Does the pt smoke?: No Smoking Status: Never smoker Does the pt drink ETOH?: No Does the pt have substance abuse?: No - Immunizations Immunizations are current?: Yes - POLST Patient has POLST: No PD ED PE NORMAL - Vitals Vital signs reviewed: Yes - General General: Alert and oriented X 3, No acute distress - Derm Derm: Warm and dry - Extremities Extremities: Other (Right upper extremity - Normal examination of the hand, wrist forearm and upper arm. No tenderness. No deformity. Full range of motion without pain. Neurovascular intact. No snuffbox tenderness.) - Neuro Neuro: Alert and oriented X 3 Results - Vitals Vitals: Vital Signs - 24 hr 12/29/18 14:34 Temperature 36.0 C L Heart Rate 87 Respiratory 20 Rate Blood Pressure 133/71 H O2 Saturation 97 Oxygen O2 Source Room air PD MEDICAL DECISION MAKING - ED course Complexity details: considered differential, d/w patient ED course: Normal examination of the right upper extremity. No indication for imaging at this time. Patient declines any Tylenol here. Patient counseled regarding signs and symptoms for which I believe and urgent re-evaluation would be necessary. Patient with good understanding of and agreement to plan and is comfortable going home at this time This document was made in part using voice recognition software. While efforts are made to proofread this document, sound alike and grammatical errors may occur. Departure - Departure Disposition: 01 Home, Self Care Clinical Impression: Sprain of right wrist Qualifiers: Encounter type: initial encounter Qualified Code(s): S63.501A - Unspecified sprain of right wrist, initial encounter Condition: Good Instructions: ED Sprain Wrist Follow-Up: Wale Morales PA-C [Primary Care Provider] - Within 1 week Comments: Return if you worsen. Follow-up with your doctor for further care. There is no evidence of fracture today. Discharge Date/Time: 12/29/18 15:51
== END 2018-12-29 15:51 | disposition home or self-care (01) ==
LOC: ED 14:33
DX: S63.501A Unspecified sprain of right wrist, initial encounter (principal); W07.XXXA Fall from chair, initial encounter; Y92.009 Unspecified place in unspecified non-institutional (private) residence as the place of occurrence of the external cause; E11.9 Type 2 diabetes mellitus without complications; Z79.84 Long term (current) use of oral hypoglycemic drugs
CPT/HCPCS: 99282

== ENCOUNTER 2018-12-30 14:31 | Emergency (ER) | payer MEDICARE, OTHER, MEDICAID ==
[2018-12-30 14:50] VITALS: BP 138/69
--- NOTE | 2018-12-30 16:07 | ED Physician Documentation ---
PD HPI UPPER EXT INJURY - Stated complaint Stated Complaint: L HAND PX/FALL - Chief complaint Chief Complaint: Trauma Ext - History obtained from History obtained from: Patient - History of Present Illness Location: Left, Finger (thumb) Type of injury: Fall Where injury occurred: Home Timing - onset: Today Timing - duration: Minutes Timing - details: Abrupt onset, Still present Improved by: Rest, Immobilization Associated symptoms: No: Weakness, Numbness, Tingling, Swelling, Discolored Contributing factors: No: Anticoagulated Similar symptoms before: Diagnosis (sprains and contusions) Recently seen: Emergency Dept - Additonal information Additional information: 58-year-old female with some developmental delay is well-known to the emergency department for frequent visits for falls and sprains. Today she was in her apartment and fell injuring her left thumb. She points to the top of her thumb saying she thinks she needs a splint and thinks it is broken. She is moving her thumb quite well. 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 NC: None : None HEENT: Chronic vision loss Psych: None, Other Musculoskeletal: None Derm: None - Past Surgical History Past Surgical History: Yes /MANAGER NC: Dilation and currettage, Other HEENT: Myringotomy (tubes) - Present Medications Home Medications: Ambulatory Orders Medication Instructions Recorded Confirmed Cholecalciferol (Vitamin D3) 2,000 unit PO DAILY 01/01/13 10/11/18 [Vitamin D] Ferrous Gluconate [Iron] 324 mg PO DAILY 01/01/13 12/29/18 Lisinopril 20 mg PO DAILY 01/01/13 12/29/18 Metformin HCl 850 mg PO BID 01/01/13 12/29/18 Multivitamin [Multivitamins] 1 each PO DAILY 01/01/13 12/29/18 Lansoprazole [Prevacid] 30 mg PO DAILY 02/18/15 12/29/18 Magnesium Chloride [Mag Delay] 64 mg PO DAILY 12/12/16 12/29/18 Indomethacin [Indocin] 25 mg PO BIDWM #10 capsule 09/26/18 12/29/18 Ibuprofen [Motrin] 800 mg PO Q8H PRN #20 tablet 10/29/18 12/29/18 - Allergies Allergies/Adverse Reactions: Allergies Allergy/AdvReac Type Severity Reaction Status Date / Time Penicillins Allergy Unknown Rash Verified 12/29/18 14:38 sulfamethoxazole Allergy Unknown Rash Verified 12/29/18 14:38 [From ] trimethoprim [From ] Allergy Unknown Rash Verified 12/29/18 14:38 amoxicillin [Amoxicillin] Allergy hives/itchi Verified 12/29/18 14:38 ng - Social History Does the pt smoke?: No Smoking Status: Never smoker Does the pt drink ETOH?: No Does the pt have substance abuse?: No - Immunizations Immunizations are current?: Yes - POLST Patient has POLST: No PD ED PE NORMAL - Vitals Vital signs reviewed: Yes (Hypertensive mild) - General General: No acute distress, Well developed/nourished - HEENT HEENT: Atraumatic, PERRL, EOMI - Respiratory Respiratory: No respiratory distress - Derm Derm: Normal color, Warm and dry, No rash - Extremities Extremities: No deformity, No edema, Other (There is no tenderness to the thumb on the left side. The joints are mobile and the distal n/v is intact. There is no crepitance or resistance to movement. ) - Neuro Neuro: No motor deficit, No sensory deficit Eye Opening: Spontaneous Motor: Obeys Commands Verbal: Oriented GCS Score: 15 - Psych Psych: Normal mood, Normal affect Results - Vitals Vitals: Vital Signs - 24 hr 12/30/18 14:47 Temperature 36.7 C Heart Rate 84 Respiratory 16 Rate Blood Pressure 138/69 H O2 Saturation 99 Oxygen O2 Source Room air PD MEDICAL DECISION MAKING - ED course Complexity details: considered differential, d/w patient ED course: 58-year-old female with a relatively minor injury to her left thumb is placed into a thumb spica x-rays are not obtained. Departure - Departure Disposition: 01 Home, Self Care Clinical Impression: Contusion of left thumb Qualifiers: Encounter type: initial encounter Damage to nail status: without damage Qualified Code(s): S60.012A - Contusion of left thumb without damage to nail, initial encounter Condition: Stable Instructions: ED Contusion Finger Follow-Up: Wale Morales PA-C [Primary Care Provider] -
== END 2018-12-30 16:26 | disposition home or self-care (01) ==
LOC: ED 14:31
DX: S60.012A Contusion of left thumb without damage to nail, initial encounter (principal); W18.30XA Fall on same level, unspecified, initial encounter; Y92.039 Unspecified place in apartment as the place of occurrence of the external cause; E11.9 Type 2 diabetes mellitus without complications; Z79.84 Long term (current) use of oral hypoglycemic drugs
CPT/HCPCS: 99282; 99283

== ENCOUNTER 2019-01-11 14:29 | Emergency (ER) | payer MEDICARE, OTHER, MEDICAID ==
--- NOTE | 2019-01-11 15:01 | ED Physician Documentation ---
PD HPI UPPER EXT INJURY - Stated complaint Stated Complaint: LT ELBOW PAIN - Chief complaint Chief Complaint: Trauma Ext - History obtained from History obtained from: Patient - History of Present Illness Location: Left, Elbow Type of injury: Fall Where injury occurred: Home Timing - onset: Today Timing - duration: Days (1) Timing - details: Abrupt onset Pain level max: 5 Pain level now: 0 Improved by: Rest Worsened by: Moving, Palpating Associated symptoms: No: Weakness, Numbness, Tingling, Swelling Contributing factors: No: Anticoagulated Review of Systems Neurologic: denies: Focal weakness, Numbness, Head injury PD PAST MEDICAL HISTORY - Past Medical History Cardiovascular: Other Respiratory: None Neuro: Other Endocrine/Autoimmune: Type 2 diabetes GI: Chronic diarrhea 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 : None HEENT: Chronic vision loss Psych: None, Other Musculoskeletal: None Derm: None - Past Surgical History Past Surgical History: Yes /CORRECTIVE THERAPY AIDE: Dilation and currettage, Other HEENT: Myringotomy (tubes) - Present Medications Home Medications: Ambulatory Orders Medication Instructions Recorded Confirmed Cholecalciferol (Vitamin D3) 2,000 unit PO DAILY 01/01/13 01/11/19 [Vitamin D] Ferrous Gluconate [Iron] 324 mg PO DAILY 01/01/13 01/11/19 Lisinopril 20 mg PO DAILY 01/01/13 01/11/19 Metformin HCl 850 mg PO BID 01/01/13 01/11/19 Multivitamin [Multivitamins] 1 each PO DAILY 01/01/13 01/11/19 Lansoprazole [Prevacid] 30 mg PO DAILY 02/18/15 01/11/19 Magnesium Chloride [Mag Delay] 64 mg PO DAILY 12/12/16 01/11/19 Indomethacin [Indocin] 25 mg PO BIDWM #10 capsule 09/26/18 01/11/19 Ibuprofen [Motrin] 800 mg PO Q8H PRN #20 tablet 10/29/18 01/11/19 - Allergies Allergies/Adverse Reactions: Allergies Allergy/AdvReac Type Severity Reaction Status Date / Time Penicillins Allergy Unknown Rash Verified 01/11/19 14:35 sulfamethoxazole Allergy Unknown Rash Verified 01/11/19 14:35 [From ] trimethoprim [From ] Allergy Unknown Rash Verified 01/11/19 14:35 amoxicillin [Amoxicillin] Allergy hives/itchi Verified 01/11/19 14:35 ng - Social History Does the pt smoke?: No Smoking Status: Never smoker Does the pt drink ETOH?: No Does the pt have substance abuse?: No - Immunizations Immunizations are current?: Yes - POLST Patient has POLST: No PD ED PE NORMAL - Vitals Vital signs reviewed: Yes - General General: Alert and oriented X 3, No acute distress - Derm Derm: Warm and dry - Extremities Extremities: Other (Normal examination of the left elbow. No swelling. No tenderness. Full range of motion without pain. Pronation and supination of the hand without pain. Neurovascular intact) - Neuro Neuro: Alert and oriented X 3 Results - Vitals Vitals: Vital Signs - 24 hr 01/11/19 01/11/19 14:33 15:37 Temperature 36.0 C L 36.7 C Heart Rate 79 81 Respiratory 14 16 Rate Blood Pressure 132/68 H 116/58 L O2 Saturation 98 99 Oxygen O2 Source Room air PD MEDICAL DECISION MAKING - ED course Complexity details: considered differential, d/w patient ED course: 58-year-old female with likely left elbow contusion after a fall. No evidence of fracture. Full range of motion without pain. She does request an Jonh wrap, this was applied lightly. She is to remove this tomorrow. Patient counseled regarding signs and symptoms for which I believe and urgent re-evaluation would be necessary. Patient with good understanding of and agreement to plan and is comfortable going home at this time This document was made in part using voice recognition software. While efforts are made to proofread this document, sound alike and grammatical errors may occur. Departure - Departure Disposition: 01 Home, Self Care Clinical Impression: Contusion of left elbow Qualifiers: Encounter type: initial encounter Qualified Code(s): S50.02XA - Contusion of left elbow, initial encounter Condition: Good Instructions: ED Contusion Soft Tissue Follow-Up: Wale Morales PA-C [Primary Care Provider] - Within 1 week Comments: Take the Jonh bandage off tomorrow. Return if you worsen. Follow-up with your doctor for further care. Discharge Date/Time: 01/11/19 15:43
[2019-01-11 15:42] VITALS: BP 116/58
== END 2019-01-11 15:43 | disposition home or self-care (01) ==
LOC: ED 14:29
DX: S50.02XA Contusion of left elbow, initial encounter (principal); W19.XXXA Unspecified fall, initial encounter; Y92.009 Unspecified place in unspecified non-institutional (private) residence as the place of occurrence of the external cause; E11.9 Type 2 diabetes mellitus without complications; Z79.84 Long term (current) use of oral hypoglycemic drugs
CPT/HCPCS: 99282; 99283

== ENCOUNTER 2019-01-12 19:15 | Outpatient (CLI) | payer MEDICARE, OTHER, MEDICAID | END 2019-01-12 19:16 | disposition critical access hospital (66) | LOC: EMS 19:15 | PROVIDERS: ATTEND Surgery | DX: S89.91XA Unspecified injury of right lower leg, initial encounter (principal); W01.0XXA Fall on same level from slipping, tripping and stumbling without subsequent striking against object, initial encounter | CPT/HCPCS: A0425; A0429 ==

== ENCOUNTER 2019-01-12 19:34 | Emergency (ER) | payer MEDICARE, OTHER, MEDICAID ==
[2019-01-12] MEDS ORDERED: ACETAMINOPHEN 325 MG TABLET PO STA (19:40)
[2019-01-12 19:41] VITALS: BP 144/62
--- NOTE | 2019-01-12 19:45 | ED Physician Documentation ---
PD HPI LOWER EXT INJURY - Stated complaint Stated Complaint: GLF/LEG PAIN - Chief complaint Chief Complaint: Ext Problem - History obtained from History obtained from: Patient - History of Present Illness PD HPI LOW EXT INJURY LOCATION: Right, Other (maxwell) Type of injury: Fall Where injury occurred: Other ([employer] 6 hours ago) Timing - onset: How many hours ago (6) Timing - duration: Hours (6) Timing - details: Gradual onset Pain level max: 5 Pain level now: 3 Improved by: Rest, Ice, Immobilization Worsened by: Moving, Palpating Associated symptoms: Swelling, Discolored (bruising). 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 & CEO: Dilation and currettage, Other HEENT: Myringotomy (tubes) - Present Medications Home Medications: Ambulatory Orders Medication Instructions Recorded Confirmed Cholecalciferol (Vitamin D3) 2,000 unit PO DAILY 01/01/13 01/11/19 [Vitamin D] Ferrous Gluconate [Iron] 324 mg PO DAILY 01/01/13 01/11/19 Lisinopril 20 mg PO DAILY 01/01/13 01/11/19 Metformin HCl 850 mg PO BID 01/01/13 01/11/19 Multivitamin [Multivitamins] 1 each PO DAILY 01/01/13 01/11/19 Lansoprazole [Prevacid] 30 mg PO DAILY 02/18/15 01/11/19 Magnesium Chloride [Mag Delay] 64 mg PO DAILY 12/12/16 01/11/19 Indomethacin [Indocin] 25 mg PO BIDWM #10 capsule 09/26/18 01/11/19 Ibuprofen [Motrin] 800 mg PO Q8H PRN #20 tablet 10/29/18 01/11/19 - Allergies Allergies/Adverse Reactions: Allergies Allergy/AdvReac Type Severity Reaction Status Date / Time Penicillins Allergy Unknown Rash Verified 01/12/19 19:40 sulfamethoxazole Allergy Unknown Rash Verified 01/12/19 19:40 [From ] trimethoprim [From Septra] Allergy Unknown Rash Verified 01/12/19 19:40 amoxicillin [Amoxicillin] Allergy hives/itchi Verified 01/12/19 19:40 ng - Social History Does the pt smoke?: No Smoking Status: Never smoker Does the pt drink ETOH?: No Does the pt have substance abuse?: No - Immunizations Immunizations are current?: Yes - POLST Patient has POLST: No PD ED PE NORMAL - Vitals Vital signs reviewed: Yes - General General: Alert and oriented X 3, No acute distress - HEENT HEENT: Moist mucous membranes - Derm Derm: Warm and dry - Extremities Extremities: Other (Mild bruising and swelling to the anterior maxwell, right lower extremity. No bony tenderness. Ambulating with a normal gait) - Neuro Neuro: Alert and oriented X 3 Results - Vitals Vitals: Vital Signs - 24 hr 01/12/19 19:35 Temperature 36.4 C L Heart Rate 62 Respiratory 17 Rate Blood Pressure 144/62 H O2 Saturation 100 Oxygen O2 Source Room air PD MEDICAL DECISION MAKING - ED course Complexity details: considered differential, d/w patient ED course: Patient with a right maxwell contusion. No evidence of fracture. Ambulating without difficulty. Given Tylenol. Patient counseled regarding signs and symptoms for which I believe and urgent re-evaluation would be necessary. Patient with good understanding of and agreement to plan and is comfortable going home at this time This document was made in part using voice recognition software. While efforts are made to proofread this document, sound alike and grammatical errors may occur. Departure - Departure Disposition: 01 Home, Self Care Clinical Impression: Contusion of right leg Qualifiers: Encounter type: initial encounter Qualified Code(s): S80.11XA - Contusion of right lower leg, initial encounter Condition: Good Instructions: ED Contusion Lower Ext Follow-Up: Wale Morales PA-C [Primary Care Provider] - Within 1 week Comments: You can use Motrin or Tylenol as needed for pain. Return if you worsen. Follow-up with your doctor for further care Discharge Date/Time: 01/12/19 19:48
== END 2019-01-12 19:48 | disposition home or self-care (01) ==
LOC: EDUNIT# → ED 19:34
DX: S80.11XA Contusion of right lower leg, initial encounter (principal); E11.9 Type 2 diabetes mellitus without complications; Z79.84 Long term (current) use of oral hypoglycemic drugs; W01.0XXA Fall on same level from slipping, tripping and stumbling without subsequent striking against object, initial encounter; Y92.89 Other specified places as the place of occurrence of the external cause
CPT/HCPCS: 99282; 99283; A9270

== ENCOUNTER 2019-01-14 13:01 | Emergency (ER) | payer MEDICARE, OTHER, MEDICAID ==
[2019-01-14 13:11] VITALS: BP 106/76
--- NOTE | 2019-01-14 13:29 | ED Physician Documentation ---
PD HPI LOWER EXT INJURY - Stated complaint Stated Complaint: RT LEG PAIN - Chief complaint Chief Complaint: Ext Problem - History obtained from History obtained from: Patient - History of Present Illness PD HPI LOW EXT INJURY LOCATION: Left, Ankle Type of injury: Twist Where injury occurred: Home Timing - onset: Today Timing - duration: Days (1) Timing - details: Gradual onset Pain level max: 8 Pain level now: 3 Improved by: Rest, Ice, Immobilization Worsened by: Moving, Palpating Associated symptoms: No: Weakness, Numbness, Tingling, Swelling Similar symptoms before: Diagnosis (ankle sprain) Recently seen: Not recently seen Review of Systems Neurologic: denies: Focal weakness, Numbness, Headache, LOC PD PAST MEDICAL HISTORY - Past Medical History Cardiovascular: Other Respiratory: None Neuro: Other Endocrine/Autoimmune: Type 2 diabetes GI: Chronic diarrhea 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 HEENT: Chronic vision loss Psych: None, Other Musculoskeletal: None Derm: None - Past Surgical History Past Surgical History: Yes /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: Dilation and currettage, Other HEENT: Myringotomy (tubes) - Present Medications Home Medications: Ambulatory Orders Medication Instructions Recorded Confirmed Cholecalciferol (Vitamin D3) 2,000 unit PO DAILY 01/01/13 01/14/19 [Vitamin D] Ferrous Gluconate [Iron] 324 mg PO DAILY 01/01/13 01/14/19 Lisinopril 20 mg PO DAILY 01/01/13 01/14/19 Metformin HCl 850 mg PO BID 01/01/13 01/14/19 Multivitamin [Multivitamins] 1 each PO DAILY 01/01/13 01/14/19 Lansoprazole [Prevacid] 30 mg PO DAILY 02/18/15 01/14/19 Magnesium Chloride [Mag Delay] 64 mg PO DAILY 12/12/16 01/14/19 Ibuprofen [Motrin] 800 mg PO Q8H PRN #20 tablet 10/29/18 01/14/19 - Allergies Allergies/Adverse Reactions: Allergies Allergy/AdvReac Type Severity Reaction Status Date / Time Penicillins Allergy Unknown Rash Verified 01/14/19 13:09 sulfamethoxazole Allergy Unknown Rash Verified 01/14/19 13:09 [From ] trimethoprim [From ] Allergy Unknown Rash Verified 01/14/19 13:09 amoxicillin [Amoxicillin] Allergy hives/itchi Verified 01/14/19 13:09 ng - Social History Does the pt smoke?: No Smoking Status: Never smoker Does the pt drink ETOH?: No Does the pt have substance abuse?: No - Immunizations Immunizations are current?: Yes - POLST Patient has POLST: No PD ED PE NORMAL - Vitals Vital signs reviewed: Yes (T 36.7) - General General: Alert and oriented X 3, No acute distress - Neck Neck: Supple, no meningeal sign - Extremities Extremities: Other (L ankle - no swelling, no tenderness. NVI.) - Neuro Neuro: Alert and oriented X 3 Results - Vitals Vitals: Vital Signs - 24 hr 01/14/19 13:07 Heart Rate 80 Respiratory 18 Rate Blood Pressure 106/76 O2 Saturation 98 Oxygen O2 Source Room air PD MEDICAL DECISION MAKING - ED course Complexity details: considered differential, d/w patient ED course: 58-year-old female with what appears to be a left ankle sprain. No indication for x-ray. Ambulating without difficulty. Given a cane as she has frequent falls. Also placed in an air splint for comfort. Patient counseled regarding signs and symptoms for which I believe and urgent re-evaluation would be necessary. Patient with good understanding of and agreement to plan and is comfortable going home at this time This document was made in part using voice recognition software. While efforts are made to proofread this document, sound alike and grammatical errors may occur. Departure - Departure Disposition: 01 Home, Self Care Clinical Impression: Left ankle sprain Qualifiers: Encounter type: initial encounter Involved ligament of ankle: unspecified ligament Qualified Code(s): S93.402A - Sprain of unspecified ligament of left ankle, initial encounter Condition: Good Instructions: ED Sprain Ankle Follow-Up: Venus Kirkland DNP [Primary Care Provider] - Within 1 week Comments: Return if you worsen. Use the brace to help you walk. Use the cane as well. Discharge Date/Time: 01/14/19 13:37
== END 2019-01-14 13:37 | disposition home or self-care (01) ==
LOC: ED 13:01
DX: S93.402A Sprain of unspecified ligament of left ankle, initial encounter (principal); X50.1XXA Overexertion from prolonged static or awkward postures, initial encounter; Y92.009 Unspecified place in unspecified non-institutional (private) residence as the place of occurrence of the external cause; E11.9 Type 2 diabetes mellitus without complications; Z79.84 Long term (current) use of oral hypoglycemic drugs
CPT/HCPCS: 99282; 99283

== ENCOUNTER 2019-01-17 18:28 | Outpatient (CLI) | payer MEDICARE, OTHER, MEDICAID | END 2019-01-17 18:29 | disposition critical access hospital (66) | LOC: EMS 18:28 | PROVIDERS: ATTEND Surgery | DX: M25.561 Pain in right knee (principal); W18.30XA Fall on same level, unspecified, initial encounter ==

== ENCOUNTER 2019-01-17 18:47 | Emergency (ER) | payer MEDICARE, OTHER, MEDICAID ==
--- NOTE | 2019-01-17 19:01 | ED Physician Documentation ---
PD HPI LOWER EXT INJURY - Stated complaint Stated Complaint: GLF - Chief complaint Chief Complaint: Ext Problem - History obtained from History obtained from: Patient, EMS - History of Present Illness PD HPI LOW EXT INJURY LOCATION: Right (Trip and fall onto the right knee with moderate pain. Declines pain medication. No other injuries. 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 HEENT: Chronic vision loss Psych: None, Other Musculoskeletal: None Derm: None - Past Surgical History Past Surgical History: Yes /DECORATIVE ENGRAVER: Dilation and currettage, Other HEENT: Myringotomy (tubes) - Present Medications Home Medications: Ambulatory Orders Medication Instructions Recorded Confirmed Cholecalciferol (Vitamin D3) 2,000 unit PO DAILY 01/01/13 01/14/19 [Vitamin D] Ferrous Gluconate [Iron] 324 mg PO DAILY 01/01/13 01/14/19 Lisinopril 20 mg PO DAILY 01/01/13 01/14/19 Metformin HCl 850 mg PO BID 01/01/13 01/14/19 Multivitamin [Multivitamins] 1 each PO DAILY 01/01/13 01/14/19 Lansoprazole [Prevacid] 30 mg PO DAILY 02/18/15 01/14/19 Magnesium Chloride [Mag Delay] 64 mg PO DAILY 12/12/16 01/14/19 Ibuprofen [Motrin] 800 mg PO Q8H PRN #20 tablet 10/29/18 01/14/19 - Allergies Allergies/Adverse Reactions: Allergies Allergy/AdvReac Type Severity Reaction Status Date / Time Penicillins Allergy Unknown Rash Verified 01/17/19 18:51 sulfamethoxazole Allergy Unknown Rash Verified 01/17/19 18:51 [From ] trimethoprim [From ] Allergy Unknown Rash Verified 01/17/19 18:51 amoxicillin [Amoxicillin] Allergy hives/itchi Verified 01/17/19 18:51 ng - Social History Does the pt smoke?: No Smoking Status: Never smoker Does the pt drink ETOH?: No Does the pt have substance abuse?: No - Immunizations Immunizations are current?: Yes - POLST Patient has POLST: No PD ED PE NORMAL - Vitals Vital signs reviewed: Yes - General General: Alert and oriented X 3, No acute distress - Extremities Extremities: Other (Mild tenderness of the right patella, no effusion or limited range of motion.) - Psych Psych: Normal mood, Normal affect Results - Vitals Vitals: Vital Signs - 24 hr 01/17/19 18:49 Temperature 36.1 C L Heart Rate 103 H Respiratory 16 Rate Blood Pressure 148/79 H O2 Saturation 99 Oxygen O2 Source Room air - Rads (name of study) R knee 4v XR Radiology: EMP read contemporaneously (DJD/OA, no frx) Departure - Departure Disposition: 01 Home, Self Care Clinical Impression: Contusion of right knee, initial encounter Condition: Good Record reviewed to determine appropriate education?: Yes Instructions: ED Contusion Lower Ext
--- NOTE | 2019-01-17 19:51 | XRAY Report ---
Reason: knee inj Procedure Date: 01/17/2019 Accession Number: [id number] / [id number] Procedure: XR - Knee 4 View RT CPT Code: FULL RESULT: EXAM: RIGHT KNEE RADIOGRAPHY EXAM DATE: 01/17/2019 07:38 PM. CLINICAL HISTORY: Knee injury. Knee pain after fall. COMPARISON: KNEE 3 VIEW RT 11/30/2018 11:25 AM. TECHNIQUE: 4 views. FINDINGS: Bones: Normal. No fractures or bone lesions. Joints: Normal patellar alignment. There is moderate tricompartment joint space narrowing with marginal osteophytic spurring. Small suprapatellar effusion. Soft Tissues: Normal. No soft tissue swelling. IMPRESSION: 1. No fracture. 2. Moderate osteoarthritis. 3. Small suprapatellar joint effusion. RADIA
[2019-01-17 20:09] VITALS: BP 140/70
== END 2019-01-17 20:09 | disposition home or self-care (01) ==
LOC: ED 18:47
DX: S80.01XA Contusion of right knee, initial encounter (principal); W01.0XXA Fall on same level from slipping, tripping and stumbling without subsequent striking against object, initial encounter; M17.11 Unilateral primary osteoarthritis, right knee; E11.9 Type 2 diabetes mellitus without complications; Z79.84 Long term (current) use of oral hypoglycemic drugs
CPT/HCPCS: 99282; 99283

== ENCOUNTER 2019-01-29 18:08 | Outpatient (CLI) | payer MEDICARE, OTHER, MEDICAID | END 2019-01-29 18:09 | disposition EMS.NT | LOC: EMS 18:08 | PROVIDERS: ATTEND Surgery | DX: Z03.89 Encounter for observation for other suspected diseases and conditions ruled out (principal) ==

== ENCOUNTER 2019-02-12 15:32 | Emergency (ER) | payer MEDICARE, OTHER, MEDICAID ==
[2019-02-12 15:38] VITALS: BP 147/84
--- NOTE | 2019-02-12 15:46 | ED Physician Documentation ---
History of Present Illness - Stated complaint Stated Complaint: RT ARM PX - Chief complaint Chief Complaint: Trauma Ext - History obtained from History obtained from: Patient - History of Present Illness Timing: Prior to arrival - Additonal information Additional information: Patient is a 58-year-old, right-handed female presenting with right elbow pain after mechanical fall landing on the elbow earlier today. Patient reports that she accidentally tripped and landed on her right elbow. Patient reports discomfort and mild swelling with erythema. Patient also does have scab over the area, but is unsure if it is from today or previously. Patient denies any other injuries, as well as decrease in sensation, strength in the right upper extremity. Patient does have slightly reduced range of motion in extension at right elbow only. No improving or worsening factors noted. 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: Dilation and currettage, Other HEENT: Myringotomy (tubes) - Present Medications Home Medications: Ambulatory Orders Medication Instructions Recorded Confirmed Cholecalciferol (Vitamin D3) 2,000 unit PO DAILY 01/01/13 01/14/19 [Vitamin D] Ferrous Gluconate [Iron] 324 mg PO DAILY 01/01/13 01/14/19 Lisinopril 20 mg PO DAILY 01/01/13 01/14/19 Metformin HCl 850 mg PO BID 01/01/13 01/14/19 Multivitamin [Multivitamins] 1 each PO DAILY 01/01/13 01/14/19 Lansoprazole [Prevacid] 30 mg PO DAILY 02/18/15 01/14/19 Magnesium Chloride [Mag Delay] 64 mg PO DAILY 12/12/16 01/14/19 Ibuprofen [Motrin] 800 mg PO Q8H PRN #20 tablet 10/29/18 01/14/19 - Allergies Allergies/Adverse Reactions: Allergies Allergy/AdvReac Type Severity Reaction Status Date / Time Penicillins Allergy Unknown Rash Verified 02/12/19 15:38 sulfamethoxazole Allergy Unknown Rash Verified 02/12/19 15:38 [From ] trimethoprim [From Septra] Allergy Unknown Rash Verified 02/12/19 15:38 amoxicillin [Amoxicillin] Allergy hives/itchi Verified 02/12/19 15:38 ng - Social History Does the pt smoke?: No Smoking Status: Never smoker Does the pt drink ETOH?: No Does the pt have substance abuse?: No - Immunizations Immunizations are current?: Yes - POLST Patient has POLST: No PD ED PE NORMAL - Vitals Vital signs reviewed: Yes - General General: Alert and oriented X 3, No acute distress, Well developed/nourished - HEENT HEENT: Atraumatic - Cardiac Cardiac: Strong equal pulses (Cap refill brisk) - Respiratory Respiratory: No respiratory distress - Derm Derm: Warm and dry, No rash, Other (Mild swelling, erythema, warmth to right elbow bursa) - Extremities Extremities: No deformity, No tenderness to palpate, Normal ROM s pain (Slightly decreased at full extension of right elbow only.) - Neuro Neuro: Alert and oriented X 3, No motor deficit, No sensory deficit - Psych Psych: Normal mood, Normal affect Results - Vitals Vitals: Vital Signs - 24 hr 02/12/19 15:37 Temperature 37.0 C Heart Rate 71 Respiratory 18 Rate Blood Pressure 147/84 H O2 Saturation 98 Oxygen O2 Source Room air PD MEDICAL DECISION MAKING - ED course Complexity details: considered differential, d/w patient ED course: Patient presenting with likely traumatic bursitis after fall earlier today. Patient does have scraped elbow which could have occurred previously, but she is unsure. Do not find evidence of cellulitis, abscess, lymphangitis. Have lower suspicion for joint infection at this time. Do not feel patient requires arthrocentesis or imaging, particularly as do not feel she is at high risk for dislocation or fracture given lack of bony deformity, bony tenderness, and otherwise near full range of motion except for mild decrease in right elbow extension. Feel that she can be treated supportively with sling and anti- inflammatories. Also discussed strict return precautions and appropriate follow-up. Departure - Departure Disposition: 01 Home, Self Care Clinical Impression: Olecranon bursitis, right elbow Condition: Good Instructions: ED Bursitis Elbow Olecranon Follow-Up: your,doctor [Other] - Within 3 Days Comments: Please use sling as instructed. Remove your arm from the sling and move arm several times daily to avoid stiff arm. Recommend elevation and ice application to help reduce swelling of elbow. May also use ibuprofen, Aleve, or Tylenol to help reduce pain. Please follow-up with primary care physician in next 2 to 3 days. Return to ED immediately if experience new injury, worsening symptoms, or have other concerns.
== END 2019-02-12 16:08 | disposition home or self-care (01) ==
LOC: ED 15:32
DX: M70.21 Olecranon bursitis, right elbow (principal); S50.311A Abrasion of right elbow, initial encounter; W01.0XXA Fall on same level from slipping, tripping and stumbling without subsequent striking against object, initial encounter; E11.9 Type 2 diabetes mellitus without complications; Z79.84 Long term (current) use of oral hypoglycemic drugs
CPT/HCPCS: 99283

== ENCOUNTER 2019-02-14 12:19 | Outpatient (CLI) | payer MEDICARE, OTHER, MEDICAID | END 2019-02-14 12:20 | disposition EMS.NT | LOC: EMS 12:19 | PROVIDERS: ATTEND Surgery | DX: M25.521 Pain in right elbow (principal) ==

== ENCOUNTER 2019-02-15 14:27 | Emergency (ER) | payer MEDICARE, OTHER, MEDICAID ==
--- NOTE | 2019-02-15 15:00 | ED Physician Documentation ---
History of Present Illness - Stated complaint Stated Complaint: R ELBOW PAIN - Chief complaint Chief Complaint: Trauma Ext - History obtained from History obtained from: Patient - Additonal information Additional information: Patient presenting with persistent right elbow pain, swelling, redness over the past several days. Patient was seen here recently and thought to have bursitis and was sent home with instructions for sling, anti-inflammatories, which patient has been noncompliant. Please see recent ED note for further information. Patient denies any new trauma, but complains still of persistent symptoms stated above. Patient denies any particular change in range of motion, strength, or sensation. Patient has no other complaints and is otherwise at her normal state of health. No other improving or worsening factors noted. 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 HEENT: Chronic vision loss Psych: None, Other Musculoskeletal: None Derm: None - Past Surgical History Past Surgical History: Yes /CONTROL ROOM SUPERVISOR: Dilation and currettage, Other HEENT: Myringotomy (tubes) - Present Medications Home Medications: Ambulatory Orders Medication Instructions Recorded Confirmed Cholecalciferol (Vitamin D3) 2,000 unit PO DAILY 01/01/13 01/14/19 [Vitamin D] Ferrous Gluconate [Iron] 324 mg PO DAILY 01/01/13 01/14/19 Lisinopril 20 mg PO DAILY 01/01/13 01/14/19 Metformin HCl 850 mg PO BID 01/01/13 01/14/19 Multivitamin [Multivitamins] 1 each PO DAILY 01/01/13 01/14/19 Lansoprazole [Prevacid] 30 mg PO DAILY 02/18/15 01/14/19 Magnesium Chloride [Mag Delay] 64 mg PO DAILY 12/12/16 01/14/19 Ibuprofen [Motrin] 800 mg PO Q8H PRN #20 tablet 10/29/18 01/14/19 - Allergies Allergies/Adverse Reactions: Allergies Allergy/AdvReac Type Severity Reaction Status Date / Time Penicillins Allergy Unknown Rash Verified 02/15/19 14:51 sulfamethoxazole Allergy Unknown Rash Verified 02/15/19 14:51 [From ] trimethoprim [From ] Allergy Unknown Rash Verified 02/15/19 14:51 amoxicillin [Amoxicillin] Allergy hives/itchi Verified 02/15/19 14:51 ng - Social History Does the pt smoke?: No Smoking Status: Never smoker Does the pt drink ETOH?: No Does the pt have substance abuse?: No - Immunizations Immunizations are current?: Yes - POLST Patient has POLST: No PD ED PE NORMAL - Vitals Vital signs reviewed: Yes - General General: Alert and oriented X 3, No acute distress, Well developed/nourished - HEENT HEENT: Atraumatic, Moist mucous membranes - Respiratory Respiratory: No respiratory distress - Derm Derm: Warm and dry, Other (Mild swelling and erythema to right elbow slightly more extended than when she was evaluated several days ago.No new abrasions, lacerations, or other findings) - Extremities Extremities: No deformity. No: No tenderness to palpate (Tender overlying skin changes to right elbow only. No other bony tenderness or deformities to right upper extremity. No significant change in sensation, range of motion, or strength to right upper extremity.) - Neuro Neuro: No motor deficit, No sensory deficit Results - Vitals Vitals: Vital Signs - 24 hr 02/15/19 14:50 Temperature 36.8 C Heart Rate 94 Respiratory 18 Rate Blood Pressure 121/49 L O2 Saturation 95 Oxygen O2 Source Room air PD MEDICAL DECISION MAKING - ED course Complexity details: considered differential, d/w patient ED course: Patient was seen here several days ago and found to have likely olecranon bursitis of right elbow. Patient was informed on the need to use anti- inflammatories, as well as other supportive cares including use of sling. Patient has been noncompliant with these recommendations and has persistent swelling, redness, and pain. No obvious new injuries or complications except for mild increase and erythema. Do have concern for possible cellulitis component, but feel less likely that joint is infected or requiring aspiration at this time.Patient is extremely well-known to the ED and do have concerns about her noncompliance with recommendations. Therefore, ordered patient ibuprofen, as well as Rocephin in the ED as feel that she will likely not fill or take prescriptions given for home. Otherwise, again emphasized need to use sling, as well as other supportive cares at home. Also discussed return precautions and appropriate follow-up. Departure - Departure Disposition: Home, Self Care Clinical Impression: Bursitis Qualifiers: Bursitis location: elbow Elbow bursitis location: olecranon bursitis Laterality: right Qualified Code(s): M70.21 - Olecranon bursitis, right elbow Condition: Good Instructions: ED Bursitis Follow-Up: your,doctor [Other] - Within 3 Days Comments: Please continue all home medications as previously instructed. Please use ibuprofen/Tylenol consistently to help relieve your swelling, redness, and pain in the elbow. May also apply ice and use sling as instructed. Recommend elevation when possible. Follow-up with primary care physician in next 2 to 3 days and return to ED sooner if you expands worsening symptoms or other concerns.
[2019-02-15] MEDS ORDERED: LIDOCAINE 1% 2 ML VIAL MC ONE (15:15)
[2019-02-15] MEDS ORDERED: cefTRIAXone 1 GM VIAL IM STA (15:15)
[2019-02-15] MEDS ORDERED: IBUPROFEN 800 MG TABLET PO STA (15:15)
[2019-02-15 16:21] VITALS: BP 136/70
== END 2019-02-15 16:10 | disposition home or self-care (01) ==
LOC: ED 14:27
DX: M70.21 Olecranon bursitis, right elbow (principal); S50.311D Abrasion of right elbow, subsequent encounter; X58.XXXD Exposure to other specified factors, subsequent encounter; E11.9 Type 2 diabetes mellitus without complications; H54.7 Unspecified visual loss; Z79.84 Long term (current) use of oral hypoglycemic drugs; Z79.1 Long term (current) use of non-steroidal anti-inflammatories (NSAID)
CPT/HCPCS: 96372; 99283; A9270

== ENCOUNTER 2019-02-21 12:20 | Outpatient (CLI) | payer MEDICARE, OTHER, MEDICAID | END 2019-02-21 12:21 | disposition EMS.NT | LOC: EMS 12:20 | PROVIDERS: ATTEND Surgery | DX: M25.521 Pain in right elbow (principal); W19.XXXA Unspecified fall, initial encounter; Y92.009 Unspecified place in unspecified non-institutional (private) residence as the place of occurrence of the external cause ==

== ENCOUNTER 2019-02-21 17:01 | Emergency (ER) | payer MEDICARE, OTHER, MEDICAID ==
--- NOTE | 2019-02-21 17:12 | ED Physician Documentation ---
PD HPI UPPER EXT INJURY - Stated complaint Stated Complaint: GLF/R ELBOW PX - Chief complaint Chief Complaint: Ext Problem - History obtained from History obtained from: Patient - History of Present Illness Location: Right, Elbow Type of injury: Fall (tripped) Where injury occurred: Home Timing - onset: Today (this morning) Timing - details: Abrupt onset, Still present Worsened by: Moving, Palpating Associated symptoms: Swelling. 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 HEENT: Chronic vision loss Psych: None, Other Musculoskeletal: None Derm: None - Past Surgical History Past Surgical History: Yes /STOREHOUSE CLERK: Dilation and currettage, Other HEENT: Myringotomy (tubes) - Present Medications Home Medications: Ambulatory Orders Medication Instructions Recorded Confirmed Cholecalciferol (Vitamin D3) 2,000 unit PO DAILY 01/01/13 01/14/19 [Vitamin D] Ferrous Gluconate [Iron] 324 mg PO DAILY 01/01/13 01/14/19 Lisinopril 20 mg PO DAILY 01/01/13 01/14/19 Metformin HCl 850 mg PO BID 01/01/13 01/14/19 Multivitamin [Multivitamins] 1 each PO DAILY 01/01/13 01/14/19 Lansoprazole [Prevacid] 30 mg PO DAILY 02/18/15 01/14/19 Magnesium Chloride [Mag Delay] 64 mg PO DAILY 12/12/16 01/14/19 Ibuprofen [Motrin] 800 mg PO Q8H PRN #20 tablet 10/29/18 01/14/19 - Allergies Allergies/Adverse Reactions: Allergies Allergy/AdvReac Type Severity Reaction Status Date / Time Penicillins Allergy Unknown Rash Verified 02/21/19 17:07 sulfamethoxazole Allergy Unknown Rash Verified 02/21/19 17:07 [From ] trimethoprim [From ] Allergy Unknown Rash Verified 02/21/19 17:07 amoxicillin [Amoxicillin] Allergy hives/itchi Verified 02/21/19 17:07 ng - Social History Does the pt smoke?: No Smoking Status: Never smoker Does the pt drink ETOH?: No Does the pt have substance abuse?: No - Immunizations Immunizations are current?: Yes - POLST Patient has POLST: No PD ED PE NORMAL - Vitals Vital signs reviewed: Yes - General General: Alert and oriented X 3, No acute distress, Well developed/nourished - Derm Derm: Normal color, Warm and dry - Extremities Extremities: Other (right elbow with some lateral tenderness and posterior. No gross deformity. No effusion. ROM limited due to discomfort. Not tender at radial head. ) - Neuro Neuro: No motor deficit, No sensory deficit Results - Vitals Vitals: Vital Signs - 24 hr 02/21/19 02/21/19 17:04 17:43 Temperature 36.6 C Heart Rate 100 92 Respiratory 14 13 Rate Blood Pressure 136/67 H 137/75 H O2 Saturation 99 100 Oxygen O2 Source Room air PD MEDICAL DECISION MAKING - ED course Complexity details: considered differential (shared decision to not get xray. Will recheck if not better few days. I do not have suspicion for articular fracture.), d/w patient Departure - Departure Disposition: 01 Home, Self Care Clinical Impression: Fall from slip, trip, or stumble Qualifiers: Encounter type: initial encounter Qualified Code(s): W01.0XXA - Fall on same level from slipping, tripping and stumbling without subsequent striking against object, initial encounter Elbow contusion Qualifiers: Encounter type: initial encounter Laterality: right Qualified Code(s): S50.01XA - Contusion of right elbow, initial encounter Condition: Stable Record reviewed to determine appropriate education?: Yes Instructions: ED Contusion Elbow Comments: Use some Tylenol or ibuprofen or naproxen at home. Use the wrap or Jonh wrap for the elbow to reduce swelling. Sling as needed for discomfort. Recheck if not improved range of motion over the next few days. Discharge Date/Time: 02/21/19 17:43
[2019-02-21 17:45] VITALS: BP 137/75
== END 2019-02-21 17:43 | disposition home or self-care (01) ==
LOC: ED 17:01
DX: S50.01XA Contusion of right elbow, initial encounter (principal); W01.0XXA Fall on same level from slipping, tripping and stumbling without subsequent striking against object, initial encounter; E11.9 Type 2 diabetes mellitus without complications; Z79.84 Long term (current) use of oral hypoglycemic drugs
CPT/HCPCS: 99282; 99283

== ENCOUNTER 2019-02-25 13:03 | Emergency (ER) | payer MEDICARE, OTHER, MEDICAID ==
[2019-02-25 13:29] VITALS: BP 129/80
--- NOTE | 2019-02-25 15:36 | ED Physician Documentation ---
History of Present Illness - Stated complaint Stated Complaint: R ELBOW INJ - Chief complaint Chief Complaint: Heent - History obtained from History obtained from: Patient - Additonal information Additional information: Patient is a right-handed 58-year-old female extremely well-known to the ED presenting with persistent right elbow complaints. Patient has been seen many times for this issue in the past several weeks and determined to have likely mild bursitis. Patient reports improving pain, decreased swelling, decreased redness, and now has full range of motion. Patient denies any strength or sensation changes to this arm. Patient reports that she has been following all instructions compliantly. No other improving or worsening factors noted. 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 HEENT: Chronic vision loss Psych: None, Other Musculoskeletal: None Derm: None - Past Surgical History Past Surgical History: Yes /METROLOGY MANAGER: Dilation and currettage, Other HEENT: Myringotomy (tubes) - Present Medications Home Medications: Ambulatory Orders Medication Instructions Recorded Confirmed Cholecalciferol (Vitamin D3) 2,000 unit PO DAILY 01/01/13 01/14/19 [Vitamin D] Ferrous Gluconate [Iron] 324 mg PO DAILY 01/01/13 01/14/19 Lisinopril 20 mg PO DAILY 01/01/13 01/14/19 Metformin HCl 850 mg PO BID 01/01/13 01/14/19 Multivitamin [Multivitamins] 1 each PO DAILY 01/01/13 01/14/19 Lansoprazole [Prevacid] 30 mg PO DAILY 02/18/15 01/14/19 Magnesium Chloride [Mag Delay] 64 mg PO DAILY 12/12/16 01/14/19 Ibuprofen [Motrin] 800 mg PO Q8H PRN #20 tablet 10/29/18 01/14/19 - Allergies Allergies/Adverse Reactions: Allergies Allergy/AdvReac Type Severity Reaction Status Date / Time Penicillins Allergy Unknown Rash Verified 02/21/19 17:07 sulfamethoxazole Allergy Unknown Rash Verified 02/21/19 17:07 [From ] trimethoprim [From ] Allergy Unknown Rash Verified 06/24/19 17:07 amoxicillin [Amoxicillin] Allergy hives/itchi Verified 02/21/19 17:07 ng - Social History Does the pt smoke?: No Smoking Status: Never smoker Does the pt drink ETOH?: No Does the pt have substance abuse?: No - Immunizations Immunizations are current?: Yes - POLST Patient has POLST: No PD ED PE NORMAL - Vitals Vital signs reviewed: Yes - General General: Alert and oriented X 3, No acute distress, Well developed/nourished - HEENT HEENT: Atraumatic, Moist mucous membranes - Cardiac Cardiac: Strong equal pulses (Cap refill brisk) - Respiratory Respiratory: No respiratory distress - Derm Derm: Warm and dry, No rash, Other (Mild appreciable erythema to right elbow) - Extremities Extremities: No deformity, No tenderness to palpate, Other (Full range of motion of all joints of right upper extremity including elbow) - Neuro Neuro: Alert and oriented X 3, No motor deficit, No sensory deficit - Psych Psych: Normal mood, Normal affect Results - Vitals Vitals: Vital Signs - 24 hr 02/25/19 13:26 Temperature 36.6 C Heart Rate 82 Respiratory 16 Rate Blood Pressure 129/80 O2 Saturation 99 Oxygen O2 Source Room air PD MEDICAL DECISION MAKING - ED course Complexity details: considered differential, d/w patient ED course: Patient is extremely well-known to the ED and this physician has seen her multiple times for her right elbow complaints. Today, patient's symptoms are significantly improved. Patient has full range of motion right upper extremity, including at elbow. Do not find evidence of persistent bursitis except for mild erythema to right elbow. Do not see evidence of cellulitis, abscess, joint abscess, lymphangitis. Patient denies any particular trauma and have low suspicion for bony abnormalities including dislocation or fracture. No neurological compromise or vascular compromise to the right arm. Advised her to continue supportive cares, as well as discussed return precautions and follow- up. Patient voiced understanding and is comfortable with discharge plan. Departure - Departure Disposition: 01 Home, Self Care Clinical Impression: Elbow pain, right Condition: Good Instructions: ED Contusion Upper Ext Follow-Up: your,doctor [Other] - Within 3 Days Comments: Please continue all home medications as previously instructed. Recommend supportive cares including elevation, ice application, and ibuprofen/Tylenol as needed. Please follow-up with primary care physician and return to ED sooner if experience new injury, worsening symptoms, or have other concerns.
== END 2019-02-25 15:52 | disposition home or self-care (01) ==
LOC: ED 13:03
DX: M25.521 Pain in right elbow (principal); E11.9 Type 2 diabetes mellitus without complications; Z79.84 Long term (current) use of oral hypoglycemic drugs
CPT/HCPCS: 99281; 99282

== ENCOUNTER 2019-02-28 15:33 | Emergency (ER) | payer MEDICARE, OTHER, MEDICAID ==
[2019-02-28 15:48] VITALS: BP 147/80
--- NOTE | 2019-02-28 17:03 | ED Physician Documentation ---
PD HPI UPPER EXT INJURY - Stated complaint Stated Complaint: RT ELBOW INJ - Chief complaint Chief Complaint: Ext Problem - History obtained from History obtained from: Patient - History of Present Illness Location: Right, Elbow Type of injury: Fall Where injury occurred: Home Timing - onset: Today Timing - duration: Hours Timing - details: Abrupt onset, Still present Improved by: Rest Worsened by: Moving, Palpating Associated symptoms: Swelling. No: Weakness, Numbness, Tingling Contributing factors: No: Anticoagulated Similar symptoms before: Diagnosis (contusion) Recently seen: Emergency Dept - Additonal information Additional information: 58-year-old female with developmental delay who is well-known to the emergency department has had complaints of right elbow pain for months. She has had some mild bursitis and this has improved today she has bumped it it hurts again and she is here in the emergency department. She is moving it quite well is able to fully flex and extend supinate and pronate does not appear to hurt the patient at all. 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 : None HEENT: Chronic vision loss Psych: None, Other Musculoskeletal: None Derm: None - Past Surgical History Past Surgical History: Yes /CLERICAL MANAGER: Dilation and currettage, Other HEENT: Myringotomy (tubes) - Present Medications Home Medications: Ambulatory Orders Medication Instructions Recorded Confirmed Cholecalciferol (Vitamin D3) 2,000 unit PO DAILY 01/01/13 01/14/19 [Vitamin D] Ferrous Gluconate [Iron] 324 mg PO DAILY 01/01/13 01/14/19 Lisinopril 20 mg PO DAILY 01/01/13 01/14/19 Metformin HCl 850 mg PO BID 01/01/13 01/14/19 Multivitamin [Multivitamins] 1 each PO DAILY 01/01/13 01/14/19 Lansoprazole [Prevacid] 30 mg PO DAILY 02/18/15 01/14/19 Magnesium Chloride [Mag Delay] 64 mg PO DAILY 12/12/16 01/14/19 Ibuprofen [Motrin] 800 mg PO Q8H PRN #20 tablet 10/29/18 01/14/19 - Allergies Allergies/Adverse Reactions: Allergies Allergy/AdvReac Type Severity Reaction Status Date / Time Penicillins Allergy Unknown Rash Verified 02/28/19 15:42 sulfamethoxazole Allergy Unknown Rash Verified 02/28/19 15:42 [From ] trimethoprim [From ] Allergy Unknown Rash Verified 02/28/19 15:42 amoxicillin [Amoxicillin] Allergy hives/itchi Verified 02/28/19 15:42 ng - Social History Does the pt smoke?: No Smoking Status: Never smoker Does the pt drink ETOH?: No Does the pt have substance abuse?: No - Immunizations Immunizations are current?: Yes - POLST Patient has POLST: No PD ED PE NORMAL - Vitals Vital signs reviewed: Yes (hypertensive ) - General General: No acute distress, Well developed/nourished - HEENT HEENT: Atraumatic, PERRL - Respiratory Respiratory: No respiratory distress - Derm Derm: Normal color, Warm and dry, No rash - Extremities Extremities: No deformity, No edema, Other (There is no siginificant tenderness to the olecrenon on the right. There is superficial erythema non-blanching and there is no appreciable swelling or tenderness. There is full ROM to flex/extend and suppinate/pronate. The distal n/v is intact. ) - Neuro Neuro: No motor deficit, No sensory deficit, Normal speech Eye Opening: Spontaneous Motor: Obeys Commands Verbal: Oriented GCS Score: 15 - Psych Psych: Normal mood, Normal affect Results - Vitals Vitals: Vital Signs - 24 hr 02/28/19 15:41 Temperature 36.7 C Heart Rate 94 Respiratory 18 Rate Blood Pressure 147/80 H O2 Saturation 99 Oxygen O2 Source Room air Procedures - Bedside sono Bedside sono by EMP: With use of bedside ultrasound the olecranon processes examined there does not appear to be any evidence of acute fracture. PD MEDICAL DECISION MAKING - ED course Complexity details: considered differential, d/w patient ED course: 58-year-old female well-known to the emergency department with complaints of right elbow pain has excellent range of motion does not appear to be tender and I am uncertain exactly why this patient is here today except that she may have bumped her elbow that was already having a problem. We did not do x-ray today we did administer an Jonh wrap. Departure - Departure Disposition: 01 Home, Self Care Clinical Impression: Contusion of right elbow Qualifiers: Encounter type: subsequent encounter Qualified Code(s): S50.01XD - Contusion of right elbow, subsequent encounter Condition: Stable Instructions: ED Contusion Elbow Follow-Up: Dipti Porras ARNP [Primary Care Provider] -
== END 2019-02-28 17:13 | disposition home or self-care (01) ==
LOC: ED 15:33
DX: S50.01XA Contusion of right elbow, initial encounter (principal); X58.XXXA Exposure to other specified factors, initial encounter; E11.9 Type 2 diabetes mellitus without complications; Z79.84 Long term (current) use of oral hypoglycemic drugs
CPT/HCPCS: 99282; 99283

== ENCOUNTER 2019-03-14 14:01 | Emergency (ER) | payer MEDICARE, OTHER, MEDICAID ==
[2019-03-14 14:10] VITALS: BP 144/74
--- NOTE | 2019-03-14 16:04 | ED Physician Documentation ---
PD HPI UPPER EXT INJURY - Stated complaint Stated Complaint: RT ARM PX - Chief complaint Chief Complaint: Ext Problem - History obtained from History obtained from: Patient - History of Present Illness Location: Right, Elbow Type of injury: Fall Where injury occurred: Home Timing - onset: Today Timing - duration: Minutes Timing - details: Abrupt onset, Still present Improved by: Rest, Immobilization Worsened by: Moving, Palpating Associated symptoms: No: Weakness, Numbness, Tingling, Swelling Contributing factors: No: Anticoagulated Similar symptoms before: Diagnosis (elbow sprain) Recently seen: Emergency Dept - Additonal information Additional information: This 58-year-old developmentally delayed female has had 4 visits to the emergency department in the month of January for right elbow pain. She did not have a fracture she was diagnosed as a bursitis and she improved to full range of motion. She is fallen again today and complains of pain in the arm and she really feels like a splint would help with this. 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 HEENT: Chronic vision loss Psych: None, Other Musculoskeletal: None Derm: None - Past Surgical History Past Surgical History: Yes /DUST CONTROL ENGINEER: Dilation and currettage, Other HEENT: Myringotomy (tubes) - Present Medications Home Medications: Ambulatory Orders Medication Instructions Recorded Confirmed Cholecalciferol (Vitamin D3) 2,000 unit PO DAILY 01/01/13 01/14/19 [Vitamin D] Ferrous Gluconate [Iron] 324 mg PO DAILY 01/01/13 01/14/19 Lisinopril 20 mg PO DAILY 01/01/13 01/14/19 Metformin HCl 850 mg PO BID 01/01/13 01/14/19 Multivitamin [Multivitamins] 1 each PO DAILY 01/01/13 01/14/19 Lansoprazole [Prevacid] 30 mg PO DAILY 02/18/15 01/14/19 Magnesium Chloride [Mag Delay] 64 mg PO DAILY 12/12/16 01/14/19 Ibuprofen [Motrin] 800 mg PO Q8H PRN #20 tablet 10/29/18 01/14/19 - Allergies Allergies/Adverse Reactions: Allergies Allergy/AdvReac Type Severity Reaction Status Date / Time Penicillins Allergy Unknown Rash Verified 03/14/19 14:10 sulfamethoxazole Allergy Unknown Rash Verified 03/14/19 14:10 [From ] trimethoprim [From ] Allergy Unknown Rash Verified 03/14/19 14:10 amoxicillin [Amoxicillin] Allergy hives/itchi Verified 03/14/19 14:10 ng - Social History Does the pt smoke?: No Smoking Status: Never smoker Does the pt drink ETOH?: No Does the pt have substance abuse?: No - Immunizations Immunizations are current?: Yes - POLST Patient has POLST: No PD ED PE NORMAL - Vitals Vital signs reviewed: Yes (tachy and hyperensive mild ) - General General: No acute distress, Well developed/nourished - HEENT HEENT: Atraumatic, PERRL, EOMI - Respiratory Respiratory: No respiratory distress - Derm Derm: Normal color, Warm and dry, No rash - Extremities Extremities: No deformity, No tenderness to palpate, Normal ROM s pain, No edema, Other (The right elbow is without obvious injury. There is no swelling or abrasion and the distal n/v is intact. There is subjective tenderness to the proximal ulna and olecrenon process. There is no pain to palpation over the radial head ) - Neuro Neuro: print color matcher 2-12 intact, No motor deficit, No sensory deficit, Normal speech Eye Opening: Spontaneous Motor: Obeys Commands Verbal: Oriented GCS Score: 15 - Psych Psych: Normal mood, Normal affect Results - Vitals Vitals: Vital Signs - 24 hr 03/14/19 14:07 Temperature 35.9 C L Heart Rate 103 H Respiratory 16 Rate Blood Pressure 144/74 H O2 Saturation 98 Oxygen O2 Source Room air PD MEDICAL DECISION MAKING - ED course Complexity details: reviewed old records, reviewed results, re-evaluated patient, considered differential, d/w patient ED course: 58-year-old female with her fifth visit to the emergency department in the past month for right elbow pain. She is asking for a splint to be placed as she feels that this will help her a lot with her pain. She is not asking for pain medications. She does not require x-ray examination. I have repeatedly asked her what she expects again from the placement of the splint and she really feels that this will help her. After review of her record with attention to the number of visits and no specific treatment we will place a splint today. Departure - Departure Disposition: 01 Home, Self Care Clinical Impression: Elbow pain, right Condition: Stable Instructions: ED Contusion Elbow Follow-Up: Dipti Porras ARNP [Primary Care Provider] -
== END 2019-03-14 16:39 | disposition home or self-care (01) ==
LOC: ED 14:01
DX: M25.521 Pain in right elbow (principal); W18.30XA Fall on same level, unspecified, initial encounter; Y92.009 Unspecified place in unspecified non-institutional (private) residence as the place of occurrence of the external cause; E11.9 Type 2 diabetes mellitus without complications; Z79.84 Long term (current) use of oral hypoglycemic drugs
CPT/HCPCS: 99282

== ENCOUNTER 2019-03-17 09:31 | Outpatient (CLI) | payer MEDICARE, OTHER, MEDICAID ==
[2019-03-17 13:42] LABS: HEMOGLOBIN A1C 0.6 g/dL; HEMOGLOBIN A1C % 6.4 % (4.6-6.2)
== END 2019-03-17 23:59 | disposition home or self-care (01) ==
LOC: LAB.N 09:31
PROVIDERS: ATTEND Nurse Practitioner Gerontology
DX: E11.9 Type 2 diabetes mellitus without complications (principal)
CPT/HCPCS: 36415; 83036

== ENCOUNTER 2019-03-23 20:16 | Emergency (ER) | payer MEDICARE, OTHER, MEDICAID ==
[2019-03-23] MEDS ORDERED: predniSONE 20 MG TABLET PO STA (20:55)
[2019-03-23] MEDS ORDERED: COLCHICINE 0.6 MG TABLET PO STA (20:55)
[2019-03-23] MEDS ORDERED: HYDROcod/ACET 5/325 Prepack 4 PO STA (20:55)
[2019-03-23] MEDS ORDERED: INDOMETHACIN 25 MG CAPSULE PO STA (20:55)
--- NOTE | 2019-03-23 20:57 | ED Physician Documentation ---
PD HPI LOWER EXT INJURY - Stated complaint Stated Complaint: LT ANKLE PX - Chief complaint Chief Complaint: Ext Problem - History obtained from History obtained from: Patient - History of Present Illness PD HPI LOW EXT INJURY LOCATION: Left (Without specific injury she developed left foot swelling. She thinks it started today. She has a history of gout and vacillates as to whether that this is the same or different. 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 HEENT: Chronic vision loss Psych: None, Other Musculoskeletal: None Derm: None - Past Surgical History Past Surgical History: Yes /CHIEF BUSINESS OFFICER: Dilation and currettage, Other HEENT: Myringotomy (tubes) - Present Medications Home Medications: Ambulatory Orders Medication Instructions Recorded Confirmed Cholecalciferol (Vitamin D3) 2,000 unit PO DAILY 01/01/13 01/14/19 [Vitamin D] Ferrous Gluconate [Iron] 324 mg PO DAILY 01/01/13 01/14/19 Lisinopril 20 mg PO DAILY 01/01/13 01/14/19 Metformin HCl 850 mg PO BID 01/01/13 01/14/19 Multivitamin [Multivitamins] 1 each PO DAILY 01/01/13 01/14/19 Lansoprazole [Prevacid] 30 mg PO DAILY 02/18/15 01/14/19 Magnesium Chloride [Mag Delay] 64 mg PO DAILY 12/12/16 01/14/19 Ibuprofen [Motrin] 800 mg PO Q8H PRN #20 tablet 10/29/18 01/14/19 Hydrocodone/Acetaminophen 1 - 2 each PO Q6H PRN #10 tablet 03/23/19 [Hydrocodon-Acetaminophen 5-325] predniSONE [Deltasone] 60 mg PO DAILY 5 Days tablet 03/23/19 - Allergies Allergies/Adverse Reactions: Allergies Allergy/AdvReac Type Severity Reaction Status Date / Time Penicillins Allergy Unknown Rash Verified 03/23/19 20:24 sulfamethoxazole Allergy Unknown Rash Verified 03/23/19 20:24 [From ] trimethoprim [From ] Allergy Unknown Rash Verified 03/23/19 20:24 amoxicillin [Amoxicillin] Allergy hives/itchi Verified 03/23/19 20:24 ng - Social History Does the pt smoke?: No Smoking Status: Never smoker Does the pt drink ETOH?: No Does the pt have substance abuse?: No - Immunizations Immunizations are current?: Yes - POLST Patient has POLST: No PD ED PE NORMAL - Vitals Vital signs reviewed: Yes - General General: Alert and oriented X 3, No acute distress - Extremities Extremities: Other (She has pretty classic podagra of the left first MTP with swelling and redness around there and pain with range of motion of the great toe.) - Neuro Neuro: Alert and oriented X 3, Normal speech Results - Vitals Vitals: Vital Signs - 24 hr 03/23/19 20:23 Temperature 36.4 C L Heart Rate 100 Respiratory 19 Rate Blood Pressure 151/83 H O2 Saturation 97 Oxygen O2 Source Room air Departure - Departure Disposition: 01 Home, Self Care Clinical Impression: Podagra Condition: Good Record reviewed to determine appropriate education?: Yes Instructions: ED Arthritis Gout, ED Diet Gout Prescriptions: Hydrocodone/Acetaminophen [Hydrocodon-Acetaminophen 5-325] 1 - 2 each PO Q6H PRN #10 tablet PRN Reason: pain predniSONE [Deltasone] 60 mg PO DAILY 5 Days tablet Comments: Call your doctor to arrange a follow-up appointment, make the next available appointment. In the interim, return anytime if worse or if new symptoms develop. Your blood pressure was elevated today on check into the emergency department. This does not mean that you have hypertension, it is a common phenomenon to come to the emergency department and have elevated blood pressure. I recommend that you see your primary care physician within the week to have it rechecked when you are feeling better.
[2019-03-23 21:38] VITALS: BP 138/79
== END 2019-03-23 21:25 | disposition home or self-care (01) ==
LOC: ED 20:16
DX: M10.072 Idiopathic gout, left ankle and foot (principal); R03.0 Elevated blood-pressure reading, without diagnosis of hypertension; E11.9 Type 2 diabetes mellitus without complications; Z79.84 Long term (current) use of oral hypoglycemic drugs
CPT/HCPCS: 99282; 99283; A9270; J7512

== ENCOUNTER 2019-03-25 21:31 | Outpatient (CLI) | payer MEDICARE, OTHER, MEDICAID | END 2019-03-25 21:32 | disposition critical access hospital (66) | LOC: EMS 21:31 | PROVIDERS: ATTEND Surgery | DX: M79.645 Pain in left finger(s) (principal) | CPT/HCPCS: A0425; A0429 ==

== ENCOUNTER 2019-04-10 13:02 | Emergency (ER) | payer MEDICARE, OTHER, MEDICAID ==
[2019-04-10 13:12] VITALS: BP 148/66
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
--- NOTE | 2019-04-10 14:53 | XRAY Report ---
Reason: fall off chair, posterior right rib pain Procedure Date: 04/10/2019 Accession Number: [id number] / [id number] Procedure: XR - Ribs w/PA Chest RT CPT Code: FULL RESULT: EXAM: RIGHT RIB RADIOGRAPHY EXAM DATE: 04/10/2019 02:37 PM. CLINICAL HISTORY: Fall off chair, posterior right rib pain. COMPARISON: CHEST 2 VIEW 10/26/2018 3:45 PM. TECHNIQUE: 1 view of the chest and 4 views of the ribs. FINDINGS: Bones: Normal. No displaced fracture or bone lesion. Lungs: No focal opacities. No pneumothorax. No pleural effusions. Mediastinum: Mild enlargement of the cardiac silhouette appears similar to prior. Other: None. IMPRESSION: 1. No displaced fracture identified. 2. Stable mild cardiomegaly. 3. No pleural effusion or pneumothorax. RADIA
== END 2019-04-10 15:28 | disposition home or self-care (01) ==
LOC: ED 13:02
DX: S20.211A Contusion of right front wall of thorax, initial encounter (principal); W07.XXXA Fall from chair, initial encounter; Y92.22 Religious institution as the place of occurrence of the external cause; E11.9 Type 2 diabetes mellitus without complications; Z79.84 Long term (current) use of oral hypoglycemic drugs
CPT/HCPCS: 99282; 99283

== ENCOUNTER 2019-04-10 17:33 | Outpatient (CLI) | payer MEDICARE, OTHER, MEDICAID | END 2019-04-10 17:34 | disposition critical access hospital (66) | LOC: EMS 17:33 | PROVIDERS: ATTEND Surgery | DX: R07.81 Pleurodynia (principal); Y04.8XXA Assault by other bodily force, initial encounter | CPT/HCPCS: A0425; A0429 ==

== ENCOUNTER 2019-04-10 17:54 | Emergency (ER) | payer MEDICARE, OTHER, MEDICAID ==
[2019-04-10 18:04] VITALS: BP 111/60
== END 2019-04-10 19:20 | disposition left against medical advice (07) ==
LOC: EDUNIT# → ED 17:54
DX: S20.211A Contusion of right front wall of thorax, initial encounter (principal); W07.XXXA Fall from chair, initial encounter; Y92.22 Religious institution as the place of occurrence of the external cause; E11.9 Type 2 diabetes mellitus without complications; Z79.84 Long term (current) use of oral hypoglycemic drugs
CPT/HCPCS: 99282; 99283

== ENCOUNTER 2019-04-16 13:49 | Outpatient (CLI) | payer MEDICARE, OTHER, MEDICAID | END 2019-04-16 13:50 | disposition critical access hospital (66) | LOC: EMS 13:49 | PROVIDERS: ATTEND Surgery | DX: R11.2 Nausea with vomiting, unspecified (principal); R10.9 Unspecified abdominal pain | CPT/HCPCS: A0425; A0429 ==

== ENCOUNTER 2019-04-16 14:07 | Emergency (ER) | payer MEDICARE, OTHER, MEDICAID ==
[2019-04-16] MEDS ORDERED: ACETAMINOPHEN 325 MG TABLET PO STA (14:43)
[2019-04-16] MEDS ORDERED: ONDANSETRON ODT 4 MG TABLET TL STA (14:43)
--- NOTE | 2019-04-16 15:07 | ED Physician Documentation ---
PD HPI ABD PAIN - Stated complaint Stated Complaint: VOMIT - Chief complaint Chief Complaint: Abd Pain - History obtained from History obtained from: Patient, EMS - History of Present Illness Timing - onset: How many hours ago (1) Timing - duration: Hours (1) Timing - details: Abrupt onset Pain level max: 10 Pain level now: 10 Quality: Aching, Pain Location: All over / everywhere Radiation: No: Chest, , Lower back, Left flank, Left shoulder, Right flank, Right shoulder, Upper back Improved by: Vomiting (once) Worsened by: No: Eating, Moving, Breathing, Position, Palpation Associated symptoms: Nausea, Vomiting. No: Fever, Hematemesis, Diarrhea, Constipation, Melena, Hematochezia - Additional information Additional information: Patient states she vomited once after eating [employer]. No fevers. No diarrhea. 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 : None HEENT: Chronic vision loss Psych: None, Other Musculoskeletal: None Derm: None - Past Surgical History Past Surgical History: Yes /SOLE PAINTER: Dilation and currettage, Other HEENT: Myringotomy (tubes) - Present Medications Home Medications: Ambulatory Orders Medication Instructions Recorded Confirmed Cholecalciferol (Vitamin D3) 2,000 unit PO DAILY 01/01/13 01/14/19 [Vitamin D] Ferrous Gluconate [Iron] 324 mg PO DAILY 01/01/13 01/14/19 Lisinopril 20 mg PO DAILY 01/01/13 01/14/19 Metformin HCl 850 mg PO BID 01/01/13 01/14/19 Multivitamin [Multivitamins] 1 each PO DAILY 01/01/13 01/14/19 Lansoprazole [Prevacid] 30 mg PO DAILY 02/18/15 01/14/19 Magnesium Chloride [Mag Delay] 64 mg PO DAILY 12/12/16 01/14/19 Ibuprofen [Motrin] 800 mg PO Q8H PRN #20 tablet 10/29/18 01/14/19 Hydrocodone/Acetaminophen 1 - 2 each PO Q6H PRN #10 tablet 03/23/19 [Hydrocodon-Acetaminophen 5-325] predniSONE [Deltasone] 60 mg PO DAILY 5 Days tablet 03/23/19 Cefdinir 300 mg PO BID #20 capsule 04/16/19 Ondansetron Odt [Zofran] 4 mg TL Q6H PRN #10 tablet 04/16/19 - Allergies Allergies/Adverse Reactions: Allergies Allergy/AdvReac Type Severity Reaction Status Date / Time Penicillins Allergy Unknown Rash Verified 04/16/19 14:20 sulfamethoxazole Allergy Unknown Rash Verified 04/16/19 14:20 [From ] trimethoprim [From ] Allergy Unknown Rash Verified 04/16/19 14:20 amoxicillin [Amoxicillin] Allergy hives/itchi Verified 04/16/19 14:20 ng - Social History Does the pt smoke?: No Smoking Status: Never smoker Does the pt drink ETOH?: No Does the pt have substance abuse?: No - Immunizations Immunizations are current?: Yes - POLST Patient has POLST: No PD ED PE NORMAL - Vitals Vital signs reviewed: Yes - General General: Alert and oriented X 3, No acute distress - HEENT HEENT: Moist mucous membranes - Neck Neck: Supple, no meningeal sign - Cardiac Cardiac: RRR - Respiratory Respiratory: No respiratory distress, Clear bilaterally - Abdomen Abdomen: Soft, Other (Diffusely tender to palpation without peritoneal signs.) - Back Back: No CVA TTP - Derm Derm: Warm and dry - Neuro Neuro: Alert and oriented X 3 - Psych Psych: Normal mood, Normal affect Results - Vitals Vitals: Vital Signs - 24 hr 04/16/19 04/16/19 14:17 17:36 Temperature 37.2 C 36.2 C L Heart Rate 92 87 Respiratory 20 16 Rate Blood Pressure 126/61 117/76 O2 Saturation 97 96 Oxygen O2 Source Room air - Labs Labs: Laboratory Tests 04/16/19 04/16/19 15:15 15:15 WBC 11.3 H RBC 4.50 Hgb 11.6 L Hct 36.8 L MCV 81.8 MCH 25.8 L MCHC 31.5 L RDW 16.1 H Plt Count 219 MPV 10.1 Neut # (Auto) 9.2 H Lymph # (Auto) 1.3 L [place] # (Auto) 0.5 Eos # (Auto) 0.1 Baso # (Auto) 0.0 Absolute Nucleated RBC 0.00 Nucleated RBC % 0.0 Sodium 135 Potassium 4.5 Chloride 105 Carbon Dioxide 15 L Anion Gap 15.0 H BUN QNS Creatinine QNS Estimated GFR (MDRD) TNP Glucose 141 H Calcium 8.8 Total Bilirubin 0.6 AST 21 ALT 18 Alkaline Phosphatase 72 Total Protein 7.3 Albumin 3.7 Globulin 3.6 Albumin/Globulin Ratio 1.0 Lipase 57 H - Rads (name of study) CT abdomen pelvis Radiology: Prelim report reviewed, EMP read contemporaneously, See rad report (1. Normal appendix. 2. No bowel obstruction. No bowel wall thickening. 3. Normal CT appearance of the gallbladder and pancreas. 4. Slight heterogeneity in the region of the right renal pelvis. Low-grade inflammatory changes of the right renal pelvis could be considered. Correlate with urinalysis. No obstructing calculi. No hydronephrosis. 5. Fatty liver. ) PD MEDICAL DECISION MAKING - ED course Complexity details: reviewed results, re-evaluated patient, considered differential, d/w patient ED course: 58-year-old female with abdominal pain and vomiting. Symptoms resolved in the emergency department. She refuses to give a urine sample to evaluate for potential pyelonephritis as seen on the CT scan. CT scan undertaken after a low CO2 Found on lab work. Patient is well-appearing, nontoxic. Afebrile. Patient counseled regarding signs and symptoms for which I believe and urgent re-evaluation would be necessary. Patient with good understanding of and agreement to plan and is comfortable going home at this time This document was made in part using voice recognition software. While efforts are made to proofread this document, sound alike and grammatical errors may occur. Departure - Departure Disposition: 01 Home, Self Care Clinical Impression: Vomiting Qualifiers: Vomiting type: unspecified Vomiting Intractability: non-intractable Nausea presence: with nausea Qualified Code(s): R11.2 - Nausea with vomiting, unspecified Condition: Good Instructions: ED Nausea Vomiting Follow-Up: Venus Kirkland DNP [Primary Care Provider] - Within 1 week Prescriptions: Cefdinir 300 mg PO BID #20 capsule Ondansetron Odt [Zofran] 4 mg TL Q6H PRN #10 tablet PRN Reason: Nausea / Vomiting Comments: Use the zofran as needed return if you worsen. You may have a kidney infection, but because you refused to give us a urine sample, we cannot confirm this. We will treat you based on your symptoms. Take all antibiotics until gone. Discharge Date/Time: 04/16/19 17:48
[2019-04-16 15:21] LABS: BASOPHILS % (AUTO) 0.4 %; EOSINOPHILS # (AUTO) 0.1 10^3/uL (0.0-0.7); EOSINOPHILS % (AUTO) 1.2 %; HGB - HEMOGLOBIN 11.6 g/dL (12.0-16.0); LYMPHOCYTES # (AUTO) 1.3 10^3/uL (1.5-3.5); LYMPHOCYTES % (AUTO) 11.4 %; MEAN CORPUSCULAR HEMOGLOBIN 25.8 pg (27.0-31.0); MEAN CORPUSCULAR HGB CONC 31.5 g/dL (32.0-36.0); MEAN CORPUSCULAR VOLUME 81.8 fL (81.0-99.0); MEAN PLATELET VOLUME 10.1 fL (7.9-10.8); MONOCYTES # (AUTO) 0.5 10^3/uL (0.0-1.0); MONOCYTES % (AUTO) 4.7 %; NEUTROPHILS # (AUTO) 9.2 10^3/uL (1.5-6.6); NEUTROPHILS % (AUTO) 81.8 %; PLT - PLATELET COUNT 219 10^3/uL (130-450); RED CELL DISTRIBUTION WIDTH 16.1 % (12.0-15.0); WHITE BLOOD COUNT 11.3 x10^3/uL (4.8-10.8)
[2019-04-16 15:34] LABS: ALBUMIN 3.7 g/dL (3.2-5.5); ALKALINE PHOSPHATASE 72 IU/L (42-121); ALT ALANINE AMINOTRANSFERASE 18 IU/L (10-60); AST ASPARTATE AMINOTRANSFERASE 21 IU/L (10-42); BILIRUBIN,TOTAL 0.6 mg/dL (0.2-1.0); CALCIUM 8.8 mg/dL (8.5-10.3); CARBON DIOXIDE - CO2 15 mmol/L (21-32); CHLORIDE 105 mmol/L (101-111); GLUCOSE 141 mg/dL (70-100); LIPASE 57 U/L (22-51); SODIUM 135 mmol/L (135-145); TOTAL PROTEIN 7.3 g/dL (6.7-8.2)
[2019-04-16 15:41] LABS: BUN - BLOOD UREA NITROGEN QNS mg/dL (6-20); CREATININE QNS mg/dL (0.4-1.0)
[2019-04-16] MEDS ORDERED: SODIUM CHLORIDE 0.9% 1,000 ML IV ONE ×2 (15:41)
[2019-04-16] MEDS ORDERED: IOVERSOL 320 100 ML VIAL IVP ONE ×2 (16:11→16:45)
--- NOTE | 2019-04-16 17:20 | CT Report ---
Reason: abd pain, vomiting Procedure Date: 04/16/2019 Accession Number: [id number] / [id number] Procedure: CT - Abdomen/Pelvis W CPT Code: FULL RESULT: EXAM: CT ABDOMEN AND PELVIS EXAM DATE: 04/16/2019 04:45 PM. CLINICAL HISTORY: Abdominal pain, vomiting. COMPARISONS: ABDOMEN/PELVIS W/O 07/07/2018 12:19 AM. TECHNIQUE: Routine helical CT imaging was performed through the abdomen and pelvis. IV contrast: 90 mL of Optiray 320. Enteric contrast: No. Reconstructions: Coronal and sagittal. In accordance with CT protocol optimization, one or more of the following dose reduction techniques were utilized for this exam: automated exposure control, adjustment of mA and/or KV based on patient size, or use of iterative reconstructive technique. FINDINGS: Lung Bases: Bibasilar scar/atelectasis. Heart size upper normal. Tiny hiatal hernia. Liver: Diffuse fatty liver. Gallbladder/Bile Ducts: Unremarkable. Spleen: Normal. Pancreas: Normal. Adrenal Glands: Thickened adrenal glands again seen. Kidneys: Left renal subcentimeter low attenuation lesions, too small to characterize. Upper pole 2 mm nonobstructing left renal calculus. No obstructing calculi. Mild heterogeneity and slight edema along the right renal pelvis. Peritoneal Cavity/Bowel: Stomach is mildly distended and unremarkable. No small bowel obstruction or small bowel wall thickening. No small bowel dilatation. Small volume of stool in the colon. No diverticulitis. No free air. No free fluid. No enlarged retroperitoneal or mesenteric lymph nodes. The appendix is well visualized and normal. Pelvic Organs: Urinary bladder is mildly distended and unremarkable. No bladder calculi. No adnexal masses. Vasculature: Vascular calcifications. No aneurysm. Bones: Degenerative changes of the lower thoracic and lumbar spine. Degenerative facet arthropathy. Degenerative changes of both hip joints. Other: None. IMPRESSION: 1. Normal appendix. 2. No bowel obstruction. No bowel wall thickening. 3. Normal CT appearance of the gallbladder and pancreas. 4. Slight heterogeneity in the region of the right renal pelvis. Low-grade inflammatory changes of the right renal pelvis could be considered. Correlate with urinalysis. No obstructing calculi. No hydronephrosis. 5. Fatty liver. RADIA
[2019-04-16 17:36] VITALS: BP 117/76
== END 2019-04-16 17:48 | disposition home or self-care (01) ==
LOC: EDUNIT# → ED 14:07
DX: R11.2 Nausea with vomiting, unspecified (principal); R10.9 Unspecified abdominal pain; R79.89 Other specified abnormal findings of blood chemistry; E11.9 Type 2 diabetes mellitus without complications; Z79.84 Long term (current) use of oral hypoglycemic drugs
CPT/HCPCS: 36415; 74177; 80053; 83690; 85025; 99284; A9270; Q0162; Q9967

== ENCOUNTER 2019-05-13 11:06 | Outpatient (CLI) | payer MEDICARE, OTHER, MEDICAID | END 2019-05-13 11:07 | disposition critical access hospital (66) | LOC: EMS 11:06 | PROVIDERS: ATTEND Surgery | DX: M79.661 Pain in right lower leg (principal) | CPT/HCPCS: A0425; A0429 ==

== ENCOUNTER 2019-05-13 11:25 | Emergency (ER) | payer MEDICARE, OTHER, MEDICAID ==
[2019-05-13 11:37] VITALS: BP 134/69
--- NOTE | 2019-05-13 12:29 | ED Physician Documentation ---
PD HPI LOWER EXT INJURY - Stated complaint Stated Complaint: R KNEE PAIN - Chief complaint Chief Complaint: Ext Problem - History obtained from History obtained from: Patient - History of Present Illness PD HPI LOW EXT INJURY LOCATION: Right, Lower leg Type of injury: Fall Where injury occurred: Home Timing - onset: How many hours ago (4) - Additional information Additional information: The patient is a 58-year-old female who is well known to us in the emergency department because of her frequent visits with minor complaints. She presents today complaining of pain and swelling of her right lower leg after falling at home about 4 hours prior to arrival. She has been ambulatory since the incident occurred. She denies any other injuries. Review of Systems Constitutional: denies: Fever Nose: denies: Congestion Cardiac: denies: Chest pain / pressure Respiratory: denies: Dyspnea GI: denies: Abdominal Pain Musculoskeletal: reports: Extremity pain (right lower leg.). 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: Dilation and currettage, Other HEENT: Myringotomy (tubes) - Present Medications Home Medications: Ambulatory Orders Medication Instructions Recorded Confirmed Cholecalciferol (Vitamin D3) 2,000 unit PO DAILY 01/01/13 01/14/19 [Vitamin D] Ferrous Gluconate [Iron] 324 mg PO DAILY 01/01/13 01/14/19 Lisinopril 20 mg PO DAILY 01/01/13 01/14/19 Metformin HCl 850 mg PO BID 01/01/13 01/14/19 Multivitamin [Multivitamins] 1 each PO DAILY 01/01/13 01/14/19 Lansoprazole [Prevacid] 30 mg PO DAILY 02/18/15 01/14/19 Magnesium Chloride [Mag Delay] 64 mg PO DAILY 12/12/16 01/14/19 Ibuprofen [Motrin] 800 mg PO Q8H PRN #20 tablet 10/29/18 01/14/19 Hydrocodone/Acetaminophen 1 - 2 each PO Q6H PRN #10 tablet 03/23/19 [Hydrocodon-Acetaminophen 5-325] predniSONE [Deltasone] 60 mg PO DAILY 5 Days tablet 03/23/19 Cefdinir 300 mg PO BID #20 capsule 04/16/19 Ondansetron Odt [Zofran] 4 mg TL Q6H PRN #10 tablet 04/16/19 - Allergies Allergies/Adverse Reactions: Allergies Allergy/AdvReac Type Severity Reaction Status Date / Time Penicillins Allergy Unknown Rash Verified 04/16/19 14:20 sulfamethoxazole Allergy Unknown Rash Verified 04/16/19 14:20 [From ] trimethoprim [From ] Allergy Unknown Rash Verified 04/16/19 14:20 amoxicillin [Amoxicillin] Allergy hives/itchi Verified 04/16/19 14:20 ng - Social History Does the pt smoke?: No Smoking Status: Never smoker Does the pt drink ETOH?: No Does the pt have substance abuse?: No - Immunizations Immunizations are current?: Yes - POLST Patient has POLST: No PD ED PE NORMAL - Vitals Vital signs reviewed: Yes (Borderline systolic hypertension initially.) - HEENT HEENT: Atraumatic - Respiratory Respiratory: No respiratory distress - Derm Derm: No rash - Extremities Extremities: No calf tenderness / cord, Other (There is mild swelling at the infrapatellar region of the right lower leg. There is no abrasion, ecchymosis, or significant tenderness to palpation. Distal neurovascular is intact.) - Neuro Neuro: Alert and oriented X 3, No motor deficit, No sensory deficit Results - Vitals Vitals: Vital Signs - 24 hr 05/13/19 11:34 Temperature 36.6 C Heart Rate 87 Respiratory 16 Rate Blood Pressure 134/69 H O2 Saturation 96 Oxygen O2 Source Room air PD MEDICAL DECISION MAKING - ED course Complexity details: considered differential, d/w patient ED course: The patient's presentation is most consistent with mild contusion to the right lower leg anteriorly, secondary to fall. There is no evidence of significant injury, and I do not think radiographic imaging as clinically indicated. Treatment in the emergency department included application of a 4 inch com pression wrap. I discussed with her the expected course of injury, symptomatic treatment, as well as potentially worrisome signs or symptoms that should prompt reevaluation. Departure - Departure Disposition: 01 Home, Self Care Clinical Impression: Contusion of right lower leg Qualifiers: Encounter type: initial encounter Qualified Code(s): S80.11XA - Contusion of right lower leg, initial encounter Condition: Stable Instructions: ED Contusion Lower Ext Follow-Up: Venus Kirkland DNP [Primary Care Provider] - Comments: Wear the Jonh wrap if it provides comfort. Follow-up with your primary physician if not starting to improve within 1 week. Return to the emergency department if increasing pain or swelling, or otherwise worsening symptoms. Discharge Date/Time: 05/13/19 12:33
== END 2019-05-13 12:33 | disposition home or self-care (01) ==
LOC: ED 11:25
DX: S80.11XA Contusion of right lower leg, initial encounter (principal); W19.XXXA Unspecified fall, initial encounter; Y92.009 Unspecified place in unspecified non-institutional (private) residence as the place of occurrence of the external cause; E11.9 Type 2 diabetes mellitus without complications; Z79.84 Long term (current) use of oral hypoglycemic drugs
CPT/HCPCS: 99282; 99283

== ENCOUNTER 2019-05-18 14:31 | Emergency (ER) | payer MEDICARE, OTHER, MEDICAID ==
[2019-05-18 14:39] VITALS: BP 123/63
== END 2019-05-18 16:51 | disposition left against medical advice (07) ==
LOC: ED 14:31
DX: Z53.21 Procedure and treatment not carried out due to patient leaving prior to being seen by health care provider (principal)

== ENCOUNTER 2019-05-20 11:44 | Emergency (ER) | payer MEDICARE, OTHER, MEDICAID ==
--- NOTE | 2019-05-20 13:08 | ED Physician Documentation ---
PD HPI LOWER EXT INJURY - Stated complaint Stated Complaint: RT LEG INJ - Chief complaint Chief Complaint: Ext Problem - History obtained from History obtained from: Patient - History of Present Illness PD HPI LOW EXT INJURY LOCATION: Right (She tripped and fell today injuring her right maxwell, no other injuries. Pain is moderate. 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: Dilation and currettage, Other HEENT: Myringotomy (tubes) - Present Medications Home Medications: Ambulatory Orders Medication Instructions Recorded Confirmed Cholecalciferol (Vitamin D3) 2,000 unit PO DAILY 01/01/13 01/14/19 [Vitamin D] Ferrous Gluconate [Iron] 324 mg PO DAILY 01/01/13 01/14/19 Multivitamin [Multivitamins] 1 each PO DAILY 01/01/13 01/14/19 RX: Lisinopril 20 mg PO DAILY 01/01/13 01/14/19 RX: Metformin HCl 850 mg PO BID 01/01/13 01/14/19 RX: Lansoprazole [Prevacid] 30 mg PO DAILY 02/18/15 01/14/19 Magnesium Chloride [Mag Delay] 64 mg PO DAILY 12/12/16 01/14/19 Ibuprofen [Motrin] 800 mg PO Q8H PRN #20 tablet 10/29/18 01/14/19 Hydrocodone/Acetaminophen 1 - 2 each PO Q6H PRN #10 tablet 03/23/19 [Hydrocodon-Acetaminophen 5-325] RX: predniSONE [Deltasone] 60 mg PO DAILY 5 Days tablet 03/23/19 Ondansetron Odt [Zofran] 4 mg TL Q6H PRN #10 tablet 04/16/19 RX: Cefdinir 300 mg PO BID #20 capsule 04/16/19 - Allergies Allergies/Adverse Reactions: Allergies Allergy/AdvReac Type Severity Reaction Status Date / Time Penicillins Allergy Unknown Rash Verified 05/20/19 11:52 sulfamethoxazole Allergy Unknown Rash Verified 05/20/19 11:52 [From Septra] trimethoprim [From Septra] Allergy Unknown Rash Verified 05/20/19 11:52 amoxicillin [Amoxicillin] Allergy hives/itchi Verified 05/20/19 11:52 ng - Social History Does the pt smoke?: No Smoking Status: Never smoker Does the pt drink ETOH?: No Does the pt have substance abuse?: No - Immunizations Immunizations are current?: Yes - POLST Patient has POLST: No PD ED PE NORMAL - Vitals Vital signs reviewed: Yes - General General: Alert and oriented X 3, No acute distress - Extremities Extremities: Other (Mild tenderness of the upper anterior tibia on the right with a small bruise, no deformity. No other lower extremity tenderness.) - Neuro Neuro: Alert and oriented X 3, Normal speech Results - Vitals Vitals: Vital Signs - 24 hr 05/20/19 05/20/19 11:46 14:00 Temperature 36.7 C Heart Rate 88 74 Respiratory 16 16 Rate Blood Pressure 132/74 H 137/55 H O2 Saturation 98 98 Oxygen O2 Source Room air - Rads (name of study) R tibfib XR Radiology: EMP read contemporaneously (normal) Departure - Departure Disposition: 01 Home, Self Care Clinical Impression: Contusion of right leg Condition: Good Record reviewed to determine appropriate education?: Yes Instructions: ED Contusion Lower Extr Ch Discharge Date/Time: 05/20/19 14:00
--- NOTE | 2019-05-20 13:56 | XRAY Report ---
Reason: leg inj Procedure Date: 05/20/2019 Accession Number: [id number] / [id number] Procedure: XR - Tib/Fib RT CPT Code: FULL RESULT: EXAM: RIGHT TIBIA/FIBULA RADIOGRAPHY EXAM DATE: 05/20/2019 01:37 PM. CLINICAL HISTORY: Leg injury. Ground-level fall. COMPARISON: None. TECHNIQUE: 2 views. FINDINGS: Bones: No acute fracture or bony lesion. Joints: Normal alignment . No dislocation. Degenerative changes of the right knee and right ankle. Soft Tissues: Normal. No soft tissue swelling. IMPRESSION: 1. No acute osseous abnormalities. RADIA
[2019-05-20 14:01] VITALS: BP 137/55
== END 2019-05-20 14:00 | disposition home or self-care (01) ==
LOC: ED 11:44
DX: S80.11XA Contusion of right lower leg, initial encounter (principal); W01.0XXA Fall on same level from slipping, tripping and stumbling without subsequent striking against object, initial encounter; Y92.039 Unspecified place in apartment as the place of occurrence of the external cause; E11.9 Type 2 diabetes mellitus without complications; Z79.84 Long term (current) use of oral hypoglycemic drugs
CPT/HCPCS: 99282; 99283

== ENCOUNTER 2019-05-24 13:01 | Emergency (ER) | payer MEDICARE, OTHER, MEDICAID ==
--- NOTE | 2019-05-24 13:32 | ED Physician Documentation ---
PD HPI LOWER EXT INJURY - Stated complaint Stated Complaint: LEG PX - Chief complaint Chief Complaint: Ext Problem - History obtained from History obtained from: Patient - History of Present Illness PD HPI LOW EXT INJURY LOCATION: Right, Lower leg Type of injury: Fall Where injury occurred: Home Timing - onset: Today Timing - details: Abrupt onset Worsened by: Palpating, Other (walking) Associated symptoms: Swelling (local swelling mid lower leg anterolaterally). 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 : None HEENT: Chronic vision loss Psych: Other Musculoskeletal: None Derm: None Other Past Medical History: developmentaly delayed - Past Surgical History Past Surgical History: Yes /PARKING PATROLLER: Dilation and currettage, Other HEENT: Myringotomy (tubes) - Present Medications Home Medications: Ambulatory Orders Medication Instructions Recorded Confirmed Cholecalciferol (Vitamin D3) 2,000 unit PO DAILY 01/01/13 01/14/19 [Vitamin D] Ferrous Gluconate [Iron] 324 mg PO DAILY 01/01/13 01/14/19 Lisinopril 20 mg PO DAILY 01/01/13 01/14/19 Metformin HCl 850 mg PO BID 01/01/13 01/14/19 Multivitamin [Multivitamins] 1 each PO DAILY 01/01/13 01/14/19 Lansoprazole [Prevacid] 30 mg PO DAILY 02/18/15 01/14/19 Magnesium Chloride [Mag Delay] 64 mg PO DAILY 12/12/16 01/14/19 Ibuprofen [Motrin] 800 mg PO Q8H PRN #20 tablet 10/29/18 01/14/19 Hydrocodone/Acetaminophen 1 - 2 each PO Q6H PRN #10 tablet 03/23/19 [Hydrocodon-Acetaminophen 5-325] predniSONE [Deltasone] 60 mg PO DAILY 5 Days tablet 03/23/19 Cefdinir 300 mg PO BID #20 capsule 04/16/19 Ondansetron Odt [Zofran] 4 mg TL Q6H PRN #10 tablet 04/16/19 - Allergies Allergies/Adverse Reactions: Allergies Allergy/AdvReac Type Severity Reaction Status Date / Time Penicillins Allergy Unknown Rash Verified 05/20/19 11:52 sulfamethoxazole Allergy Unknown Rash Verified 05/20/19 11:52 [From ] trimethoprim [From ] Allergy Unknown Rash Verified 05/20/19 11:52 amoxicillin [Amoxicillin] Allergy hives/itchi Verified 05/20/19 11:52 ng - Social History Does the pt smoke?: No Smoking Status: Never smoker Does the pt drink ETOH?: No Does the pt have substance abuse?: No - Immunizations Immunizations are current?: Yes - POLST Patient has POLST: No PD ED PE NORMAL - Vitals Vital signs reviewed: Yes - General General: Alert and oriented X 3, No acute distress, Well developed/nourished - Back Back: No spinal TTP - Derm Derm: Normal color, Warm and dry - Extremities Extremities: Other (right mid lower leg anterolaterally with local area of swelling and tenderness, mild bruising noted. Some tender over mid fibular area. No noted deformity. Ankle and knee not tender. ) - Neuro Neuro: Alert and oriented X 3, No motor deficit, No sensory deficit, Normal speech (her usual simple pattern of speech.) Results - Vitals Vitals: Vital Signs - 24 hr 05/24/19 05/24/19 13:09 14:27 Temperature 36.5 C Heart Rate 80 82 Respiratory 18 18 Rate Blood Pressure 112/48 L 112/49 L O2 Saturation 99 98 Oxygen O2 Source Room air - Rads (name of study) lower leg right Radiology: Prelim report reviewed, See rad report PD MEDICAL DECISION MAKING - ED course Complexity details: reviewed results (no fractures of fibula), considered differential, d/w patient Departure - Departure Disposition: 01 Home, Self Care Clinical Impression: Contusion of right lower leg Qualifiers: Encounter type: initial encounter Qualified Code(s): S80.11XA - Contusion of right lower leg, initial encounter Condition: Stable Record reviewed to determine appropriate education?: Yes Instructions: ED Contusion Lower Ext Comments: Your x-ray appears normal. He will still be sore with the bruise there for a few days. Use the Jonh wrap if needed. Tylenol every 4 hours if needed for pains. Discharge Date/Time: 05/24/19 14:31
[2019-05-24] MEDS ORDERED: ACETAMINOPHEN 325 MG TABLET PO STA (13:44)
--- NOTE | 2019-05-24 14:21 | XRAY Report ---
Reason: fell and struck mid fibular area with bruise there Procedure Date: 05/24/2019 Accession Number: [id number] / [id number] Procedure: XR - Tib/Fib RT CPT Code: FULL RESULT: EXAM: RIGHT TIBIA/FIBULA RADIOGRAPHY EXAM DATE: 05/24/2019 02:03 PM. CLINICAL HISTORY: Fell and struck mid fibular area with bruise there. COMPARISON: LEG LOWER RT 05/20/2019 1:20 PM KNEE 4 VIEW RT 01/17/2019 7:18 PM. TECHNIQUE: 2 views. FINDINGS: Bones: Normal. No fracture or bone lesion. Joints: The visualized knee and ankle joints are normally aligned. There is mild joint space narrowing of the lateral compartment of the knee. Soft Tissues: Unremarkable. No focal soft tissue swelling appreciated. IMPRESSION: No acute osseous abnormality of the right tibia/fibula. RADIA
[2019-05-24 14:27] VITALS: BP 112/49
== END 2019-05-24 14:31 | disposition home or self-care (01) ==
LOC: ED 13:01
DX: S80.11XA Contusion of right lower leg, initial encounter (principal); W18.30XA Fall on same level, unspecified, initial encounter; Y92.009 Unspecified place in unspecified non-institutional (private) residence as the place of occurrence of the external cause; E11.9 Type 2 diabetes mellitus without complications; Z79.84 Long term (current) use of oral hypoglycemic drugs
CPT/HCPCS: 73590; 99282; 99283; A9270

== ENCOUNTER 2019-06-29 09:25 | Outpatient (CLI) | payer MEDICARE, OTHER, MEDICAID ==
[2019-06-29 13:01] LABS: HB2 TOTAL 12.2 g/dL; HEMOGLOBIN A1C 0.54 g/dL; HEMOGLOBIN A1C % 6.2 % (4.6-6.2)
== END 2019-06-29 23:59 | disposition home or self-care (01) ==
LOC: LAB.N 09:25
PROVIDERS: ATTEND Nurse Practitioner Gerontology
DX: E11.9 Type 2 diabetes mellitus without complications (principal)
CPT/HCPCS: 36415; 83036

== ENCOUNTER 2019-06-29 14:32 | Emergency (ER) | payer MEDICARE, OTHER, MEDICAID ==
[2019-06-29 14:39] VITALS: BP 117/71
--- NOTE | 2019-06-29 14:46 | ED Physician Documentation ---
History of Present Illness - Stated complaint Stated Complaint: L FOOT PX - Chief complaint Chief Complaint: Ext Problem - Additonal information Additional information: This is a 58-year-old female presents with pain in her left foot. She has a history of gout and states that over the last 48 hours she has had some increasing pain in the base of her left great toe, where she commonly has gout flares. She otherwise feels well, denies any fever, has been able to walk on it. She has a history of presenting for a variety of extremity pains and complaints. 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: Dilation and currettage, Other HEENT: Myringotomy (tubes) - Present Medications Home Medications: Ambulatory Orders Medication Instructions Recorded Confirmed Cholecalciferol (Vitamin D3) 2,000 unit PO DAILY 01/01/13 01/14/19 [Vitamin D] Ferrous Gluconate [Iron] 324 mg PO DAILY 01/01/13 01/14/19 Lisinopril 20 mg PO DAILY 01/01/13 01/14/19 Metformin HCl 850 mg PO BID 01/01/13 01/14/19 Multivitamin [Multivitamins] 1 each PO DAILY 01/01/13 01/14/19 Lansoprazole [Prevacid] 30 mg PO DAILY 02/18/15 01/14/19 Magnesium Chloride [Mag Delay] 64 mg PO DAILY 12/12/16 01/14/19 Ibuprofen [Motrin] 800 mg PO Q8H PRN #20 tablet 10/29/18 01/14/19 Hydrocodone/Acetaminophen 1 - 2 each PO Q6H PRN #10 tablet 03/23/19 [Hydrocodon-Acetaminophen 5-325] predniSONE [Deltasone] 60 mg PO DAILY 5 Days tablet 03/23/19 Cefdinir 300 mg PO BID #20 capsule 04/16/19 Ondansetron Odt [Zofran] 4 mg TL Q6H PRN #10 tablet 04/16/19 Ibuprofen 600 mg PO Q6H PRN #14 tablet 06/29/19 - Allergies Allergies/Adverse Reactions: Allergies Allergy/AdvReac Type Severity Reaction Status Date / Time Penicillins Allergy Unknown Rash Verified 06/29/19 14:34 sulfamethoxazole Allergy Unknown Rash Verified 06/29/19 14:34 [From ] trimethoprim [From ] Allergy Unknown Rash Verified 06/29/19 14:34 amoxicillin [Amoxicillin] Allergy hives/itchi Verified 06/29/19 14:34 ng - Social History Does the pt smoke?: No Smoking Status: Never smoker Does the pt drink ETOH?: No Does the pt have substance abuse?: No - Immunizations Immunizations are current?: Yes - POLST Patient has POLST: No PD ED PE NORMAL - Vitals Vital signs reviewed: Yes - General General: Alert and oriented X 3, No acute distress - HEENT HEENT: PERRL - Neck Neck: Supple, no meningeal sign - Cardiac Cardiac: RRR - Derm Derm: Warm and dry - Extremities Extremities: Other (At the base of the left toe there is erythema and warmth, patient is able to range the toe, distal capillary refill is brisk. The region is mildly tender. No streaking or skin lesions.) - Neuro Neuro: Other (Awake, alert, no focal deficit) Results - Vitals Vitals: Oxygen O2 Source Room air PD MEDICAL DECISION MAKING - ED course ED course: Pt presents with classic gout symptoms with podagra, and a history of gout. No signs of infection at this time. I discussed treatment and return with any signs of infection such as worsening redness, fever, or any other concerning symptoms and patient was discharged home. Departure - Departure Disposition: 01 Home, Self Care Clinical Impression: Gout Qualifiers: Gout site: foot Gout etiology: unspecified cause Chronicity: acute Laterality: left Qualified Code(s): M10.9 - Gout, unspecified Condition: Good Instructions: Gout Prescriptions: Ibuprofen 600 mg PO Q6H PRN #14 tablet PRN Reason: Pain Comments: You were seen today for some pain and redness of your left foot, this appears to be gout. You may take ibuprofen as prescribed, though because your kidney function is not perfect, only take ibuprofen until your pain is controlled, ideally 1 week or less. If you develop signs of infection such as fever, redness streaking up your leg, or difficulty moving your ankle, return to the emergency department. Otherwise please follow-up with your primary care provider Discharge Date/Time: 06/29/19 15:49
[2019-06-29] MEDS ORDERED: IBUPROFEN 600 MG TABLET PO STA (15:33)
== END 2019-06-29 15:49 | disposition home or self-care (01) ==
LOC: ED 14:32
DX: M10.9 Gout, unspecified (principal); E11.9 Type 2 diabetes mellitus without complications; Z79.84 Long term (current) use of oral hypoglycemic drugs
CPT/HCPCS: 36415; 83036; 99282; 99283; A9270

== ENCOUNTER 2019-07-18 09:55 | Outpatient (CLI) | payer MEDICARE, OTHER, MEDICAID | END 2019-07-18 23:59 | disposition home or self-care (01) | LOC: LAB.N 09:55 | PROVIDERS: ATTEND Nurse Practitioner Gerontology | DX: M10.9 Gout, unspecified (principal) | CPT/HCPCS: 36415; 84550 ==